=== PATIENT | male | born 1945 | race Caucasian/White ===

== ENCOUNTER 2017-08-10 06:02 | Day surgery (SDC) | payer MEDICARE, BC ==
[~2017-08-10 06:02] MED LIST: Gatifloxacin 0.5% Ophth Soln 2.5 ML Bot EYERT SCH; Sodium Chloride 0.9% 1,000 ML IV SCH; Sodium Chloride 0.9% 5 ML Syringe FLUSH PRN
[2017-08-10] MEDS: Phenylephrine 10% Ophth Soln 5 ML Bot EYERT SCH ×3 (06:12→06:34)
[2017-08-10] MEDS: Cyclopentolate 1% Opth Soln 2 ML Bottle EYERT SCH ×3 (06:18→06:39)
[2017-08-10] MEDS: Albuterol/Ipratropium 3.0-0.5 MG/3 ML Neb Soln NEB ONE ×2 (07:11→08:09)
[2017-08-10] MEDS ORDERED: Balanced Salt Solution Ophth Irrig 15 ML Bottle EYERT ONE (07:48)
[2017-08-10] MEDS ORDERED: Water For Irrigation,Sterile 1,500 ML Container IRR ONE (07:48)
[2017-08-10] MEDS ORDERED: Balanced Salt Solution Plus Ophth Irrig 500 ML Bottle IOCULAR ONE (07:49)
[2017-08-10] MEDS ORDERED: Carbachol 0.01% Intraocular 1.5 ML Vial EYERT ONE (07:49)
[2017-08-10] MEDS ORDERED: EPINEPHrine 1 MG/ML SDV ONE (07:49)
[2017-08-10] MEDS ORDERED: Dexamethasone/Neomycin/Polymyxin B Ophth Oint 3.5 GM Tube EYERT ONE (07:50)
[2017-08-10] MEDS ORDERED: Lidocaine 2% with EPINEPHrine 1:100,000 20 ML MDV INFILT ONE (07:51)
[2017-08-10] MEDS ORDERED: Lidocaine 1% 10 ML MDV INFILT ONE (07:51)
[2017-08-10] MEDS ORDERED: Hyaluronate Sodium 1% 0.85 ML Syringe IOCULAR ONE (07:52)
[2017-08-10 09:13] VITALS: BP 121/60
--- NOTE | 2017-08-11 08:17 | OR ---
DATE OF SURGERY: 08/10/2017 SURGEON: Tramaine Way MD PREOPERATIVE DIAGNOSIS: Cataract, right eye. POSTOPERATIVE DIAGNOSIS: Cataract, right eye. OPERATION PERFORMED: Phacoemulsification with posterior chamber lens insertion, right eye. FINDINGS: The patient was taken to the operating room where appropriate anesthesia, sedation and monitoring were provided. A retrobulbar block was given on the right side. The eye was massaged and was found to be appropriately soft. The eye and eyelids were then prepped and draped in the usual sterile manner. A lid speculum was placed. A micro sharp blade was used to enter the anterior chamber inside the limbus superior-temporally. Xylocaine was irrigated into the eye at this site. Healon was irrigated into the eye through this site. Then using a 2.85 mm corneal blade an entry was made into the anterior chamber just inside the limbus temporally. Healon was again irrigated into the eye. Then using a cystitome, the anterior capsulorrhexis was created. The lens nucleus was hydrodissected using a 27 gauge cannula and balanced salt solution. The phacoemulsification unit was introduced through the temporal site and the Kenneth spatula through the superior temporal site. In so doing, the lens nucleus was phacoemulsified. The cortical fragments of the lens were removed using the irrigation aspiration unit. The posterior capsule was polished. Healon was irrigated into the eye. The posterior chamber lens was inserted and rotated into position inside the capsular bag. The Healon was irrigated out of the eye. Miostat was irrigated into the eye and the pupil rounded nicely. A single interrupted 10-0 Nylon suture was placed through the temporal corneal incision site. Balanced salt solution was irrigated into the eye. The wound was tested and found to be tight. Maxitrol ointment was placed into the patient's right eye. The eyelids were closed and an eye patch and conway shield were placed. The patient left the operating room in good condition. /[id number]/MODL
== END 2017-08-10 08:50 | disposition home or self-care (01) ==
LOC: KA.SDS 06:02
PROVIDERS: ATTEND Ophthalmology
DX: H25.811 Combined forms of age-related cataract, right eye (principal); M19.011 Primary osteoarthritis, right shoulder; J44.9 Chronic obstructive pulmonary disease, unspecified; E11.9 Type 2 diabetes mellitus without complications; I48.2 Chronic atrial fibrillation; E79.0 Hyperuricemia without signs of inflammatory arthritis and tophaceous disease; D50.0 Iron deficiency anemia secondary to blood loss (chronic); M15.9 Polyosteoarthritis, unspecified; M81.0 Age-related osteoporosis without current pathological fracture; I10 Essential (primary) hypertension; I87.2 Venous insufficiency (chronic) (peripheral); E04.1 Nontoxic single thyroid nodule; L40.50 Arthropathic psoriasis, unspecified; E66.01 Morbid (severe) obesity due to excess calories; Z68.41 Body mass index [BMI] 40.0-44.9, adult; Z79.4 Long term (current) use of insulin; Z79.51 Long term (current) use of inhaled steroids; Z79.899 Other long term (current) drug therapy; Z88.0 Allergy status to penicillin; Z88.8 Allergy status to other drugs, medicaments and biological substances; Z99.81 Dependence on supplemental oxygen
CPT/HCPCS: 00142; 66984; 82962; A9270; J0171; J7030; V2632

== ENCOUNTER 2017-09-07 07:17 | Day surgery (SDC) | payer MEDICARE, BC ==
[~2017-09-07 07:17] MED LIST changes: +Gatifloxacin 0.5% Ophth Soln 2.5 ML Bot EYELF SCH; -Gatifloxacin 0.5% Ophth Soln 2.5 ML Bot EYERT SCH
[2017-09-07] MEDS ORDERED: Albuterol/Ipratropium 3.0-0.5 MG/3 ML Neb Soln NEB ONE (07:40)
[2017-09-07] MEDS: Phenylephrine 10% Ophth Soln 5 ML Bot EYELF SCH ×3 (07:58→08:28)
[2017-09-07] MEDS ORDERED: Midazolam 1 MG/ML 2 ML SDV IV ONE (09:15)
[2017-09-07] MEDS ORDERED: Midazolam 1 MG/ML 2 ML SDV ONE (09:28)
[2017-09-07] MEDS ORDERED: Balanced Salt Solution Plus Ophth Irrig 500 ML Bottle IOCULAR ONE (09:35)
[2017-09-07] MEDS ORDERED: Water For Irrigation,Sterile 1,500 ML Container IRR ONE (09:35)
[2017-09-07] MEDS ORDERED: Balanced Salt Solution Ophth Irrig 15 ML Bottle EYELF ONE (09:35)
[2017-09-07] MEDS ORDERED: Dexamethasone/Neomycin/Polymyxin B Ophth Oint 3.5 GM Tube EYELF ONE (09:36)
[2017-09-07] MEDS ORDERED: Carbachol 0.01% Intraocular 1.5 ML Vial EYELF ONE (09:36)
[2017-09-07] MEDS ORDERED: EPINEPHrine 1 MG/ML SDV ONE (09:36)
[2017-09-07] MEDS ORDERED: Lidocaine 1% 10 ML MDV INJECT ONE (09:37)
[2017-09-07] MEDS ORDERED: Hyaluronate Sodium 1% 0.85 ML Syringe IOCULAR ONE (09:37)
[2017-09-07] MEDS ORDERED: Tetracaine HCl/PF 0.5% 4 ML Bottle EYEBOTH ONE (09:37)
[2017-09-07] MEDS ORDERED: Lidocaine 2% with EPINEPHrine 1:100,000 20 ML MDV INJECT ONE (09:37)
[2017-09-07 10:00] VITALS: BP 134/65
--- NOTE | 2017-09-08 08:18 | OR ---
DATE OF SURGERY: 09/07/2017 SURGEON: Tramaine Way MD CHIEF COMPLAINT: Blurred vision of the left eye with difficulty seeing to be able to read. 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 OPERATION PERFORMED: Phacoemulsification with posterior chamber lens insertion, left eye. FINDINGS: The patient was taken to the operating room where appropriate anesthesia, sedation and monitoring were provided. A retrobulbar block was given on the left side. The eye was massaged and was found to be appropriately soft. The eye and eyelids were then prepped and draped in the usual sterile manner. A lid speculum was placed. A micro sharp blade was used to enter the anterior chamber inside the limbus inferior-temporally. Xylocaine was irrigated into the eye at this site. Healon was irrigated into the eye through this site. Then using a 2.85 mm corneal blade an entry was made into the anterior chamber just inside the limbus temporally. Healon was again irrigated into the eye. Then using a cystitome, the anterior capsulorrhexis was created. The lens nucleus was hydrodissected using a 27 gauge cannula and balanced salt solution. The phacoemulsification unit was introduced through the temporal site and the Kenneth spatula through the inferior temporal site. In so doing, the lens nucleus was phacoemulsified. The cortical fragments of the lens were removed using the irrigation aspiration unit. The posterior capsule was polished. Healon was irrigated into the eye. The posterior chamber lens was inserted and rotated into position inside the capsular bag. The Healon was irrigated out of the eye. Miostat was irrigated into the eye and the pupil rounded nicely. A single interrupted 10-0 Nylon suture was placed through the temporal corneal incision site. Balanced salt solution was irrigated into the eye. The wound was tested and found to be tight. Maxitrol ointment was placed into the patient's left eye. The eyelids were closed and an eye patch and conway shield were placed. The patient left the operating room in good condition. /[id number]/MODL
== END 2017-09-07 10:07 | disposition home or self-care (01) ==
LOC: KA.SDS 07:17
PROVIDERS: ATTEND Ophthalmology
DX: H25.812 Combined forms of age-related cataract, left eye (principal); I48.2 Chronic atrial fibrillation; J44.9 Chronic obstructive pulmonary disease, unspecified; E11.49 Type 2 diabetes mellitus with other diabetic neurological complication; N18.9 Chronic kidney disease, unspecified; I12.9 Hypertensive chronic kidney disease with stage 1 through stage 4 chronic kidney disease, or unspecified chronic kidney disease; E11.22 Type 2 diabetes mellitus with diabetic chronic kidney disease; E66.01 Morbid (severe) obesity due to excess calories; Z68.41 Body mass index [BMI] 40.0-44.9, adult; Z79.84 Long term (current) use of oral hypoglycemic drugs; Z79.899 Other long term (current) drug therapy; Z88.0 Allergy status to penicillin; Z91.09 Other allergy status, other than to drugs and biological substances
CPT/HCPCS: 66984; 82962; A9270; J0171; J2250; J7030; 00142; V2632

== ENCOUNTER 2018-10-24 02:30 | Emergency (ER) | payer MEDICARE, BC ==
[2018-10-24] MEDS ORDERED: Oxymetazoline 0.05% Nasal Spray 15 ML Bottle ONE (02:48)
[2018-10-24] MEDS ORDERED: Oxymetazoline 0.05% Nasal Spray 15 ML Bottle NAS ONE (02:50)
--- NOTE | 2018-10-24 03:07 | EDM.PDOC ---
ED HPI GENERAL MEDICAL PROBLEM - General Chief Complaint: ENT Problem Stated Complaint: nose bleed Time Seen by Provider: 10/24/18 03:01 Source of Information: Reports: Patient History Limitations: Reports: No Limitations - History of Present Illness INITIAL COMMENTS - FREE TEXT/NARRATIVE: Patient is a 72-year-old gentleman who presents to the emergency department this morning with a complaint of nosebleed. 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 Patient was placed on 2 different anticoagulation medicines. At about 10 p.m. last evening. Patient developed nosebleed from the right nostril. Patient states that he used pressure and tissue but was unable to stop bleeding. Decided to present to the emergency department. Patient has a chronic history of intermittent nosebleeds. Patient denies any trauma, bleeding from gums, stool, or dark urine , fever, difficulty swallowing, chest pain, shortness of breath, nausea, vomiting, or headache. Onset: Gradual Onset Date: 10/23/18 Onset Time: 22:00 Duration: Hour(s): Location: Reports: Other (Right nostril) Improves with: Reports: None Worsens with: Reports: None Context: Denies: Trauma Associated Symptoms: Reports: No Other Symptoms - Related Data Allergies Allergy/AdvReac Type Severity Reaction Status Date / Time adhesive Allergy Itching Verified 09/02/18 15:54 latex Allergy Rash Verified 09/02/18 15:54 Penicillins Allergy Rash Verified 09/02/18 15:54 Home Meds: Home Meds Albuterol [Ventolin HFA] 2 puff INH Q4H PRN 12/23/13 [History] Benazepril [Lotensin] 20 mg PO DAILY 12/23/13 [History] Cholecalciferol (Vitamin D3) [Vitamin D3] 1,000 unit PO DAILY 12/23/13 [History] Insulin Detemir [Levemir] 70 unit SQ 0500 12/23/13 [History] Potassium Chloride 10 meq PO DAILY 12/23/13 [History] metFORMIN [Glucophage] 500 mg PO BIDM 12/23/13 [History] Denosumab [Prolia] 60 mg INJECT ASDIRECTED 07/09/15 [History] rOPINIRole HCl [Requip] 0.25 mg PO TID 07/09/15 [History] Ferrous Sulfate 325 mg PO BID 01/24/16 [History] Calcium Carbonate/Vitamin D3 [Calcium 600-Vit D3 400 Tablet] 1 tab PO BID [History] Furosemide 80 mg PO 1700 06/18/16 [History] Allopurinol [Zyloprim] 150 mg PO DAILY 07/21/16 [History] Betamethasone Valerate [IJD: Valisone 0.1% Crm] 1 applic TOP BID PRN 07/21/16 [ History] Mineral Oil/Petrolatum,White [Artificial Tears Eye Ointment] 1 applic OP Q6H PRN 07/21/16 [History] Montelukast [Singulair] 10 mg PO BEDTIME 07/21/16 [History] Acetaminophen [Arthritis Pain Relief] 650 mg PO BID PRN 08/09/17 [History] Gabapentin [Neurontin] 100 mg PO TID 08/09/17 [History] Omeprazole 20 mg PO DAILY 08/09/17 [History] traMADol [Ultram] 50 mg PO BEDTIME 08/09/17 [History] Dextromethorphan/guaiFENesin [Robitussin DM] 10 ml PO TID PRN 09/02/18 [History] atorvaSTATin [Lipitor] 10 mg PO DAILY 09/02/18 [History] Diltiazem HCl [Diltiazem 24Hr ER] 120 mg PO DAILY 09/03/18 [History] Albuterol/Ipratropium [DuoNeb 3.0-0.5 MG/3 ML] 1 dose NEB Q6H PRN #30 09/06/18 [ Rx] Fluticasone/Umeclidin/Vilanter [Trelegy Ellipta 100-62.5-25 MCG] 1 puff INH DAILY #1 inhaler 09/06/18 [Rx] Levofloxacin 750 mg PO Q48H #3 tablet 09/06/18 [Rx] Past Medical History HEENT History: Reports: Cataract, Hard of Hearing, Impaired Vision Cardiovascular History: Reports: Afib, Blood Clots/VTE/DVT, Heart Failure, Hypertension Respiratory History: Reports: Asthma, COPD, Sleep Apnea, SOB Gastrointestinal History: Reports: Chronic Constipation, GERD, GI Bleed, Hemorrhoids Genitourinary History: Reports: Prostate Disorder Musculoskeletal History: Reports: Arthritis, Gout, Osteoporosis Neurological History: Reports: Other (See Below) Other Neuro History: Restless legs Endocrine/Metabolic History: Reports: Diabetes, Type II, Obesity/BMI 30+ Hematologic History: Reports: Blood Transfusion(s), Iron Deficiency Dermatologic History: Reports: Other (See Below) Other Dermatologic History: Rash. Rash noted on bilat arms. - Infectious Disease History Infectious Disease History: Reports: None - Past Surgical History HEENT Surgical History: Reports: Cataract Surgery, Oral Surgery Other Cardiovascular Surgeries/Procedures: Angiogram performed on June 25, 2015 Respiratory Surgical History: Reports: None GI Surgical History: Reports: Colonoscopy, EGD, Hernia, Inguinal Endocrine Surgical History: Reports: None Musculoskeletal Surgical History: Reports: Knee Replacement Other Musculoskeletal Surgeries/Procedures:: bilateral knee replacement Oncologic Surgical History: Reports: Bone Marrow Aspiration Social & Family History - Family History Family Medical History: Noncontributory HEENT: Reports: None - Caffeine Use Caffeine Use: Reports: Coffee ED ROS ENT - Review of Systems Review Of Systems: ROS reveals no pertinent complaints other than HPI. Constitutional: Reports: No Symptoms HEENT: Reports: Nosebleed Respiratory: Reports: No Symptoms Cardiovascular: Reports: No Symptoms Endocrine: Reports: No Symptoms GI/Abdominal: Reports: No Symptoms : Reports: No Symptoms Musculoskeletal: Reports: No Symptoms Skin: Reports: No Symptoms Neurological: Reports: No Symptoms Psychiatric: Reports: No Symptoms Hematologic/Lymphatic: Reports: No Symptoms Immunologic: Reports: No Symptoms ED EXAM, ENT - Physical Exam Exam: See Below Exam Limited By: No Limitations General Appearance: Alert, WD/WN, No Apparent Distress Eye Exam: Bilateral Eye: Normal Inspection Nose: Active Bleeding, Other (Right nare visualized anterior bleeding). No: Septal Deformity, Septal Hematoma, Septal Perforation Mouth/Throat: Normal Inspection, Normal Oropharynx Head: Atraumatic, Normocephalic Neck: Normal Inspection. No: Lymphadenopathy (L), Lymphadenopathy (R) Respiratory/Chest: No Respiratory Distress, Lungs Clear, Normal Breath Sounds Extremities: Normal Inspection, No Pedal Edema Neurological: Alert, Oriented, Normal Cognition Psychiatric: Normal Affect, Normal Mood Skin: Warm, Dry, Intact, Normal Color, No Rash Lymphatic: No Adenopathy ED ENT PROCEDURES - Epistaxis Procedure Indication: Epistaxis, Uncontrolled Recent anticoagulants/antiplatlets: Yes Uncontrolled HTN: No Recent septal/nasal surgery: No Site of bleeding: Right Nare, Anterior Topical Meds: Phenylephrine Ice pack to area: Yes Anterior Packing: Inflatable Nasal Tampon Complications: No Course - Orders/Labs/Meds Meds: Medications Discontinued Medications Generic Name Dose Route Start Last Admin Trade Name Jae PRN Reason Stop Dose Admin Oxymetazoline HCl Confirm 10/24/18 02:48 Afrin Original 0.05% Nasal [place] Administered 10/24/18 02:49 Dose 15 ml .ROUTE .STK-MED ONE - Re-Assessments/Exams Free Text/Narrative Re-Assessment/Exam: 10/24/18 03:10 Patient afebrile, vital signs stable, inflatable nasal tampon placed in right nare. Patient tolerated procedure well. Hemostasis achieved. Patient has appointment today at [facility]. Nasal tampon will remain in place for evaluation later today. Departure - Departure Time of Disposition: 03:12 Disposition: Home, Self-Care 01 Condition: Good Clinical Impression: Epistaxis - Discharge Information Instructions: Nosebleed, [id number] Referrals: Héctor Cisneros, [employer] [employer] [Nurse Practitioner] - Additional Instructions: Follow-up at [facility] today as scheduled. Do not remove nasal tampon until seen by [place] provider. Return to emergency department sooner if symptoms continue or worsen. - Assessment/Plan Assessment:: Epistaxis Plan: Follow-up at clinic today
[2018-10-24 04:10] VITALS: BP 112/49
== END 2018-10-24 03:30 | disposition home or self-care (01) ==
LOC: KA.ED 02:30
DX: R04.0 Epistaxis (principal); I11.0 Hypertensive heart disease with heart failure; I50.9 Heart failure, unspecified; J44.9 Chronic obstructive pulmonary disease, unspecified; E66.9 Obesity, unspecified; E11.9 Type 2 diabetes mellitus without complications; Z91.048 Other nonmedicinal substance allergy status; Z88.0 Allergy status to penicillin; Z91.040 Latex allergy status; Z79.899 Other long term (current) drug therapy
CPT/HCPCS: 30901; 99283; A9270-GY

== ENCOUNTER 2018-10-25 23:30 | Emergency (ER) | payer MEDICARE, BC ==
[2018-10-25 23:41] VITALS: BP 138/76
[2018-10-25] MEDS: Oxymetazoline 0.05% Nasal Spray 15 ML Bottle NAS ONE (23:50)
--- NOTE | 2018-10-26 00:03 | EDM.PDOC ---
ED HPI GENERAL MEDICAL PROBLEM - General Chief Complaint: ENT Problem Stated Complaint: NOSEBLEED Time Seen by Provider: 10/25/18 23:58 Source of Information: Reports: Patient History Limitations: Reports: No Limitations - History of Present Illness INITIAL COMMENTS - FREE TEXT/NARRATIVE: Patient is 72-year-old gentleman who presents to the emergency department this evening with a complaint of nosebleed. Patient was seen earlier this morning for the same. Rhino Rocket was placed in the right naris for hemostasis. Patient was seen at [facility] today and Rhino Rocket was removed. Patient states that at approximately 10 p.m. this evening nose started bleeding again. Patient denies any trauma, chest pain, shortness of breath, or bleeding anywhere else. Onset: Today Onset Date: 10/25/18 Onset Time: 22:00 Duration: Hour(s): Location: Reports: Other (Right nare) Severity: Mild Improves with: Reports: None Worsens with: Reports: None Context: Denies: Trauma Associated Symptoms: Reports: No Other Symptoms Bilateral Shoulder Pain Score (Numeric/FACES): 3 - Related Data Allergies Allergy/AdvReac Type Severity Reaction Status Date / Time adhesive Allergy Itching Verified 10/25/18 23:41 latex Allergy Rash Verified 10/25/18 23:41 Penicillins Allergy Rash Verified 10/25/18 23:41 Home Meds: Home Meds Albuterol [Ventolin HFA] 2 puff INH Q4H PRN 12/23/13 [History] Benazepril [Lotensin] 20 mg PO DAILY 12/23/13 [History] Cholecalciferol (Vitamin D3) [Vitamin D3] 1,000 unit PO DAILY 12/23/13 [History] Insulin Detemir [Levemir] 70 unit SQ 0500 12/23/13 [History] Potassium Chloride 10 meq PO DAILY 12/23/13 [History] metFORMIN [Glucophage] 500 mg PO BIDM 12/23/13 [History] Denosumab [Prolia] 60 mg INJECT ASDIRECTED 07/09/15 [History] rOPINIRole HCl [Requip] 0.25 mg PO TID 07/09/15 [History] Ferrous Sulfate 325 mg PO BID 01/24/16 [History] Calcium Carbonate/Vitamin D3 [Calcium 600-Vit D3 400 Tablet] 1 tab PO BID [History] Furosemide 80 mg PO 1700 06/18/16 [History] Allopurinol [Zyloprim] 150 mg PO DAILY 07/21/16 [History] Betamethasone Valerate [IJD: Valisone 0.1% Crm] 1 applic TOP BID PRN 07/21/16 [ History] Mineral Oil/Petrolatum,White [Artificial Tears Eye Ointment] 1 applic OP Q6H PRN 07/21/16 [History] Montelukast [Singulair] 10 mg PO BEDTIME 07/21/16 [History] Acetaminophen [Arthritis Pain Relief] 650 mg PO BID PRN 08/09/17 [History] Gabapentin [Neurontin] 100 mg PO TID 08/09/17 [History] Omeprazole 20 mg PO DAILY 08/09/17 [History] traMADol [Ultram] 50 mg PO BEDTIME 08/09/17 [History] Dextromethorphan/guaiFENesin [Robitussin DM] 10 ml PO TID PRN 09/02/18 [History] atorvaSTATin [Lipitor] 10 mg PO DAILY 09/02/18 [History] Diltiazem HCl [Diltiazem 24Hr ER] 120 mg PO DAILY 09/03/18 [History] Albuterol/Ipratropium [DuoNeb 3.0-0.5 MG/3 ML] 1 dose NEB Q6H PRN #30 09/06/18 [ Rx] Fluticasone/Umeclidin/Vilanter [Trelegy Ellipta 100-62.5-25 MCG] 1 puff INH DAILY #1 inhaler 09/06/18 [Rx] Apixaban [Eliquis] 5 mg PO BID 10/24/18 [History] Aspirin [Halfprin] 81 mg PO DAILY 10/24/18 [History] Past Medical History HEENT History: Reports: Cataract, Hard of Hearing, Impaired Vision Cardiovascular History: Reports: Afib, Blood Clots/VTE/DVT, Heart Failure, Hypertension Respiratory History: Reports: Asthma, COPD, Sleep Apnea, SOB Gastrointestinal History: Reports: Chronic Constipation, GERD, GI Bleed, Hemorrhoids Genitourinary History: Reports: Prostate Disorder Musculoskeletal History: Reports: Arthritis, Gout, Osteoporosis Neurological History: Reports: Other (See Below) Other Neuro History: Restless legs Endocrine/Metabolic History: Reports: Diabetes, Type II, Obesity/BMI 30+ Hematologic History: Reports: Blood Transfusion(s), Iron Deficiency Dermatologic History: Reports: Other (See Below) Other Dermatologic History: Rash. Rash noted on bilat arms. - Infectious Disease History Infectious Disease History: Reports: None - Past Surgical History HEENT Surgical History: Reports: Cataract Surgery, Oral Surgery Cardiovascular Surgical History: Reports: Other (See Below) Other Cardiovascular Surgeries/Procedures: Angiogram performed on June 25, 2015, Mayur Filter placed on 10-18-18. Respiratory Surgical History: Reports: None GI Surgical History: Reports: Colonoscopy, EGD, Hernia, Inguinal Endocrine Surgical History: Reports: None Musculoskeletal Surgical History: Reports: Knee Replacement Other Musculoskeletal Surgeries/Procedures:: bilateral knee replacement Oncologic Surgical History: Reports: Bone Marrow Aspiration Social & Family History - Family History Family Medical History: Noncontributory HEENT: Reports: None - Caffeine Use Caffeine Use: Reports: Coffee ED ROS ENT - Review of Systems Review Of Systems: ROS reveals no pertinent complaints other than HPI. Constitutional: Reports: No Symptoms HEENT: Reports: Nosebleed Respiratory: Reports: No Symptoms Cardiovascular: Reports: No Symptoms Endocrine: Reports: No Symptoms GI/Abdominal: Reports: No Symptoms : Reports: No Symptoms Musculoskeletal: Reports: No Symptoms Skin: Reports: No Symptoms Neurological: Reports: No Symptoms Psychiatric: Reports: No Symptoms Hematologic/Lymphatic: Reports: No Symptoms Immunologic: Reports: No Symptoms ED EXAM, ENT - Physical Exam Exam: See Below Exam Limited By: No Limitations General Appearance: Alert, WD/WN, No Apparent Distress Nose: Active Bleeding (Anterior right nare). No: Septal Hematoma, Septal Perforation Mouth/Throat: Normal Inspection, Normal Oropharynx Head: Atraumatic, Normocephalic Neck: Normal Inspection, Supple Respiratory/Chest: No Respiratory Distress, Lungs Clear, Normal Breath Sounds Cardiovascular: Regular Rate, Rhythm GI/Abdominal: Normal Bowel Sounds, Soft Neurological: Alert, Oriented, Normal Cognition Psychiatric: Normal Affect, Normal Mood Skin: Warm, Dry, Intact, Normal Color, No Rash Lymphatic: No Adenopathy ED ENT PROCEDURES - Epistaxis Procedure Indication: Epistaxis, Controlled Recent anticoagulants/antiplatlets: Yes Uncontrolled HTN: No Recent septal/nasal surgery: No Site of bleeding: Right Nare Topical Meds: Phenylephrine Anterior Packing: Inflatable Nasal Tampon Complications: No Course - Vital Signs Last Recorded V/S: Last Vital Signs Temp 99.8 F 10/25/18 23:38 Pulse 108 H 10/25/18 23:38 Resp 20 10/25/18 23:38 BP 138/76 10/25/18 23:38 Pulse Ox 96 10/25/18 23:38 - Orders/Labs/Meds Meds: Medications Discontinued Medications Generic Name Dose Route Start Last Admin Trade Name Jae PRN Reason Stop Dose Admin Oxymetazoline HCl Confirm 10/25/18 23:49 Afrin Original 0.05% Nasal [place] Administered 10/25/18 23:50 Dose 15 ml .ROUTE .STK-MED ONE - Re-Assessments/Exams Free Text/Narrative Re-Assessment/Exam: 10/26/18 00:04 Patient afebrile, vital signs stable. Rhino Rocket was placed in right naris for hemostasis. Patient will follow-up at [facility] for ENT referral Departure - Departure Time of Disposition: 00:05 Disposition: Home, Self-Care 01 Condition: Good Clinical Impression: Epistaxis - Discharge Information Instructions: Nosebleed, [id number] Additional Instructions: Follow-up at [facility] tomorrow for ENT referral. Return to emergency department sooner if symptoms continue or worsen. - Assessment/Plan Assessment:: Epistaxis Plan: Follow-up with ENT
[2018-10-26] MEDS: Oxymetazoline 0.05% Nasal Spray 15 ML Bottle ONE (00:32)
== END 2018-10-26 00:15 | disposition home or self-care (01) ==
LOC: KA.ED 23:30
DX: R04.0 Epistaxis (principal); I10 Essential (primary) hypertension; E11.9 Type 2 diabetes mellitus without complications; E66.9 Obesity, unspecified; Z91.048 Other nonmedicinal substance allergy status; Z91.040 Latex allergy status; Z88.0 Allergy status to penicillin
CPT/HCPCS: 30901; 99283; A9270-GY

== ENCOUNTER 2019-02-24 12:07 | Observation (INO) | payer MEDICARE, BC ==
[2019-02-24] MEDS ORDERED: Acetaminophen 650 MG Tab.ER PO PRN (12:55)
[2019-02-24] MEDS ORDERED: Hydrocortisone 1% Crm 30 GM Tube TOP PRN (12:55)
[2019-02-24] MEDS ORDERED: guaiFENesin/Dextromethorphan 100-10 MG/5 ML Soln 5 ML Cup PO PRN (12:55)
[2019-02-24] MEDS ORDERED: Albuterol 8 GM Inhaler INH PRN (12:55)
[2019-02-24] MEDS ORDERED: Dulaglutide [Trulicity] 0.75 MG SUBCUT SCH (13:00)
[2019-02-24] MEDS ORDERED: Sodium Chloride 0.9% 10 ML Syringe FLUSH PRN (13:08)
[2019-02-24] MEDS ORDERED: Carboxymethylcellulose Sodium 0.5% Ophth Soln 15 ML Bottle EYEBOTH PRN (15:48)
[2019-02-24] MEDS ORDERED: hydrOXYzine HCl 25 MG Tab PO PRN (15:48)
[2019-02-24] MEDS: Insulin Aspart 100 Units/ML 3 ML Pen SUBCUT SCH ×2 (18:49→21:41)
[2019-02-24] MEDS: Calcium Citrate/Vitamin D3 315 MG-250 Unit Tab PO SCH (20:46)
[2019-02-24] MEDS ORDERED: rOPINIRole 0.25 MG Tab PO SCH (21:00)
[2019-02-24] MEDS ORDERED: Montelukast 10 MG Tab PO SCH (21:00)
[2019-02-24] MEDS ORDERED: Triamcinolone Acetonide 0.1% Crm 15 GM Tube TOP SCH (21:00)
[2019-02-24] MEDS ORDERED: traMADol 50 MG Tab PO SCH (21:00)
[2019-02-25 06:05] VITALS: BP 130/82
[2019-02-25] MEDS ORDERED: Potassium Chloride 10 MEQ Tab.ER PO SCH (09:00)
[2019-02-25] MEDS ORDERED: Allopurinol 100 MG Tab PO SCH (09:00)
[2019-02-25] MEDS ORDERED: atorvaSTATin 10 MG Tab PO SCH (09:00)
[2019-02-25] MEDS ORDERED: Ferrous Sulfate 325 MG Tab PO SCH (09:00)
[2019-02-25] MEDS ORDERED: rOPINIRole 0.25 MG Tab PO SCH (09:00)
[2019-02-25] MEDS: Insulin Aspart 100 Units/ML 3 ML Pen SUBCUT SCH (09:15)
[2019-02-25] MEDS: Calcium Citrate/Vitamin D3 315 MG-250 Unit Tab PO SCH (09:16)
--- NOTE | 2019-02-25 12:07 | PCM.DCSUM1 ---
Discharge Summary - Hospital Course Diagnosis: Stroke: No - Discharge Data Discharge Date: 02/25/19 Discharge Disposition: Home, Self-Care 01 Condition: Good - Discharge Diagnosis/Problem(s) (1) Epistaxis SNOMED Code(s): 967540000 ICD Code: R04.0 - EPISTAXIS Status: Acute Current Visit: No Onset Date : ~02/24/19 Problem Details: Pt is on plavix anticoagulation for AFib and has had epistaxis in the past. He was seen 02/24/19 with epistaxis from both nostrils that started at 2 am. Had rhino rocket placed and continued with bleeding, cautery was performed, packing placed and the bleeding did stop. - Patient Summary/Data Recommended Follow-up Testing/Procedures: Pt is to follow up on Wednesday02/28/19 to recheck HGB, BP, evaluate restarting cardizem, lasix, potassium, benazepril, which were stopped on admission to the hospital. Hospital Course: Pt was admitted to the hospital for observation 02/24/19 after an episode of epistaxis 02/24/19 with bleeding from both nostrils that started at 2 am. He had rhino rocket placed and continued with bleeding, cautery was performed, packing placed and the bleeding did stop. On morning of discharge, packing was removed, he denies any nasal or post nasal bleeding. Sputum is clear. Pt has Afib and is on plavix for anticoagulation and cardizem for rate control. He has had epistaxis in the past. He has significant anemia and has had iron infusions. He is on iron tabs daily. Reports his stools continue dark color, unchanged. His plavix has been discontinued and pt has been informed of risk and is in agreement. Cardizem is being held due to hypotension post epistaxis. Heart rate was 100 on discharge. Will re evaluate ability to restart this on follow up visit in 3 days time. 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 He is not on ASA due to history of GI bleed. He was to continue plavix until 04/17/19 after that procedure, however, due to recurrent epistaxis, the plavix will be discontinued. Pt has right sided heart failure with pulmonary hypertension. He was on lasix 80 mg one day alternating with 80 mg bid. This is being held due to hypotension , related to epistaxis and anemia. Pt has diabetes and is on Trulicity. He reports he checks his blood sugars tid and if all 3 blood sugars are > 140 in a day, he gives himself levemir 55 units. However, he states he has only used the levemir about 3 times since starting the trulicity. Pt has COPD and is on trelegy Ellipta inhaler, montelukast and albuterol. Pt has osteoarthritis managed with tramadol at hs. - Patient Instructions Diet: Diabetic Diet Activity: As Tolerated Driving: Do Not Drive Showering/Bathing: May Shower Other/Special Instructions: Shortness of breath, recurrence of nose bleed - Discharge Plan *PRESCRIPTION DRUG MONITORING PROGRAM REVIEWED*: Yes (on [place] chart) *COPY OF PRESCRIPTION DRUG MONITORING REPORT IN PATIENT MAX: No Home Medications: Home Meds Albuterol [Ventolin HFA] 2 puff INH Q4H PRN 12/23/13 [History] Cholecalciferol (Vitamin D3) [Vitamin D3] 1,000 unit PO BID 12/23/13 [History] rOPINIRole HCl [Requip] 0.25 mg PO 0900,1400 07/09/15 [History] Calcium Carbonate/Vitamin D3 [Calcium 600-Vit D3 400 Tablet] 1 tab PO BID [History] Allopurinol [Zyloprim] 150 mg PO DAILY 07/21/16 [History] Montelukast [Singulair] 10 mg PO BEDTIME 07/21/16 [History] Acetaminophen [Arthritis Pain Relief] 650 mg PO BID PRN 08/09/17 [History] traMADol [Ultram] 50 mg PO BEDTIME 08/09/17 [History] Dextromethorphan/guaiFENesin [Robitussin DM] 10 ml PO TID PRN 09/02/18 [History] atorvaSTATin [Lipitor] 10 mg PO DAILY 09/02/18 [History] Fluticasone/Umeclidin/Vilanter [Trelegy Ellipta 100-62.5-25 MCG] 1 puff INH DAILY #1 inhaler 09/06/18 [Rx] Dulaglutide [Trulicity] 0.75 mg PO WEEKLY 01/20/19 [History] Hydrocortisone [Hydrocortisone 1% Crm] 1 applic TOP BID PRN 01/20/19 [History] Insulin Detemir [Levemir] 55 units PO DAILY@0400 01/20/19 [History] Triamcinolone Acetonide [Triamcinolone Acetonide 0.1% Crm] 1 applic TOP BID [History] rOPINIRole HCl [Requip] 0.75 mg PO BEDTIME 01/20/19 [History] Dextran 70/Hypromellose [Artificial Tears] 1 drop EYEBOTH Q4H PRN 02/24/19 [ History] Ferrous Sulfate 325 mg PO DAILY 02/24/19 [History] hydrOXYzine HCl [Atarax] 25 mg PO TID PRN 02/24/19 [History] Insulin Aspart [NovoLOG] 0 unit SUBCUT WITHMEALSANDBED pen 02/25/19 [Rx] Patient Handouts: Nosebleed, Adult, Nosebleed, [id number] Referrals: Héctor Cisneros, EDUCATION ASSISTANT [Primary Care Provider] - 02/28/19 (follow up in Clinic -- Matias or Theodore on Wednesday with labs and evaluation re: restarting antihypertensives) - Discharge Summary/Plan Comment DC Time >30 min.: Yes Discharge Summary/Plan Comment: Follow up in clinic 02/28/19 re: Anemia: recheck hgb Afib: evaluate ability to restart cardizem for rate control and hypertension management. Right sided heart failure: evaluate ability to restart lasix (and potassium) which is held for hypotension post epistaxis. Hypertension: re: need to restart benazapril. - General Info Date of Service: 02/25/19 Admission Dx/Problem (Free Text: epistaxis Anemia Afib on anticoagulation Hypotension post Epistaxis Subjective Update: Pt reports he is feeling back to his baseline. No further bleeding. No post nasal drainage. Sputum is clear. Stools unchanged from his normal dark stools while on iron. Functional Status: Reports: Pain Controlled (chronic arthritis pain) - Review of Systems General: Reports: No Symptoms HEENT: Reports: No Symptoms Pulmonary: Reports: No Symptoms. Denies: Shortness of Breath Cardiovascular: Reports: No Symptoms, Dyspnea on Exertion (chronic TIDWELL). Denies : Chest Pain, Palpitations, Orthopnea, Lightheadedness Gastrointestinal: Reports: No Symptoms, Other (Chronic dark stools) Musculoskeletal: Reports: Back Pain (chronic back pain) Neurological: Reports: No Symptoms Psychiatric: Reports: No Symptoms - Patient Data Vitals - Most Recent: Last Vital Signs Temp 98.5 F 02/25/19 06:00 Pulse 98 02/25/19 06:00 Resp 20 02/25/19 06:00 BP 130/82 02/25/19 06:00 Pulse Ox 92 L 02/25/19 06:00 Weight - Most Recent: 221 lb 2 oz I&O - Last 24 hours: Intake & Output 02/24/19 02/25/19 02/25/19 22:59 06:59 14:59 Intake Total 750 50 Output Total 600 1200 Balance 150 -1150 Lab Results - Last 24 hrs: Laboratory Results - last 24 hr 02/24/19 02/24/19 02/24/19 Range/Units 13:55 17:23 21:09 WBC (5.00-10.00) 10^3/uL RBC (4.50-6.00) 10^6/uL Hgb (13.0-17.0) g/dL Hct (40.0-52.0) % MCV (82.0-92.0) fL MCH (27.0-31.0) pg MCHC (32.0-36.0) g/dL RDW (11.5-14.5) % Plt Count (150-400) 10^3/uL MPV (7.4-10.4) fL Immature Gran % (Auto) (0.0-5.0) % Neut % (Auto) (50.0-70.0) % Lymph % (Auto) (20.0-40.0) % Anderson % (Auto) (2.0-8.0) % Eos % (Auto) (1.0-3.0) % Baso % (Auto) (0.0-1.0) % Immature Gran # (Auto) (0.00-0.50) 10^3/uL Neut # (Auto) (2.50-7.00) 10^3/uL Lymph # (Auto) (1.00-4.00) 10^3/uL Anderson # (Auto) (0.10-0.80) 10^3/uL Eos # (Auto) (0.10-0.30) 10^3/uL Baso # (Auto) (0.00-0.10) 10^3/uL POC Glucose 113 H 182 H (74-106) mg/dl Blood Type A POSITIVE Gel Antibody Screen Negative Crossmatch See Detail 02/25/19 02/25/19 Range/Units 07:35 07:42 WBC 6.45 (5.00-10.00) 10^3/uL RBC 3.21 L (4.50-6.00) 10^6/uL Hgb 7.9 L (13.0-17.0) g/dL Hct 27.0 L (40.0-52.0) % MCV 84.1 D (82.0-92.0) fL MCH 24.6 L (27.0-31.0) pg MCHC 29.3 L (32.0-36.0) g/dL RDW 21.7 H (11.5-14.5) % Plt Count 172 D (150-400) 10^3/uL MPV 9.3 (7.4-10.4) fL Immature Gran % (Auto) 0.2 (0.0-5.0) % Neut % (Auto) 63.6 (50.0-70.0) % Lymph % (Auto) 17.4 L (20.0-40.0) % Anderson % (Auto) 11.6 H (2.0-8.0) % Eos % (Auto) 6.4 H (1.0-3.0) % Baso % (Auto) 0.8 (0.0-1.0) % Immature Gran # (Auto) 0.01 (0.00-0.50) 10^3/uL Neut # (Auto) 4.11 (2.50-7.00) 10^3/uL Lymph # (Auto) 1.12 (1.00-4.00) 10^3/uL Anderson # (Auto) 0.75 (0.10-0.80) 10^3/uL Eos # (Auto) 0.41 H (0.10-0.30) 10^3/uL Baso # (Auto) 0.05 (0.00-0.10) 10^3/uL POC Glucose 131 H (74-106) mg/dl Blood Type Gel Antibody Screen Crossmatch Med Orders - Current: Current Medications Acetaminophen (Tylenol Arthritis Pain) 650 mg PO BID PRN PRN Reason: Pain Albuterol (Ventolin Hfa) 0 gm INH Q4H PRN PRN Reason: difficulty breathing Allopurinol (Zyloprim) 150 mg PO DAILY [facility] Last Admin: 02/25/19 09:17 Dose: 150 mg Artificial Tears (Refresh Tears 0.5%) 0 ml EYEBOTH Q4H PRN PRN Reason: Dry Eyes Atorvastatin Calcium (Lipitor) 10 mg PO DAILY [facility] Last Admin: 02/25/19 09:16 Dose: 10 mg Calcium Citrate (Calcium Citrate + D) 2 tab PO BID [facility] Last Admin: 02/25/19 09:16 Dose: 2 tab Ferrous Sulfate (Ferrous Sulfate) 325 mg PO DAILY [facility] Last Admin: 02/25/19 09:16 Dose: 325 mg Guaifenesin/Phenylephrine HCl (Robitussin Dm) 10 ml PO TID PRN PRN Reason: Cough Hydrocortisone (Hydrocortisone 1% Crm) 0 gm TOP BID PRN PRN Reason: Rash Hydroxyzine HCl (Atarax) 25 mg PO TID PRN PRN Reason: Itching Insulin Aspart (Novolog) 0 unit SUBCUT WITHMEALSANDBED [facility]; Protocol Last Admin: 02/25/19 09:15 Dose: Not Given Montelukast Sodium (Singulair) 10 mg PO BEDTIME [facility] Last Admin: 02/24/19 20:47 Dose: 10 mg Dulaglutide [ (Trulicity] 0.75 Mg) 0.75 mg SUBCUT [facility] Trelegy Ellipta 100- (62.5-25 Mcg) 1 each INH DAILY [facility] Potassium Chloride (Klor-Con 10) 10 meq PO DAILY [facility] Last Admin: 02/25/19 09:16 Dose: 10 meq Ropinirole HCl (Requip) 0.25 mg PO 0900,1400 [facility] Last Admin: 02/25/19 09:17 Dose: 0.25 mg Ropinirole HCl (Requip) 0.75 mg PO BEDTIME [facility] Last Admin: 02/24/19 20:47 Dose: 0.75 mg Sodium Chloride (Saline Flush) 10 ml FLUSH Q8HR PRN PRN Reason: keep vein open Tramadol HCl (Ultram) 50 mg PO BEDTIME [facility] Last Admin: 02/24/19 20:47 Dose: 50 mg Triamcinolone Acetonide (Triamcinolone Acetonide 0.1% Crm) 0 gm TOP BID [facility] Last Admin: 02/24/19 20:47 Dose: 1 applic - Exam General: Reports: Alert, Oriented Neck: Reports: Supple Lungs: Reports: Clear to Auscultation. Denies: Decreased Breath Sounds, Crackles, Rales, Rhonchi Cardiovascular: Reports: Irregular Rhythm (heart rate 100) GI/Abdominal Exam: Soft, Non-Tender Extremities: Normal Inspection, No Pedal Edema Psy/Mental Status: Reports: Alert, Normal Affect, Normal Mood
== END 2019-02-25 11:25 | disposition home or self-care (01) ==
LOC: KA.MS 12:07
PROVIDERS: ADMIT Family Medicine; ATTEND Family Medicine
DX: R04.0 Epistaxis (principal); I48.2 Chronic atrial fibrillation; I95.9 Hypotension, unspecified; I13.0 Hypertensive heart and chronic kidney disease with heart failure and stage 1 through stage 4 chronic kidney disease, or unspecified chronic kidney disease; E11.22 Type 2 diabetes mellitus with diabetic chronic kidney disease; N18.3 Chronic kidney disease, stage 3 (moderate); I50.810 Right heart failure, unspecified; I27.20 Pulmonary hypertension, unspecified; J44.1 Chronic obstructive pulmonary disease with (acute) exacerbation; D64.9 Anemia, unspecified; M15.0 Primary generalized (osteo)arthritis; G47.33 Obstructive sleep apnea (adult) (pediatric); E66.01 Morbid (severe) obesity due to excess calories; Z68.41 Body mass index [BMI] 40.0-44.9, adult; Z79.4 Long term (current) use of insulin; Z79.01 Long term (current) use of anticoagulants; Z79.899 Other long term (current) drug therapy; Z79.52 Long term (current) use of systemic steroids; Z79.51 Long term (current) use of inhaled steroids; Z79.02 Long term (current) use of antithrombotics/antiplatelets; Z88.0 Allergy status to penicillin; Z91.040 Latex allergy status; Z91.048 Other nonmedicinal substance allergy status
CPT/HCPCS: 36415; 82962; 85025; 86850; 86900; 86901; 86920; 86922; A9270-GY; G0378; J1815-GY

== ENCOUNTER 2019-04-05 11:45 | Inpatient (IN) | payer MEDICARE, BC ==
--- NOTE | 2019-04-05 13:19 | PCM.HP ---
H&P History of Present Illness - General Date of Service: 04/05/19 Source of Information: Patient, Old Records, Provider History Limitations: Reports: No Limitations - Related Data Allergies/Adverse Reactions: Allergies Allergy/AdvReac Type Severity Reaction Status Date / Time adhesive Allergy Itching Verified 02/24/19 12:41 latex Allergy Rash Verified 02/24/19 12:41 Penicillins Allergy Rash Verified 02/24/19 12:41 Home Medications: Home Meds Albuterol [Ventolin HFA] 2 puff INH Q4H PRN 12/23/13 [History] Cholecalciferol (Vitamin D3) [Vitamin D3] 1,000 unit PO BID 12/23/13 [History] rOPINIRole HCl [Requip] 0.25 mg PO 0900,1400 07/09/15 [History] Calcium Carbonate/Vitamin D3 [Calcium 600-Vit D3 400 Tablet] 1 tab PO BID [History] Allopurinol [Zyloprim] 150 mg PO DAILY 07/21/16 [History] Montelukast [Singulair] 10 mg PO BEDTIME 07/21/16 [History] Acetaminophen [Arthritis Pain Relief] 650 mg PO BID PRN 08/09/17 [History] traMADol [Ultram] 50 mg PO BEDTIME 08/09/17 [History] Dextromethorphan/guaiFENesin [Robitussin DM] 10 ml PO TID PRN 09/02/18 [History] atorvaSTATin [Lipitor] 10 mg PO DAILY 09/02/18 [History] Fluticasone/Umeclidin/Vilanter [Trelegy Ellipta 100-62.5-25 MCG] 1 puff INH DAILY #1 inhaler 09/06/18 [Rx] Dulaglutide [Trulicity] 0.75 mg PO WEEKLY 01/20/19 [History] Insulin Detemir [Levemir] 55 units PO DAILY@0400 01/20/19 [History] Triamcinolone Acetonide [Triamcinolone Acetonide 0.1% Crm] 1 applic TOP BID [History] rOPINIRole HCl [Requip] 0.75 mg PO BEDTIME 01/20/19 [History] Dextran 70/Hypromellose [Artificial Tears] 1 drop EYEBOTH Q4H PRN 02/24/19 [ History] Ferrous Sulfate 325 mg PO DAILY 02/24/19 [History] hydrOXYzine HCl [hydrOXYzine] 25 mg PO TID PRN 02/24/19 [History] Benazepril [Lotensin] 20 mg PO DAILY 04/05/19 [History] Diltiazem [Cardizem CD] 240 mg PO DAILY 04/05/19 [History] Furosemide [Lasix] 80 mg PO BID 04/05/19 [History] Furosemide [Lasix] 80 mg PO DAILY 04/05/19 [History] Polyethylene Glycol 3350 [MiraLAX] 17 gm PO DAILY PRN 04/05/19 [History] Potassium Chloride [K-Tab ER] 20 meq PO DAILY 04/05/19 [History] Sennosides/Docusate Sodium [Senna-Docusate Sodium Tablet] 1 tab PO DAILY [History] Past Medical History HEENT History: Reports: Cataract, Hard of Hearing, Impaired Vision Cardiovascular History: Reports: Afib, Blood Clots/VTE/DVT, Heart Failure, Hypertension Respiratory History: Reports: Asthma, COPD, Sleep Apnea, SOB Gastrointestinal History: Reports: Chronic Constipation, GERD, GI Bleed, Hemorrhoids Genitourinary History: Reports: Prostate Disorder Musculoskeletal History: Reports: Arthritis, Gout, Osteoporosis Neurological History: Reports: Other (See Below) Other Neuro History: Restless legs Endocrine/Metabolic History: Reports: Diabetes, Type II, Obesity/BMI 30+ Hematologic History: Reports: Blood Transfusion(s), Iron Deficiency Dermatologic History: Reports: Other (See Below) Other Dermatologic History: Rash. Rash noted on bilat arms. - Infectious Disease History Infectious Disease History: Reports: None - Past Surgical History HEENT Surgical History: Reports: Cataract Surgery, Oral Surgery Cardiovascular Surgical History: Reports: Other (See Below) Other Cardiovascular Surgeries/Procedures: Angiogram performed on June 25, 2015, [place] Filter placed on 10-18-18. Respiratory Surgical History: Reports: None GI Surgical History: Reports: Colonoscopy, EGD, Hernia, Inguinal Endocrine Surgical History: Reports: None Musculoskeletal Surgical History: Reports: Knee Replacement Other Musculoskeletal Surgeries/Procedures:: bilateral knee replacement Oncologic Surgical History: Reports: Bone Marrow Aspiration Social & Family History - Family History Family Medical History: Noncontributory HEENT: Reports: None - Caffeine Use Caffeine Use: Reports: Coffee H&P Review of Systems - Review of Systems: Review Of Systems: See Below General: Reports: Other (david). Denies: Night Sweats, Weight Loss HEENT: Reports: Other (Valsalva induced epistaxis) Pulmonary: Reports: Shortness of Breath, Wheezing, Cough, Sputum Cardiovascular: Reports: Dyspnea on Exertion, PND, Edema. Denies: Lightheadedness Gastrointestinal: Reports: Other (Heart stools). Denies: Bloody Stool, Constipation, Diarrhea, Difficulty Swallowing, Vomiting Genitourinary: Reports: Frequency Musculoskeletal: Reports: No Symptoms Skin: Reports: Rash (Rash anterior lower shins bilateral) Psychiatric: Denies: Confusion, Agitation Neurological: Denies: Confusion, Dizziness Hematologic/Lymphatic: Reports: Anemia, Easy Bleeding, Easy Bruising Immunologic: Reports: No Symptoms Exam - Exam Exam: See Below - Vital Signs Vital Signs: Last Vital Signs Temp 97.6 F 04/05/19 12:39 Pulse 82 04/05/19 12:39 Resp 20 04/05/19 12:39 BP 137/74 04/05/19 12:39 Pulse Ox 93 L 04/05/19 12:39 Weight: 231 lb 11.2 oz - Exam Quality Assessment: Supplemental Oxygen General: Alert, Oriented, Mild Distress HEENT: EACs Clear, Mucosa Moist & [place] Neck: Supple. No: Carotid Bruit, JVD Lungs: Crackles, Wheezing Cardiovascular: Regular Rate, Regular Rhythm, Irregular Rhythm, Systolic Murmur (2-3/) GI/Abdominal Exam: Normal Bowel Sounds, Distended. No: Rigid, Rebound, Tender (Male) Exam: Rash (Superficial erythematous rash bilateral lower extremities anterior gonzalez, excoriation right) Rectal (Males) Exam: No: Black Stool Back Exam: No: CVA Tenderness (L), CVA Tenderness (R) Extremities: Pedal Edema Peripheral Pulses: 2+: Radial (L), Radial (R) Skin: Rash, Wound (Right anterior gonzalez, venous ulceration, erythematous, excoriation right gonzalez ) Neurological: Cranial Nerves Intact, Reflexes Equal Bilateral Neuro Extensive - Mental Status: Alert, Oriented x3, Normal Mood/Affect, Normal Cognition Neuro Extensive - Motor, Sensory, Reflexes: CN II-XII Intact, Normal Gait, Normal Reflexes Psychiatric: Alert, Normal Affect. No: Labile Mood - Patient Data Result Diagrams: 04/05/19 14:10 Problem List Initiated/Reviewed/Updated: Yes Assessment/Plan Comment:: History of present illness 73yr male admitted directly due to acute kidney injury. Evaluated this morning by Fabiola SIMON at [facility] with limited lab/x-ray capability. On 03/30/19, his thiazide diuretic was increased for a brief period of 3 days due to ongoing fluid retention in addition to continuing furosemide 80mg BID with subsequent hypokalemia. Patient seems quite confused on exactly what medication regimen he's on or has been adjusted. His renal indices have acutely elevated with creatinine 2.16 with a widened BUN/creatinine ratio. Patient also has a slightly elevated direct bili were denies jaundice. He has suffered from constipation with recent OTC bowel cleanout--admits to improving stools however remains significantly distended making it more difficult to breathe. Taking daily MiraLAX and Senna-docusate. Has been having ongoing, frequent nosebleeds that appeared to be Valsalva induced. Patient no longer taking anticoagulation or Plavix due to GI bleed with anemia requiring frequent transfusions however this has been quite stable for the past few weeks. Receiving iron infusions ~1-2 months ago in the hospital. Denies any melena. Pertinent workup to date 11/01/18 work-up: EGD: - LA Grade B reflux esophagitis. - Non-bleeding erosive gastropathy. - Multiple non-bleeding duodenal ulcers with no stigmata of bleeding. - Use Protonix (pantoprazole) 80 mg IV BID. - Use sucralfate tablets 1 gram PO QID. - No aspirin, ibuprofen, naproxen, or other non-steroidal anti-inflammatory drugs. - Follow an antireflux regimen. Colonoscopy: - Moderate diverticulosis in the entire examined colon. There was no evidence of diverticular bleeding. - Internal hemorrhoids. - Blood in the entire examined colon. - The examined portion of the ileum was normal. - Blood in the terminal ileum. - To visualize the small bowel, perform video capsule endoscopy. - Consider holding on asa and eliquis for at least 2 days after bleeding stopped if cardiology ok with that , otherwise consult IR for possible angiographic intervention if patient continue to bleed - Maintain good bowel perfusion Video capsule: - Erosive gastropathy. - Duodenal ulcer. - Active bleeding in the small bowel. Continue current hospital care Completed 6 weeks post watchman implant of Eliquis. Main on Plavix for a few weeks however was removed due to GI bleed -bleeding stopped Protonix 80 mg IV bid Carafate 1 g qid March 2019 was referred back to gastroenterology however patient has not followed up on this--Reluctant [place] labs outpatient April 04. Sodium 139, potassium 3.0, BUN 65, creatinine 2.16, calcium 9.8, total bilirubin 1.7, direct bilirubin 1.07 indirect bilirubin 0.7 Alkaline phosphatase 136, ALT/AST, normal. Primary hospital problems Acute kidney injury, acute on chronic, nephrotoxins/drug-induced with CHF component affecting effective circulation--prerenal Dyselectrolytemia; hypokalemia Elevated liver enzymes, repeat, Cholestasis picture? Valsalva induced epistaxis Anemia, component of GI blood loss, iron deficient, stable Chronic problems Atrial fibrillation, recent watchman implant, off factor Xa inhibitor, recently off Plavix 2/2 GI bleed HFpEF; diastolic, Pulm HTN COPD T2DM HTN, Obesity, REED; suspect obesity hypoventilation syndrome component Venous insufficiency OA, general multiple sites Recent constipation Plan at this time --RUQ ultrasound or MRCP --Replace electrolytes --Gentle hydration --Avoid all nephrotoxins and iatrogenic nephrotoxic agents --Pharmacy consultation --Social service consultation
[2019-04-05] MEDS ORDERED: Sodium Chloride 0.9% 10 ML Syringe FLUSH PRN (13:53)
[2019-04-05] MEDS ORDERED: Potassium Bicarbonate 25 MEQ Tab.EFF PO SCH (14:15)
[2019-04-05] MEDS: NS + KCl 20mEq/L 1,000 ML IV SCH (14:33)
[2019-04-05] MEDS ORDERED: Polyethylene Glycol 3350 Powder 17 GM Packet PO PRN (20:54)
[2019-04-05] MEDS ORDERED: Acetaminophen 650 MG Tab.ER PO PRN (20:54)
[2019-04-05] MEDS ORDERED: Albuterol 8 GM Inhaler INH PRN (20:54)
[2019-04-05] MEDS: Cholecalciferol (Vitamin D3) 25 MCG Tab PO SCH (22:48)
[2019-04-05] MEDS: Montelukast 10 MG Tab PO SCH (22:48)
[2019-04-05] MEDS: Calcium Citrate/Vitamin D3 315 MG-250 Unit Tab PO SCH (22:48)
[2019-04-05] MEDS: Triamcinolone Acetonide 0.1% Crm 15 GM Tube TOP SCH (23:03)
[2019-04-06] MEDS: NS + KCl 20mEq/L 1,000 ML IV SCH (04:10)
[2019-04-06 08:16] LABS: POTASSIUM,POC 3.4 mmol/L (3.5-4.9)
[2019-04-06] MEDS: Allopurinol 100 MG Tab PO SCH (08:55)
[2019-04-06] MEDS: atorvaSTATin 10 MG Tab PO SCH (08:56)
[2019-04-06] MEDS: Cholecalciferol (Vitamin D3) 25 MCG Tab PO SCH ×2 (08:56→21:26)
[2019-04-06] MEDS: Calcium Citrate/Vitamin D3 315 MG-250 Unit Tab PO SCH ×2 (08:56→21:25)
[2019-04-06] MEDS: Diltiazem 120 MG Cap.CD PO SCH (08:56)
[2019-04-06] MEDS: Ferrous Sulfate 325 MG Tab PO SCH (08:56)
[2019-04-06] MEDS: Triamcinolone Acetonide 0.1% Crm 15 GM Tube TOP SCH (09:19)
[2019-04-06] MEDS ORDERED: Furosemide 40 MG/4 ML VIAL IVPUSH SCH (11:00)
[2019-04-06] MEDS: Insulin Aspart 100 Units/ML 3 ML Pen SUBCUT SCH ×3 (11:38→21:26)
[2019-04-06] MEDS: Potassium Chloride 10 MEQ Tab.ER PO SCH (11:57)
--- NOTE | 2019-04-06 12:50 | PN ---
04/06/2019 PATIENT NAME: MILE MORGAN HISTORY OF PRESENT ILLNESS: A 73-year-old male patient, who was admitted to the hospital setting due to acute kidney injury. He was evaluated in the clinical setting and was admitted due to abnormalities of laboratory findings. Previously, he had been seen in the clinical setting on 03/30. His thiazide diuretics were increased for a brief period of three days due to fluid retention. In addition, he was to continue his furosemide 80 mg on a b.i.d. basis. This resulted in hypokalemia. This patient has multiple medical comorbidities. His medication compliance in the home setting is quite difficult to assess. In visiting with him, it appears that he independently medically manages his home oral medications and insulin therapy on a daily basis. He reports that he has not routinely taken his Levemir insulin. He bases his dosing on his blood sugars. He reports that if his blood sugar is 140 mg% or less he does not take the insulin. His administration time varies from day-to-day when taking the insulin. He states there are days that he takes it in the morning. At other times, he takes it in the afternoon or evening hours and often does not take it at all. He does state he is taking his Trulicity on a weekly basis. His diuretic compliance is also difficult to assess. He states he usually takes two pills a day, but he is unable to recall the dosing of his Lasix that he has at home for his routine administration. His renal functions have been elevated. Most recently, his creatinine was 2.16. Creatinine today is 2.0. He does have a slightly elevated direct bilirubin. He takes MiraLAX and senna on a daily basis for constipation. This morning, he reports that he has had shortness of breath. He states that if he lies down or reclines on his chair, it is difficult for him to breathe. He is more comfortable sitting up and slightly forward. He has had a previous history of a Watchman placed. He previously was on anticoagulation and Plavix. This was discontinued due to a GI bleed. We will obtain a social service consult to assess for needs in the home setting and assist with medication compliance. REVIEW OF SYSTEMS: CONSTITUTIONAL: The patient has no complaints of pain or discomfort. HEENT: He denies any headache, earache, or sore throat. RESPIRATORY: He does note that he has shortness of breath with lying flat or reclining on his chair. He states that he does have intermittent cough with lying down. CARDIOVASCULAR: He has no complaints of chest pain or palpitations. GI: He states that his appetite has not been as good as it has been in the past, but he denies any nausea or vomiting. He is taking fluids well. EXTREMITIES: He states that he notes that he has had lower extremity edema. He denies any pain or discomfort. SKIN: He does complain of mild itching. PHYSICAL EXAMINATION: CONSTITUTIONAL: The patient is alert and oriented. He is quite cooperative with the exam. Responds to questions appropriately. HEENT: Head is normocephalic, conjunctivae are clear. No nasal drainage. RESPIRATORY: Lung sounds are clear to auscultation in the upper bases. There are bilateral crackles in the lower bases, most prominently in the left lower lobe. intermittent cough present. ABDOMEN: Rounded. It is large. Bowel sounds are auscultated. MUSCULOSKELETAL: He does have redness on the anterior surface of the lower extremities. He has 2 to 3+ pitting edema from ankles to below the knees. NEURO: The patient is alert and oriented. Vital signs: 121/63, 98.1, 92, 20. O2 sat is 86%. ASSESSMENT AND PLAN: Acute kidney injury. Multiple medical comorbidities with non compliance with home medication. PAST MEDICAL HISTORY: Inclusive of atrial fib, DVT, hypertension, heart failure, asthma, COPD, sleep apnea, shortness of breath, constipation, GERD, GI bleed, arthritis, type 2 diabetes. PLAN: He will continue with his current medications. We are going to hold his Levemir insulin. His lab today noted his blood sugar to be 160 mg%. Potassium is 3.4 with chloride of 95. Hemoglobin is 9.4, which is stable for this patient. We will obtain a CBC and BMP tomorrow. We will give a one time IV Lasix dose of 20 mg today. IV fluids DC'd. He will be placed on a medium sliding scale dosing of NovoLog insulin. Social Service will evaluate for recommendations. Activity level will be as tolerated. Discussed case with Dr. Allen. Received a phone call after rounds per nursing staff. Report patient states he has now coughed greenish sputa. This was not witnessed. will obtain a CXR and sputa culture. /[id number]/MODL MTDD
--- NOTE | 2019-04-06 13:27 | CR ---
[id number] RAD/RAD Chest PA And Lateral EXAM: RAD Chest PA And Lateral CLINICAL DATA: COUGH. SHORTNESS OF BREATH COMPARISON: CORRELATION IS MADE WITH THE EXAM OF SEPTEMBER 02, 2018. FINDINGS: A small infiltrate at the right lung base is slightly increased. There is a minimal infiltrate at the left lung base. There are small bilateral effusions. The cardiomediastinal contour is stable. IMPRESSION: SMALL BIBASILAR INFILTRATES AND EFFUSIONS. CARDIOMEGALY. Johan Wong MD 04/06/19 [id number] Thank you for allowing us to participate in the care of your patient.
[2019-04-06] MEDS: Montelukast 10 MG Tab PO SCH (21:26)
[2019-04-06] MEDS: UMECLIDIN INH SCH (21:41)
[2019-04-06] MEDS: VILANTER INH SCH (21:41)
[2019-04-06] MEDS: FLUTICASONE INH SCH (21:41)
[2019-04-07 07:49] LABS: ANION GAP 11.2 mmol/L (5-15)
[2019-04-07] MEDS: Insulin Aspart 100 Units/ML 3 ML Pen SUBCUT SCH ×4 (07:55→21:12)
[2019-04-07] MEDS: Calcium Citrate/Vitamin D3 315 MG-250 Unit Tab PO SCH ×2 (08:48→20:43)
[2019-04-07] MEDS: Allopurinol 100 MG Tab PO SCH (08:48)
[2019-04-07] MEDS: Cholecalciferol (Vitamin D3) 25 MCG Tab PO SCH ×2 (08:48→20:43)
[2019-04-07] MEDS: Potassium Chloride 10 MEQ Tab.ER PO SCH (08:49)
[2019-04-07] MEDS: VILANTER INH SCH (08:49)
[2019-04-07] MEDS: atorvaSTATin 10 MG Tab PO SCH (08:49)
[2019-04-07] MEDS: UMECLIDIN INH SCH (08:49)
[2019-04-07] MEDS: Diltiazem 120 MG Cap.CD PO SCH (08:49)
[2019-04-07] MEDS: FLUTICASONE INH SCH (08:49)
[2019-04-07] MEDS: Ferrous Sulfate 325 MG Tab PO SCH (08:49)
[2019-04-07] MEDS ORDERED: Furosemide 40 MG/4 ML VIAL IVPUSH ONE (11:31)
[2019-04-07] MEDS ORDERED: Albuterol/Ipratropium 3.0-0.5 MG/3 ML Neb Soln NEB PRN (11:32)
--- NOTE | 2019-04-07 11:43 | PCM.PN ---
- General Info Date of Service: 04/07/19 Subjective Update: Mr. Cooper reports that his main symptomatic complaint this morning is abdominal pain, which is diffuse and has been present off and on for quite some time, but feels it is more persistent lately. He is now having soft BMs, which is a change from recent when he has been straining and constipated. He denies any specific localization of the abdominal pain, nausea, vomiting, rectal bleeding, or urinary complaints. He endorses stable shortness of breath without any change from his recent baseline. Also had a discussion about home medication administration and though he repeatedly states that he takes his medications just like they're prescribed, he admits that he takes insulin Levemir 55units only about once a week, takes furosemide only once daily (prescribed twice daily), and is unable to specify details of the remainder of his home medication list. He states he sets his medications up himself and has previously declined assistance, but would be willing to receive assistance in the future. - Patient Data Vitals - Most Recent: Last Vital Signs Temp 36.7 C 04/07/19 11:00 Pulse 87 04/07/19 11:00 Resp 20 04/07/19 11:00 BP 126/77 04/07/19 11:00 Pulse Ox 94 L 04/07/19 11:00 Weight - Most Recent: 105.823 kg I&O - Last 24 Hours: Intake & Output 04/06/19 04/07/19 04/07/19 22:59 06:59 14:59 Intake Total 720 500 Output Total 700 900 Balance 20 -400 Lab Results Last 24 Hours: Laboratory Results - last 24 hr 04/06/19 04/06/19 04/06/19 Range/Units 07:05 17:35 21:25 WBC (5.00-10.00) 10^3/uL RBC (4.50-6.00) 10^6/uL Hgb (13.0-17.0) g/dL Hct (40.0-52.0) % MCV (82.0-92.0) fL MCH (27.0-31.0) pg MCHC (32.0-36.0) g/dL RDW (11.5-14.5) % Plt Count (150-400) 10^3/uL MPV (7.4-10.4) fL Immature Gran % (Auto) (0.0-5.0) % Neut % (Auto) (50.0-70.0) % Lymph % (Auto) (20.0-40.0) % [place] % (Auto) (2.0-8.0) % Eos % (Auto) (1.0-3.0) % Baso % (Auto) (0.0-1.0) % Immature Gran # (Auto) (0.00-0.50) 10^3/uL Neut # (Auto) (2.50-7.00) 10^3/uL Lymph # (Auto) (1.00-4.00) 10^3/uL [place] # (Auto) (0.10-0.80) 10^3/uL Eos # (Auto) (0.10-0.30) 10^3/uL Baso # (Auto) (0.00-0.10) 10^3/uL POC Sodium 139 (136-146) mmol/L Sodium (136-145) mmol/L POC Potassium 3.4 L (3.5-4.9) mmol/L Potassium (3.3-5.3) mmol/L POC Chloride 95 L (98-109) mmol/L Chloride (98-115) mmol/L Carbon Dioxide (21.0-32.0) mmol/L POC Total CO2 30 H (24-29) mmol/L Anion Gap (5-15) mmol/L POC BUN 52 H (8-26) mg/dL BUN (6-25) mg/dL Creatinine (0.51-1.17) mg/dL POC Creatinine 2.00 H (0.60-1.32) mg/dL Est Cr Clr Drug Dosing mL/min Estimated GFR (MDRD) mL/min Glucose (75 - 99) mg/dL POC Glucose 140 H 136 H 144 H (70-105) mg/dL Calcium (8.7-10.3) mg/dL POC Ioniz Calcium Jose 1.16 (1.12-1.32) mmol/L Total Bilirubin (0.2-1.0) mg/dL AST (15-37) U/L ALT (12-78) U/L Alkaline Phosphatase (46-116) IU/L B-Natriuretic Peptide (0-100) pg/mL Total Protein (6.4-8.2) g/dL Albumin (3.00-4.80) g/dL 04/07/19 04/07/19 04/07/19 Range/Units 07:10 07:10 07:41 WBC 9.54 (5.00-10.00) 10^3/uL RBC 3.77 L (4.50-6.00) 10^6/uL Hgb 9.3 L (13.0-17.0) g/dL Hct 31.6 L (40.0-52.0) % MCV 83.8 (82.0-92.0) fL MCH 24.7 L (27.0-31.0) pg MCHC 29.4 L (32.0-36.0) g/dL RDW 19.4 H (11.5-14.5) % Plt Count 178 (150-400) 10^3/uL MPV 9.4 (7.4-10.4) fL Immature Gran % (Auto) 0.2 (0.0-5.0) % Neut % (Auto) 68.1 (50.0-70.0) % Lymph % (Auto) 14.3 L (20.0-40.0) % [place] % (Auto) 11.0 H (2.0-8.0) % Eos % (Auto) 5.7 H (1.0-3.0) % Baso % (Auto) 0.7 (0.0-1.0) % Immature Gran # (Auto) 0.02 (0.00-0.50) 10^3/uL Neut # (Auto) 6.50 (2.50-7.00) 10^3/uL Lymph # (Auto) 1.36 (1.00-4.00) 10^3/uL [place] # (Auto) 1.05 H (0.10-0.80) 10^3/uL Eos # (Auto) 0.54 H (0.10-0.30) 10^3/uL Baso # (Auto) 0.07 (0.00-0.10) 10^3/uL POC Sodium (136-146) mmol/L Sodium 140 (136-145) mmol/L POC Potassium (3.5-4.9) mmol/L Potassium 3.5 (3.3-5.3) mmol/L POC Chloride (98-109) mmol/L Chloride 101 (98-115) mmol/L Carbon Dioxide 31.3 (21.0-32.0) mmol/L POC Total CO2 (24-29) mmol/L Anion Gap 11.2 (5-15) mmol/L POC BUN (8-26) mg/dL BUN 49 H (6-25) mg/dL Creatinine 1.58 H (0.51-1.17) mg/dL POC Creatinine (0.60-1.32) mg/dL Est Cr Clr Drug Dosing 34.35 mL/min Estimated GFR (MDRD) 43 mL/min Glucose 125 H (75 - 99) mg/dL POC Glucose 153 H (70-105) mg/dL Calcium 9.0 (8.7-10.3) mg/dL POC Ioniz Calcium Jose (1.12-1.32) mmol/L Total Bilirubin 1.7 H (0.2-1.0) mg/dL AST 16 (15-37) U/L ALT 13 (12-78) U/L Alkaline Phosphatase 119 H (46-116) IU/L B-Natriuretic Peptide 215 H (0-100) pg/mL Total Protein 6.3 L (6.4-8.2) g/dL Albumin 3.10 (3.00-4.80) g/dL Med Orders - Current: Current Medications Acetaminophen (Tylenol Arthritis Pain) 650 mg PO BID PRN PRN Reason: Pain Last Admin: 04/07/19 03:26 Dose: 650 mg Albuterol (Ventolin Hfa) 0 gm INH Q4H PRN PRN Reason: difficulty breathing Last Admin: 04/06/19 09:18 Dose: 2 puff Albuterol/Ipratropium (Duoneb 3.0-0.5 Mg/3 Ml) 3 ml NEB Q4HRRT PRN PRN Reason: Wheezing Allopurinol (Zyloprim) 150 mg PO DAILY [facility] Last Admin: 04/07/19 08:48 Dose: 150 mg Atorvastatin Calcium (Lipitor) 10 mg PO DAILY [facility] Last Admin: 04/07/19 08:49 Dose: 10 mg Calcium Citrate (Calcium Citrate + D) 1 tab PO BID [facility] Last Admin: 04/07/19 08:48 Dose: 1 tab Cholecalciferol (Vitamin D3) 25 mcg PO BID [facility] Last Admin: 04/07/19 08:48 Dose: 25 mcg Diltiazem HCl (Cardizem Cd) 240 mg PO DAILY [facility] Last Admin: 04/07/19 08:49 Dose: 240 mg Ferrous Sulfate (Ferrous Sulfate) 325 mg PO DAILY [facility] Last Admin: 04/07/19 08:49 Dose: 325 mg Fluticasone/Umeclidinium/Vilanterol (Trelegy Ellipta 100-62.5-25 Mcg) 1 puff INH DAILY [facility] Last Admin: 04/07/19 08:49 Dose: 1 puff Furosemide (Lasix) 20 mg IVPUSH NOW ONE Stop: 04/07/19 11:32 Furosemide (Lasix) 40 mg PO DAILY [facility] Insulin Aspart (Novolog) 0 unit SUBCUT WITHMEALSANDBED [facility]; Protocol Last Admin: 04/07/19 07:55 Dose: 2 units Montelukast Sodium (Singulair) 10 mg PO BEDTIME [facility] Last Admin: 04/06/19 21:26 Dose: 10 mg (Dulaglutide [ Trulicity] 0.75 Mg)* Own Med 0.75 mg SQ Q7D [facility] Last Admin: 04/07/19 08:50 Dose: 0.75 mg Non-Formulary Medication (Ropinirole Hcl [Requip]) 0.75 mg PO BEDTIME [facility] Polyethylene Glycol (Miralax) 17 gm PO DAILY PRN PRN Reason: Constipation Potassium Chloride (Klor-Con 10) 20 meq PO WITHBREAKFAST [facility] Last Admin: 04/07/19 08:49 Dose: 20 meq Prednisone (Prednisone) 40 mg PO WITHBREAKFAST [facility] Stop: 04/12/19 11:31 Ropinirole HCl (Requip) 0.25 mg PO 0900,1400 [facility] Senna/Docusate Sodium (Senna Plus) 1 tab PO BID [facility] Sodium Chloride (Saline Flush) 10 ml FLUSH Q8HR PRN PRN Reason: keep vein open Triamcinolone Acetonide (Triamcinolone Acetonide 0.1% Crm) 0 gm TOP BID PRN PRN Reason: Rash Discontinued Medications Furosemide (Lasix) 20 mg IVPUSH ONETIME [facility] Last Admin: 04/06/19 11:26 Dose: 20 mg Potassium Chloride/Sodium Chloride (Normal Saline With 20 Meq Kcl) 1,000 mls @ 75 mls/hr IV ASDIRECTED [facility] Last Admin: 04/06/19 04:10 Dose: 75 mls/hr Potassium Bicarbonate (Klor-Con Ef) 25 meq PO DAILY [facility] Last Admin: 04/05/19 14:33 Dose: 25 meq Senna/Docusate Sodium (Senna Plus) 2 tab PO BID [facility] Last Admin: 04/07/19 08:48 Dose: 2 tab Senna/Docusate Sodium (Senna Plus) 1 tab PO DAILY [facility] Triamcinolone Acetonide (Triamcinolone Acetonide 0.1% Crm) 0 gm TOP BID [facility] Last Admin: 04/06/19 09:19 Dose: 1 applic - Exam Physical Findings Comments:: GENERAL: Elderly white male appearing older than stated age in no acute distress. HEENT: Normocephalic, atraumatic. Conjunctiva clear. Nasal cannula in place. Mucous membranes moist, posterior pharynx unremarkable. NECK: Supple, no masses. CV: Irregularly irregular. S3. 3/6 systolic murmur loudest at apex with radiation throughout precordium.JVP 3cm above sternal angle at 30 degrees. 2+ radial pulses. PULMONARY: Normal effort, diffuse expiratory wheezing, no distinct crackles. ABDOMEN: Positive bowel sounds, diffusely distended but without fluid wave, diffusely tender to deep palpation, but without rebound/rigidity/guarding. EXTREMITIES: 1+ pitting edema to knees bilaterally, cyanosis, or clubbing. MUSCULOSKELETAL: Moves all extremities well. NEUROLOGICAL: No obvious deficits. DERMATOLOGIC: Scattered excoriations on bilateral arms, venous stasis changes of bilateral anterior legs. PSYCHIATRIC: Alert, interactive, appropriate affect, limited medical insight. - Problem List Review Problem List Initiated/Reviewed/Updated: Yes - My Orders Last 24 Hours: My Active Orders 04/07/19 11:01 Abdomen Pelvis wo Cont [CT] Routine 04/07/19 11:30 predniSONE 40 mg PO WITHBREAKFAST 04/07/19 11:31 Furosemide [Lasix] 20 mg IVPUSH NOW ONE 04/07/19 11:32 RT Aerosol Therapy [RC] ASDIRECTED Albuterol/Ipratropium [DuoNeb 3.0-0.5 MG/3 ML] 3 ml NEB Q4HRRT PRN 04/07/19 14:00 rOPINIRole [Requip] 0.25 mg PO 0900,1400 04/07/19 21:00 Docusate Sodium/Sennosides [Senna Plus] 1 tab PO BID rOPINIRole HCl [Requip] 0.75 mg PO BEDTIME 04/08/19 09:00 Furosemide [Lasix] 40 mg PO DAILY - Plan Plan:: HPI summary: Mr. Cooper is a 73yoM with complex past medical history notable for HFpEF, CKD stage III, recurrent GI bleeding, and medication nonadherence, admitted directly due to acute kidney injury and electrolyte abnormalities. Evaluated on the morning of 04/05/19 by Fabiola Shah PA-c, at [facility] with limited lab/x-ray capability. On 03/30/19, metolazone was prescribed to be taken every 3 days, but the patient instead took daily for 3 days due to ongoing fluid retention in addition to continuing furosemide 80mg daily ( prescribed BID, but patient determined to be only taking daily). Patient was noted to be quite confused on exactly what medication regimen he's on or has been adjusted. His renal indices had acutely elevated with creatinine 2.16 with a widened BUN/creatinine ratio. He was also noted to have a slightly elevated direct bilirubin without other LFT abnormality. He had suffered from constipation with recent OTC bowel cleanout and admits to improving stools however remains significantly distended making it more difficult to breathe. Has been having ongoing, frequent nosebleeds that appeared to be Valsalva induced. Patient no longer taking anticoagulation or Plavix due to GI bleed with anemia requiring frequent transfusions however this has been quite stable for the past few weeks. Receiving iron infusions ~1-2 months ago in the hospital. Denies any melena. Hospitalization problems and plan: # Acute kidney injury: Admission Cr 2.2, likely related to patient reported use of metolazone daily for 3 days as well as CHF component of poor effective circulation. # CKD, stage III: Baseline creatinine labile with average around 1.5. # HFpEF, acute on chronic: Last echo 11/29/18 with EF 55%. Small-moderate pleural effusions and ascites on 04/07/19 CT abdomen/pelvis. # HTN # Hypokalemia - Give furosemide 20mg IV today and restart 40mg oral tomorrow and give additional 20-40mg based on fluid status reassessment (was previously prescribed 80mg BID, but was only taking daily) - Holding benazapril and BPs remain stable, so will continue holding and closely monitor - Continue KCl 20mEq daily - I/O monitoring - CMP tomorrow # Asthma-COPD overlap syndrome: Last PFT 2014. Currently with diffuse wheezing consistent with acute exacerbation. 04/06/19 CXR with questionable infiltrate and 04/07/19 CT noting small effusions, but no obvious infiltrate. # Chronic hypoxic respiratory failure: Uses 2lpm oxygen at night and as needed at home. # REED: Uses CPAP at home. # Obesity hypoventilation, likely - Prednisone 40mg x5 days - Change albuterol to DuoNebs q4h prn - Continue Trelegy daily and montelukast 10mg daily - Continue oxygen 2lpm at night and prn # Iron deficiency anemia # Recurrent GI bleeding / Esophagitis / Gastropathy / Duodenal ulcers: 11/01/18 EGD with LA Grade B reflux esophagitis, erosive gastropathy, and multiple duodenal ulcers. Was recommended to have push enteroscopy, but has not scheduled or followed with gastroenterology. Has not been taking PPI. - Restart PPI with omeprazole 20mg daily - Continue iron sulfate daily - CBC tomorrow # Hyperbilirubinemia: Noted to be direct, not indirect, elevation. Stable without AST or ALT elevation and only very mild alkaline phosphatase elevation and no noted abnormalities on 04/07/19 CT abdomen/pelvis. - Consider further imaging as outpatient with US or future MRCP if worsening or additional LFT elevations # Constipation: Improved. - Continue Senna-docusate BID and PEG daily prn. # DMT2: 03/24/19 A1c 5.8%. Home regimen prescribed as Levemir 55un daily and dulaglutide 0.75mg weekly, but patient very infrequently taking Levemir. A1c goal of 7.5% given age and comorbidities. - Hold long acting insulin - Monitor BGs with meals and bedtime and give medium dose sliding scale * requirements will likely increase from prior baseline given initiation of prednisone - Continue dulaglutide 0.75mg weekly # Gout: No recent uric acid, so obtained today and significantly elevated at 9.4. - Increase allopurinol to 200mg daily. # Medication and follow-up nonadherence: Overarching problem affecting effective management of all chronic conditions. - Highly recommend outpatient home health and/or [facility] assistance with medication set-up and counseling for appropriate administration - Social service consultation placed on admission Chronic, stable conditions: # Atrial fibrillation s/p Watchman device placement (10/18/18): Rate controlled on diltiazem 240mg daily. Off anticoagulation, Plavix, and ASA due to recurrent GI bleeding. Due for cardiology follow-up. # Mitral regurgitation: Last echo 11/29/18 with moderate-severe mitral regurgitation. # Diverticulosis: Noted on 11/01/18 colonoscopy. # Internal hemorrhoids: Noted on 11/01/18 colonoscopy. # BPH s/p TURP: Stable. # Renal cysts: Stable on most recent imaging. # Thyroid nodule: No recent imaging. Consider reassessment as outpatient. # HLD: Last lipid panel 01/06/19 with LDL 37. Atorvastatin 10mg daily. # Ca/D deficiency: Ca/D BID. # Obesity, morbid: BMI 40. # RLS: Prescribed ropinirole, but per medication review patient has apparently not been taking. Reassess in future as outpatient. # OA / Chronic pain: Multiple joints affected. Stable. On pain contract and takes tramadol 50mg nightly at night and acetaminophen 650mg BID. # Venous insufficiency: Stable. # Recurrent epistaxis: No recurrence in hospital. # Dermatitis / Pruritus: Triamcinolone prn. Holding hydroxyzine due to RICH. D/c duplicative topical steroid hydrocortisone. Hospitalization details: # FEN: No IVF. Electrolytes normalized. Diabetic diet. # PPX: SCDs for DVT ppx given hx of recurrent GI bleeding and anemia making pharmacologic ppx contraindicated. # Code status: FULL, confirmed with patient at bedside on 04/07/19 rounds. # Emergency contact: Daughter. # Disposition: Continue in inpatient status for ongoing close monitoring and management of pulmonary and fluid status as well as blood sugars. Anticipate at least 1-2 additional days in inpatient status to achieve stability and becoming appropriate for discharge. Highly encouraged assistance with outpatient medication assistance set-up and ensuring appropriate administration.
--- NOTE | 2019-04-07 12:05 | CT ---
[id number] CT/CT Abdomen Pelvis WO IV EXAM: ABDOMEN AND PELVIS CT WITHOUT CONTRAST INDICATION: Abdominal pain and distention. COMPARISON: April 08, 2011. DISCUSSION: Mild body wall edema, small to moderate and small left pleural effusions, and small to moderate ascites in the abdomen and pelvis consistent with fluid overload. Mild cardiomegaly. Coronary artery calcifications. There is a small right inguinal hernia containing free fluid. Scattered colonic diverticula. There is no clear evidence of diverticulitis, but ascites and absence of intravenous contrast agent somewhat limits assessment. 3.5 cm cyst lower pole right kidney. A 16 mm exophytic lesion lower pole left kidney and possible 20 mm exophytic lesion upper pole right kidney could represent hemorrhagic cysts, but are indeterminate by density. Ultrasound may be useful for further evaluation. Unenhanced images of the liver, spleen, pancreas, adrenal glands, small bowel and appendix are unremarkable. No free air. Degenerative changes throughout the spine. The osseous structures are otherwise unremarkable. IMPRESSION: 1. Fluid overload with small to moderate right and small left pleural effusions, mild body wall edema and small to moderate ascites. Umesh Rosado MD 04/07/19 [id number] Thank you for allowing us to participate in the care of your patient.
[2019-04-07] MEDS: predniSONE 20 MG Tab PO SCH (12:49)
[2019-04-07] MEDS ORDERED: rOPINIRole 0.25 MG Tab PO SCH ×2 (14:00→21:00)
[2019-04-07] MEDS: Montelukast 10 MG Tab PO SCH (20:46)
[2019-04-08] MEDS: Triamcinolone Acetonide 0.1% Crm 15 GM Tube TOP PRN ×2 (04:44→21:23)
[2019-04-08] MEDS: Omeprazole 20 MG Cap.CR PO SCH (07:33)
[2019-04-08] MEDS ORDERED: traMADol 50 MG Tab PO PRN (08:00)
[2019-04-08] MEDS: FLUTICASONE INH SCH (08:08)
[2019-04-08] MEDS: UMECLIDIN INH SCH (08:08)
[2019-04-08] MEDS: VILANTER INH SCH (08:08)
[2019-04-08] MEDS: Insulin Aspart 100 Units/ML 3 ML Pen SUBCUT SCH ×4 (08:09→21:22)
[2019-04-08] MEDS: predniSONE 20 MG Tab PO SCH (08:10)
[2019-04-08] MEDS: atorvaSTATin 10 MG Tab PO SCH (08:10)
[2019-04-08] MEDS: Cholecalciferol (Vitamin D3) 25 MCG Tab PO SCH ×2 (08:10→21:21)
[2019-04-08] MEDS: Ferrous Sulfate 325 MG Tab PO SCH (08:10)
[2019-04-08] MEDS: Calcium Citrate/Vitamin D3 315 MG-250 Unit Tab PO SCH ×2 (08:10→21:21)
[2019-04-08] MEDS: Potassium Chloride 10 MEQ Tab.ER PO SCH (08:10)
[2019-04-08] MEDS: Allopurinol 100 MG Tab PO SCH (08:10)
[2019-04-08] MEDS: Diltiazem 120 MG Cap.CD PO SCH (08:10)
[2019-04-08] MEDS ORDERED: Furosemide 40 MG Tab PO SCH (09:00)
[2019-04-08] MEDS ORDERED: Furosemide 40 MG Tab PO ONE (10:07)
--- NOTE | 2019-04-08 10:24 | PCM.PN ---
- General Info Date of Service: 04/08/19 Admission Dx/Problem (Free Text): Admitted with acute kidney injury, COPD exacerbation, Diabetes mellitus Subjective Update: Mr. Cooper reports that his abdomen continues to feel tight but no pain today. He states it is tight in the morning and as the day goes on, it gets better. He did have a soft BM yesterday. No blood in stool but does report hemorrhoids that bleed with any rough wiping. He denies any specific abdominal pain, nausea , vomiting, rectal bleeding, or urinary complaints. He continues to have shortness of breath which is improved from yesterday. He states he was able to walk to the bathroom without severe shortness of breath today. He was started on prednisone yesterday and reports restlessness today. There has been confusion about his home meds. Yesterday he reported to Dr Dave Richter that he takes insulin Levemir 55units only about once a week, takes furosemide only once daily (prescribed twice daily), and is unable to specify details of the remainder of his home medication list. A family member will bring his meds in for clarification today. Functional Status: Reports: Other (able to ambulate to the bathroom and on return, needs to restart his continuous oxygen) - Review of Systems General: Reports: Weakness (generalized weakness). Denies: Fever HEENT: Reports: No Symptoms Pulmonary: Reports: Shortness of Breath, Cough, Sputum, Wheezing, Other ( continuous O2 by nasal canula). Denies: Pleuritic Chest Pain, Hemoptysis Cardiovascular: Reports: Dyspnea on Exertion, Edema. Denies: Chest Pain, Palpitations Gastrointestinal: Reports: Decreased Appetite (appetite is improved since hospital admission), Other (taut abdomen. chronic constipation with soft stool yesterday). Denies: Hematochezia, Melena, Nausea, Vomiting Genitourinary: Reports: No Symptoms Neurological: Reports: No Symptoms Psychiatric: Reports: No Symptoms - Patient Data Vitals - Most Recent: Last Vital Signs Temp 97.4 F 04/08/19 07:00 Pulse 110 H 04/08/19 08:10 Resp 22 H 04/08/19 07:00 BP 119/77 04/08/19 08:10 Pulse Ox 96 04/08/19 07:00 Weight - Most Recent: 234 lb 9.6 oz I&O - Last 24 Hours: Intake & Output 07/05/19 07/06/19 07/06/19 22:59 06:59 14:59 Intake Total 850 700 Output Total 700 600 Balance 150 100 Lab Results Last 24 Hours: Laboratory Results - last 24 hr 04/05/19 04/07/19 04/07/19 Range/Units 14:10 07:10 11:44 WBC (5.00-10.00) 10^3/uL RBC (4.50-6.00) 10^6/uL Hgb (13.0-17.0) g/dL Hct (40.0-52.0) % MCV (82.0-92.0) fL MCH (27.0-31.0) pg MCHC (32.0-36.0) g/dL RDW (11.5-14.5) % Plt Count (150-400) 10^3/uL MPV (7.4-10.4) fL Immature Gran % (Auto) (0.0-5.0) % Neut % (Auto) (50.0-70.0) % Lymph % (Auto) (20.0-40.0) % [place] % (Auto) (2.0-8.0) % Eos % (Auto) (1.0-3.0) % Baso % (Auto) (0.0-1.0) % Immature Gran # (Auto) (0.00-0.50) 10^3/uL Neut # (Auto) (2.50-7.00) 10^3/uL Lymph # (Auto) (1.00-4.00) 10^3/uL [place] # (Auto) (0.10-0.80) 10^3/uL Eos # (Auto) (0.10-0.30) 10^3/uL Baso # (Auto) (0.00-0.10) 10^3/uL Sodium (136-145) mmol/L Potassium (3.3-5.3) mmol/L Chloride (98-115) mmol/L Carbon Dioxide (21.0-32.0) mmol/L Anion Gap (5-15) mmol/L BUN (6-25) mg/dL Creatinine (0.51-1.17) mg/dL Est Cr Clr Drug Dosing mL/min Estimated GFR (MDRD) mL/min Glucose (75 - 99) mg/dL POC Glucose 116 H (74-106) mg/dl Uric Acid 9.4 H (2.6-7.2) mg/dL Calcium (8.7-10.3) mg/dL Total Bilirubin (0.2-1.0) mg/dL AST (15-37) U/L ALT (12-78) U/L Alkaline Phosphatase (46-116) IU/L Total Protein (6.4-8.2) g/dL Albumin (3.00-4.80) g/dL LDL Cholesterol Direct 40 (0-100) mg/dL 04/07/19 04/07/19 04/08/19 Range/Units 17:45 20:48 07:20 WBC 8.29 (5.00-10.00) 10^3/uL RBC 3.73 L (4.50-6.00) 10^6/uL Hgb 9.1 L (13.0-17.0) g/dL Hct 30.8 L (40.0-52.0) % MCV 82.6 (82.0-92.0) fL MCH 24.4 L (27.0-31.0) pg MCHC 29.5 L (32.0-36.0) g/dL RDW 19.0 H (11.5-14.5) % Plt Count 166 (150-400) 10^3/uL MPV 8.9 (7.4-10.4) fL Immature Gran % (Auto) 0.5 (0.0-5.0) % Neut % (Auto) 79.4 H (50.0-70.0) % Lymph % (Auto) 9.4 L (20.0-40.0) % [place] % (Auto) 10.1 H (2.0-8.0) % Eos % (Auto) 0.4 L (1.0-3.0) % Baso % (Auto) 0.2 (0.0-1.0) % Immature Gran # (Auto) 0.04 (0.00-0.50) 10^3/uL Neut # (Auto) 6.58 (2.50-7.00) 10^3/uL Lymph # (Auto) 0.78 L (1.00-4.00) 10^3/uL [place] # (Auto) 0.84 H (0.10-0.80) 10^3/uL Eos # (Auto) 0.03 L (0.10-0.30) 10^3/uL Baso # (Auto) 0.02 (0.00-0.10) 10^3/uL Sodium (136-145) mmol/L Potassium (3.3-5.3) mmol/L Chloride (98-115) mmol/L Carbon Dioxide (21.0-32.0) mmol/L Anion Gap (5-15) mmol/L BUN (6-25) mg/dL Creatinine (0.51-1.17) mg/dL Est Cr Clr Drug Dosing mL/min Estimated GFR (MDRD) mL/min Glucose (75 - 99) mg/dL POC Glucose 199 H 317 H (74-106) mg/dl Uric Acid (2.6-7.2) mg/dL Calcium (8.7-10.3) mg/dL Total Bilirubin (0.2-1.0) mg/dL AST (15-37) U/L ALT (12-78) U/L Alkaline Phosphatase (46-116) IU/L Total Protein (6.4-8.2) g/dL Albumin (3.00-4.80) g/dL LDL Cholesterol Direct (0-100) mg/dL 04/08/19 04/08/19 Range/Units 07:20 07:32 WBC (5.00-10.00) 10^3/uL RBC (4.50-6.00) 10^6/uL Hgb (13.0-17.0) g/dL Hct (40.0-52.0) % MCV (82.0-92.0) fL MCH (27.0-31.0) pg MCHC (32.0-36.0) g/dL RDW (11.5-14.5) % Plt Count (150-400) 10^3/uL MPV (7.4-10.4) fL Immature Gran % (Auto) (0.0-5.0) % Neut % (Auto) (50.0-70.0) % Lymph % (Auto) (20.0-40.0) % [place] % (Auto) (2.0-8.0) % Eos % (Auto) (1.0-3.0) % Baso % (Auto) (0.0-1.0) % Immature Gran # (Auto) (0.00-0.50) 10^3/uL Neut # (Auto) (2.50-7.00) 10^3/uL Lymph # (Auto) (1.00-4.00) 10^3/uL [place] # (Auto) (0.10-0.80) 10^3/uL Eos # (Auto) (0.10-0.30) 10^3/uL Baso # (Auto) (0.00-0.10) 10^3/uL Sodium 135 L (136-145) mmol/L Potassium 4.0 (3.3-5.3) mmol/L Chloride 99 (98-115) mmol/L Carbon Dioxide 29.0 (21.0-32.0) mmol/L Anion Gap 11.0 (5-15) mmol/L BUN 50 H (6-25) mg/dL Creatinine 1.53 H (0.51-1.17) mg/dL Est Cr Clr Drug Dosing 35.47 mL/min Estimated GFR (MDRD) 45 mL/min Glucose 191 H (75 - 99) mg/dL POC Glucose 198 H (74-106) mg/dl Uric Acid (2.6-7.2) mg/dL Calcium 8.9 (8.7-10.3) mg/dL Total Bilirubin 1.5 H (0.2-1.0) mg/dL AST 18 (15-37) U/L ALT 17 (12-78) U/L Alkaline Phosphatase 122 H (46-116) IU/L Total Protein 6.7 (6.4-8.2) g/dL Albumin 3.22 (3.00-4.80) g/dL LDL Cholesterol Direct (0-100) mg/dL [place] Results Last 24 Hours: Microbiology 04/06/19 22:35 Gram Stain - Final Sputum - Expectorated Med Orders - Current: Current Medications Acetaminophen (Tylenol Arthritis Pain) 650 mg PO BID PRN PRN Reason: Pain Last Admin: 04/07/19 03:26 Dose: 650 mg Albuterol (Ventolin Hfa) 0 gm INH Q4H PRN PRN Reason: difficulty breathing Last Admin: 04/06/19 09:18 Dose: 2 puff Albuterol/Ipratropium (Duoneb 3.0-0.5 Mg/3 Ml) 3 ml NEB Q4HRRT PRN PRN Reason: Wheezing Albuterol/Ipratropium (Duoneb 3.0-0.5 Mg/3 Ml) 3 ml NEB Q6HRRT [facility] Allopurinol (Zyloprim) 200 mg PO DAILY [facility] Last Admin: 04/08/19 08:10 Dose: 200 mg Atorvastatin Calcium (Lipitor) 10 mg PO DAILY [facility] Last Admin: 04/08/19 08:10 Dose: 10 mg Calcium Citrate (Calcium Citrate + D) 1 tab PO BID [facility] Last Admin: 04/08/19 08:10 Dose: 1 tab Ceftriaxone Sodium (Rocephin) 1 gm IVPUSH Q24H [facility] Stop: 04/12/19 11:01 Cholecalciferol (Vitamin D3) 25 mcg PO BID [facility] Last Admin: 04/08/19 08:10 Dose: 25 mcg Diltiazem HCl (Cardizem Cd) 240 mg PO DAILY [facility] Last Admin: 04/08/19 08:10 Dose: 240 mg Ferrous Sulfate (Ferrous Sulfate) 325 mg PO DAILY [facility] Last Admin: 04/08/19 08:10 Dose: 325 mg Fluticasone/Umeclidinium/Vilanterol (Trelegy Ellipta 100-62.5-25 Mcg) 1 puff INH DAILY [facility] Last Admin: 04/08/19 08:08 Dose: 1 puff Furosemide (Lasix) 80 mg PO DAILY [facility] Insulin Aspart (Novolog) 0 unit SUBCUT WITHMEALSANDBED [facility]; Protocol Last Admin: 04/08/19 08:09 Dose: 2 units Montelukast Sodium (Singulair) 10 mg PO BEDTIME [facility] Last Admin: 04/07/19 20:46 Dose: 10 mg (Dulaglutide [ Trulicity] 0.75 Mg)* Own Med 0.75 mg SQ Q7D [facility] Last Admin: 04/07/19 08:50 Dose: 0.75 mg Omeprazole (Omeprazole) 20 mg PO ACBREAKFAST [facility] Last Admin: 04/08/19 07:33 Dose: 20 mg Polyethylene Glycol (Miralax) 17 gm PO DAILY PRN PRN Reason: Constipation Potassium Chloride (Klor-Con 10) 20 meq PO BIDMEALS [facility] Prednisone (Prednisone) 40 mg PO WITHBREAKFAST [facility] Stop: 04/12/19 11:31 Last Admin: 04/08/19 08:10 Dose: 40 mg Senna/Docusate Sodium (Senna Plus) 1 tab PO BID [facility] Last Admin: 04/08/19 08:10 Dose: 1 tab Sodium Chloride (Saline Flush) 10 ml FLUSH Q8HR PRN PRN Reason: keep vein open Tramadol HCl (Ultram) 50 mg PO BEDTIME PRN PRN Reason: Pain Triamcinolone Acetonide (Triamcinolone Acetonide 0.1% Crm) 0 gm TOP BID PRN PRN Reason: Rash Last Admin: 04/08/19 04:44 Dose: 1 applic Discontinued Medications Allopurinol (Zyloprim) 150 mg PO DAILY [facility] Last Admin: 04/07/19 08:48 Dose: 150 mg Furosemide (Lasix) 20 mg IVPUSH ONETIME [facility] Last Admin: 04/06/19 11:26 Dose: 20 mg Furosemide (Lasix) 20 mg IVPUSH NOW ONE Stop: 04/07/19 11:32 Last Admin: 04/07/19 12:49 Dose: 20 mg Furosemide (Lasix) 40 mg PO DAILY [facility] Last Admin: 04/08/19 08:10 Dose: 40 mg Furosemide (Lasix) 40 mg PO ONETIME ONE Stop: 04/08/19 10:08 Potassium Chloride/Sodium Chloride (Normal Saline With 20 Meq Kcl) 1,000 mls @ 75 mls/hr IV ASDIRECTED [facility] Last Admin: 04/06/19 04:10 Dose: 75 mls/hr Potassium Bicarbonate (Klor-Con Ef) 25 meq PO DAILY [facility] Last Admin: 04/05/19 14:33 Dose: 25 meq Potassium Chloride (Klor-Con 10) 20 meq PO WITHBREAKFAST [facility] Last Admin: 04/08/19 08:10 Dose: 20 meq Ropinirole HCl (Requip) 0.25 mg PO 0900,1400 [facility] Ropinirole HCl (Requip) 0.75 mg PO BEDTIME [facility] Senna/Docusate Sodium (Senna Plus) 2 tab PO BID [facility] Last Admin: 04/07/19 08:48 Dose: 2 tab Senna/Docusate Sodium (Senna Plus) 1 tab PO DAILY [facility] Triamcinolone Acetonide (Triamcinolone Acetonide 0.1% Crm) 0 gm TOP BID [facility] Last Admin: 04/06/19 09:19 Dose: 1 applic - Exam Quality Assessment: Supplemental Oxygen General: Alert, Oriented, Cooperative, Mild Distress Lungs: Decreased Breath Sounds, Wheezing (tight expiratory wheezes throughout, worse at bilateral bases), Other (short of breath with talking) GI/Abdominal Exam: Normal Bowel Sounds, Non-Tender, Distended (Peau d'orange at lower abdomen) Extremities: Pedal Edema (2-3+ bilaterally to knees) Psy/Mental Status: Alert, Normal Affect, Normal Mood - Problem List Review Problem List Initiated/Reviewed/Updated: Yes - My Orders Last 24 Hours: My Active Orders 04/08/19 10:07 RT Aerosol Therapy [RC] ASDIRECTED 04/08/19 11:00 Albuterol/Ipratropium [DuoNeb 3.0-0.5 MG/3 ML] 3 ml NEB Q6HRRT cefTRIAXone [Rocephin] 1 gm IVPUSH Q24H 04/09/19 05:00 BASIC METABOLIC PANEL,BMP [CHEM] Routine CBC WITH AUTO DIFF [HEME] Routine 04/09/19 09:00 Furosemide [Lasix] 80 mg PO DAILY Potassium Chloride [Klor-Con 10] 20 meq PO BIDMEALS - Plan Plan:: HPI summary: Mr. Cooper is a 73yoM with complex past medical history notable for HFpEF, CKD stage III, recurrent GI bleeding, and medication nonadherence, admitted directly due to acute kidney injury and electrolyte abnormalities. Evaluated on the morning of 04/05/19 by Fabiola Shah PA-c, at [facility] with limited lab/x-ray capability. On 03/30/19, metolazone was prescribed to be taken every 3 days, but the patient instead took daily for 3 days due to ongoing fluid retention in addition to continuing furosemide 80mg daily ( prescribed BID, but patient determined to be only taking daily). Patient was noted to be quite confused on exactly what medication regimen he's on or has been adjusted. His renal indices had acutely elevated with creatinine 2.16 with a widened BUN/creatinine ratio. He was also noted to have a slightly elevated direct bilirubin without other LFT abnormality. He had suffered from constipation with recent OTC bowel cleanout and admits to improving stools however remains significantly distended making it more difficult to breathe. Has been having ongoing, frequent nosebleeds that appeared to be Valsalva induced. Patient no longer taking anticoagulation or Plavix due to GI bleed with anemia requiring frequent transfusions however this has been quite stable for the past few weeks. Receiving iron infusions ~1-2 months ago in the hospital. Denies any melena. Hospitalization problems and plan: # Acute kidney injury: Admission Cr 2.2, likely related to patient reported use of metolazone daily for 3 days as well as CHF component of poor effective circulation. Labs today showing GFR 45, Creat 1.53, BUN 50. He is no longer on the metolazone, we are continuing Lasix for the CHF. Lasix was 40 mg yesterday, will increase to 80 mg today. # CKD, stage III: Baseline creatinine labile with average around 1.5. # HFpEF, acute on chronic: Last echo 11/29/18 with EF 55%. Small-moderate pleural effusions and ascites on 04/07/19 CT abdomen/pelvis. # HTN: BP WNL at 119/77 today on diltiazem 240 mg daily. Benazepril is on hold. # Hypokalemia: Potassium WNL today at 4.0. Stabilized on 20 mEq potassium with Lasix 40 mg. - Will increase to KCl 20mEq bid with increase in lasix. 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 Sputum culture grew many gram + diplococcus suggestive of strep pneumonia. He continues to be afebrile, WBC continues WNL at 8.29, however, neutrophils have increased to 79.4%. He does report he is less short of breath today than yesterday. Last PFT 2014. Wheezing is improved today but does continue with tight expiratory wheezes throughout, worse at bilateral bases. Consistent with acute exacerbation and pneumonia. Will add Rocephin 1 gm daily x 5 days. Continue prednisone. Increase DuoNebs to scheduled. recheck CBC tomorrow. # Chronic hypoxic respiratory failure: Uses 2 lpm oxygen at night and as needed at home. Using O2 continuously in hospital # REED: Uses CPAP at home. # Obesity hypoventilation, likely - Prednisone 40mg x5 days - Change albuterol to DuoNebs q6 hrs - Continue Trelegy daily and montelukast 10mg daily - Continue oxygen 2 lpm at night and prn # Iron deficiency anemia # Recurrent GI bleeding / Esophagitis / Gastropathy / Duodenal ulcers: 11/01/18 EGD with LA Grade B reflux esophagitis, erosive gastropathy, and multiple duodenal ulcers. Was recommended to have push enteroscopy, but has not scheduled or followed with gastroenterology. Had not been taking PPI at home. - PPI with omeprazole 20mg daily restarted in hospital. Continue same. - Continue iron sulfate daily - CBC tomorrow # Hyperbilirubinemia: Noted to be direct, not indirect, elevation. Stable without AST or ALT elevation and only very mild alkaline phosphatase elevation and no noted abnormalities on 04/07/19 CT abdomen/pelvis. - Consider further imaging as outpatient with US or future MRCP if worsening or additional LFT elevations # Constipation: Improved. - Continue Senna-docusate BID and PEG daily prn. # DMT2: 03/24/19 A1c 5.8%. Home regimen prescribed as Levemir 55un daily and dulaglutide 0.75mg weekly, but patient very infrequently taking Levemir. A1c goal of 7.5% given age and comorbidities. FBS 198 this morning. He needed 12 units of novolog insulin yesterday with medium dose sliding scale. - Hold long acting insulin - Monitor BGs with meals and bedtime and give medium dose sliding scale * requirements will likely increase from prior baseline given initiation of prednisone - Continue dulaglutide 0.75mg weekly # Gout: Uric acid elevated at 9.4 on 04/07/19. - Allopurinol was increased to 200mg daily. Continue same. # Medication and follow-up nonadherence: Overarching problem affecting effective management of all chronic conditions. - Highly recommend outpatient home health and/or [facility] assistance with medication set-up and counseling for appropriate administration - Social service consultation placed on admission Chronic, stable conditions: # Atrial fibrillation s/p Watchman device placement (10/18/18): Rate controlled on diltiazem 240mg daily. Off anticoagulation, Plavix, and ASA due to recurrent GI bleeding. Due for cardiology follow-up. # Mitral regurgitation: Last echo 11/29/18 with moderate-severe mitral regurgitation. # Diverticulosis: Noted on 11/01/18 colonoscopy. # Internal hemorrhoids: Noted on 11/01/18 colonoscopy. # BPH s/p TURP: Stable. # Renal cysts: Stable on most recent imaging. # Thyroid nodule: No recent imaging. Consider reassessment as outpatient. # HLD: Last lipid panel 01/06/19 with LDL 37. Atorvastatin 10mg daily. # Ca/D deficiency: Ca/D BID. # Obesity, morbid: BMI 40. # RLS: Prescribed ropinirole, but per medication review patient has apparently not been taking. Reassess in future as outpatient. # OA / Chronic pain: Multiple joints affected. Stable. On pain contract and takes tramadol 50mg nightly at night and acetaminophen 650mg BID. # Venous insufficiency: Stable. # Recurrent epistaxis: No recurrence in hospital. # Dermatitis / Pruritus: Triamcinolone prn. Holding hydroxyzine due to RICH. D/c duplicative topical steroid hydrocortisone. Hospitalization details: # FEN: No IVF. Electrolytes normalized. Diabetic diet. # PPX: SCDs for DVT ppx given hx of recurrent GI bleeding and anemia making pharmacologic ppx contraindicated. # Code status: FULL, confirmed with patient at bedside on 04/07/19 rounds. # Emergency contact: Daughter. # Disposition: Continue in inpatient status for ongoing close monitoring and management of pulmonary and fluid status as well as blood sugars. Anticipate at least 1-2 additional days in inpatient status to achieve stability and becoming appropriate for discharge. Highly encouraged assistance with outpatient medication assistance set-up and ensuring appropriate administration. Consulted with Dr Allen and she is in agreement with plan of care
[2019-04-08] MEDS: Albuterol/Ipratropium 3.0-0.5 MG/3 ML Neb Soln NEB SCH ×3 (10:29→22:16)
[2019-04-08] MEDS: cefTRIAXone 1 GM Vial IVPUSH SCH (10:29)
[2019-04-08] MEDS ORDERED: Melatonin 3 MG Tab PO PRN (20:58)
[2019-04-08] MEDS: Montelukast 10 MG Tab PO SCH (21:21)
[2019-04-09] MEDS: Albuterol/Ipratropium 3.0-0.5 MG/3 ML Neb Soln NEB SCH ×3 (04:56→17:27)
[2019-04-09] MEDS: Omeprazole 20 MG Cap.CR PO SCH (06:31)
[2019-04-09 07:49] LABS: ANION GAP 13.3 mmol/L (5-15)
[2019-04-09] MEDS: Insulin Aspart 100 Units/ML 3 ML Pen SUBCUT SCH ×4 (08:08→21:13)
[2019-04-09] MEDS: UMECLIDIN INH SCH (08:08)
[2019-04-09] MEDS: FLUTICASONE INH SCH (08:08)
[2019-04-09] MEDS: VILANTER INH SCH (08:08)
[2019-04-09] MEDS: Diltiazem 120 MG Cap.CD PO SCH (08:09)
[2019-04-09] MEDS: predniSONE 20 MG Tab PO SCH (08:09)
[2019-04-09] MEDS: atorvaSTATin 10 MG Tab PO SCH (08:10)
[2019-04-09] MEDS: Calcium Citrate/Vitamin D3 315 MG-250 Unit Tab PO SCH ×2 (08:10→20:06)
[2019-04-09] MEDS: Ferrous Sulfate 325 MG Tab PO SCH (08:10)
[2019-04-09] MEDS: Cholecalciferol (Vitamin D3) 25 MCG Tab PO SCH ×2 (08:10→20:06)
[2019-04-09] MEDS: Allopurinol 100 MG Tab PO SCH (08:10)
[2019-04-09] MEDS ORDERED: Potassium Chloride 10 MEQ Tab.ER PO SCH (09:00)
[2019-04-09] MEDS ORDERED: Furosemide 40 MG Tab PO SCH (09:00)
[2019-04-09] MEDS ORDERED: hydrOXYzine Pamoate 25 MG Cap PO SCH (09:00)
[2019-04-09] MEDS: rOPINIRole 0.25 MG Tab PO SCH ×3 (09:21→20:06)
[2019-04-09] MEDS ORDERED: hydrOXYzine Pamoate 25 MG Cap PO PRN (10:30)
--- NOTE | 2019-04-09 11:01 | PCM.PN ---
- General Info Date of Service: 04/09/19 Admission Dx/Problem (Free Text): Admitted with acute kidney injury, COPD exacerbation, Diabetes mellitus Subjective Update: Mr. Cooper reports he continues to have shortness of breath which is unchanged from yesterday. He states yesterday he was able to walk to the bathroom without severe shortness of breath. Today he walked in the [place]varez with his daughter and was very short of breath on returning to the room. He is less short of breath at rest today. He does report that he is very tired as he has been unable to sleep since admission. He was given melatonin last night. At home he is on requip 0.25 mg tid and would like to restart that. Pt reports that he had about 6 BMs yesterday and his abdomen does not feel as tight today. He did have a soft BM yesterday. He denies any specific abdominal pain, nausea, vomiting, rectal bleeding, or urinary complaints. His daughter brought a list of his home meds and medication clarifications have been made, including restarting the requip and adding vistaril prn for itching. He reports he has chronic itching of his back that is greatly improved with daily cream applied here in the hospital. Functional Status: Reports: Tolerating Diet (reports appetite is greatly improved since hospital admission), Ambulating (slowly with family member in the alvarez.) - Review of Systems General: Reports: Fatigue, Appetite. Denies: Fever HEENT: Reports: No Symptoms Pulmonary: Reports: Shortness of Breath, Cough, Sputum, Wheezing Cardiovascular: Reports: Dyspnea on Exertion, Edema. Denies: Chest Pain, Palpitations, Lightheadedness Gastrointestinal: Denies: Abdominal Pain, Constipation, Decreased Appetite, Diarrhea, Hematochezia, Nausea, Vomiting Genitourinary: Reports: No Symptoms Skin: Reports: Pruritis (improved) Neurological: Reports: No Symptoms Psychiatric: Reports: No Symptoms - Patient Data Vitals - Most Recent: Last Vital Signs Temp 98.4 F 04/09/19 06:53 Pulse 100 04/09/19 08:09 Resp 20 04/09/19 06:53 BP 144/77 H 04/09/19 08:09 Pulse Ox 94 L 04/09/19 08:00 Weight - Most Recent: 237 lb 8 oz I&O - Last 24 Hours: Intake & Output 04/08/19 04/09/19 04/09/19 22:59 06:59 14:59 Intake Total 520 200 Output Total 600 200 Balance -80 0 Lab Results Last 24 Hours: Laboratory Results - last 24 hr 04/08/19 04/08/19 04/08/19 Range/Units 11:45 17:23 21:17 WBC (5.00-10.00) 10^3/uL RBC (4.50-6.00) 10^6/uL Hgb (13.0-17.0) g/dL Hct (40.0-52.0) % MCV (82.0-92.0) fL MCH (27.0-31.0) pg MCHC (32.0-36.0) g/dL RDW (11.5-14.5) % Plt Count (150-400) 10^3/uL MPV (7.4-10.4) fL Immature Gran % (Auto) (0.0-5.0) % Neut % (Auto) (50.0-70.0) % Lymph % (Auto) (20.0-40.0) % Stone % (Auto) (2.0-8.0) % Eos % (Auto) (1.0-3.0) % Baso % (Auto) (0.0-1.0) % Immature Gran # (Auto) (0.00-0.50) 10^3/uL Neut # (Auto) (2.50-7.00) 10^3/uL Lymph # (Auto) (1.00-4.00) 10^3/uL Stone # (Auto) (0.10-0.80) 10^3/uL Eos # (Auto) (0.10-0.30) 10^3/uL Baso # (Auto) (0.00-0.10) 10^3/uL Sodium (136-145) mmol/L Potassium (3.3-5.3) mmol/L Chloride (98-115) mmol/L Carbon Dioxide (21.0-32.0) mmol/L Anion Gap (5-15) mmol/L BUN (6-25) mg/dL Creatinine (0.51-1.17) mg/dL Est Cr Clr Drug Dosing mL/min Estimated GFR (MDRD) mL/min Glucose (75 - 99) mg/dL POC Glucose 215 H 304 H 342 H (74-106) mg/dl Calcium (8.7-10.3) mg/dL 04/09/19 04/09/19 04/09/19 Range/Units 07:20 07:20 07:32 WBC 12.09 H (5.00-10.00) 10^3/uL RBC 3.97 L (4.50-6.00) 10^6/uL Hgb 9.5 L (13.0-17.0) g/dL Hct 32.7 L (40.0-52.0) % MCV 82.4 (82.0-92.0) fL MCH 23.9 L (27.0-31.0) pg MCHC 29.1 L (32.0-36.0) g/dL RDW 19.0 H (11.5-14.5) % Plt Count 205 (150-400) 10^3/uL MPV 10.1 (7.4-10.4) fL Immature Gran % (Auto) 0.4 (0.0-5.0) % Neut % (Auto) 81.3 H (50.0-70.0) % Lymph % (Auto) 6.0 L (20.0-40.0) % Stone % (Auto) 11.7 H (2.0-8.0) % Eos % (Auto) 0.4 L (1.0-3.0) % Baso % (Auto) 0.2 (0.0-1.0) % Immature Gran # (Auto) 0.05 (0.00-0.50) 10^3/uL Neut # (Auto) 9.83 H (2.50-7.00) 10^3/uL Lymph # (Auto) 0.72 L (1.00-4.00) 10^3/uL Stone # (Auto) 1.42 H (0.10-0.80) 10^3/uL Eos # (Auto) 0.05 L (0.10-0.30) 10^3/uL Baso # (Auto) 0.02 (0.00-0.10) 10^3/uL Sodium 133 L (136-145) mmol/L Potassium 4.8 (3.3-5.3) mmol/L Chloride 96 L (98-115) mmol/L Carbon Dioxide 28.5 (21.0-32.0) mmol/L Anion Gap 13.3 (5-15) mmol/L BUN 58 H* (6-25) mg/dL Creatinine 1.84 H (0.51-1.17) mg/dL Est Cr Clr Drug Dosing 29.49 mL/min Estimated GFR (MDRD) 36 mL/min Glucose 175 H (75 - 99) mg/dL POC Glucose 179 H (74-106) mg/dl Calcium 8.6 L (8.7-10.3) mg/dL [place] Results Last 24 Hours: Microbiology 04/06/19 22:35 Respiratory Culture - Preliminary Sputum - Expectorated Streptococcus Pneumoniae Gram Stain - Final Med Orders - Current: Current Medications Acetaminophen (Tylenol Arthritis Pain) 650 mg PO BID PRN PRN Reason: Pain Last Admin: 04/07/19 03:26 Dose: 650 mg Albuterol (Ventolin Hfa) 0 gm INH Q4H PRN PRN Reason: difficulty breathing Last Admin: 04/06/19 09:18 Dose: 2 puff Albuterol/Ipratropium (Duoneb 3.0-0.5 Mg/3 Ml) 3 ml NEB Q4HRRT PRN PRN Reason: Wheezing Albuterol/Ipratropium (Duoneb 3.0-0.5 Mg/3 Ml) 3 ml NEB Q6HRRT [facility] Last Admin: 04/09/19 04:56 Dose: 3 ml Allopurinol (Zyloprim) 200 mg PO DAILY [facility] Last Admin: 04/09/19 08:10 Dose: 200 mg Atorvastatin Calcium (Lipitor) 10 mg PO DAILY [facility] Last Admin: 04/09/19 08:10 Dose: 10 mg Calcium Citrate (Calcium Citrate + D) 1 tab PO BID [facility] Last Admin: 04/09/19 08:10 Dose: 1 tab Ceftriaxone Sodium (Rocephin) 1 gm IVPUSH Q24H [facility] Stop: 04/12/19 11:01 Last Admin: 04/08/19 10:29 Dose: 1 gm Cholecalciferol (Vitamin D3) 25 mcg PO BID [facility] Last Admin: 04/09/19 08:10 Dose: 25 mcg Diltiazem HCl (Cardizem Cd) 240 mg PO DAILY [facility] Last Admin: 04/09/19 08:09 Dose: 240 mg Ferrous Sulfate (Ferrous Sulfate) 325 mg PO DAILY [facility] Last Admin: 04/09/19 08:10 Dose: 325 mg Fluticasone/Umeclidinium/Vilanterol (Trelegy Ellipta 100-62.5-25 Mcg) 1 puff INH DAILY [facility] Last Admin: 04/09/19 08:08 Dose: 1 puff Furosemide (Lasix) 80 mg PO DAILY [facility] Last Admin: 04/09/19 08:10 Dose: 80 mg Hydroxyzine Pamoate (Vistaril) 25 mg PO Q8H PRN PRN Reason: Itching Insulin Aspart (Novolog) 0 unit SUBCUT WITHMEALSANDBED [facility]; Protocol Last Admin: 04/09/19 08:08 Dose: 2 units Melatonin (Melatonin) 9 mg PO BEDTIME PRN PRN Reason: Insomnia Last Admin: 04/08/19 21:19 Dose: 9 mg Montelukast Sodium (Singulair) 10 mg PO BEDTIME [facility] Last Admin: 04/08/19 21:21 Dose: 10 mg (Dulaglutide [ Trulicity] 0.75 Mg)* Own Med 0.75 mg SQ Q7D [facility] Last Admin: 04/07/19 08:50 Dose: 0.75 mg Omeprazole (Omeprazole) 20 mg PO ACBREAKFAST [facility] Last Admin: 04/09/19 06:31 Dose: 20 mg Polyethylene Glycol (Miralax) 17 gm PO DAILY PRN PRN Reason: Constipation Potassium Chloride (Klor-Con 10) 20 meq PO DAILY [facility] Prednisone (Prednisone) 40 mg PO WITHBREAKFAST [facility] Stop: 04/12/19 11:31 Last Admin: 04/09/19 08:09 Dose: 40 mg Ropinirole HCl (Requip) 0.25 mg PO TID [facility] Last Admin: 04/09/19 09:21 Dose: 0.25 mg Senna/Docusate Sodium (Senna Plus) 1 tab PO BID [facility] Last Admin: 04/09/19 08:09 Dose: 1 tab Sodium Chloride (Saline Flush) 10 ml FLUSH Q8HR PRN PRN Reason: keep vein open Tramadol HCl (Ultram) 50 mg PO BEDTIME PRN PRN Reason: Pain Last Admin: 04/09/19 01:15 Dose: 50 mg Triamcinolone Acetonide (Triamcinolone Acetonide 0.1% Crm) 0 gm TOP BID PRN PRN Reason: Rash Last Admin: 04/08/19 21:23 Dose: 1 applic Discontinued Medications Allopurinol (Zyloprim) 150 mg PO DAILY [facility] Last Admin: 04/07/19 08:48 Dose: 150 mg Furosemide (Lasix) 20 mg IVPUSH ONETIME [facility] Last Admin: 04/06/19 11:26 Dose: 20 mg Furosemide (Lasix) 20 mg IVPUSH NOW ONE Stop: 04/07/19 11:32 Last Admin: 04/07/19 12:49 Dose: 20 mg Furosemide (Lasix) 40 mg PO DAILY [facility] Last Admin: 04/08/19 08:10 Dose: 40 mg Furosemide (Lasix) 40 mg PO ONETIME ONE Stop: 04/08/19 10:08 Last Admin: 04/08/19 10:29 Dose: 40 mg Hydroxyzine Pamoate (Vistaril) 25 mg PO TID [facility] Last Admin: 04/09/19 09:21 Dose: 25 mg Potassium Chloride/Sodium Chloride (Normal Saline With 20 Meq Kcl) 1,000 mls @ 75 mls/hr IV ASDIRECTED [facility] Last Admin: 04/06/19 04:10 Dose: 75 mls/hr Potassium Bicarbonate (Klor-Con Ef) 25 meq PO DAILY [facility] Last Admin: 04/05/19 14:33 Dose: 25 meq Potassium Chloride (Klor-Con 10) 20 meq PO WITHBREAKFAST [facility] Last Admin: 04/08/19 08:10 Dose: 20 meq Potassium Chloride (Klor-Con 10) 20 meq PO BIDMEALS [facility] Last Admin: 04/09/19 08:09 Dose: 20 meq Ropinirole HCl (Requip) 0.25 mg PO 0900,1400 [facility] Ropinirole HCl (Requip) 0.75 mg PO BEDTIME [facility] Senna/Docusate Sodium (Senna Plus) 2 tab PO BID [facility] Last Admin: 04/07/19 08:48 Dose: 2 tab Senna/Docusate Sodium (Senna Plus) 1 tab PO DAILY [facility] Triamcinolone Acetonide (Triamcinolone Acetonide 0.1% Crm) 0 gm TOP BID [facility] Last Admin: 04/06/19 09:19 Dose: 1 applic - Exam Quality Assessment: Supplemental Oxygen (at hs and prn) General: Alert, Oriented, Cooperative Lungs: Decreased Breath Sounds, Wheezing, Other (lung sounds diminished throughout, nearly absent right base. Faint expiratory wheezes left base) Cardiovascular: Irregular Rhythm GI/Abdominal Exam: Other (abdomen less distended today but increased [place] across entire lower abdomen with 1+ pitting low back) Back Exam: Other (1+ pitting to lower back) Extremities: Pedal Edema (2+ bilaterally to knees with support hose on) Psy/Mental Status: Alert, Normal Affect, Normal Mood - Problem List Review Problem List Initiated/Reviewed/Updated: Yes - My Orders Last 24 Hours: My Active Orders 04/08/19 10:07 RT Aerosol Therapy [RC] ASDIRECTED 04/08/19 11:00 Albuterol/Ipratropium [DuoNeb 3.0-0.5 MG/3 ML] 3 ml NEB Q6HRRT cefTRIAXone [Rocephin] 1 gm IVPUSH Q24H 04/08/19 21:04 RT Incentive Spirometry [RC] .PRN 04/09/19 09:00 Furosemide [Lasix] 80 mg PO DAILY rOPINIRole [Requip] 0.25 mg PO TID 04/09/19 10:21 CXR [Chest 2V] [CR] Routine 04/09/19 10:30 hydrOXYzine pamoate [Vistaril] 25 mg PO Q8H PRN 04/10/19 05:00 CBC WITH AUTO DIFF [HEME] Routine CMP [COMPREHENSIVE METABOLIC PN,CMP] [CHEM] Routine 04/10/19 09:00 Potassium Chloride [Klor-Con 10] 20 meq PO DAILY - Plan Plan:: HPI summary: Mr. Cooper is a 73yoM with complex past medical history notable for HFpEF, CKD stage III, recurrent GI bleeding, and medication nonadherence, admitted directly due to acute kidney injury and electrolyte abnormalities. Evaluated on the morning of 04/05/19 by Fabiola Shah PA-c, at [facility] with limited lab/x-ray capability. On 03/30/19, metolazone was prescribed to be taken every 3 days, but the patient instead took daily for 3 days due to ongoing fluid retention in addition to continuing furosemide 80mg daily ( prescribed BID, but patient determined to be only taking daily). Patient was noted to be quite confused on exactly what medication regimen he's on or has been adjusted. His renal indices had acutely elevated with creatinine 2.16 with a widened BUN/creatinine ratio. He was also noted to have a slightly elevated direct bilirubin without other LFT abnormality. He had suffered from constipation with recent OTC bowel cleanout and admits to improving stools however remains significantly distended making it more difficult to breathe. Has been having ongoing, frequent nosebleeds that appeared to be Valsalva induced. Patient no longer taking anticoagulation or Plavix due to GI bleed with anemia requiring frequent transfusions however this has been quite stable for the past few weeks. Receiving iron infusions ~1-2 months ago in the hospital. Denies any melena. Hospitalization problems and plan: # Acute kidney injury: Admission Cr 2.2, likely related to patient reported use of metolazone daily for 3 days as well as CHF component of poor effective circulation. Lasix was increased to 80 mg daily yesterday. He had a weight gain of 3#. Labs today showing worsening kidney functions from yesterday with GFR 36, Creat 1.84, BUN 58. Heart rate 109. Picture looks like intervascular depletion and extravascular fluid overload. # CKD, stage III: Baseline creatinine labile with average around 1.5. 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 Sputum culture grew many gram + diplococcus suggestive of strep pneumonia. He continues to be afebrile, WBC 12.09 today with left shift, Neutrophils 81.3%. He reports no worsening or improvement of resp status from yesterday. New leukocytosis may be attributed to the prednisone. Last PFT 2014. Wheezing is improved today but does continue with tight expiratory wheezes throughout, worse at bilateral bases. New today is nearly absent lung sounds on right base. Will get a repeat CXR and consult with [facility] if increased pleural effusion. Will continue Rocephin 1 gm daily x 5 days. Continue prednisone. Continue scheduled DuoNebs. Recheck CBC tomorrow. # HFpEF, acute on chronic: Last echo 11/29/18 with EF 55%. Small-moderate pleural effusions and ascites on 04/07/19 CT abdomen/pelvis. # HTN: BP acceptable 144/77 today on diltiazem 240 mg daily. Benazepril is on hold. # Hypokalemia: Potassium WNL today at 4.8. Potassium is increasing. - Will decrease to KCl 20mEq daily lasix. - I/O monitoring - CMP tomorrow # Chronic hypoxic respiratory failure: Uses 2 lpm oxygen at night and as needed at home. Using O2 continuously in hospital # REED: Uses CPAP at home. # Obesity hypoventilation, likely - Prednisone 40mg x5 days - DuoNebs q6 hrs and q 4 hrs prn - Continue Trelegy daily and montelukast 10mg daily - Continue oxygen 2 lpm at night and prn # Iron deficiency anemia # Recurrent GI bleeding / Esophagitis / Gastropathy / Duodenal ulcers: 11/01/18 EGD with LA Grade B reflux esophagitis, erosive gastropathy, and multiple duodenal ulcers. Was recommended to have push enteroscopy, but has not scheduled or followed with gastroenterology. Had not been taking PPI at home. - PPI with omeprazole 20mg daily restarted in hospital. Continue same. - Continue iron sulfate daily - CBC tomorrow # Hyperbilirubinemia: Noted to be direct, not indirect, elevation. Stable without AST or ALT elevation and only very mild alkaline phosphatase elevation and no noted abnormalities on 04/07/19 CT abdomen/pelvis. - Consider further imaging as outpatient with US or future MRCP if worsening or additional LFT elevations # Constipation: Improved. - Continue Senna-docusate BID and PEG daily prn. # DMT2: 03/24/19 A1c 5.8%. Home regimen prescribed as Levemir 55un daily and dulaglutide 0.75mg weekly, but patient very infrequently taking Levemir. A1c goal of 7.5% given age and comorbidities. FBS 179 this morning. He needed 22 units of novolog insulin yesterday with medium dose sliding scale. - Hold long acting insulin - Monitor BGs with meals and bedtime and give medium dose sliding scale * requirements will likely increase from prior baseline given initiation of prednisone - Continue dulaglutide 0.75mg weekly # Gout: Uric acid elevated at 9.4 on 04/07/19. - Allopurinol was increased to 200mg daily. Continue same. # Medication and follow-up nonadherence: Overarching problem affecting effective management of all chronic conditions. - Highly recommend outpatient home health and/or [facility] assistance with medication set-up and counseling for appropriate administration - Social service consultation placed on admission Chronic, stable conditions: # Atrial fibrillation s/p Watchman device placement (10/18/18): Rate controlled on diltiazem 240mg daily. Off anticoagulation, Plavix, and ASA due to recurrent GI bleeding. Due for cardiology follow-up. # Mitral regurgitation: Last echo 11/29/18 with moderate-severe mitral regurgitation. # Diverticulosis: Noted on 11/01/18 colonoscopy. # Internal hemorrhoids: Noted on 11/01/18 colonoscopy. # BPH s/p TURP: Stable. # Renal cysts: Stable on most recent imaging. # Thyroid nodule: No recent imaging. Consider reassessment as outpatient. # HLD: Last lipid panel 01/06/19 with LDL 37. Atorvastatin 10mg daily. # Ca/D deficiency: Ca/D BID. # Obesity, morbid: BMI 40. # RLS: restart ropinirole. # OA / Chronic pain: Multiple joints affected. Stable. On pain contract and takes tramadol 50mg nightly at night and acetaminophen 650mg BID. # Venous insufficiency: Stable. # Recurrent epistaxis: No recurrence in hospital. # Dermatitis / Pruritus: Triamcinolone prn. Will use hydroxyzine only prn due to RICH. D/c duplicative topical steroid hydrocortisone. Hospitalization details: # FEN: No IVF. Electrolytes normalized. Diabetic diet. # PPX: SCDs for DVT ppx given hx of recurrent GI bleeding and anemia making pharmacologic ppx contraindicated. # Code status: FULL, confirmed with patient at bedside on 04/07/19 rounds. # Emergency contact: Daughter. # Disposition: Continue in inpatient status for ongoing close monitoring and management of pulmonary and fluid status as well as blood sugars. Depending on results of CXR today, may need consult with [facility]. Highly encouraged assistance with outpatient medication assistance set-up and ensuring appropriate administration. Consulted with Dr Allen and she is in agreement with plan of care
[2019-04-09] MEDS: cefTRIAXone 1 GM Vial IVPUSH SCH (11:19)
--- NOTE | 2019-04-09 12:01 | CR ---
[id number] RAD/RAD Chest PA And Lateral EXAM: RAD Chest PA And Lateral CLINICAL DATA: DECREASED BREATH SOUNDS COMPARISON: CORRELATION IS MADE WITH THE EXAM OF APRIL 06, 2019. FINDINGS: An infiltrate with effusion is increasing at the right lung base. The right upper lobe and left lung are clear. The cardiomediastinal contour is stable. IMPRESSION: INCREASING INFILTRATE AND EFFUSION AT RIGHT LUNG BASE. Johan Wong MD 04/09/19 [id number] Thank you for allowing us to participate in the care of your patient.
--- NOTE | 2019-04-09 13:22 | PCM.SN ---
- Free Text/Narrative Note: CXR showing increasing pleural effusion and infiltrate right base. Pt has multiple comorbidities with very poor baseline kidney and respiratory status. Will discontinue rocephin, start vancomycin and levaquin for pneumonia with pharmacy to dose. Will watch closely. If no improvement or any worsening of status, will be calling [facility] for possible transfer. Consulted with Dr Allen who is in agreement with plan. Monitoring pt throughout the day. S: He reports he had a spell of increased shortness of breath today. Just now he reports light headedness and shortness of breath after returning from the bathroom. He is in agreement with plans to transfer to [facility]. O: Heart rate is now 96, Resp 20. He is short of breath with conversation. Lung sounds clear. Diminished, nearly absent on right base. No wheezes present. Abdominal edema has increased with 2+ pitting. Pedal edema 3+ karena to knees with support hose on. A. Worsening renal functions with increasing edema and ascites. P. Telephone call to [facility]. Report given to Dr Metzger who will accept transfer to [facility]. Dr. Dave Guzman updated on status.
[2019-04-09] MEDS ORDERED: Levofloxacin/Dextrose 5%-Water 500 MG in Premix Bag 1 BAG IV ONE (13:30)
[2019-04-09] MEDS ORDERED: Sodium Chloride 0.9% 250 ML IV SCH (13:30)
[2019-04-09] MEDS ORDERED: Vancomycin 2 GM in Sodium Chloride 0.9% 500 ML IV ONE (14:00)
[2019-04-09 19:11] VITALS: BP 116/78; PULSE 105
[2019-04-09] MEDS: Montelukast 10 MG Tab PO SCH (20:06)
[2019-04-09] MEDS: Triamcinolone Acetonide 0.1% Crm 15 GM Tube TOP PRN (20:07)
[2019-04-09 21:12] LABS: ANION GAP 16.1 mmol/L (5-15)
--- NOTE | 2019-04-09 22:07 | PCM.DCSUM1 ---
Discharge Summary - Hospital Course Free Text/Narrative:: See Progress note and simple note from today for Discharge summary.. - Discharge Data Discharge Date: 04/09/19 Discharge Disposition: DC/Tfer to Acute Hospital 02 Condition: Poor - Discharge Diagnosis/Problem(s) (1) Acute kidney failure SNOMED Code(s): 31533569 ICD Code: N17.9 - ACUTE KIDNEY FAILURE, UNSPECIFIED Status: Acute Priority: High Current Visit: Yes (2) Pneumonia due to Streptococcus pneumoniae SNOMED Code(s): 222205870 ICD Code: J13 - PNEUMONIA DUE TO STREPTOCOCCUS PNEUMONIAE Status: Acute Current Visit: Yes Qualifiers: Laterality: right Lung location: lower lobe of lung Qualified Code(s): J13 - Pneumonia due to Streptococcus pneumoniae (3) COPD (chronic obstructive pulmonary disease) SNOMED Code(s): 27779895 ICD Code: J44.9 - CHRONIC OBSTRUCTIVE PULMONARY DISEASE, UNSPECIFIED Status : Chronic Current Visit: No (4) Diabetes mellitus SNOMED Code(s): 71566719 ICD Code: E11.9 - TYPE 2 DIABETES MELLITUS WITHOUT COMPLICATIONS Status: Acute Current Visit: Yes Qualifiers: Diabetes mellitus type: type 2 Diabetes mellitus group home insulin use: with termite treater helper use Diabetes mellitus complication status: with kidney complications Diabetes mellitus complication detail: with chronic kidney disease Chronic kidney disease stage: stage 3 (moderate) Qualified Code(s): E11.22 - Type 2 diabetes mellitus with diabetic chronic kidney disease; N18.3 - Chronic kidney disease, stage 3 (moderate); Z79.4 - termite control technician (current) use of insulin (5) Anemia SNOMED Code(s): 800585391 ICD Code: D64.9 - ANEMIA, UNSPECIFIED Status: Chronic Priority: Medium Current Visit: No Problem Details: Continue with iron supplement. Monitor as previously discussed with your clinic Qualifiers: Anemia type: iron deficiency Iron deficiency anemia type: other iron deficiency Qualified Code(s): D50.8 - Other iron deficiency anemias (6) Arthritic-like pain SNOMED Code(s): 58184439 ICD Code: M25.50 - PAIN IN UNSPECIFIED JOINT Status: Acute Current Visit : No - Patient Summary/Data Consults: Consultations 04/05/19 13:53 Consult to Case Management/Rn Liaison [CONS] Routine - Patient Instructions Diet: Diabetic Diet - Discharge Plan *PRESCRIPTION DRUG MONITORING PROGRAM REVIEWED*: No *COPY OF PRESCRIPTION DRUG MONITORING REPORT IN PATIENT MAX: No Home Medications: Home Meds Albuterol [Ventolin HFA] 2 puff INH Q4H PRN 12/23/13 [History] Cholecalciferol (Vitamin D3) [Vitamin D3] 1,000 unit PO DAILY 12/23/13 [History] Allopurinol [Zyloprim] 150 mg PO DAILY 07/21/16 [History] Montelukast [Singulair] 10 mg PO BEDTIME 07/21/16 [History] Acetaminophen [Arthritis Pain Relief] 650 mg PO BID PRN 08/09/17 [History] traMADol [Ultram] 50 mg PO BEDTIME 08/09/17 [History] Dextromethorphan/guaiFENesin [Robitussin DM] 10 ml PO TID PRN 09/02/18 [History] atorvaSTATin [Lipitor] 10 mg PO DAILY 09/02/18 [History] Fluticasone/Umeclidin/Vilanter [Trelegy Ellipta 100-62.5-25 MCG] 1 puff INH DAILY #1 inhaler 09/06/18 [Rx] Dulaglutide [Trulicity] 0.75 mg PO WEEKLY 01/20/19 [History] Insulin Detemir [Levemir] 55 units PO DAILY@0400 01/20/19 [History] Triamcinolone Acetonide [Triamcinolone Acetonide 0.1% Crm] 1 applic TOP BID PRN 01/20/19 [History] Dextran 70/Hypromellose [Artificial Tears] 1 drop EYEBOTH Q4H PRN 02/24/19 [ History] Ferrous Sulfate 325 mg PO DAILY 02/24/19 [History] hydrOXYzine HCl [hydrOXYzine] 25 mg PO TID 02/24/19 [History] Diltiazem [Cardizem CD] 240 mg PO DAILY 04/05/19 [History] Furosemide [Lasix] 80 mg PO BID 04/05/19 [History] Polyethylene Glycol 3350 [MiraLAX] 17 gm PO DAILY PRN 04/05/19 [History] Potassium Chloride [K-Tab ER] 20 meq PO DAILY 04/05/19 [History] Calcium Carbonate 1,200 mg PO BID 04/08/19 [History] Melatonin 10 mg PO BEDTIME 04/08/19 [History] Omeprazole 20 mg PO BIDAC 04/08/19 [History] rOPINIRole [Requip] 0.25 mg PO TID 04/08/19 [History] Albuterol/Ipratropium [DuoNeb 3.0-0.5 MG/3 ML] 3 ml INH Q6H PRN 04/09/19 [ History] Docusate Sodium [Colace] 100 mg PO BID 04/09/19 [History] Oxygen Flow Rate (L/min): 2 (oxygen with CPAP at night) - Discharge Summary/Plan Comment DC Time >30 min.: Yes Discharge Summary/Plan Comment: Transfer to [facility]. Hospitalist Dr Metzger to accept pt. - General Info Date of Service: 04/09/19 Admission Dx/Problem (Free Text: Admitted with acute kidney injury, COPD exacerbation, Diabetes mellitus Subjective Update: On discharge pt is reporting worsening shortness of breath. Mr. Cooper reports he continues to have shortness of breath which is unchanged from yesterday. He states yesterday he was able to walk to the bathroom without severe shortness of breath. Today he walked in the alvarez with his daughter and was very short of breath on returning to the room. He is less short of breath at rest today. He does report that he is very tired as he has been unable to sleep since admission. He was given melatonin last night. At home he is on requip 0.25 mg tid and would like to restart that. Pt reports that he had about 6 BMs yesterday and his abdomen does not feel as tight today. He did have a soft BM yesterday. He denies any specific abdominal pain, nausea, vomiting, rectal bleeding, or urinary complaints. His daughter brought a list of his home meds and medication clarifications have been made, including restarting the requip and adding vistaril prn for itching. He reports he has chronic itching of his back that is greatly improved with daily cream applied here in the hospital. - Review of Systems General: Reports: Weakness. Denies: Fever HEENT: Reports: No Symptoms Pulmonary: Reports: Shortness of Breath, Cough, Sputum Cardiovascular: Reports: Dyspnea on Exertion, Edema, Lightheadedness. Denies: Chest Pain, Palpitations Gastrointestinal: Reports: Other (improved appetite since admission. abdominal distension. No abdominal pain today. Frequent stools recently) Genitourinary: Denies: Dysuria, Frequency, Burning, Hematuria Musculoskeletal: Reports: Back Pain (chronic for which he uses tramadol at hs) Neurological: Reports: No Symptoms Psychiatric: Reports: No Symptoms - Patient Data Vitals - Most Recent: Last Vital Signs Temp 97.9 F 04/09/19 19:00 Pulse 105 H 04/09/19 19:00 Resp 23 H 04/09/19 19:00 BP 116/78 04/09/19 19:00 Pulse Ox 94 L 04/09/19 19:00 Weight - Most Recent: 237 lb 8 oz I&O - Last 24 hours: Intake & Output 04/09/19 04/09/19 04/09/19 06:59 14:59 22:59 Intake Total 200 950 715 Output Total 200 600 Balance 0 350 715 Lab Results - Last 24 hrs: Laboratory Results - last 24 hr 04/08/19 04/09/19 04/09/19 Range/Units 21:17 07:20 07:20 WBC 12.09 H (5.00-10.00) 10^3/uL RBC 3.97 L (4.50-6.00) 10^6/uL Hgb 9.5 L (13.0-17.0) g/dL Hct 32.7 L (40.0-52.0) % MCV 82.4 (82.0-92.0) fL MCH 23.9 L (27.0-31.0) pg MCHC 29.1 L (32.0-36.0) g/dL RDW 19.0 H (11.5-14.5) % Plt Count 205 (150-400) 10^3/uL MPV 10.1 (7.4-10.4) fL Immature Gran % (Auto) 0.4 (0.0-5.0) % Neut % (Auto) 81.3 H (50.0-70.0) % Lymph % (Auto) 6.0 L (20.0-40.0) % Winston % (Auto) 11.7 H (2.0-8.0) % Eos % (Auto) 0.4 L (1.0-3.0) % Baso % (Auto) 0.2 (0.0-1.0) % Immature Gran # (Auto) 0.05 (0.00-0.50) 10^3/uL Neut # (Auto) 9.83 H (2.50-7.00) 10^3/uL Lymph # (Auto) 0.72 L (1.00-4.00) 10^3/uL Winston # (Auto) 1.42 H (0.10-0.80) 10^3/uL Eos # (Auto) 0.05 L (0.10-0.30) 10^3/uL Baso # (Auto) 0.02 (0.00-0.10) 10^3/uL Sodium 133 L (136-145) mmol/L Potassium 4.8 (3.3-5.3) mmol/L Chloride 96 L (98-115) mmol/L Carbon Dioxide 28.5 (21.0-32.0) mmol/L Anion Gap 13.3 (5-15) mmol/L BUN 58 H* (6-25) mg/dL Creatinine 1.84 H (0.51-1.17) mg/dL Est Cr Clr Drug Dosing 29.49 mL/min Estimated GFR (MDRD) 36 mL/min Glucose 175 H (75 - 99) mg/dL POC Glucose 342 H (74-106) mg/dl Calcium 8.6 L (8.7-10.3) mg/dL B-Natriuretic Peptide (0-100) pg/mL 04/09/19 04/09/19 04/09/19 Range/Units 07:32 11:18 17:31 WBC (5.00-10.00) 10^3/uL RBC (4.50-6.00) 10^6/uL Hgb (13.0-17.0) g/dL Hct (40.0-52.0) % MCV (82.0-92.0) fL MCH (27.0-31.0) pg MCHC (32.0-36.0) g/dL RDW (11.5-14.5) % Plt Count (150-400) 10^3/uL MPV (7.4-10.4) fL Immature Gran % (Auto) (0.0-5.0) % Neut % (Auto) (50.0-70.0) % Lymph % (Auto) (20.0-40.0) % Winston % (Auto) (2.0-8.0) % Eos % (Auto) (1.0-3.0) % Baso % (Auto) (0.0-1.0) % Immature Gran # (Auto) (0.00-0.50) 10^3/uL Neut # (Auto) (2.50-7.00) 10^3/uL Lymph # (Auto) (1.00-4.00) 10^3/uL Winston # (Auto) (0.10-0.80) 10^3/uL Eos # (Auto) (0.10-0.30) 10^3/uL Baso # (Auto) (0.00-0.10) 10^3/uL Sodium (136-145) mmol/L Potassium (3.3-5.3) mmol/L Chloride (98-115) mmol/L Carbon Dioxide (21.0-32.0) mmol/L Anion Gap (5-15) mmol/L BUN (6-25) mg/dL Creatinine (0.51-1.17) mg/dL Est Cr Clr Drug Dosing mL/min Estimated GFR (MDRD) mL/min Glucose (75 - 99) mg/dL POC Glucose 179 H 225 H 281 H (74-106) mg/dl Calcium (8.7-10.3) mg/dL B-Natriuretic Peptide (0-100) pg/mL 04/09/19 04/09/19 Range/Units 20:45 21:10 WBC (5.00-10.00) 10^3/uL RBC (4.50-6.00) 10^6/uL Hgb (13.0-17.0) g/dL Hct (40.0-52.0) % MCV (82.0-92.0) fL MCH (27.0-31.0) pg MCHC (32.0-36.0) g/dL RDW (11.5-14.5) % Plt Count (150-400) 10^3/uL MPV (7.4-10.4) fL Immature Gran % (Auto) (0.0-5.0) % Neut % (Auto) (50.0-70.0) % Lymph % (Auto) (20.0-40.0) % Winston % (Auto) (2.0-8.0) % Eos % (Auto) (1.0-3.0) % Baso % (Auto) (0.0-1.0) % Immature Gran # (Auto) (0.00-0.50) 10^3/uL Neut # (Auto) (2.50-7.00) 10^3/uL Lymph # (Auto) (1.00-4.00) 10^3/uL Winston # (Auto) (0.10-0.80) 10^3/uL Eos # (Auto) (0.10-0.30) 10^3/uL Baso # (Auto) (0.00-0.10) 10^3/uL Sodium 131 L (136-145) mmol/L Potassium 5.6 H (3.3-5.3) mmol/L Chloride 95 L (98-115) mmol/L Carbon Dioxide 25.5 (21.0-32.0) mmol/L Anion Gap 16.1 H (5-15) mmol/L BUN 62 H* (6-25) mg/dL Creatinine 2.05 H (0.51-1.17) mg/dL Est Cr Clr Drug Dosing 26.47 mL/min Estimated GFR (MDRD) 32 mL/min Glucose 274 H (75 - 99) mg/dL POC Glucose 259 H (74-106) mg/dl Calcium 8.1 L (8.7-10.3) mg/dL B-Natriuretic Peptide 199 H (0-100) pg/mL KATEY Results - Last 24 hrs: Microbiology 04/06/19 22:35 Respiratory Culture - Preliminary Sputum - Expectorated Streptococcus Pneumoniae Gram Stain - Final Med Orders - Current: Current Medications Acetaminophen (Tylenol Arthritis Pain) 650 mg PO BID PRN PRN Reason: Pain Last Admin: 04/07/19 03:26 Dose: 650 mg Albuterol (Ventolin Hfa) 0 gm INH Q4H PRN PRN Reason: difficulty breathing Last Admin: 04/06/19 09:18 Dose: 2 puff Albuterol/Ipratropium (Duoneb 3.0-0.5 Mg/3 Ml) 3 ml NEB Q4HRRT PRN PRN Reason: Wheezing Albuterol/Ipratropium (Duoneb 3.0-0.5 Mg/3 Ml) 3 ml NEB Q6HRRT [facility] Last Admin: 04/09/19 17:27 Dose: 3 ml Allopurinol (Zyloprim) 200 mg PO DAILY [facility] Last Admin: 04/09/19 08:10 Dose: 200 mg Atorvastatin Calcium (Lipitor) 10 mg PO DAILY [facility] Last Admin: 04/09/19 08:10 Dose: 10 mg Calcium Citrate (Calcium Citrate + D) 1 tab PO BID [facility] Last Admin: 04/09/19 20:06 Dose: 1 tab Cholecalciferol (Vitamin D3) 25 mcg PO BID [facility] Last Admin: 04/09/19 20:06 Dose: 25 mcg Diltiazem HCl (Cardizem Cd) 240 mg PO DAILY [facility] Last Admin: 04/09/19 08:09 Dose: 240 mg Ferrous Sulfate (Ferrous Sulfate) 325 mg PO DAILY [facility] Last Admin: 04/09/19 08:10 Dose: 325 mg Fluticasone/Umeclidinium/Vilanterol (Trelegy Ellipta 100-62.5-25 Mcg) 1 puff INH DAILY [facility] Last Admin: 04/09/19 08:08 Dose: 1 puff Furosemide (Lasix) 80 mg PO DAILY [facility] Last Admin: 04/09/19 08:10 Dose: 80 mg Levofloxacin/Dextrose 250 mg/ (Premix) 50 mls @ 50 mls/hr IV Q24H [facility] Vancomycin HCl 1 gm/ Sodium (Chloride) 250 mls @ 166.667 mls/hr IV Q24H [facility] Sodium Chloride (Normal Saline) 250 mls @ 100 mls/hr IV ASDIRECTED [facility] Last Admin: 04/09/19 13:29 Dose: 100 mls/hr Insulin Aspart (Novolog) 0 unit SUBCUT WITHMEALSANDBED [facility]; Protocol Last Admin: 04/09/19 21:13 Dose: 6 units Melatonin (Melatonin) 9 mg PO BEDTIME PRN PRN Reason: Insomnia Last Admin: 04/08/19 21:19 Dose: 9 mg Montelukast Sodium (Singulair) 10 mg PO BEDTIME [facility] Last Admin: 04/09/19 20:06 Dose: 10 mg (Dulaglutide [ Trulicity] 0.75 Mg)* Own Med 0.75 mg SQ Q7D [facility] Last Admin: 04/07/19 08:50 Dose: 0.75 mg Omeprazole (Omeprazole) 20 mg PO ACBREAKFAST [facility] Last Admin: 04/09/19 06:31 Dose: 20 mg Polyethylene Glycol (Miralax) 17 gm PO DAILY PRN PRN Reason: Constipation Potassium Chloride (Klor-Con 10) 20 meq PO DAILY [facility] Prednisone (Prednisone) 40 mg PO WITHBREAKFAST [facility] Stop: 04/12/19 11:31 Last Admin: 04/09/19 08:09 Dose: 40 mg Ropinirole HCl (Requip) 0.25 mg PO TID [facility] Last Admin: 04/09/19 20:06 Dose: 0.25 mg Senna/Docusate Sodium (Senna Plus) 1 tab PO BID [facility] Last Admin: 04/09/19 20:06 Dose: 1 tab Sodium Chloride (Saline Flush) 10 ml FLUSH Q8HR PRN PRN Reason: keep vein open Last Admin: 04/09/19 11:23 Dose: 10 ml Tramadol HCl (Ultram) 50 mg PO BEDTIME PRN PRN Reason: Pain Last Admin: 04/09/19 01:15 Dose: 50 mg Triamcinolone Acetonide (Triamcinolone Acetonide 0.1% Crm) 0 gm TOP BID PRN PRN Reason: Rash Last Admin: 04/09/19 20:07 Dose: 1 applic Vancomycin HCl (Pharmacy To Dose - Vancomycin) 1 dose .XX ASDIRECTED [facility] Discontinued Medications Allopurinol (Zyloprim) 150 mg PO DAILY [facility] Last Admin: 04/07/19 08:48 Dose: 150 mg Ceftriaxone Sodium (Rocephin) 1 gm IVPUSH Q24H [facility] Stop: 04/12/19 11:01 Last Admin: 04/09/19 11:19 Dose: 1 gm Furosemide (Lasix) 20 mg IVPUSH ONETIME [facility] Last Admin: 04/06/19 11:26 Dose: 20 mg Furosemide (Lasix) 20 mg IVPUSH NOW ONE Stop: 04/07/19 11:32 Last Admin: 04/07/19 12:49 Dose: 20 mg Furosemide (Lasix) 40 mg PO DAILY [facility] Last Admin: 04/08/19 08:10 Dose: 40 mg Furosemide (Lasix) 40 mg PO ONETIME ONE Stop: 04/08/19 10:08 Last Admin: 04/08/19 10:29 Dose: 40 mg Hydroxyzine Pamoate (Vistaril) 25 mg PO TID [facility] Last Admin: 04/09/19 09:21 Dose: 25 mg Hydroxyzine Pamoate (Vistaril) 25 mg PO Q8H PRN PRN Reason: Itching Potassium Chloride/Sodium Chloride (Normal Saline With 20 Meq Kcl) 1,000 mls @ 75 mls/hr IV ASDIRECTED [facility] Last Admin: 04/06/19 04:10 Dose: 75 mls/hr Levofloxacin/Dextrose 500 mg/ (Premix) 100 mls @ 100 mls/hr IV ONETIME ONE Stop: 04/09/19 14:29 Last Admin: 04/09/19 13:29 Dose: 100 mls/hr Vancomycin HCl 2 gm/ Sodium (Chloride) 500 mls @ 250 mls/hr IV ONETIME ONE Stop: 04/09/19 15:59 Last Admin: 04/09/19 15:06 Dose: 250 mls/hr Potassium Bicarbonate (Klor-Con Ef) 25 meq PO DAILY [facility] Last Admin: 04/05/19 14:33 Dose: 25 meq Potassium Chloride (Klor-Con 10) 20 meq PO WITHBREAKFAST [facility] Last Admin: 04/08/19 08:10 Dose: 20 meq Potassium Chloride (Klor-Con 10) 20 meq PO BIDMEALS [facility] Last Admin: 04/09/19 08:09 Dose: 20 meq Ropinirole HCl (Requip) 0.25 mg PO 0900,1400 [facility] Ropinirole HCl (Requip) 0.75 mg PO BEDTIME [facility] Senna/Docusate Sodium (Senna Plus) 2 tab PO BID [facility] Last Admin: 04/07/19 08:48 Dose: 2 tab Senna/Docusate Sodium (Senna Plus) 1 tab PO DAILY [facility] Triamcinolone Acetonide (Triamcinolone Acetonide 0.1% Crm) 0 gm TOP BID [facility] Last Admin: 04/06/19 09:19 Dose: 1 applic - Exam Quality Assessment: Reports: Supplemental Oxygen General: Reports: Alert, Oriented, Cooperative Lungs: Reports: Decreased Breath Sounds Cardiovascular: Reports: Irregular Rhythm, Tachycardia GI/Abdominal Exam: Non-Tender, Other (increasing pitting edema) Extremities: Pedal Edema (3+ karena to knees while wearing support hose) Skin: Reports: Warm, Dry, Intact Psy/Mental Status: Reports: Alert, Normal Affect, Normal Mood
[2019-04-10] MEDS ORDERED: Potassium Chloride 10 MEQ Tab.ER PO SCH (09:00)
[2019-04-10] MEDS ORDERED: Levofloxacin/Dextrose 5%-Water 250 MG in Premix Bag 1 BAG IV SCH (13:00)
== END 2019-04-09 22:20 | DRG 682 ==
LOC: KA.MS 12:19
PROVIDERS: ADMIT Nurse Practitioner Family; ATTEND Family Medicine
DX: N17.9 Acute kidney failure, unspecified (principal); J13 Pneumonia due to Streptococcus pneumoniae; I50.33 Acute on chronic diastolic (congestive) heart failure; I13.0 Hypertensive heart and chronic kidney disease with heart failure and stage 1 through stage 4 chronic kidney disease, or unspecified chronic kidney disease; J44.1 Chronic obstructive pulmonary disease with (acute) exacerbation; J44.0 Chronic obstructive pulmonary disease with (acute) lower respiratory infection; J96.11 Chronic respiratory failure with hypoxia; Z68.41 Body mass index [BMI] 40.0-44.9, adult; E11.22 Type 2 diabetes mellitus with diabetic chronic kidney disease; N18.3 Chronic kidney disease, stage 3 (moderate); M19.90 Unspecified osteoarthritis, unspecified site; G89.29 Other chronic pain; M54.9 Dorsalgia, unspecified; I48.91 Unspecified atrial fibrillation; K59.09 Other constipation; M10.9 Gout, unspecified; D50.9 Iron deficiency anemia, unspecified; N40.0 Benign prostatic hyperplasia without lower urinary tract symptoms; E78.5 Hyperlipidemia, unspecified; G25.81 Restless legs syndrome; M81.0 Age-related osteoporosis without current pathological fracture; Z96.653 Presence of artificial knee joint, bilateral; E66.9 Obesity, unspecified; E87.6 Hypokalemia; R04.0 Epistaxis; I27.20 Pulmonary hypertension, unspecified; G47.33 Obstructive sleep apnea (adult) (pediatric); Z91.040 Latex allergy status; Z79.899 Other long term (current) drug therapy; Z98.49 Cataract extraction status, unspecified eye; Z79.4 Long term (current) use of insulin; Z88.0 Allergy status to penicillin; Z91.048 Other nonmedicinal substance allergy status
CPT/HCPCS: 36415; 71046; 74176; 80047; 80048; 80053; 80076; 82962; 83721; 83880; 84550; 85025; 87070; 87181; 87184; 87186; 87205; 94640; A4217; A9270-GY; J0696; J1815-GY; J1940; J1956; J3370; J3480; J7040; J7050; J7620-GY; Q0177

== ENCOUNTER 2019-06-15 11:50 | Emergency (ER) | payer MEDICARE, BC ==
--- NOTE | 2019-06-15 12:16 | EDM.PDOC ---
ED HPI GENERAL MEDICAL PROBLEM - General Stated Complaint: WEAKNESS/NOT FEELING WELL Time Seen by Provider: 06/15/19 11:50 Source of Information: Reports: Patient, Family (dtr) History Limitations: Reports: Altered Mental Status - History of Present Illness INITIAL COMMENTS - FREE TEXT/NARRATIVE: Patient is brought to ER by daughter with report of being found outside his house barefoot and somewhat confused. They suspected low glucose as he has had that in the past but it is 159 now. Patient ate supper at daughter's house and then drove himself back home around 7:00 pm last night. Nobody had seen or talked to him until a family member stopped by this morning to pick him up to go to a relative's . He wasn't too cold but wet in the rain. Patient tells me that after driving home last night he thinks he went to bed. When asked if he remembers going outside barefoot, he replies that he remembers and he was getting ready to go to the . When asked about current date he says "the "; current month, he replies "the 28". He does know his birthdate and his daughter and 4 grandkids names. Daughter says this is very unusual for him. She says he walked slow today but didn't seem to have asymmetric weakness or balance difficulty. She is unaware of any baseline dementia and says he cooks and cleans for himself and takes his several medications himself without difficulty. He lives alone. No history of OK or stroke. He has been on a blood thinner most of his life for DVT prophylaxis as well as A Fib. He has taken warfarin and later Eliquis and possibly another more recently, however the blood thinners were stopped about 6 months ago. karena. shoulders Pain Score (Numeric/FACES): 4 - Related Data Allergies Allergy/AdvReac Type Severity Reaction Status Date / Time adhesive Allergy Itching Verified 06/15/19 13:10 latex Allergy Rash Verified 06/15/19 13:10 Penicillins Allergy Rash Verified 06/15/19 13:10 Home Meds: Home Meds Albuterol [Ventolin HFA] 2 puff INH Q4H PRN 12/23/13 [History] Cholecalciferol (Vitamin D3) [Vitamin D3] 1,000 unit PO BID 12/23/13 [History] Allopurinol [Zyloprim] 150 mg PO DAILY 07/21/16 [History] Montelukast [Singulair] 10 mg PO BEDTIME 07/21/16 [History] Acetaminophen [Arthritis Pain Relief] 650 mg PO BID PRN 08/09/17 [History] traMADol [Ultram] 50 mg PO BEDTIME 08/09/17 [History] Dextromethorphan/guaiFENesin [Robitussin DM] 10 ml PO TID PRN 09/02/18 [History] atorvaSTATin [Lipitor] 10 mg PO DAILY 09/02/18 [History] Fluticasone/Umeclidin/Vilanter [Trelegy Ellipta 100-62.5-25 MCG] 1 puff INH DAILY #1 inhaler 09/06/18 [Rx] Dulaglutide [Trulicity] 0.75 mg PO WEEKLY 01/20/19 [History] Insulin Detemir [Levemir] 55 units PO DAILY@0400 01/20/19 [History] Triamcinolone Acetonide [Triamcinolone Acetonide 0.1% Crm] 1 applic TOP BID PRN 01/20/19 [History] Dextran 70/Hypromellose [Artificial Tears] 1 drop EYEBOTH Q4H PRN 02/24/19 [ History] Ferrous Sulfate 325 mg PO DAILY 02/24/19 [History] hydrOXYzine HCl [hydrOXYzine] 25 mg PO TID PRN 02/24/19 [History] Diltiazem [Cardizem CD] 240 mg PO DAILY 04/05/19 [History] Polyethylene Glycol 3350 [MiraLAX] 17 gm PO BID PRN 04/05/19 [History] Potassium Chloride [K-Tab ER] 20 meq PO DAILY 04/05/19 [History] Calcium Carbonate 1,200 mg PO BID 04/08/19 [History] rOPINIRole [Requip] 0.25 mg PO TID 04/08/19 [History] Benazepril [Lotensin] 10 mg PO DAILY 05/04/19 [History] Docusate Sodium/Sennosides [Senokot-S] 1 each PO BEDTIME PRN 05/04/19 [History] Furosemide [Lasix] 100 mg PO BID 05/04/19 [History] Metoprolol Tartrate [Lopressor] 50 mg PO BID 05/04/19 [History] Past Medical History HEENT History: Reports: Cataract, Hard of Hearing, Impaired Vision Cardiovascular History: Reports: Afib, Blood Clots/VTE/DVT, Heart Failure, Hypertension Respiratory History: Reports: Asthma, COPD, Sleep Apnea, SOB Gastrointestinal History: Reports: Chronic Constipation, GERD, GI Bleed, Hemorrhoids Genitourinary History: Reports: Prostate Disorder Musculoskeletal History: Reports: Arthritis, Gout, Osteoporosis Neurological History: Reports: Other (See Below) Other Neuro History: Restless legs Psychiatric History: Reports: None Endocrine/Metabolic History: Reports: Diabetes, Type II, Obesity/BMI 30+ Hematologic History: Reports: Blood Transfusion(s), Iron Deficiency Immunologic History: Reports: None Oncologic (Cancer) History: Reports: None Dermatologic History: Reports: Other (See Below) Other Dermatologic History: Rash. Rash noted on bilat arms. - Infectious Disease History Infectious Disease History: Reports: None - Past Surgical History Head Surgeries/Procedures: Reports: None HEENT Surgical History: Reports: Cataract Surgery, Oral Surgery Cardiovascular Surgical History: Reports: Other (See Below) Other Cardiovascular Surgeries/Procedures: Angiogram performed on June 25, 2015, [facility] Filter placed on 10-18-18. Respiratory Surgical History: Reports: None GI Surgical History: Reports: Colonoscopy, EGD, Hernia, Inguinal Endocrine Surgical History: Reports: None Musculoskeletal Surgical History: Reports: Knee Replacement Other Musculoskeletal Surgeries/Procedures:: bilateral knee replacement Oncologic Surgical History: Reports: Bone Marrow Aspiration Social & Family History - Family History Family Medical History: Noncontributory HEENT: Reports: None - Caffeine Use Caffeine Use: Reports: Coffee ED ROS GENERAL - Review of Systems Review Of Systems: See Below Constitutional: Reports: Fever (mild today). Denies: Weakness HEENT: Reports: Ear Pain, Vision Change Respiratory: Denies: Shortness of Breath, Cough Cardiovascular: Denies: Chest Pain, Lightheadedness, Syncope Endocrine: Reports: Other (diabetes) GI/Abdominal: Denies: Abdominal Pain, Nausea, Vomiting : Reports: No Symptoms Musculoskeletal: Reports: No Symptoms Skin: Denies: Cyanosis, Jaundice, Mottled, Pallor, Diaphoresis Neurological: Reports: Confusion, Trouble Speaking (patient is a little difficult to understand which isn't his normal per daughter). Denies: Seizure, Syncope Psychiatric: Reports: Confusion. Denies: Agitation, Anxiety Hematologic/Lymphatic: Reports: Anemia - Physical Exam Exam: See Below Exam Limited By: Altered Mental Status General Appearance: WD/WN, No Apparent Distress, Lethargic (drowsy part of the time and more alert most of the time) Eye Exam: Bilateral Eye: EOMI, Normal Inspection, PERRL Ears: Normal External Exam, Hearing Grossly Normal Nose: Normal Inspection, No Blood Throat/Mouth: Normal Lips, No Airway Compromise, Other (patient is understandable but somewhat difficult to understand; this is not normal per daughter) Head Exam: Atraumatic, Normocephalic Neck: Normal Inspection, Supple, Non-Tender, Full Range of Motion Respiratory/Chest: Rales (expiratory), Wheezing (expiratory), Prolonged Expiration, Other (COPD chronic and seems at baseline per daughter). No: Stridor, Accessory Muscle Use Cardiovascular: Tachycardia, Irregularly Irregular GI/Abdominal: Normal Bowel Sounds, Soft, Non-Tender, No Organomegaly Neuro Exam (Abbreviated): Alert, CN II-XII Intact Back Exam: Normal Inspection, Full Range of Motion. No: CVA Tenderness (L), CVA Tenderness (R) Extremities: Normal Range of Motion, Other (right leg is 4/5 compared to left 5/ 5 on leg raise; normal dorsiflexion and plantar flexion; hand squeeze is 5/5 symmetric; right arm is chronically weak due to shoulder/rotator cuff problems.) Course - Vital Signs Last Recorded V/S: Last Vital Signs Temp 100.8 F H 06/15/19 11:50 Pulse 122 H 06/15/19 11:50 Resp 25 H 06/15/19 11:50 BP 86/49 L 06/15/19 11:50 Pulse Ox 93 L 06/15/19 11:50 - Orders/Labs/Meds Orders: Active Orders 24 hr Category Date Time Status CULTURE BLOOD [BC] Stat Lab 06/15/19 13:54 Ordered LACTIC ACID [CHEM] Stat Lab 06/15/19 13:32 Ordered Sodium Chloride 0.9% @ 125 MLS/HR (1000ml) Med 06/15/19 13:45 Ordered Sodium Chloride 0.9% [Normal Saline] 1,000 ml IV ASDIRECTED Blood Culture x2 Reflex Set [OM.PC] Stat Oth 06/15/19 13:54 Ordered Medication Orders Sodium Chloride (Normal Saline) 1,000 mls @ 125 mls/hr IV ASDIRECTED [facility] Labs: Laboratory Tests 06/15/19 06/15/19 06/15/19 Range/Units 12:15 12:15 12:15 WBC 22.36 H D (5.00-10.00) 10^3/uL RBC 3.31 L (4.50-6.00) 10^6/uL Hgb 9.4 L (13.0-17.0) g/dL Hct 29.7 L (40.0-52.0) % MCV 89.7 D (82.0-92.0) fL MCH 28.4 (27.0-31.0) pg MCHC 31.6 L (32.0-36.0) g/dL RDW 21.6 H (11.5-14.5) % Plt Count 147 L (150-400) 10^3/uL MPV 9.6 (7.4-10.4) fL Add Manual Diff Yes Neutrophils % (Manual) 87 H (50-70) % Band Neutrophils % 9 (4-12) % Lymphocytes % (Manual) 1 L (20-40) % Monocytes % (Manual) 3 (2-8) % Absolute Neutrophils 19.45 Band Neutrophils # 2.01 Lymphocytes # (Manual) 0.22 Monocytes # (Manual) 0.67 Tear Drop Cells 1+ slight Elliptocytes 1+ slight Sodium 137 (136-145) mmol/L Potassium 4.3 (3.3-5.3) mmol/L Chloride 100 (98-115) mmol/L Carbon Dioxide 26.9 (21.0-32.0) mmol/L Anion Gap 14.4 (5-15) mmol/L BUN 76 H* (6-25) mg/dL Creatinine 2.51 H (0.51-1.17) mg/dL Est Cr Clr Drug Dosing TNP Estimated GFR (MDRD) 25 mL/min Glucose 148 H (75 - 99) mg/dL Calcium 8.9 (8.7-10.3) mg/dL B-Natriuretic Peptide 577 H (0-100) pg/mL Specimen Type Urine Color (YELLOW) Urine Appearance (CLEAR) Urine pH (5.0-9.0) Ur Specific [place] (1.005-1.030) Urine Protein (NEGATIVE) mg/dL Urine Glucose (UA) (NEGATIVE) mg/dL Urine Ketones (NEGATIVE) mg/dL Urine Occult Blood (NEGATIVE) Urine Nitrite (NEGATIVE) Urine Bilirubin (NEGATIVE) Urine Urobilinogen (0.2-1.0) E.U./dL Ur Leukocyte Esterase (NEGATIVE) Urine RBC (0-5) /HPF Urine WBC (0-5) /HPF Ur Epithelial Cells /LPF Urine Bacteria (NONE TO FEW) /HPF 06/15/19 Range/Units 13:09 WBC (5.00-10.00) 10^3/uL RBC (4.50-6.00) 10^6/uL Hgb (13.0-17.0) g/dL Hct (40.0-52.0) % MCV (82.0-92.0) fL MCH (27.0-31.0) pg MCHC (32.0-36.0) g/dL RDW (11.5-14.5) % Plt Count (150-400) 10^3/uL MPV (7.4-10.4) fL Add Manual Diff Neutrophils % (Manual) (50-70) % Band Neutrophils % (4-12) % Lymphocytes % (Manual) (20-40) % Monocytes % (Manual) (2-8) % Absolute Neutrophils Band Neutrophils # Lymphocytes # (Manual) Monocytes # (Manual) Tear Drop Cells Elliptocytes Sodium (136-145) mmol/L Potassium (3.3-5.3) mmol/L Chloride (98-115) mmol/L Carbon Dioxide (21.0-32.0) mmol/L Anion Gap (5-15) mmol/L BUN (6-25) mg/dL Creatinine (0.51-1.17) mg/dL Est Cr Clr Drug Dosing Estimated GFR (MDRD) mL/min Glucose (75 - 99) mg/dL Calcium (8.7-10.3) mg/dL B-Natriuretic Peptide (0-100) pg/mL Specimen Type Urincc Urine Color Amita H (YELLOW) Urine Appearance Cloudy H (CLEAR) Urine pH 5.0 (5.0-9.0) Ur Specific [place] 1.015 (1.005-1.030) Urine Protein 100 H (NEGATIVE) mg/dL Urine Glucose (UA) Negative (NEGATIVE) mg/dL Urine Ketones Trace H (NEGATIVE) mg/dL Urine Occult Blood Large H (NEGATIVE) Urine Nitrite Negative (NEGATIVE) Urine Bilirubin Small H (NEGATIVE) Urine Urobilinogen 0.2 (0.2-1.0) E.U./dL Ur Leukocyte Esterase Negative (NEGATIVE) Urine RBC Semi-packed (0-5) /HPF Urine WBC 5-10 H (0-5) /HPF Ur Epithelial Cells Not seen /LPF Urine Bacteria Few (NONE TO FEW) /HPF Meds: Medications Generic Name Dose Route Start Last Admin Trade Name Freq PRN Reason Stop Dose Admin Sodium Chloride 1,000 mls @ 125 mls/hr 06/15/19 13:45 Normal Saline IV ASDIRECTED [facility] Discontinued Medications Generic Name Dose Route Start Last Admin Trade Name Freq PRN Reason Stop Dose Admin Sodium Chloride 1,000 mls @ 999 mls/hr 06/15/19 12:17 Normal Saline IV 06/15/19 13:17 .BOLUS ONE - Re-Assessments/Exams Free Text/Narrative Re-Assessment/Exam: 06/15/19 13:14 Following some IV fluids, heart rate settled down in the 90's and BP improved. Patient is more alert and speaking better too. With talking, his sats drop a little so oxygen is added. 06/15/19 13:57 I discussed case with Dr. Anguiano, neurologist at [facility] in [place], who accepted for transfer. Just learned also that patient had a filter placed (in the heart, not IVC, the daughter thinks) before the blood thinners were stopped around 6-12 months ago. Patient has improved in speech which daughter agrees with; patient is more alert. Discussed the possibility of pneumonia also but daughter thinks this is just his COPD and he is at baseline. WBC is elevated but has been elevated several times in the past. Will run BNP, lactic and blood cultures as well. Patient is improved somewhat and stable. Ambulance is on their way here. 06/15/19 14:29 Patient left in ambulance in stable condition. Departure - Departure Time of Disposition: 13:45 Disposition: DC/Tfer to Acute Hospital 02 Condition: Fair Clinical Impression: Acute cardioembolic stroke, CKD (chronic kidney disease), COPD (chronic obstructive pulmonary disease), Chronic atrial fibrillation - Discharge Information Referrals: Fabiola Shah PA-C [Primary Care Provider] - - My Orders Last 24 Hours: My Active Orders 06/15/19 13:32 LACTIC ACID [CHEM] Stat 06/15/19 13:45 Sodium Chloride 0.9% @ 125 MLS/HR (1000ml) Sodium Chloride 0.9% [Normal Saline] 1,000 ml IV ASDIRECTED 06/15/19 13:54 CULTURE BLOOD [BC] Stat Blood Culture x2 Reflex Set [OM.PC] Stat - Assessment/Plan Last 24 Hours: My Active Orders 06/15/19 13:32 LACTIC ACID [CHEM] Stat 06/15/19 13:45 Sodium Chloride 0.9% @ 125 MLS/HR (1000ml) Sodium Chloride 0.9% [Normal Saline] 1,000 ml IV ASDIRECTED 06/15/19 13:54 CULTURE BLOOD [BC] Stat Blood Culture x2 Reflex Set [OM.PC] Stat
[2019-06-15] MEDS: Sodium Chloride 0.9% 1,000 ML IV ONE (12:30)
[2019-06-15 12:56] LABS: ANION GAP 14.4 mmol/L (5-15); CHLORIDE,CL 100 mmol/L (98-115); SODIUM,NA 137 mmol/L (136-145)
--- NOTE | 2019-06-15 13:01 | CT ---
[id number] CT/CT Head WO IV EXAM: CT Head WO IV CLINICAL DATA: NEUROLOGIC DEFICIT COMPARISON: NO PREVIOUS SIMILAR EXAM IS AVAILABLE FOR COMPARISON. FINDINGS: There is no mass or mass effect. There is no hemorrhage or hydrocephalus. There are no extra-axial fluid collections. There are no sites of abnormal attenuation. IMPRESSION: NO PLAIN CT EVIDENCE OF ACUTE INTRACRANIAL PROCESS. Johan Wong MD 06/15/19 1300 Thank you for allowing us to participate in the care of your patient.
--- NOTE | 2019-06-15 13:14 | CR ---
[id number] RAD/RAD Chest PA And Lateral EXAM: RAD Chest PA And Lateral CLINICAL DATA: DECREASED BREATH SOUNDS ELEVATED WHITE BLOOD CELL COUNT COMPARISON: CORRELATION IS MADE WITH THE EXAM OF APRIL 09, 2019 FINDINGS: There is an abnormal interstitial pattern There appears to be a small amount of pleural fluid on the right The cardiomediastinal contour is enlarged but stable Degenerative changes of both shoulders are seen IMPRESSION: MILD CHF VERSUS INTERSTITIAL PNEUMONIA CONSIDER FOLLOW-UP Johan Wong MD 06/15/19 [id number] Thank you for allowing us to participate in the care of your patient.
[2019-06-15] MEDS: Sodium Chloride 0.9% 1,000 ML IV SCH (13:50)
[2019-06-15 15:30] VITALS: BP 84/56; PULSE 95
== END 2019-06-15 14:15 ==
LOC: KA.ED 11:50
DX: I63.40 Cerebral infarction due to embolism of unspecified cerebral artery (principal); I12.9 Hypertensive chronic kidney disease with stage 1 through stage 4 chronic kidney disease, or unspecified chronic kidney disease; E11.22 Type 2 diabetes mellitus with diabetic chronic kidney disease; N18.9 Chronic kidney disease, unspecified; I50.9 Heart failure, unspecified; I48.2 Chronic atrial fibrillation; J44.9 Chronic obstructive pulmonary disease, unspecified; E66.9 Obesity, unspecified; Z79.899 Other long term (current) drug therapy; Z79.4 Long term (current) use of insulin; Z79.51 Long term (current) use of inhaled steroids; Z88.0 Allergy status to penicillin; Z91.040 Latex allergy status; Z91.048 Other nonmedicinal substance allergy status; Z68.30 Body mass index [BMI] 30.0-30.9, adult
CPT/HCPCS: 70450; 71045; 71046; 80048; 81001; 83605; 83880; 85025; 87040; 93005; 96360; 99284; 99285-25; J7030

== ENCOUNTER 2019-07-06 10:52 | Inpatient (IN) | payer MEDICARE, BC ==
[2019-07-06] MEDS ORDERED: Polyethylene Glycol 3350 Powder 17 GM Packet PO PRN (18:54)
[2019-07-06] MEDS ORDERED: Non-Formulary Medication 1 Each (Dextran 70/Hypromellose [Artificial Tears] 1 DROP) EYEBOTH PRN (18:54)
[2019-07-06] MEDS ORDERED: Non-Formulary Medication 1 Each (Dulaglutide [Trulicity] 0.75 MG) SUBCUT SCH (19:00)
[2019-07-06] MEDS: guaiFENesin 600 MG Tab.ER PO SCH (20:20)
[2019-07-06] MEDS ORDERED: Insulin Detemir 100 Units/ML 3 ML Pen SUBCUT SCH (21:00)
[2019-07-06] MEDS: Tamsulosin 0.4 MG Cap.ER PO SCH (21:15)
[2019-07-06] MEDS: rOPINIRole 0.25 MG Tab PO SCH (21:15)
[2019-07-06] MEDS: risperiDONE 0.25 MG Tab PO SCH (21:16)
[2019-07-06] MEDS: traMADol 50 MG Tab PO SCH (21:16)
[2019-07-06] MEDS: atorvaSTATin 10 MG Tab PO SCH (21:16)
[2019-07-06] MEDS: Montelukast 10 MG Tab PO SCH (21:16)
[2019-07-07] MEDS: guaiFENesin 600 MG Tab.ER PO SCH ×3 (06:41→18:02)
[2019-07-07] MEDS: Cholecalciferol (Vitamin D3) 25 MCG Tab PO SCH ×3 (06:41→21:12)
[2019-07-07] MEDS: Omeprazole 20 MG Cap.CR PO SCH (06:43)
[2019-07-07] MEDS: Albuterol/Ipratropium 3.0-0.5 MG/3 ML Neb Soln NEB PRN ×2 (06:43→21:53)
[2019-07-07 08:10] LABS: ANION GAP 15.9 mmol/L (5-15)
[2019-07-07] MEDS ORDERED: FLUTICASONE INH SCH (09:00)
[2019-07-07] MEDS ORDERED: VILANTER INH SCH (09:00)
[2019-07-07] MEDS ORDERED: UMECLIDIN INH SCH (09:00)
[2019-07-07] MEDS: rOPINIRole 0.25 MG Tab PO SCH ×3 (09:07→21:12)
[2019-07-07] MEDS: Allopurinol 100 MG Tab PO SCH (09:07)
[2019-07-07] MEDS: risperiDONE 0.25 MG Tab PO SCH ×3 (09:08→21:20)
[2019-07-07] MEDS: Finasteride 5 MG Tab PO SCH (09:08)
--- NOTE | 2019-07-07 09:51 | PCM.HP.2 ---
H&P History of Present Illness - General Date of Service: 07/07/19 Admit Problem/Dx: Admission Diagnosis/Problem Admission Diagnosis/Problem Heart valve replacement Source of Information: Patient, Old Records, RN History Limitations: Reports: No Limitations - Related Data Allergies/Adverse Reactions: Allergies Allergy/AdvReac Type Severity Reaction Status Date / Time adhesive Allergy Itching Verified 06/15/19 13:10 latex Allergy Rash Verified 06/15/19 13:10 Penicillins Allergy Rash Verified 06/15/19 13:10 Home Medications: Home Meds Albuterol [Ventolin HFA] 2 puff INH Q4H PRN 12/23/13 [History] Allopurinol [Zyloprim] 150 mg PO DAILY 07/21/16 [History] Montelukast [Singulair] 10 mg PO BEDTIME 07/21/16 [History] atorvaSTATin [Lipitor] 10 mg PO BEDTIME 09/02/18 [History] Insulin Detemir [Levemir] 20 units PO BEDTIME 01/20/19 [History] Polyethylene Glycol 3350 [MiraLAX] 17 gm PO BID PRN 04/05/19 [History] rOPINIRole [Requip] 0.25 mg PO TID 04/08/19 [History] Acetaminophen 650 mg PO Q4H PRN 07/06/19 [History] Cholecalciferol (Vitamin D3) [Vitamin D3] 1,000 unit PO BID 07/06/19 [History] Clindamycin HCl [Cleocin HCl] 600 mg PO ONETIME PRN 07/06/19 [History] Dextran 70/Hypromellose [Artificial Tears] 1 drop EYEBOTH Q4HR PRN 07/06/19 [ History] Dulaglutide [Trulicity] 0.75 mg SUBCUT WEEKLY 07/06/19 [History] Finasteride 5 mg PO DAILY 07/06/19 [History] Fluticasone/Umeclidin/Vilanter [Trelegy Ellipta 100-62.5-25 MCG] 1 puff INH DAILY 07/06/19 [History] Metoprolol Succinate [Toprol XL] 12.5 mg PO 1800 07/06/19 [History] Pantoprazole [ProTONIX] 40 mg PO DAILY 07/06/19 [History] Sennosides/Docusate Sodium [Senna-Docusate Sodium Tablet] 1 tab PO BEDTIME PRN 07/06/19 [History] Tamsulosin HCl [Flomax] 0.4 mg PO BEDTIME 07/06/19 [History] Warfarin [Coumadin] 2.5 mg PO 1800 07/06/19 [History] guaiFENesin [Mucinex] 600 mg PO Q12HR 07/06/19 [History] risperiDONE [Risperidone] 0.25 mg PO TID 07/06/19 [History] traMADol [Ultram] 50 mg PO BEDTIME 07/06/19 [History] Past Medical History HEENT History: Reports: Cataract, Hard of Hearing, Impaired Vision Cardiovascular History: Reports: Afib, Blood Clots/VTE/DVT, Heart Failure, Hypertension Respiratory History: Reports: Asthma, COPD, Sleep Apnea, SOB Gastrointestinal History: Reports: Chronic Constipation, GERD, GI Bleed, Hemorrhoids Genitourinary History: Reports: Prostate Disorder Musculoskeletal History: Reports: Arthritis, Gout, Osteoporosis Neurological History: Reports: Other (See Below) Other Neuro History: Restless legs Psychiatric History: Reports: None Endocrine/Metabolic History: Reports: Diabetes, Type II, Obesity/BMI 30+ Hematologic History: Reports: Blood Transfusion(s), Iron Deficiency Immunologic History: Reports: None Oncologic (Cancer) History: Reports: None Dermatologic History: Reports: Other (See Below) Other Dermatologic History: Rash. Rash noted on bilat arms. - Infectious Disease History Infectious Disease History: Reports: None - Past Surgical History Head Surgeries/Procedures: Reports: None HEENT Surgical History: Reports: Cataract Surgery, Oral Surgery Cardiovascular Surgical History: Reports: Other (See Below) Other Cardiovascular Surgeries/Procedures: Angiogram performed on June 25, 2015, Sweet Filter placed on 10-18-18. Respiratory Surgical History: Reports: None GI Surgical History: Reports: Colonoscopy, EGD, Hernia, Inguinal Endocrine Surgical History: Reports: None Musculoskeletal Surgical History: Reports: Knee Replacement Other Musculoskeletal Surgeries/Procedures:: bilateral knee replacement Oncologic Surgical History: Reports: Bone Marrow Aspiration Social & Family History - Family History Family Medical History: Noncontributory HEENT: Reports: None - Tobacco Use Smoking Status *Q: Former Smoker Used Tobacco, but Quit: Yes Month/Year Tobacco Last Used: 1998 - Caffeine Use Caffeine Use: Reports: Coffee - Recreational Drug Use Recreational Drug Use: No H&P Review of Systems - Review of Systems: Review Of Systems: See Below General: Reports: Malaise, Weakness. Denies: Decreased Appetite HEENT: Reports: No Symptoms Pulmonary: Reports: Shortness of Breath, Wheezing, Cough. Denies: Sputum, Hemoptysis Cardiovascular: Reports: Edema. Denies: Blood Pressure Problem Gastrointestinal: Reports: No Symptoms Genitourinary: Reports: No Symptoms Musculoskeletal: Reports: No Symptoms Skin: Reports: Bruising, Wound (wound vac to chest ). Denies: Rash Psychiatric: Reports: No Symptoms Neurological: Reports: Pre-Existing Deficit, Difficulty Walking, Weakness, Gait Disturbance. Denies: Confusion, Dizziness Hematologic/Lymphatic: Reports: Anemia Immunologic: Reports: No Symptoms Exam - Exam Exam: See Below - Vital Signs Vital Signs: Last Vital Signs Temp 98.4 F 07/07/19 07:00 Pulse 84 07/07/19 07:00 Resp 16 07/07/19 07:00 BP 109/62 07/07/19 07:00 Pulse Ox 95 07/07/19 07:00 Weight: 217 lb 8 oz - Exam Quality Assessment: DVT Prophylaxis. No: Supplemental Oxygen, Central Line/PICC , Skin Breakdown General: Alert, Oriented, Cooperative HEENT: Mucosa Moist & [place]. No: Scleral Icterus Neck: Supple. No: JVD Lungs: Normal Respiratory Effort, Wheezing. No: Rales, Rhonchi Cardiovascular: Regular Rate, Irregular Rhythm, Systolic Murmur GI/Abdominal Exam: Soft. No: Distended, Tender (Male) Exam: Deferred Rectal (Males) Exam: Deferred Extremities: Pedal Edema Peripheral Pulses: 2+: Radial (L), 3+: Radial (R) Skin: Wound (intact portable wound VAC anterior chest wall sternotomy) Neurological: Cranial Nerves Intact, Normal Speech, Normal Tone, Sensation Intact Psychiatric: Alert, Labile Mood. No: Agitated - Patient Data Lab Results Last 24 hrs: Laboratory Results - last 24 hr 07/06/19 07/07/19 07/07/19 Range/Units 17:57 07:20 07:20 WBC 6.42 D (5.00-10.00) 10^3/uL RBC 3.32 L (4.50-6.00) 10^6/uL Hgb 9.8 L (13.0-17.0) g/dL Hct 29.8 L (40.0-52.0) % MCV 89.8 (82.0-92.0) fL MCH 29.5 (27.0-31.0) pg MCHC 32.9 (32.0-36.0) g/dL RDW 17.8 H (11.5-14.5) % Plt Count 157 (150-400) 10^3/uL MPV 10.1 (7.4-10.4) fL Immature Gran % (Auto) 0.6 (0.0-5.0) % Neut % (Auto) 69.5 (50.0-70.0) % Lymph % (Auto) 12.5 L (20.0-40.0) % [place] % (Auto) 10.1 H (2.0-8.0) % Eos % (Auto) 6.7 H (1.0-3.0) % Baso % (Auto) 0.6 (0.0-1.0) % Immature Gran # (Auto) 0.04 (0.00-0.50) 10^3/uL Neut # (Auto) 4.46 (2.50-7.00) 10^3/uL Lymph # (Auto) 0.80 L (1.00-4.00) 10^3/uL [place] # (Auto) 0.65 (0.10-0.80) 10^3/uL Eos # (Auto) 0.43 H (0.10-0.30) 10^3/uL Baso # (Auto) 0.04 (0.00-0.10) 10^3/uL PT 18.8 H D (8.9-11.4) SEC INR 1.9 H (0.9-1.1) Sodium (136-145) mmol/L Potassium (3.3-5.3) mmol/L Chloride (98-115) mmol/L Carbon Dioxide (21.0-32.0) mmol/L Anion Gap (5-15) mmol/L BUN (6-25) mg/dL Creatinine (0.51-1.17) mg/dL Est Cr Clr Drug Dosing mL/min Estimated GFR (MDRD) mL/min Glucose (75 - 99) mg/dL POC Glucose 103 (74-106) mg/dl Calcium (8.7-10.3) mg/dL B-Natriuretic Peptide (0-100) pg/mL 07/07/19 07/07/19 Range/Units 07:20 08:02 WBC (5.00-10.00) 10^3/uL RBC (4.50-6.00) 10^6/uL Hgb (13.0-17.0) g/dL Hct (40.0-52.0) % MCV (82.0-92.0) fL MCH (27.0-31.0) pg MCHC (32.0-36.0) g/dL RDW (11.5-14.5) % Plt Count (150-400) 10^3/uL MPV (7.4-10.4) fL Immature Gran % (Auto) (0.0-5.0) % Neut % (Auto) (50.0-70.0) % Lymph % (Auto) (20.0-40.0) % [place] % (Auto) (2.0-8.0) % Eos % (Auto) (1.0-3.0) % Baso % (Auto) (0.0-1.0) % Immature Gran # (Auto) (0.00-0.50) 10^3/uL Neut # (Auto) (2.50-7.00) 10^3/uL Lymph # (Auto) (1.00-4.00) 10^3/uL [place] # (Auto) (0.10-0.80) 10^3/uL Eos # (Auto) (0.10-0.30) 10^3/uL Baso # (Auto) (0.00-0.10) 10^3/uL PT (8.9-11.4) SEC INR (0.9-1.1) Sodium 138 (136-145) mmol/L Potassium 4.0 (3.3-5.3) mmol/L Chloride 103 (98-115) mmol/L Carbon Dioxide 23.1 (21.0-32.0) mmol/L Anion Gap 15.9 H (5-15) mmol/L BUN 73 H* (6-25) mg/dL Creatinine 1.80 H (0.51-1.17) mg/dL Est Cr Clr Drug Dosing 27.81 mL/min Estimated GFR (MDRD) 37 mL/min Glucose 82 (75 - 99) mg/dL POC Glucose 75 (74-106) mg/dl Calcium 8.3 L (8.7-10.3) mg/dL B-Natriuretic Peptide 544 H (0-100) pg/mL Result Diagrams: 07/07/19 07:20 07/07/19 07:20 Problem List Initiated/Reviewed/Updated: Yes Orders Last 24hrs: Active Orders 24 hr Category Date Time Status Patient Status [ADT] Routine ADT 07/06/19 11:50 Active Ambulate [RC] DAILY Care 07/06/19 11:49 Active Blood Glucose Check, Bedside [RC] QIDACANDBED Care 07/06/19 11:49 Active Communication Order [RC] 0900,2099 Care 07/07/19 04:47 Active Communication Order [RC] 0900,2099 Care 07/07/19 05:05 Active Communication Order [RC] 0900,2099 Care 07/07/19 05:09 Active Dietary Supplements [RC] TID Care 07/07/19 05:14 Active May Shower [RC] DAILY Care 07/06/19 11:49 Active Oxygen Therapy [RC] BEDTIME Care 07/06/19 12:25 Active Oxygen Therapy [RC] PRN Care 07/06/19 11:50 Active RT Aerosol Therapy [RC] ASDIRECTED Care 07/06/19 20:47 Active Up ad Lyndsey [RC] DAILY Care 07/06/19 11:49 Active Vital Signs [RC] 0700,1500 Care 07/06/19 11:50 Active Wound Care [RC] 0900,2100 Care 07/06/19 11:58 Active PT Evaluation and Treatment [CONS] Routine Cons 07/06/19 11:49 Active [employer] Diet [DIET] Diet 07/06/19 Lunch Active Acetaminophen [Tylenol] Med 07/06/19 18:54 Active 650 mg PO Q4H PRN Albuterol [Ventolin HFA] Med 07/06/19 18:54 Active 0 gm INH Q4H PRN Albuterol/Ipratropium [DuoNeb 3.0-0.5 MG/3 ML] Med 07/06/19 20:46 Active 3 ml NEB TID PRN Allopurinol [Zyloprim] Med 07/07/19 09:00 Active 150 mg PO DAILY Cholecalciferol (Vitamin D3) [Vitamin D3] Med 07/06/19 21:00 Active 25 mcg PO BID Dextran 70/Hypromellose [Artificial Tears] Med 07/06/19 18:54 Hold 1 drop EYEBOTH Q4HR PRN Docusate Sodium/Sennosides [Senna Plus] Med 07/06/19 18:54 Active 1 tab PO BEDTIME PRN Dulaglutide [Trulicity] Med 07/06/19 19:00 Pending 0.75 mg SUBCUT WEEKLY Finasteride [Proscar] Med 07/07/19 09:00 Active 5 mg PO DAILY Fluticasone/Umeclidin/Vilanter [Trelegy Ellipta 100-62. Med 07/07/19 09:00 Active 5-25 MCG] 1 puff INH DAILY Insulin Detemir [Levemir] Med 07/06/19 21:00 Active 20 unit SUBCUT BEDTIME Metoprolol Succinate [Toprol XL] Med 07/07/19 18:00 Active 12.5 mg PO 1800 Montelukast [Singulair] Med 07/06/19 21:00 Active 10 mg PO BEDTIME Omeprazole Med 07/07/19 07:00 Active 20 mg PO 0700 Polyethylene Glycol 3350 [MiraLAX] Med 07/06/19 18:54 Active 17 gm PO BID PRN Tamsulosin [Flomax] Med 07/06/19 21:00 Active 0.4 mg PO BEDTIME Warfarin Dosing [Coumadin Ask] Med 07/06/19 15:45 Pending 0 each PO ONETIME ONE Warfarin [Coumadin] Med 07/07/19 18:00 Active 2.5 mg PO 1800 atorvaSTATin [Lipitor] Med 07/06/19 21:00 Active 10 mg PO BEDTIME guaiFENesin [Mucinex] Med 07/06/19 19:00 Active 600 mg PO Q12H rOPINIRole [Requip] Med 07/06/19 21:00 Active 0.25 mg PO TID risperiDONE [RisperiDAL] Med 07/06/19 21:00 Active 0.25 mg PO TID traMADol [Ultram] Med 07/06/19 21:00 Active 50 mg PO BEDTIME Resuscitation Status Routine Resus Stat 07/06/19 11:49 Ordered Medication Orders Acetaminophen (Tylenol) 650 mg PO Q4H PRN PRN Reason: Pain Albuterol (Ventolin Hfa) 0 gm INH Q4H PRN PRN Reason: difficulty breathing Albuterol/Ipratropium (Duoneb 3.0-0.5 Mg/3 Ml) 3 ml NEB TID PRN PRN Reason: Dyspnea Last Admin: 07/07/19 06:43 Dose: 3 ml Allopurinol (Zyloprim) 150 mg PO DAILY [facility] Last Admin: 07/07/19 09:07 Dose: 150 mg Atorvastatin Calcium (Lipitor) 10 mg PO BEDTIME [facility] Last Admin: 07/06/19 21:16 Dose: 10 mg Cholecalciferol (Vitamin D3) 25 mcg PO BID [facility] Last Admin: 07/07/19 09:07 Dose: 25 mcg Admin: 07/07/19 06:41 Dose: Not Given Finasteride (Proscar) 5 mg PO DAILY [facility] Last Admin: 07/07/19 09:08 Dose: 5 mg Fluticasone/Umeclidinium/Vilanterol (Trelegy Ellipta 100-62.5-25 Mcg) 1 puff INH DAILY [facility] Guaifenesin (Mucinex) 600 mg PO Q12H [facility] Last Admin: 07/07/19 06:41 Dose: 600 mg Admin: 07/06/19 20:20 Dose: 600 mg Insulin Detemir (Levemir) 20 unit SUBCUT BEDTIME [facility] Last Admin: 07/06/19 21:26 Dose: 20 units Metoprolol Succinate (Toprol Xl) 12.5 mg PO 1800 [facility] Montelukast Sodium (Singulair) 10 mg PO BEDTIME [facility] Last Admin: 07/06/19 21:16 Dose: 10 mg Non-Formulary Medication (Dextran 70/Hypromellose [Artificial Tears]) 1 drop EYEBOTH Q4HR PRN PRN Reason: Dry Eyes Non-Formulary Medication (Dulaglutide [Trulicity]) 0.75 mg SUBCUT WEEKLY [facility] Omeprazole (Omeprazole) 20 mg PO 0700 [facility] Last Admin: 07/07/19 06:43 Dose: 20 mg Polyethylene Glycol (Miralax) 17 gm PO BID PRN PRN Reason: Constipation Risperidone (Risperidal) 0.25 mg PO TID [facility] Last Admin: 07/07/19 09:08 Dose: 0.25 mg Admin: 07/06/19 21:16 Dose: 0.25 mg Ropinirole HCl (Requip) 0.25 mg PO TID [facility] Last Admin: 07/07/19 09:07 Dose: 0.25 mg Admin: 07/06/19 21:15 Dose: 0.25 mg Senna/Docusate Sodium (Senna Plus) 1 tab PO BEDTIME PRN PRN Reason: Constipation Tamsulosin HCl (Flomax) 0.4 mg PO BEDTIME [facility] Last Admin: 07/06/19 21:15 Dose: 0.4 mg Tramadol HCl (Ultram) 50 mg PO BEDTIME [facility] Last Admin: 07/06/19 21:16 Dose: 50 mg Warfarin Sodium (Coumadin Ask) 0 each PO ONETIME ONE Stop: 07/06/19 15:46 Warfarin Sodium (Coumadin) 2.5 mg PO 1800 [facility] Assessment/Plan Comment:: History of present Illness Mr. Cooper is gentleman recently underwent urgent repair of his Mitral Valve in [facility] due to cardiogenic shock/CHF was transferred here to SNF status for PT and recovery. Patient does the history of severe CHF secondary to severe mitral regurgitation, tricuspid regurgitation, and chronic atrial fibrillation. He was in [place] for recurrent fluid overload and anasarca. He underwent cardiac catheterization which did not demonstrated evidence of associated CAD, he did undergo atchman device placement months ago in his left atrial appendage despite. While in [place] he underwent repair of structural heart disease. Primary SNF/Hospital problems --Deconditioning, profound, PT --Wound VAC, chest wall, intact, very minimal drainage on exam--keep dry --S/P MVR (mitral valve replacement) mechanical prosthesis --S/P TVR (tricuspid valve repair) --Severe mitral regurgitation --Severe tricuspid regurgitation --Mitral stenosis with regurgitation, titrate to target dose --HFpEF, chronic combined systolic and diastolic --Anemia in CKD Recent/resolved problems community acquired pneumonia sepsis 2/2 pneumonia acute encephalopathy Chronic/stable problems --Atrial fibrillation/Presence of Watchman left atrial appendage closure device , anticoagulation due to recent TVR --T2DM, Hold home Trulicity, Add Lantus 15 u qHS, assess/trend BG and make adjustments, likely will require correction insulin --Recent NSTEMI type 2 --COPD, was to receive Trelegy on DC, however will substitute for Utibron and add Flovent --Obstructive sleep apnea syndrome, home CPAP use --Moderate to severe pulmonary hypertension --History of bladder neck contracture, recent direct visualization/cystoscope, monitor for AUR --HLD, statin --RLS, requip --Gout, no acute flare --venous insufficiency health maintenance --GI stress prophys, PO PPI --INR to be managed by inr clinc [place], discussed with Dayna MCMAHON to arrange this. --Full code --up with assist Appointments/consultations --07/11/2019 @ 10:00am with Dr Crouch/Rachel/Catie Kingsley for chest dressing removal (leave in place - do NOT change) --07/11/2019 - xray with [facility] RM 3 at 9:45am - prior to appointment with Dr Crouch --08/14/2019 - 4 appointments starting at 9:15am xray, echocardiogram, EKG, and post op with Dr Crouch - [facility] [facility] - Mortality Measure Prognosis:: Good
[2019-07-07] MEDS: Indacaterol/Glycopyrrolate 1 EA Cap.W.Dev Kit of 6 IH SCH ×2 (11:52→21:48)
[2019-07-07] MEDS: Fluticasone Propionate 110 MCG/Puff 12 GM Inhaler INH SCH (11:55)
[2019-07-07] MEDS: Metoprolol Succinate 25 MG Tab.ER PO SCH (17:46)
[2019-07-07] MEDS: Warfarin 2.5 MG Tab PO SCH (17:46)
[2019-07-07] MEDS: atorvaSTATin 10 MG Tab PO SCH (21:10)
[2019-07-07] MEDS: traMADol 50 MG Tab PO SCH (21:10)
[2019-07-07] MEDS: Tamsulosin 0.4 MG Cap.ER PO SCH (21:12)
[2019-07-07] MEDS: Montelukast 10 MG Tab PO SCH (21:12)
[2019-07-07] MEDS: Insulin Glargine,Human Rec. Analog 100 Units/ML 3 ML Pen SUBCUT SCH (21:12)
[2019-07-08] MEDS: guaiFENesin 600 MG Tab.ER PO SCH ×2 (06:47→19:43)
[2019-07-08] MEDS: Omeprazole 20 MG Cap.CR PO SCH (06:47)
[2019-07-08] MEDS: Fluticasone Propionate 110 MCG/Puff 12 GM Inhaler INH SCH (09:09)
[2019-07-08] MEDS: rOPINIRole 0.25 MG Tab PO SCH ×3 (09:10→20:34)
[2019-07-08] MEDS: Indacaterol/Glycopyrrolate 1 EA Cap.W.Dev Kit of 6 IH SCH ×2 (09:10→20:34)
[2019-07-08] MEDS: risperiDONE 0.25 MG Tab PO SCH ×3 (09:14→20:34)
[2019-07-08] MEDS: Cholecalciferol (Vitamin D3) 25 MCG Tab PO SCH ×2 (09:14→20:35)
[2019-07-08] MEDS: Allopurinol 100 MG Tab PO SCH (09:14)
[2019-07-08] MEDS: Finasteride 5 MG Tab PO SCH (09:14)
[2019-07-08] MEDS ORDERED: Fluticasone Propionate 110 MCG/Puff 12 GM Inhaler INH SCH (11:00)
[2019-07-08] MEDS: Warfarin 2.5 MG Tab PO SCH (17:26)
[2019-07-08] MEDS: Metoprolol Succinate 25 MG Tab.ER PO SCH (17:26)
[2019-07-08] MEDS: Albuterol 8 GM Inhaler INH PRN (17:54)
[2019-07-08] MEDS: Insulin Glargine,Human Rec. Analog 100 Units/ML 3 ML Pen SUBCUT SCH (20:33)
[2019-07-08] MEDS: Tamsulosin 0.4 MG Cap.ER PO SCH (20:34)
[2019-07-08] MEDS: Montelukast 10 MG Tab PO SCH (20:34)
[2019-07-08] MEDS: traMADol 50 MG Tab PO SCH (20:34)
[2019-07-08] MEDS: atorvaSTATin 10 MG Tab PO SCH (20:35)
[2019-07-09] MEDS: Acetaminophen 325 MG Tab PO PRN ×2 (06:28→13:51)
[2019-07-09] MEDS: guaiFENesin 600 MG Tab.ER PO SCH ×2 (06:28→19:48)
[2019-07-09] MEDS: Omeprazole 20 MG Cap.CR PO SCH (06:28)
[2019-07-09 08:06] LABS: ANION GAP 15.3 mmol/L (5-15)
[2019-07-09] MEDS: Indacaterol/Glycopyrrolate 1 EA Cap.W.Dev Kit of 6 IH SCH ×2 (09:01→20:35)
[2019-07-09] MEDS: Allopurinol 100 MG Tab PO SCH (09:01)
[2019-07-09] MEDS: Fluticasone Propionate 110 MCG/Puff 12 GM Inhaler INH SCH (09:01)
[2019-07-09] MEDS: Finasteride 5 MG Tab PO SCH (09:01)
[2019-07-09] MEDS: risperiDONE 0.25 MG Tab PO SCH ×3 (09:01→20:35)
[2019-07-09] MEDS: rOPINIRole 0.25 MG Tab PO SCH ×3 (09:01→20:34)
[2019-07-09] MEDS: Cholecalciferol (Vitamin D3) 25 MCG Tab PO SCH ×2 (09:01→20:35)
--- NOTE | 2019-07-09 14:23 | PCM.PN ---
- General Info Date of Service: 07/09/19 Subjective Update: Overall feeling stable, but with significant deconditioning and inability to tolerate much activity. Denies chest pain or orthopnea. Persistent significant edema. No new concerns. Tolerating diet well. Nursing corroborates significant deconditioning and little tolerance of activity. - Patient Data Vitals - Most Recent: Last Vital Signs Temp 37.3 C 07/09/19 06:58 Pulse 95 07/09/19 06:48 Resp 20 07/09/19 06:48 BP 119/67 07/09/19 06:48 Pulse Ox 90 L 07/09/19 06:48 Weight - Most Recent: 98.656 kg I&O - Last 24 Hours: Intake & Output 07/08/19 07/09/19 07/09/19 22:59 06:59 14:59 Intake Total 200 300 Output Total 250 Balance -50 300 Lab Results Last 24 Hours: Laboratory Results - last 24 hr 07/08/19 07/09/19 07/09/19 Range/Units 17:46 07:35 07:38 Sodium 142 (136-145) mmol/L Potassium 4.0 (3.3-5.3) mmol/L Chloride 107 (98-115) mmol/L Carbon Dioxide 23.7 (21.0-32.0) mmol/L Anion Gap 15.3 H (5-15) mmol/L BUN 67 H* (6-25) mg/dL Creatinine 1.75 H (0.51-1.17) mg/dL Est Cr Clr Drug Dosing 28.60 mL/min Estimated GFR (MDRD) 38 mL/min Glucose 100 H (75 - 99) mg/dL POC Glucose 114 H 92 (74-106) mg/dl Calcium 8.5 L (8.7-10.3) mg/dL Med Orders - Current: Current Medications Acetaminophen (Tylenol) 650 mg PO Q4H PRN PRN Reason: Pain Last Admin: 07/09/19 13:51 Dose: 650 mg Albuterol (Ventolin Hfa) 0 gm INH Q4H PRN PRN Reason: difficulty breathing Last Admin: 07/08/19 17:54 Dose: 2 inhalation Albuterol/Ipratropium (Duoneb 3.0-0.5 Mg/3 Ml) 3 ml NEB TID PRN PRN Reason: Dyspnea Last Admin: 07/07/19 21:53 Dose: 3 ml Allopurinol (Zyloprim) 150 mg PO DAILY [facility] Last Admin: 07/09/19 09:01 Dose: 150 mg Atorvastatin Calcium (Lipitor) 10 mg PO BEDTIME [facility] Last Admin: 07/08/19 20:35 Dose: 10 mg Cholecalciferol (Vitamin D3) 25 mcg PO BID [facility] Last Admin: 07/09/19 09:01 Dose: 25 mcg Finasteride (Proscar) 5 mg PO DAILY [facility] Last Admin: 07/09/19 09:01 Dose: 5 mg Fluticasone Propionate (Flovent Hfa 110 Mcg) 0 gm INH DAILY [facility] Last Admin: 07/09/19 09:01 Dose: 1 inhalation Glycopyrrolate/Indacaterol (Utibron Neohaler 27.5-15.6 Mcg) 1 each IH BID [facility] Last Admin: 07/09/19 09:01 Dose: 1 cap Guaifenesin (Mucinex) 600 mg PO Q12H [facility] Last Admin: 07/09/19 06:28 Dose: 600 mg Insulin Glargine (Lantus Solostar) 10 units SUBCUT BEDTIME [facility] Metoprolol Succinate (Toprol Xl) 12.5 mg PO 1800 [facility] Last Admin: 07/08/19 17:26 Dose: 12.5 mg Montelukast Sodium (Singulair) 10 mg PO BEDTIME [facility] Last Admin: 07/08/19 20:34 Dose: 10 mg Non-Formulary Medication (Dextran 70/Hypromellose [Artificial Tears]) 1 drop EYEBOTH Q4HR PRN PRN Reason: Dry Eyes Omeprazole (Omeprazole) 20 mg PO 0700 [facility] Last Admin: 07/09/19 06:28 Dose: 20 mg Polyethylene Glycol (Miralax) 17 gm PO BID PRN PRN Reason: Constipation Risperidone (Risperidal) 0.25 mg PO TID [facility] Last Admin: 07/09/19 13:52 Dose: 0.25 mg Ropinirole HCl (Requip) 0.25 mg PO TID [facility] Last Admin: 07/09/19 13:52 Dose: 0.25 mg Senna/Docusate Sodium (Senna Plus) 1 tab PO BEDTIME PRN PRN Reason: Constipation Tamsulosin HCl (Flomax) 0.4 mg PO BEDTIME [facility] Last Admin: 07/08/19 20:34 Dose: 0.4 mg Tramadol HCl (Ultram) 50 mg PO BEDTIME [facility] Last Admin: 07/08/19 20:34 Dose: 50 mg Warfarin Sodium (Coumadin) 2.5 mg PO 1800 [facility] Last Admin: 07/08/19 17:26 Dose: 2.5 mg Discontinued Medications Fluticasone Propionate (Flovent Hfa 110 Mcg) 0 gm INH DAILY [facility] Insulin Detemir (Levemir) 20 unit SUBCUT BEDTIME [facility] Last Admin: 07/06/19 21:26 Dose: 20 units Insulin Glargine (Lantus Solostar) 15 units SUBCUT BEDTIME [facility] Last Admin: 07/08/19 20:33 Dose: 15 units Non-Formulary Medication (Dulaglutide [Trulicity]) 0.75 mg SUBCUT WEEKLY [facility] - Exam Physical Findings Comments:: GENERAL: Chronically ill appearing elderly white male appearing older than stated age sitting in bedside chair in no acute distress. HEENT: Normocephalic, atraumatic. Conjunctiva clear. Nares patent without discharge. Mucous membranes moist, posterior pharynx unremarkable. NECK: Supple, no masses. CV: Irregularly irregular, valve click at mitral position, no gallop. 2+ radial pulses. PULMONARY: Normal effort, clear to auscultation bilaterally, no wheezes, rales, or rhonchi. ABDOMEN: Obese, positive bowel sounds, soft, nontender, nondistended. EXTREMITIES: 2+ diffuse edema to bilateral lower extremities to knees. MUSCULOSKELETAL: Moves all extremities. NEUROLOGICAL: No obvious deficits. DERMATOLOGIC: No rashes or suspicious lesions in exposed areas. PSYCHIATRIC: Alert, interactive, mildly flattened affect. - Problem List Review Problem List Initiated/Reviewed/Updated: Yes - My Orders Last 24 Hours: My Active Orders 07/09/19 21:00 Insulin Glarg,Human.Rec.Analog [LantUS Solostar] 10 units SUBCUT BEDTIME - Plan Plan:: HPI Summary Mr. Cooper is a 73yoM who recently underwent urgent repair of his mitral valve at [facility] due to cardiogenic shock/CHF and was subsequently transferred here to SNF status for PT and recovery. Patient does the history of severe CHF secondary to severe mitral regurgitation, tricuspid regurgitation, and chronic atrial fibrillation. He was in [place] for recurrent fluid overload and anasarca. He underwent cardiac catheterization which did not demonstrated evidence of associated CAD. He did undergo Watchman device placement months ago in his left atrial appendage. Primary SNF/Hospital problems --Deconditioning, profound: PT. --Wound VAC, chest wall: Intact, very minimal drainage on exam. --S/P MVR (mitral valve replacement) mechanical prosthesis: Titrate warfarin to target dose. --S/P TVR (tricuspid valve repair) --Severe mitral regurgitation --Severe tricuspid regurgitation --HFpEF, chronic combined systolic and diastolic: Fluid status overall stable with stable weight and exam findings. Has upcoming follow-up with cardiothoracic surgeon upcoming. Will monitor daily weight and VS in order to determine need for restarting diuretics, now that creatinine has improved to around baseline. --CKD: Ongoing improvement in creatinine to around baseline. Recent/resolved problems --Community acquired pneumonia --Sepsis 2/2 pneumonia --[place] encephalopathy Chronic/stable problems --Atrial fibrillation/Presence of Watchman left atrial appendage closure device , anticoagulation due to recent TVR --T2DM, Holding home Trulicity, Added Lantus 15un qHS at admission to SNF, Due to persistently low-end BGs, this was decreased to 15un, assess/trend BG and make adjustments --Recent NSTEMI type 2 --COPD, was to receive Trelegy on DC, however will substitute for Utibron and add Flovent --Obstructive sleep apnea syndrome, home CPAP use --Moderate to severe pulmonary hypertension --History of bladder neck contracture, recent direct visualization/cystoscope, monitor for AUR --HLD, statin --RLS, requip --Gout, no acute flare --venous insufficiency Hospitalization details --GI stress proph: PO PPI --INR to be managed by [facility] at [facility] --Full code --Up with assist Upcoming appointments/consultations --07/11/2019 @ 10:00am with Dr Crouch/Rachel/Catie Team [facility] for chest dressing removal (leave in place - do NOT change) --07/11/2019 - xray with [facility] RM 3 at 9:45am - prior to appointment with Dr Crouch --08/14/2019 - 4 appointments starting at 9:15am xray, echocardiogram, EKG, and post op with Dr Crouch - [facility]
[2019-07-09] MEDS: Metoprolol Succinate 25 MG Tab.ER PO SCH (18:03)
[2019-07-09] MEDS: Warfarin 2.5 MG Tab PO SCH (18:03)
[2019-07-09] MEDS: Insulin Glargine,Human Rec. Analog 100 Units/ML 3 ML Pen SUBCUT SCH (20:33)
[2019-07-09] MEDS: atorvaSTATin 10 MG Tab PO SCH (20:34)
[2019-07-09] MEDS: traMADol 50 MG Tab PO SCH (20:34)
[2019-07-09] MEDS: Tamsulosin 0.4 MG Cap.ER PO SCH (20:34)
[2019-07-09] MEDS: Montelukast 10 MG Tab PO SCH (20:34)
[2019-07-10] MEDS: guaiFENesin 600 MG Tab.ER PO SCH ×2 (06:29→19:32)
[2019-07-10] MEDS: Omeprazole 20 MG Cap.CR PO SCH (06:29)
[2019-07-10] MEDS: Finasteride 5 MG Tab PO SCH (08:59)
[2019-07-10] MEDS: Allopurinol 100 MG Tab PO SCH (09:00)
[2019-07-10] MEDS: Cholecalciferol (Vitamin D3) 25 MCG Tab PO SCH ×2 (09:02→21:16)
[2019-07-10] MEDS: rOPINIRole 0.25 MG Tab PO SCH ×3 (09:02→21:15)
[2019-07-10] MEDS: risperiDONE 0.25 MG Tab PO SCH ×3 (09:02→21:15)
[2019-07-10] MEDS: Fluticasone Propionate 110 MCG/Puff 12 GM Inhaler INH SCH (10:01)
[2019-07-10] MEDS: Indacaterol/Glycopyrrolate 1 EA Cap.W.Dev Kit of 6 IH SCH ×2 (10:20→21:19)
[2019-07-10] MEDS: Metoprolol Succinate 25 MG Tab.ER PO SCH (17:55)
[2019-07-10] MEDS: Warfarin 2.5 MG Tab PO SCH (17:56)
[2019-07-10] MEDS: Albuterol/Ipratropium 3.0-0.5 MG/3 ML Neb Soln NEB PRN (17:57)
[2019-07-10] MEDS: Acetaminophen 325 MG Tab PO PRN (18:21)
[2019-07-10] MEDS: Tamsulosin 0.4 MG Cap.ER PO SCH (21:14)
[2019-07-10] MEDS: atorvaSTATin 10 MG Tab PO SCH (21:15)
[2019-07-10] MEDS: Montelukast 10 MG Tab PO SCH (21:15)
[2019-07-10] MEDS: traMADol 50 MG Tab PO SCH (21:16)
[2019-07-10] MEDS: Insulin Glargine,Human Rec. Analog 100 Units/ML 3 ML Pen SUBCUT SCH (21:18)
[2019-07-11] MEDS: Albuterol/Ipratropium 3.0-0.5 MG/3 ML Neb Soln NEB PRN ×2 (05:51→17:28)
[2019-07-11] MEDS: guaiFENesin 600 MG Tab.ER PO SCH ×2 (06:36→19:16)
[2019-07-11] MEDS: rOPINIRole 0.25 MG Tab PO SCH ×4 (06:36→21:51)
[2019-07-11] MEDS: Omeprazole 20 MG Cap.CR PO SCH (06:36)
[2019-07-11] MEDS: Indacaterol/Glycopyrrolate 1 EA Cap.W.Dev Kit of 6 IH SCH ×3 (07:07→21:47)
[2019-07-11] MEDS: Fluticasone Propionate 110 MCG/Puff 12 GM Inhaler INH SCH ×2 (07:35→09:13)
[2019-07-11] MEDS: Finasteride 5 MG Tab PO SCH (09:13)
[2019-07-11] MEDS: Allopurinol 100 MG Tab PO SCH (09:14)
[2019-07-11] MEDS: risperiDONE 0.25 MG Tab PO SCH ×3 (09:14→21:50)
[2019-07-11] MEDS: Cholecalciferol (Vitamin D3) 25 MCG Tab PO SCH ×2 (09:14→21:51)
[2019-07-11] MEDS: Metoprolol Succinate 25 MG Tab.ER PO SCH (17:43)
[2019-07-11] MEDS ORDERED: Warfarin 5 MG Tab PO SCH (18:00)
[2019-07-11] MEDS: Insulin Glargine,Human Rec. Analog 100 Units/ML 3 ML Pen SUBCUT SCH (21:46)
[2019-07-11] MEDS: Tamsulosin 0.4 MG Cap.ER PO SCH (21:50)
[2019-07-11] MEDS: atorvaSTATin 10 MG Tab PO SCH (21:50)
[2019-07-11] MEDS: Montelukast 10 MG Tab PO SCH (21:50)
[2019-07-11] MEDS: traMADol 50 MG Tab PO SCH (21:51)
[2019-07-12] MEDS: guaiFENesin 600 MG Tab.ER PO SCH ×2 (06:29→19:18)
[2019-07-12] MEDS: Omeprazole 20 MG Cap.CR PO SCH (06:29)
[2019-07-12] MEDS: Albuterol/Ipratropium 3.0-0.5 MG/3 ML Neb Soln NEB PRN (07:34)
[2019-07-12] MEDS: Allopurinol 100 MG Tab PO SCH (08:34)
[2019-07-12] MEDS: Finasteride 5 MG Tab PO SCH (08:35)
[2019-07-12] MEDS: risperiDONE 0.25 MG Tab PO SCH ×3 (08:35→20:59)
[2019-07-12] MEDS: rOPINIRole 0.25 MG Tab PO SCH ×3 (08:35→20:58)
[2019-07-12] MEDS: Cholecalciferol (Vitamin D3) 25 MCG Tab PO SCH ×2 (08:36→21:00)
[2019-07-12] MEDS: Indacaterol/Glycopyrrolate 1 EA Cap.W.Dev Kit of 6 IH SCH ×2 (08:53→20:56)
[2019-07-12] MEDS: Fluticasone Propionate 110 MCG/Puff 12 GM Inhaler INH SCH (09:31)
[2019-07-12] MEDS: Warfarin 2.5 MG Tab PO SCH (17:51)
[2019-07-12] MEDS: Metoprolol Succinate 25 MG Tab.ER PO SCH (17:51)
[2019-07-12] MEDS: Insulin Glargine,Human Rec. Analog 100 Units/ML 3 ML Pen SUBCUT SCH (20:57)
[2019-07-12] MEDS: atorvaSTATin 10 MG Tab PO SCH (20:58)
[2019-07-12] MEDS: traMADol 50 MG Tab PO SCH (20:58)
[2019-07-12] MEDS: Tamsulosin 0.4 MG Cap.ER PO SCH (20:58)
[2019-07-12] MEDS: Montelukast 10 MG Tab PO SCH (20:58)
[2019-07-13] MEDS: guaiFENesin 600 MG Tab.ER PO SCH ×2 (06:07→18:34)
[2019-07-13] MEDS: Omeprazole 20 MG Cap.CR PO SCH (06:07)
[2019-07-13] MEDS: Albuterol/Ipratropium 3.0-0.5 MG/3 ML Neb Soln NEB PRN (06:26)
[2019-07-13] MEDS: risperiDONE 0.25 MG Tab PO SCH ×3 (08:28→20:18)
[2019-07-13] MEDS: Finasteride 5 MG Tab PO SCH (08:28)
[2019-07-13] MEDS: rOPINIRole 0.25 MG Tab PO SCH ×3 (08:29→20:18)
[2019-07-13] MEDS: Allopurinol 100 MG Tab PO SCH (08:29)
[2019-07-13] MEDS: Cholecalciferol (Vitamin D3) 25 MCG Tab PO SCH ×2 (08:37→20:36)
[2019-07-13] MEDS: Fluticasone Propionate 110 MCG/Puff 12 GM Inhaler INH SCH (09:30)
[2019-07-13] MEDS: Indacaterol/Glycopyrrolate 1 EA Cap.W.Dev Kit of 6 IH SCH ×2 (09:31→20:33)
[2019-07-13] MEDS: Warfarin 2.5 MG Tab PO SCH (18:34)
[2019-07-13] MEDS: Metoprolol Succinate 25 MG Tab.ER PO SCH (18:34)
[2019-07-13] MEDS: Montelukast 10 MG Tab PO SCH (20:18)
[2019-07-13] MEDS: Tamsulosin 0.4 MG Cap.ER PO SCH (20:18)
[2019-07-13] MEDS: atorvaSTATin 10 MG Tab PO SCH (20:18)
[2019-07-13] MEDS: traMADol 50 MG Tab PO SCH (20:19)
[2019-07-13] MEDS: Insulin Glargine,Human Rec. Analog 100 Units/ML 3 ML Pen SUBCUT SCH (20:24)
[2019-07-14] MEDS: Omeprazole 20 MG Cap.CR PO SCH (06:44)
[2019-07-14] MEDS: guaiFENesin 600 MG Tab.ER PO SCH ×2 (06:44→18:53)
[2019-07-14] MEDS: Allopurinol 100 MG Tab PO SCH (08:45)
[2019-07-14] MEDS: Finasteride 5 MG Tab PO SCH (08:45)
[2019-07-14] MEDS: rOPINIRole 0.25 MG Tab PO SCH ×3 (08:45→20:25)
[2019-07-14] MEDS: Indacaterol/Glycopyrrolate 1 EA Cap.W.Dev Kit of 6 IH SCH (08:45)
[2019-07-14] MEDS: risperiDONE 0.25 MG Tab PO SCH ×3 (08:47→20:25)
[2019-07-14] MEDS: Cholecalciferol (Vitamin D3) 25 MCG Tab PO SCH ×2 (08:47→20:25)
[2019-07-14] MEDS: Fluticasone Propionate 110 MCG/Puff 12 GM Inhaler INH SCH (08:49)
--- NOTE | 2019-07-14 11:20 | PCM.PN ---
- General Info Date of Service: 07/14/19 Functional Status: Reports: Pain Controlled, New Symptoms (Profound debilitation and weakness), Incentive Spirometry - Review of Systems General: Reports: Weakness, Malaise. Denies: Chills, Night Sweats HEENT: Reports: No Symptoms Pulmonary: Reports: Shortness of Breath, Cough, Sputum, Wheezing Cardiovascular: Reports: Dyspnea on Exertion, Edema. Denies: Chest Pain (Chest wall pain due to cough), Palpitations Gastrointestinal: Reports: No Symptoms Genitourinary: Reports: No Symptoms Skin: Denies: Jaundice, Rash Neurological: Reports: Pre-Existing Deficit, Difficulty Walking, Weakness, Gait Disturbance. Denies: Confusion, Dizziness, Change in Speech Psychiatric: Denies: Confusion - Patient Data Vitals - Most Recent: Last Vital Signs Temp 98.2 F 07/14/19 07:00 Pulse 83 07/14/19 07:00 Resp 24 H 07/14/19 07:00 BP 123/65 07/14/19 07:00 Pulse Ox 97 07/14/19 07:00 Weight - Most Recent: 215 lb 4.8 oz I&O - Last 24 Hours: Intake & Output 07/13/19 07/14/19 07/14/19 22:59 06:59 14:59 Intake Total 380 220 Output Total 200 490 Balance 180 -270 Lab Results Last 24 Hours: Laboratory Results - last 24 hr 07/13/19 07/14/19 07/14/19 Range/Units 17:47 06:50 07:55 PT TNP INR 2.2 H (0.9-1.1) POC Glucose 89 88 (74-106) mg/dl Med Orders - Current: Current Medications Acetaminophen (Tylenol) 650 mg PO Q4H PRN PRN Reason: Pain Last Admin: 07/10/19 18:21 Dose: 650 mg Albuterol (Ventolin Hfa) 0 gm INH Q4H PRN PRN Reason: difficulty breathing Last Admin: 07/08/19 17:54 Dose: 2 inhalation Albuterol/Ipratropium (Duoneb 3.0-0.5 Mg/3 Ml) 3 ml NEB TID PRN PRN Reason: Dyspnea Last Admin: 07/13/19 06:26 Dose: 3 ml Allopurinol (Zyloprim) 150 mg PO DAILY [facility] Last Admin: 07/14/19 08:45 Dose: 150 mg Atorvastatin Calcium (Lipitor) 10 mg PO BEDTIME [facility] Last Admin: 07/13/19 20:18 Dose: 10 mg Cholecalciferol (Vitamin D3) 25 mcg PO BID [facility] Last Admin: 07/14/19 08:47 Dose: 25 mcg Finasteride (Proscar) 5 mg PO DAILY [facility] Last Admin: 07/14/19 08:45 Dose: 5 mg Fluticasone Propionate (Flovent Hfa 110 Mcg) 0 gm INH DAILY [facility] Last Admin: 07/14/19 08:49 Dose: 1 inhalation Glycopyrrolate/Indacaterol (Utibron Neohaler 27.5-15.6 Mcg) 1 each IH BID [facility] Last Admin: 07/14/19 08:45 Dose: 1 cap Guaifenesin (Mucinex) 600 mg PO Q12H [facility] Last Admin: 07/14/19 06:44 Dose: 600 mg Insulin Glargine (Lantus Solostar) 10 units SUBCUT BEDTIME [facility] Last Admin: 07/13/19 20:24 Dose: 10 unit Metoprolol Succinate (Toprol Xl) 12.5 mg PO 1800 [facility] Last Admin: 07/13/19 18:34 Dose: 12.5 mg Montelukast Sodium (Singulair) 10 mg PO BEDTIME [facility] Last Admin: 07/13/19 20:18 Dose: 10 mg Non-Formulary Medication (Dextran 70/Hypromellose [Artificial Tears]) 1 drop EYEBOTH Q4HR PRN PRN Reason: Dry Eyes Omeprazole (Omeprazole) 20 mg PO 0700 [facility] Last Admin: 07/14/19 06:44 Dose: 20 mg Polyethylene Glycol (Miralax) 17 gm PO BID PRN PRN Reason: Constipation Risperidone (Risperidal) 0.25 mg PO TID [facility] Last Admin: 07/14/19 08:47 Dose: 0.25 mg Ropinirole HCl (Requip) 0.25 mg PO TID [facility] Last Admin: 07/14/19 08:45 Dose: 0.25 mg Senna/Docusate Sodium (Senna Plus) 1 tab PO BEDTIME PRN PRN Reason: Constipation Tamsulosin HCl (Flomax) 0.4 mg PO BEDTIME [facility] Last Admin: 07/13/19 20:18 Dose: 0.4 mg Tramadol HCl (Ultram) 50 mg PO BEDTIME [facility] Last Admin: 07/13/19 20:19 Dose: 50 mg Discontinued Medications Fluticasone Propionate (Flovent Hfa 110 Mcg) 0 gm INH DAILY [facility] Insulin Detemir (Levemir) 20 unit SUBCUT BEDTIME [facility] Last Admin: 07/06/19 21:26 Dose: 20 units Insulin Glargine (Lantus Solostar) 15 units SUBCUT BEDTIME [facility] Last Admin: 07/08/19 20:33 Dose: 15 units Non-Formulary Medication (Dulaglutide [Trulicity]) 0.75 mg SUBCUT WEEKLY [facility] Warfarin Sodium (Coumadin) 2.5 mg PO 1800 [facility] Last Admin: 07/10/19 17:56 Dose: 2.5 mg Warfarin Sodium (Coumadin) 5 mg PO ONETIME [facility] Stop: 07/11/19 19:30 Last Admin: 07/11/19 17:42 Dose: 5 mg Warfarin Sodium (Coumadin) 2.5 mg PO DAILY@1800 [facility] Stop: 07/13/19 20:00 Last Admin: 07/13/19 18:34 Dose: 2.5 mg - Exam Quality Assessment: Supplemental Oxygen, DVT Prophylaxis General: Alert, Oriented, No Acute Distress Neck: No JVD Lungs: Wheezing Cardiovascular: Irregular Rhythm GI/Abdominal Exam: Soft. No: Distended (Male) Exam: Deferred Extremities: Pedal Edema, Other (Edema left hand extending into forearm). No: Slow Capillary Refill Peripheral Pulses: 2+: Radial (L), Radial (R) Skin: Dry Psy/Mental Status: Labile Mood - Problem List Review Problem List Initiated/Reviewed/Updated: Yes - Plan Plan:: History of present Illness Mr. Cooper is gentleman recently underwent urgent repair of his Mitral Valve in [facility] due to cardiogenic shock/CHF was transferred here to SNF status for PT and recovery. Patient with hx of severe CHF secondary to severe mitral regurgitation, tricuspid regurgitation, and chronic atrial fibrillation. He was in [place] for recurrent fluid overload and anasarca. He underwent cardiac catheterization which did not demonstrated evidence of associated CAD, he did undergo watchman device placement months ago in his left atrial appendage despite. While in [place] he underwent repair of structural heart disease. On rounds today patient stated he is quite weak. He was talkative, RN reported on time thick sputum. Sitting in chair, No new or worsening SOB however some edema noted to left forearm and hand Primary SNF/Hospital problems --Deconditioning, profound, PT --Cough, --Plueral effusion, right sided, will monitor --Wound VAC, chest wall, intact, keep dry --S/P MVR (mitral valve replacement) mechanical prosthesis --S/P TVR (tricuspid valve repair) --Severe mitral regurgitation --Severe tricuspid regurgitation --Mitral stenosis with regurgitation, titrate to target dose --HFpEF, chronic combined systolic and diastolic --Anemia in CKD --Recent Anasarca 2/2 hf, will monitor carefully, daily wts. Recent/resolved problems community acquired pneumonia sepsis 2/2 pneumonia acute encephalopathy Chronic/stable problems --Atrial fibrillation/Presence of Watchman left atrial appendage closure device , anticoagulation due to recent TVR --T2DM, Holding home Trulicity, Added Lantus 15 u qHS, assess/trend BG and make adjustments, likely will require correction insulin --Recent NSTEMI type 2 --COPD, was to receive Trelegy on DC, however substituting here at [facility] with Utibron and added Flovent --Obstructive sleep apnea syndrome, home CPAP use --Moderate to severe pulmonary hypertension --History of bladder neck contracture, recent direct visualization/cystoscope, monitor for AUR --HLD, statin --RLS, requip --Gout, no acute flare --venous insufficiency health maintenance --GI stress prophys, PO PPI --INR to be managed by inr clinic [place], discussed with Dayna MCMAHON to arrange this. --Full code --up with assist Appointments/consultations --07/11/2019 @ 10:00am with Dr Crouch/Rachel/Catie Team [facility] for chest dressing removal (leave in place - do NOT change) --07/11/2019 - xray with [facility] RAD RM 3 at 9:45am - prior to appointment with Dr Crouch --08/14/2019 - 4 appointments starting at 9:15am xray, echocardiogram, EKG, and post op with Dr Crouch - Chandu Marshallgo Today: --cxr since sputum today --Change to [facility] duo nebs --Hold LAMA/LABA --BNP/Troponin --Monitor for anasarca
[2019-07-14 12:14] LABS: ANION GAP 12.7 mmol/L (5-15)
[2019-07-14] MEDS: Albuterol/Ipratropium 3.0-0.5 MG/3 ML Neb Soln NEB PRN (13:00)
--- NOTE | 2019-07-14 14:38 | CR ---
[id number] RAD/RAD Chest PA And Lateral EXAM: RAD Chest PA And Lateral CLINICAL DATA: COUGH COMPARISON: CORRELATION IS MADE WITH THE EXAM OF 2018 FINDINGS: A moderate interstitial pattern is seen There is a small right pleural effusion The cardiac silhouette is enlarged Cardiac surgical changes are identified IMPRESSION: MODERATE CHF Johan Wong MD 07/14/19 1294 Thank you for allowing us to participate in the care of your patient.
[2019-07-14] MEDS ORDERED: Furosemide 40 MG/4 ML VIAL IVPUSH ONE ×4 (15:10→19:00)
[2019-07-14] MEDS: Albuterol/Ipratropium 3.0-0.5 MG/3 ML Neb Soln NEB SCH ×3 (15:31→22:15)
[2019-07-14] MEDS ORDERED: Warfarin 2.5 MG Tab PO SCH (18:00)
[2019-07-14] MEDS: Metoprolol Succinate 25 MG Tab.ER PO SCH (18:05)
[2019-07-14] MEDS: Insulin Glargine,Human Rec. Analog 100 Units/ML 3 ML Pen SUBCUT SCH (20:23)
[2019-07-14] MEDS: Montelukast 10 MG Tab PO SCH (20:25)
[2019-07-14] MEDS: traMADol 50 MG Tab PO SCH (20:25)
[2019-07-14] MEDS: atorvaSTATin 10 MG Tab PO SCH (20:26)
[2019-07-14] MEDS: Tamsulosin 0.4 MG Cap.ER PO SCH (20:27)
[2019-07-14] MEDS: Sodium Chloride 0.9% 10 ML Syringe FLUSH PRN (22:17)
[2019-07-15] MEDS: Albuterol/Ipratropium 3.0-0.5 MG/3 ML Neb Soln NEB SCH ×4 (05:44→22:04)
[2019-07-15] MEDS: guaiFENesin 600 MG Tab.ER PO SCH ×2 (06:15→18:43)
[2019-07-15] MEDS: Omeprazole 20 MG Cap.CR PO SCH (06:15)
[2019-07-15] MEDS: Fluticasone Propionate 110 MCG/Puff 12 GM Inhaler INH SCH (08:00)
[2019-07-15] MEDS: Furosemide 40 MG/4 ML VIAL IVPUSH SCH ×2 (08:25→14:05)
[2019-07-15] MEDS: Allopurinol 100 MG Tab PO SCH (08:29)
[2019-07-15] MEDS: Finasteride 5 MG Tab PO SCH (08:29)
[2019-07-15] MEDS: rOPINIRole 0.25 MG Tab PO SCH ×3 (08:29→20:40)
[2019-07-15] MEDS: Cholecalciferol (Vitamin D3) 25 MCG Tab PO SCH ×2 (08:29→20:40)
[2019-07-15] MEDS: risperiDONE 0.25 MG Tab PO SCH ×3 (08:29→20:40)
[2019-07-15] MEDS: Indacaterol/Glycopyrrolate 1 EA Cap.W.Dev Kit of 6 IH SCH (08:47)
--- NOTE | 2019-07-15 09:56 | PCM.PN ---
- General Info Date of Service: 07/15/19 Functional Status: Reports: Pain Controlled, Tolerating Diet, Urinating, New Symptoms (Profound weakness). Denies: Ambulating - Review of Systems General: Reports: Weakness, Fatigue, Malaise. Denies: Night Sweats HEENT: Reports: No Symptoms Pulmonary: Reports: Shortness of Breath, Wheezing Cardiovascular: Reports: Dyspnea on Exertion, Edema. Denies: Chest Pain, Orthopnea Gastrointestinal: Reports: No Symptoms Genitourinary: Reports: No Symptoms Musculoskeletal: Reports: No Symptoms Neurological: Denies: Confusion Psychiatric: Reports: No Symptoms - Patient Data Vitals - Most Recent: Last Vital Signs Temp 98.7 F 07/15/19 05:41 Pulse 96 07/15/19 06:03 Resp 24 H 07/15/19 05:41 BP 107/60 07/15/19 05:41 Pulse Ox 94 L 07/15/19 05:41 Weight - Most Recent: 211 lb 12.8 oz I&O - Last 24 Hours: Intake & Output 07/14/19 07/15/19 07/15/19 22:59 06:59 14:59 Intake Total 400 100 Output Total 1400 525 Balance -1000 -425 Lab Results Last 24 Hours: Laboratory Results - last 24 hr 07/14/19 07/14/19 07/14/19 Range/Units 11:50 11:50 14:20 WBC 5.92 (5.00-10.00) 10^3/uL RBC 3.39 L (4.50-6.00) 10^6/uL Hgb 9.8 L (13.0-17.0) g/dL Hct 30.9 L (40.0-52.0) % MCV 91.2 (82.0-92.0) fL MCH 28.9 (27.0-31.0) pg MCHC 31.7 L (32.0-36.0) g/dL RDW 18.2 H (11.5-14.5) % Plt Count 191 (150-400) 10^3/uL MPV 9.5 (7.4-10.4) fL Add Manual Diff Yes Neutrophils % (Manual) 67 (50-70) % Lymphocytes % (Manual) 12 L (20-40) % Monocytes % (Manual) 14 H (2-8) % Eosinophils % (Manual) 7 H (1-3) % Absolute Neutrophils 3.97 Lymphocytes # (Manual) 0.71 Monocytes # (Manual) 0.83 Eosinophils # (Manual) 0.41 Elliptocytes 1+ slight Sodium 139 (136-145) mmol/L Potassium 4.4 (3.3-5.3) mmol/L Chloride 106 (98-115) mmol/L Carbon Dioxide 24.7 (21.0-32.0) mmol/L Anion Gap 12.7 (5-15) mmol/L BUN 60 H* (6-25) mg/dL Creatinine 1.58 H (0.51-1.17) mg/dL Est Cr Clr Drug Dosing 31.68 mL/min Estimated GFR (MDRD) 43 mL/min Glucose 130 H (75 - 99) mg/dL POC Glucose (74-106) mg/dl Calcium 8.3 L (8.7-10.3) mg/dL Troponin I 0.11 H* (0.00-0.070) ng/mL B-Natriuretic Peptide 736 H (0-100) pg/mL 07/14/19 07/14/19 07/14/19 Range/Units 17:09 18:02 20:21 WBC (5.00-10.00) 10^3/uL RBC (4.50-6.00) 10^6/uL Hgb (13.0-17.0) g/dL Hct (40.0-52.0) % MCV (82.0-92.0) fL MCH (27.0-31.0) pg MCHC (32.0-36.0) g/dL RDW (11.5-14.5) % Plt Count (150-400) 10^3/uL MPV (7.4-10.4) fL Add Manual Diff Neutrophils % (Manual) (50-70) % Lymphocytes % (Manual) (20-40) % Monocytes % (Manual) (2-8) % Eosinophils % (Manual) (1-3) % Absolute Neutrophils Lymphocytes # (Manual) Monocytes # (Manual) Eosinophils # (Manual) Elliptocytes Sodium (136-145) mmol/L Potassium (3.3-5.3) mmol/L Chloride (98-115) mmol/L Carbon Dioxide (21.0-32.0) mmol/L Anion Gap (5-15) mmol/L BUN (6-25) mg/dL Creatinine (0.51-1.17) mg/dL Est Cr Clr Drug Dosing mL/min Estimated GFR (MDRD) mL/min Glucose (75 - 99) mg/dL POC Glucose 99 146 H (74-106) mg/dl Calcium (8.7-10.3) mg/dL Troponin I 0.13 H* (0.00-0.070) ng/mL B-Natriuretic Peptide (0-100) pg/mL 07/15/19 07/15/19 07/15/19 Range/Units 07:00 07:10 07:53 WBC (5.00-10.00) 10^3/uL RBC (4.50-6.00) 10^6/uL Hgb (13.0-17.0) g/dL Hct (40.0-52.0) % MCV (82.0-92.0) fL MCH (27.0-31.0) pg MCHC (32.0-36.0) g/dL RDW (11.5-14.5) % Plt Count (150-400) 10^3/uL MPV (7.4-10.4) fL Add Manual Diff Neutrophils % (Manual) (50-70) % Lymphocytes % (Manual) (20-40) % Monocytes % (Manual) (2-8) % Eosinophils % (Manual) (1-3) % Absolute Neutrophils Lymphocytes # (Manual) Monocytes # (Manual) Eosinophils # (Manual) Elliptocytes Sodium 143 (136-145) mmol/L Potassium 4.3 (3.3-5.3) mmol/L Chloride 107 (98-115) mmol/L Carbon Dioxide 22.3 (21.0-32.0) mmol/L Anion Gap 18.0 H (5-15) mmol/L BUN 58 H* (6-25) mg/dL Creatinine 1.63 H (0.51-1.17) mg/dL Est Cr Clr Drug Dosing 30.71 mL/min Estimated GFR (MDRD) 42 mL/min Glucose 108 H (75 - 99) mg/dL POC Glucose 93 (74-106) mg/dl Calcium 8.2 L (8.7-10.3) mg/dL Troponin I 0.15 H* (0.00-0.070) ng/mL B-Natriuretic Peptide (0-100) pg/mL Med Orders - Current: Current Medications Acetaminophen (Tylenol) 650 mg PO Q4H PRN PRN Reason: Pain Last Admin: 07/10/19 18:21 Dose: 650 mg Albuterol (Ventolin Hfa) 0 gm INH Q4H PRN PRN Reason: difficulty breathing Last Admin: 07/08/19 17:54 Dose: 2 inhalation Albuterol/Ipratropium (Duoneb 3.0-0.5 Mg/3 Ml) 3 ml NEB Q6HRRT [facility] Last Admin: 07/15/19 05:44 Dose: 3 ml Allopurinol (Zyloprim) 150 mg PO DAILY [facility] Last Admin: 07/15/19 08:29 Dose: 150 mg Atorvastatin Calcium (Lipitor) 10 mg PO BEDTIME [facility] Last Admin: 07/14/19 20:26 Dose: 10 mg Cholecalciferol (Vitamin D3) 25 mcg PO BID [facility] Last Admin: 07/15/19 08:29 Dose: 25 mcg Finasteride (Proscar) 5 mg PO DAILY [facility] Last Admin: 07/15/19 08:29 Dose: 5 mg Fluticasone Propionate (Flovent Hfa 110 Mcg) 0 gm INH DAILY [facility] Last Admin: 07/15/19 08:00 Dose: 1 inhalation Furosemide (Lasix) 40 mg IVPUSH BID@0900,1500 [facility] Last Admin: 07/15/19 08:25 Dose: 40 mg Glycopyrrolate/Indacaterol (Utibron Neohaler 27.5-15.6 Mcg) 1 each IH BID [facility] Last Admin: 07/15/19 08:47 Dose: 1 cap Guaifenesin (Mucinex) 600 mg PO Q12H [facility] Last Admin: 07/15/19 06:15 Dose: 600 mg Insulin Glargine (Lantus Solostar) 10 units SUBCUT BEDTIME [facility] Last Admin: 07/14/19 20:23 Dose: 10 unit Metoprolol Succinate (Toprol Xl) 12.5 mg PO 1800 [facility] Last Admin: 07/14/19 18:05 Dose: 12.5 mg Montelukast Sodium (Singulair) 10 mg PO BEDTIME [facility] Last Admin: 07/14/19 20:25 Dose: 10 mg Non-Formulary Medication (Dextran 70/Hypromellose [Artificial Tears]) 1 drop EYEBOTH Q4HR PRN PRN Reason: Dry Eyes Omeprazole (Omeprazole) 20 mg PO 0700 [facility] Last Admin: 07/15/19 06:15 Dose: 20 mg Polyethylene Glycol (Miralax) 17 gm PO BID PRN PRN Reason: Constipation Risperidone (Risperidal) 0.25 mg PO TID [facility] Last Admin: 07/15/19 08:29 Dose: 0.25 mg Ropinirole HCl (Requip) 0.25 mg PO TID [facility] Last Admin: 07/15/19 08:29 Dose: 0.25 mg Senna/Docusate Sodium (Senna Plus) 1 tab PO BEDTIME PRN PRN Reason: Constipation Sodium Chloride (Saline Flush) 10 ml FLUSH Q8HR PRN PRN Reason: keep vein open Last Admin: 07/14/19 22:17 Dose: 10 ml Tamsulosin HCl (Flomax) 0.4 mg PO BEDTIME [facility] Last Admin: 07/14/19 20:27 Dose: 0.4 mg Tramadol HCl (Ultram) 50 mg PO BEDTIME [facility] Last Admin: 07/14/19 20:25 Dose: 50 mg Warfarin Sodium (Coumadin) 2.5 mg PO DAILY@1800 [facility] Stop: 07/16/19 21:00 Discontinued Medications Albuterol/Ipratropium (Duoneb 3.0-0.5 Mg/3 Ml) 3 ml NEB TID PRN PRN Reason: Dyspnea Last Admin: 07/14/19 13:00 Dose: 3 ml Fluticasone Propionate (Flovent Hfa 110 Mcg) 0 gm INH DAILY [facility] Furosemide (Lasix) 20 mg IVPUSH NOW ONE Stop: 07/14/19 15:11 Last Admin: 07/14/19 15:20 Dose: 20 mg Furosemide (Lasix) 20 mg IVPUSH NOW ONE Stop: 07/14/19 15:25 Last Admin: 07/14/19 15:40 Dose: Not Given Furosemide (Lasix) 20 mg IVPUSH NOW ONE Stop: 07/14/19 15:28 Last Admin: 07/14/19 15:25 Dose: 20 mg Furosemide (Lasix) 40 mg IVPUSH NOW ONE Stop: 07/14/19 19:01 Last Admin: 07/14/19 18:53 Dose: 40 mg Insulin Detemir (Levemir) 20 unit SUBCUT BEDTIME [facility] Last Admin: 07/06/19 21:26 Dose: 20 units Insulin Glargine (Lantus Solostar) 15 units SUBCUT BEDTIME [facility] Last Admin: 07/08/19 20:33 Dose: 15 units Non-Formulary Medication (Dulaglutide [Trulicity]) 0.75 mg SUBCUT WEEKLY [facility] Warfarin Sodium (Coumadin) 2.5 mg PO 1800 [facility] Last Admin: 07/10/19 17:56 Dose: 2.5 mg Warfarin Sodium (Coumadin) 5 mg PO ONETIME [facility] Stop: 07/11/19 19:30 Last Admin: 07/11/19 17:42 Dose: 5 mg Warfarin Sodium (Coumadin) 2.5 mg PO DAILY@1800 [facility] Stop: 07/13/19 20:00 Last Admin: 07/13/19 18:34 Dose: 2.5 mg Warfarin Sodium (Coumadin) 3.75 mg PO ONETIME [facility] Stop: 07/14/19 19:00 Last Admin: 07/14/19 18:53 Dose: 3.75 mg - Exam General: Alert, Mild Distress Neck: No JVD Lungs: Crackles, Wheezing Cardiovascular: Irregular Rhythm. No: Tachycardia GI/Abdominal Exam: Soft, Non-Tender Back Exam: CVA Tenderness (L) Extremities: Pedal Edema Peripheral Pulses: 2+: Radial (L), Radial (R) Skin: Dry Neurological: Normal Speech, Normal Tone - Problem List Review Problem List Initiated/Reviewed/Updated: Yes - My Orders Last 24 Hours: My Active Orders 07/14/19 13:20 RESPIRATORY CULT [MREF] Routine 07/14/19 14:08 Albuterol/Ipratropium [DuoNeb 3.0-0.5 MG/3 ML] 3 ml NEB Q6HRRT 07/14/19 15:01 EKG 12 Lead [EK] Routine 07/14/19 15:20 Sodium Chloride 0.9% [Saline Flush] 10 ml FLUSH Q8HR PRN Saline Lock Insert [OM.PC] Routine 07/14/19 15:21 Antiembolic Devices [RC] 0900,2100 ANDREW Hose Substitution [Sequential Compression Device] [OM.PC] Routine 07/14/19 15:31 Oxygen Therapy Adult [Oxygen Therapy, ED] [RC] ASDIRECTED 07/14/19 15:39 Telemetry Monitoring [Cardiac Monitoring] [RC] 0700,1500,2300 07/14/19 15:40 Vital Signs [RC] 0700,1500,2300 07/14/19 15:48 Daily Weight [Height and Weight] [RC] DAILY 07/14/19 18:47 Urinary Catheter Assessment [RC] .PRN 07/14/19 19:00 Insert Zaldivar Catheter [Insert Urinary Catheter] [OM.PC] PRN 07/14/19 Dinner Low Sodium [Sodium Restricted Diet] [DIET] 07/15/19 09:00 Furosemide [Lasix] 40 mg IVPUSH BID@0900,1500 07/15/19 18:00 Warfarin [Coumadin] 2.5 mg PO DAILY@1800 07/17/19 05:11 INR,PT,PROTHROMBIN TIME [COAG] Routine - Plan Plan:: History of present Illness Mr. Cooper is gentleman recently underwent urgent repair of his Mitral Valve in [facility] due to cardiogenic shock/CHF was transferred here to SNF status for PT and recovery. Patient with hx of severe CHF secondary to severe mitral regurgitation, tricuspid regurgitation, and chronic atrial fibrillation. He was in [place] for recurrent fluid overload and anasarca. He underwent cardiac catheterization which did not demonstrated evidence of associated CAD, he did undergo watchman device placement months ago in his left atrial appendage despite. While in [place] he underwent repair of structural heart disease. On rounds today, patient profoundly weak, cough improving, troponin up to 0.15 no chest pain, BUN/creatinine slightly improving. Sitting in chair, edema left arm starting to wrinkle, ~1,000 neg Urine output, VSS Primary SNF/Hospital problems --Deconditioning, profound, PT --Cough, seems to be improving --Plueral effusion, right sided, will monitor --Wound VAC, chest wall, intact, keep dry --S/P MVR (mitral valve replacement) mechanical prosthesis --S/P TVR (tricuspid valve repair) --Severe mitral regurgitation --Severe tricuspid regurgitation --Mitral stenosis with regurgitation, titrate to target dose --HFpEF, chronic combined systolic and diastolic --Anemia in CKD --Recent Anasarca 2/2 hf, will monitor carefully, daily wts. Recent/resolved problems community acquired pneumonia sepsis 2/2 pneumonia acute encephalopathy Chronic/stable problems --Atrial fibrillation, [id number] high, on anticoagulation 2/2 recent MVR therapeutic INR, Presence of Watchman left atrial appendage closure device, --T2DM, Holding home Trulicity, Added Lantus 15 u qHS, assess/trend BG and make adjustments, likely will require correction insulin --Recent NSTEMI type 2 --COPD, was to receive Trelegy on [place], however substituting here at [facility] with Utibron and added Flovent --Obstructive sleep apnea syndrome, home CPAP use --Moderate to severe pulmonary hypertension --History of bladder neck contracture, recent direct visualization/cystoscope, monitor for AUR --HLD, statin --RLS, requip --Gout, no acute flare --venous insufficiency health maintenance --GI stress prophys, PO PPI --INR to be managed by inr clinic [place], discussed with Dayna MCMAHON to arrange this. --Full code, will readdress. --up with assist Appointments/consultations --07/11/2019 @ 10:00am with Dr Crouch/Rachel/Catie Team [facility] for chest dressing removal (leave in place - do NOT change) --07/11/2019 - xray with [facility] RAD RM 3 at 9:45am - prior to appointment with Dr Crouch --08/14/2019 - 4 appointments starting at 9:15am xray, echocardiogram, EKG, and post op with Dr Crouch - [facility] --1011, spoke with Dr. Crouch on patient's condition including mildly elevated troponin, recommended increasing Lasix from 40 a day to twice a day, as stockings however patient is refusing any so will apply very snug karis wraps. Order closely for worsening edema, anasarca Today: --cxr since sputum today --Change to [facility] duo nebs --Hold LAMA/LABA --BNP/Troponin --Monitor for anasarca
[2019-07-15] MEDS: Magnesium Oxide 500 MG Tab PO SCH (17:25)
[2019-07-15] MEDS: Warfarin 2.5 MG Tab PO SCH (17:25)
[2019-07-15] MEDS: Metoprolol Succinate 25 MG Tab.ER PO SCH (17:26)
[2019-07-15] MEDS: Insulin Glargine,Human Rec. Analog 100 Units/ML 3 ML Pen SUBCUT SCH (20:39)
[2019-07-15] MEDS: atorvaSTATin 10 MG Tab PO SCH (20:40)
[2019-07-15] MEDS: traMADol 50 MG Tab PO SCH (20:40)
[2019-07-15] MEDS: Montelukast 10 MG Tab PO SCH (20:40)
[2019-07-15] MEDS: Tamsulosin 0.4 MG Cap.ER PO SCH (20:40)
[2019-07-16] MEDS ORDERED: Metoprolol Tartrate 5 MG/5 ML SDV IVPUSH ONE (02:35)
[2019-07-16] MEDS: Albuterol/Ipratropium 3.0-0.5 MG/3 ML Neb Soln NEB SCH ×4 (05:54→22:47)
[2019-07-16] MEDS: guaiFENesin 600 MG Tab.ER PO SCH ×2 (06:02→18:31)
[2019-07-16] MEDS: Omeprazole 20 MG Cap.CR PO SCH (06:02)
[2019-07-16 08:22] LABS: ANION GAP 19.4 mmol/L (5-15)
[2019-07-16] MEDS: Furosemide 40 MG/4 ML VIAL IVPUSH SCH ×2 (08:56→15:32)
[2019-07-16] MEDS: Finasteride 5 MG Tab PO SCH (08:56)
[2019-07-16] MEDS: Magnesium Oxide 500 MG Tab PO SCH (08:56)
[2019-07-16] MEDS: risperiDONE 0.25 MG Tab PO SCH ×3 (08:56→21:23)
[2019-07-16] MEDS: Cholecalciferol (Vitamin D3) 25 MCG Tab PO SCH ×2 (08:56→21:23)
[2019-07-16] MEDS: Allopurinol 100 MG Tab PO SCH (08:56)
[2019-07-16] MEDS: rOPINIRole 0.25 MG Tab PO SCH ×4 (08:56→21:23)
[2019-07-16] MEDS: Fluticasone Propionate 110 MCG/Puff 12 GM Inhaler INH SCH (08:57)
--- NOTE | 2019-07-16 15:25 | PCM.PN ---
- General Info Date of Service: 07/16/19 - Review of Systems General: Reports: Weakness, Fatigue, Malaise, Appetite. Denies: Fever HEENT: Reports: No Symptoms Pulmonary: Reports: Shortness of Breath, Cough, Wheezing Cardiovascular: Reports: Dyspnea on Exertion, Edema. Denies: Chest Pain, Palpitations, Orthopnea Gastrointestinal: Reports: No Symptoms Genitourinary: Reports: No Symptoms Musculoskeletal: Reports: No Symptoms Skin: Reports: No Symptoms Neurological: Reports: Confusion Psychiatric: Reports: No Symptoms - Patient Data Vitals - Most Recent: Last Vital Signs Temp 98.9 F 07/16/19 06:33 Pulse 95 07/16/19 06:33 Resp 20 07/16/19 06:33 BP 112/61 07/16/19 06:33 Pulse Ox 96 07/16/19 06:33 Weight - Most Recent: 209 lb 6.4 oz I&O - Last 24 Hours: Intake & Output 07/16/19 07/16/19 07/16/19 06:59 14:59 22:59 Output Total 525 Balance -525 Lab Results Last 24 Hours: Laboratory Results - last 24 hr 07/15/19 07/16/19 07/16/19 Range/Units 17:33 06:00 07:15 Sodium 146 H (136-145) mmol/L Potassium 4.2 (3.3-5.3) mmol/L Chloride 105 (98-115) mmol/L Carbon Dioxide 25.8 (21.0-32.0) mmol/L Anion Gap 19.4 H (5-15) mmol/L BUN 58 H* (6-25) mg/dL Creatinine 1.68 H (0.51-1.17) mg/dL Est Cr Clr Drug Dosing 29.79 mL/min Estimated GFR (MDRD) 40 mL/min Glucose 99 (75 - 99) mg/dL POC Glucose 153 H 98 (74-106) mg/dl Calcium 8.3 L (8.7-10.3) mg/dL Troponin I 0.07 (0.00-0.070) ng/mL Med Orders - Current: Current Medications Acetaminophen (Tylenol) 650 mg PO Q4H PRN PRN Reason: Pain Last Admin: 07/10/19 18:21 Dose: 650 mg Albuterol (Ventolin Hfa) 0 gm INH Q4H PRN PRN Reason: difficulty breathing Last Admin: 07/08/19 17:54 Dose: 2 inhalation Albuterol/Ipratropium (Duoneb 3.0-0.5 Mg/3 Ml) 3 ml NEB Q6HRRT [facility] Last Admin: 07/16/19 10:37 Dose: 3 ml Allopurinol (Zyloprim) 150 mg PO DAILY [facility] Last Admin: 07/16/19 08:56 Dose: 150 mg Atorvastatin Calcium (Lipitor) 10 mg PO BEDTIME [facility] Last Admin: 07/15/19 20:40 Dose: 10 mg Cholecalciferol (Vitamin D3) 25 mcg PO BID [facility] Last Admin: 07/16/19 08:56 Dose: 25 mcg Finasteride (Proscar) 5 mg PO DAILY [facility] Last Admin: 07/16/19 08:56 Dose: 5 mg Fluticasone Propionate (Flovent Hfa 110 Mcg) 0 gm INH DAILY [facility] Last Admin: 07/16/19 08:57 Dose: 1 inhalation Furosemide (Lasix) 40 mg IVPUSH BID@0900,1500 [facility] Last Admin: 07/16/19 08:56 Dose: 40 mg Glycopyrrolate/Indacaterol (Utibron Neohaler 27.5-15.6 Mcg) 1 each IH BID [facility] Last Admin: 07/15/19 08:47 Dose: 1 cap Guaifenesin (Mucinex) 600 mg PO Q12H [facility] Last Admin: 07/16/19 06:02 Dose: 600 mg Insulin Glargine (Lantus Solostar) 10 units SUBCUT BEDTIME [facility] Last Admin: 07/15/19 20:39 Dose: 10 unit Metoprolol Succinate (Toprol Xl) 25 mg PO 1800 [facility] Montelukast Sodium (Singulair) 10 mg PO BEDTIME [facility] Last Admin: 07/15/19 20:40 Dose: 10 mg Non-Formulary Medication (Dextran 70/Hypromellose [Artificial Tears]) 1 drop EYEBOTH Q4HR PRN PRN Reason: Dry Eyes Omeprazole (Omeprazole) 20 mg PO 0700 [facility] Last Admin: 07/16/19 06:02 Dose: 20 mg Polyethylene Glycol (Miralax) 17 gm PO BID PRN PRN Reason: Constipation Risperidone (Risperidal) 0.25 mg PO TID [facility] Last Admin: 07/16/19 08:56 Dose: 0.25 mg Ropinirole HCl (Requip) 0.25 mg PO TID [facility] Last Admin: 07/16/19 08:56 Dose: 0.25 mg Senna/Docusate Sodium (Senna Plus) 1 tab PO BEDTIME PRN PRN Reason: Constipation Sodium Chloride (Saline Flush) 10 ml FLUSH Q8HR PRN PRN Reason: keep vein open Last Admin: 07/14/19 22:17 Dose: 10 ml Tamsulosin HCl (Flomax) 0.4 mg PO BEDTIME [facility] Last Admin: 07/15/19 20:40 Dose: 0.4 mg Tramadol HCl (Ultram) 50 mg PO BEDTIME [facility] Last Admin: 07/15/19 20:40 Dose: 50 mg Warfarin Sodium (Coumadin) 2.5 mg PO DAILY@1800 [facility] Stop: 07/16/19 21:00 Last Admin: 07/15/19 17:25 Dose: 2.5 mg Discontinued Medications Albuterol/Ipratropium (Duoneb 3.0-0.5 Mg/3 Ml) 3 ml NEB TID PRN PRN Reason: Dyspnea Last Admin: 07/14/19 13:00 Dose: 3 ml Fluticasone Propionate (Flovent Hfa 110 Mcg) 0 gm INH DAILY [facility] Furosemide (Lasix) 20 mg IVPUSH NOW ONE Stop: 07/14/19 15:11 Last Admin: 07/14/19 15:20 Dose: 20 mg Furosemide (Lasix) 20 mg IVPUSH NOW ONE Stop: 07/14/19 15:25 Last Admin: 07/14/19 15:40 Dose: Not Given Furosemide (Lasix) 20 mg IVPUSH NOW ONE Stop: 07/14/19 15:28 Last Admin: 07/14/19 15:25 Dose: 20 mg Furosemide (Lasix) 40 mg IVPUSH NOW ONE Stop: 07/14/19 19:01 Last Admin: 07/14/19 18:53 Dose: 40 mg Insulin Detemir (Levemir) 20 unit SUBCUT BEDTIME [facility] Last Admin: 07/06/19 21:26 Dose: 20 units Insulin Glargine (Lantus Solostar) 15 units SUBCUT BEDTIME [facility] Last Admin: 07/08/19 20:33 Dose: 15 units Magnesium Oxide (Magnesium Oxide) 500 mg PO DAILY [facility] Stop: 07/16/19 09:01 Last Admin: 07/16/19 08:56 Dose: 500 mg Metoprolol Succinate (Toprol Xl) 12.5 mg PO 1800 [facility] Last Admin: 07/15/19 17:26 Dose: 12.5 mg Metoprolol Tartrate (Lopressor) 0 mg IVPUSH ONETIME ONE Stop: 07/16/19 02:36 Last Admin: 07/16/19 03:07 Dose: 5 mg Non-Formulary Medication (Dulaglutide [Trulicity]) 0.75 mg SUBCUT WEEKLY [facility] Warfarin Sodium (Coumadin) 2.5 mg PO 1800 [facility] Last Admin: 07/10/19 17:56 Dose: 2.5 mg Warfarin Sodium (Coumadin) 5 mg PO ONETIME [facility] Stop: 07/11/19 19:30 Last Admin: 07/11/19 17:42 Dose: 5 mg Warfarin Sodium (Coumadin) 2.5 mg PO DAILY@1800 [facility] Stop: 07/13/19 20:00 Last Admin: 07/13/19 18:34 Dose: 2.5 mg Warfarin Sodium (Coumadin) 3.75 mg PO ONETIME [facility] Stop: 07/14/19 19:00 Last Admin: 07/14/19 18:53 Dose: 3.75 mg - Exam Quality Assessment: Supplemental Oxygen General: Alert, Mild Distress Neck: No JVD Lungs: Crackles, Wheezing Cardiovascular: Irregular Rhythm. No: Tachycardia GI/Abdominal Exam: Normal Bowel Sounds, Soft, Non-Tender, No Distention Extremities: Pedal Edema, Pallor, Other (mild swelling BUE. Profound weakness) Peripheral Pulses: 2+: Radial (L), Radial (R) Skin: Warm, Dry, Intact Neurological: No New Focal Deficit Psy/Mental Status: Alert - Problem List Review Problem List Initiated/Reviewed/Updated: Yes - My Orders Last 24 Hours: My Active Orders 07/16/19 02:10 EKG 12 Lead [EK] Routine 07/16/19 02:58 EKG Documentation Completion [RC] ASDIRECTED 07/16/19 18:00 Metoprolol Succinate [Toprol XL] 25 mg PO 1800 07/17/19 05:00 MAGNESIUM [CHEM] DAILY 07/17/19 05:11 CBC WITH AUTO DIFF [HEME] AM 07/18/19 05:11 BASIC METABOLIC PANEL,BMP [CHEM] AM - Plan Plan:: HPI Summary Mr. Cooper is a 73yoM who recently underwent urgent repair of his mitral valve at [facility] due to cardiogenic shock/CHF and was subsequently transferred here to SNF status for PT and recovery. Patient does the history of severe CHF secondary to severe mitral regurgitation, tricuspid regurgitation, and chronic atrial fibrillation. He was in [place] for recurrent fluid overload and anasarca. He underwent cardiac catheterization which did not demonstrated evidence of associated CAD. He did undergo Watchman device placement months ago in his left atrial appendage. Patient status/update: On rounds today patient is profoundly weak. Troponin peaked at 0.15 and has downtrended and normalized at 0.07. Incoming call was received from nursing staff during the night for concerns of increased HR while at rest and with sleeping in the 110-120 up to the 140s. EKG done at that time with Afib with RVR HR 116. BP stable. One time dose of IV Metoprolol Tartrate 5mg given with improvement in rate. Patient did have a 5 beat run of ventricular tachycardia but asymptomatic and VS stable otherwise. Weight today is down 2 pounds and I/O -1,000 neg urine output. Primary SNF/Hospital problems --Deconditioning, profound: PT -- Cough- improving -- Pleural Effusion, right sided. Stable. Will continue to monitor. --S/P MVR (mitral valve replacement) mechanical prosthesis: Titrate warfarin to target dose. --S/P TVR (tricuspid valve repair) --Severe mitral regurgitation --Severe tricuspid regurgitation --HFpEF, chronic combined systolic and diastolic: BNP 736 on 07/14/19. IV diuresis restarted at that time with IV Lasix 40mg BID. Monitor Electrolytes. Monitor renal function. currently stable. --CKD: Ongoing improvement in creatinine to around baseline. -- Hypomagnesemia- PO Magnesium replacement. Recent/resolved problems --Community acquired pneumonia --Sepsis 2/2 pneumonia --Acute encephalopathy --Wound VAC, chest wall: removed at follow-up visit 07/11/19. Chronic/stable problems --Atrial fibrillation/Presence of Watchman left atrial appendage closure device , anticoagulation due to recent TVR --T2DM, Holding home Trulicity, Added Lantus 15un qHS at admission to SNF, assess/trend BG and make adjustments --Recent NSTEMI type 2 --COPD, was to receive Trelegy on DC, however will substitute for Utibron and add Flovent --Obstructive sleep apnea syndrome, home CPAP use --Moderate to severe pulmonary hypertension --History of bladder neck contracture, recent direct visualization/cystoscope, monitor for AUR --HLD, statin --RLS, requip --Gout, no acute flare --venous insufficiency Hospitalization details --CODE status changed 07/15/19 from Full code to DNR following provider discussion with patient and family. --GI stress proph: PO PPI --INR to be managed by Anticoagulation Clinic at [facility] --Up with assist Upcoming appointments/consultations --07/14/19- Consult placed with Dr. Crouch on patients condition including mildly elevated troponin. recommended increasing Lasix from 40mg daily to 40mg BID, add stockings however patient has refused this so tight AMBER wraps had been applied. Close monitoring for worsening edema, anasarca. --07/17/19- Follow-up appointment with Dr. Crouch Team [facility] --08/14/2019 - 4 appointments starting at 9:15am xray, echocardiogram, EKG, and post op with Dr Crouch - [place], [place] Today: -- Increase Metoprolol succinate from 12.5mg to 25mg for rate control. -- Continue Magnesium supplementation. Will recheck magnesium tomorrow. -- Recheck renal function and electrolytes tomorrow. -- Continue with IV Lasix 40mg IV BID. -- Daily weights. -- Highly encourage ANDREW stockings. -- Monitor for anasarca.
[2019-07-16] MEDS: Acetaminophen 325 MG Tab PO PRN (16:04)
[2019-07-16] MEDS: Warfarin 2.5 MG Tab PO SCH (17:42)
[2019-07-16] MEDS: Metoprolol Succinate 25 MG Tab.ER PO SCH (17:43)
[2019-07-16] MEDS: Tamsulosin 0.4 MG Cap.ER PO SCH (21:23)
[2019-07-16] MEDS: atorvaSTATin 10 MG Tab PO SCH (21:23)
[2019-07-16] MEDS: Montelukast 10 MG Tab PO SCH (21:23)
[2019-07-16] MEDS: traMADol 50 MG Tab PO SCH (21:23)
[2019-07-16] MEDS: Indacaterol/Glycopyrrolate 1 EA Cap.W.Dev Kit of 6 IH SCH (21:26)
[2019-07-16] MEDS: Insulin Glargine,Human Rec. Analog 100 Units/ML 3 ML Pen SUBCUT SCH (21:27)
[2019-07-17] MEDS: Albuterol/Ipratropium 3.0-0.5 MG/3 ML Neb Soln NEB SCH ×4 (05:36→23:53)
[2019-07-17] MEDS: Acetaminophen 325 MG Tab PO PRN (05:50)
[2019-07-17] MEDS: guaiFENesin 600 MG Tab.ER PO SCH ×2 (06:36→18:06)
[2019-07-17] MEDS: Omeprazole 20 MG Cap.CR PO SCH (06:36)
[2019-07-17] MEDS: Allopurinol 100 MG Tab PO SCH (08:44)
[2019-07-17] MEDS: Finasteride 5 MG Tab PO SCH (08:44)
[2019-07-17] MEDS: Indacaterol/Glycopyrrolate 1 EA Cap.W.Dev Kit of 6 IH SCH ×2 (08:45→20:35)
[2019-07-17] MEDS: Cholecalciferol (Vitamin D3) 25 MCG Tab PO SCH ×2 (08:45→20:17)
[2019-07-17] MEDS: rOPINIRole 0.25 MG Tab PO SCH ×3 (08:45→20:17)
[2019-07-17] MEDS: risperiDONE 0.25 MG Tab PO SCH ×3 (08:47→20:17)
[2019-07-17] MEDS: Fluticasone Propionate 110 MCG/Puff 12 GM Inhaler INH SCH (08:56)
[2019-07-17] MEDS: Furosemide 40 MG/4 ML VIAL IVPUSH SCH ×2 (08:56→14:17)
[2019-07-17] MEDS: Metoprolol Succinate 25 MG Tab.ER PO SCH (17:31)
[2019-07-17] MEDS ORDERED: Warfarin 2.5 MG Tab PO ONE (18:00)
[2019-07-17] MEDS: traMADol 50 MG Tab PO SCH (20:16)
[2019-07-17] MEDS: Tamsulosin 0.4 MG Cap.ER PO SCH (20:17)
[2019-07-17] MEDS: Montelukast 10 MG Tab PO SCH (20:17)
[2019-07-17] MEDS: atorvaSTATin 10 MG Tab PO SCH (20:17)
[2019-07-17] MEDS: Amiodarone 200 MG Tab PO SCH (20:27)
[2019-07-17] MEDS: Insulin Glargine,Human Rec. Analog 100 Units/ML 3 ML Pen SUBCUT SCH (20:34)
[2019-07-18] MEDS: Albuterol/Ipratropium 3.0-0.5 MG/3 ML Neb Soln NEB SCH ×2 (05:54→11:53)
[2019-07-18] MEDS: guaiFENesin 600 MG Tab.ER PO SCH ×2 (06:15→18:01)
[2019-07-18] MEDS: Omeprazole 20 MG Cap.CR PO SCH (06:15)
[2019-07-18 07:39] LABS: ANION GAP 15.7 mmol/L (5-15)
[2019-07-18] MEDS ORDERED: Atropine 0.1 MG/ML 10 ML Syringe IVPUSH PRN (07:48)
[2019-07-18] MEDS ORDERED: Lidocaine 2% 100 MG/5 ML Syringe IVPUSH PRN (07:48)
[2019-07-18] MEDS ORDERED: EPINEPHrine 1:10,000 1 MG/10 ML Syringe IVPUSH PRN (07:48)
[2019-07-18] MEDS ORDERED: Nitroglycerin 0.4 MG Tab.SL SL PRN (07:48)
[2019-07-18] MEDS: Furosemide 40 MG/4 ML VIAL IVPUSH SCH ×2 (08:27→16:52)
[2019-07-18] MEDS: Amiodarone 200 MG Tab PO SCH ×2 (08:28→20:37)
[2019-07-18] MEDS: Allopurinol 100 MG Tab PO SCH (08:28)
[2019-07-18] MEDS: Finasteride 5 MG Tab PO SCH (08:28)
[2019-07-18] MEDS: risperiDONE 0.25 MG Tab PO SCH ×3 (08:28→20:37)
[2019-07-18] MEDS: Cholecalciferol (Vitamin D3) 25 MCG Tab PO SCH ×2 (08:28→20:36)
[2019-07-18] MEDS: rOPINIRole 0.25 MG Tab PO SCH ×3 (08:58→20:37)
[2019-07-18] MEDS: Fluticasone Propionate 110 MCG/Puff 12 GM Inhaler INH SCH (09:29)
[2019-07-18] MEDS: Indacaterol/Glycopyrrolate 1 EA Cap.W.Dev Kit of 6 IH SCH ×2 (09:29→20:39)
[2019-07-18] MEDS: Metoprolol Succinate 25 MG Tab.ER PO SCH (17:46)
[2019-07-18] MEDS: Warfarin 2.5 MG Tab PO SCH (17:46)
[2019-07-18] MEDS: Sodium Chloride 0.65% Nasal Spray 45 ML Bottle NAS PRN (17:48)
[2019-07-18] MEDS: Acetaminophen 325 MG Tab PO PRN (18:01)
[2019-07-18] MEDS: traMADol 50 MG Tab PO SCH (20:36)
[2019-07-18] MEDS: atorvaSTATin 10 MG Tab PO SCH (20:37)
[2019-07-18] MEDS: Montelukast 10 MG Tab PO SCH (20:37)
[2019-07-18] MEDS: Tamsulosin 0.4 MG Cap.ER PO SCH (20:37)
[2019-07-18] MEDS: Insulin Glargine,Human Rec. Analog 100 Units/ML 3 ML Pen SUBCUT SCH (20:40)
[2019-07-19] MEDS: guaiFENesin 600 MG Tab.ER PO SCH ×2 (06:05→18:19)
[2019-07-19] MEDS: Omeprazole 20 MG Cap.CR PO SCH (06:05)
[2019-07-19] MEDS: Amiodarone 200 MG Tab PO SCH ×2 (08:13→21:09)
[2019-07-19] MEDS: Finasteride 5 MG Tab PO SCH (08:13)
[2019-07-19] MEDS: rOPINIRole 0.25 MG Tab PO SCH ×3 (08:14→21:10)
[2019-07-19] MEDS: Allopurinol 100 MG Tab PO SCH (08:14)
[2019-07-19] MEDS: Cholecalciferol (Vitamin D3) 25 MCG Tab PO SCH ×2 (08:14→21:08)
[2019-07-19] MEDS: risperiDONE 0.25 MG Tab PO SCH ×3 (08:14→21:09)
[2019-07-19] MEDS: Furosemide 40 MG/4 ML VIAL IVPUSH SCH (08:18)
[2019-07-19] MEDS: Sodium Chloride 0.9% 10 ML Syringe FLUSH PRN (08:22)
[2019-07-19] MEDS: Sodium Chloride 0.65% Nasal Spray 45 ML Bottle NAS PRN (08:23)
--- NOTE | 2019-07-19 08:45 | PCM.PN ---
- General Info Date of Service: 07/19/19 - Patient Data Vitals - Most Recent: Last Vital Signs Temp 98.3 F 07/19/19 06:07 Pulse 85 07/19/19 08:14 Resp 20 07/19/19 06:07 BP 101/60 07/19/19 08:14 Pulse Ox 95 07/19/19 06:07 Weight - Most Recent: 207 lb 11.2 oz I&O - Last 24 Hours: Intake & Output 07/18/19 07/19/19 07/19/19 22:59 06:59 14:59 Intake Total 50 0 Output Total 800 400 Balance -750 -400 Lab Results Last 24 Hours: Laboratory Results - last 24 hr 07/18/19 07/18/19 07/19/19 Range/Units 17:43 20:36 06:03 POC Glucose 109 H 174 H 89 (74-106) mg/dl [facility] Results Last 24 Hours: Microbiology 07/14/19 13:20 Respiratory Culture - Preliminary Sputum - Expectorated Gram Negative Rods Gram Stain - Final Med Orders - Current: Current Medications Acetaminophen (Tylenol) 650 mg PO Q4H PRN PRN Reason: Pain Last Admin: 07/18/19 18:01 Dose: 650 mg Albuterol (Ventolin Hfa) 0 gm INH Q4H PRN PRN Reason: difficulty breathing Last Admin: 07/08/19 17:54 Dose: 2 inhalation Albuterol/Ipratropium (Duoneb 3.0-0.5 Mg/3 Ml) 3 ml NEB Q6HRRT PRN PRN Reason: Shortness of Breath Allopurinol (Zyloprim) 150 mg PO DAILY [facility] Last Admin: 07/19/19 08:14 Dose: 150 mg Amiodarone HCl (Cordarone) 200 mg PO BID [facility] Stop: 07/22/19 10:00 Last Admin: 07/19/19 08:13 Dose: 200 mg Amiodarone HCl (Cordarone) 200 mg PO DAILY [facility] Atorvastatin Calcium (Lipitor) 10 mg PO BEDTIME [facility] Last Admin: 07/18/19 20:37 Dose: 10 mg Atropine Sulfate (Atropine 0.1 Mg/Ml) 0 mg IVPUSH ASDIRECTED PRN PRN Reason: Heart. Cholecalciferol (Vitamin D3) 25 mcg PO BID [facility] Last Admin: 07/19/19 08:14 Dose: 25 mcg Epinephrine HCl (Epinephrine 1:10,000) 1 mg IVPUSH ASDIRECTED PRN PRN Reason: Heart. Finasteride (Proscar) 5 mg PO DAILY [facility] Last Admin: 07/19/19 08:13 Dose: 5 mg Fluticasone Propionate (Flovent Hfa 110 Mcg) 0 gm INH DAILY [facility] Last Admin: 07/18/19 09:29 Dose: 1 inhalation Furosemide (Lasix) 40 mg IVPUSH DAILY [facility] Last Admin: 07/19/19 08:18 Dose: 40 mg Furosemide (Lasix) 40 mg IVPUSH DAILY PRN PRN Reason: Other Glycopyrrolate/Indacaterol (Utibron Neohaler 27.5-15.6 Mcg) 1 each IH BID [facility] Last Admin: 07/18/19 20:39 Dose: 1 cap Guaifenesin (Mucinex) 600 mg PO Q12H [facility] Last Admin: 07/19/19 06:05 Dose: 600 mg Insulin Glargine (Lantus Solostar) 10 units SUBCUT BEDTIME [facility] Last Admin: 07/18/19 20:40 Dose: 10 unit Lidocaine HCl (Xylocaine 2%) 0 mg IVPUSH ASDIRECTED PRN PRN Reason: Heart. Metoprolol Succinate (Toprol Xl) 25 mg PO 1800 [facility] Last Admin: 07/18/19 17:46 Dose: 25 mg Montelukast Sodium (Singulair) 10 mg PO BEDTIME [facility] Last Admin: 07/18/19 20:37 Dose: 10 mg Nitroglycerin (Nitrostat) 0.4 mg SL ASDIRECTED PRN PRN Reason: Heart. Non-Formulary Medication (Dextran 70/Hypromellose [Artificial Tears]) 1 drop EYEBOTH Q4HR PRN PRN Reason: Dry Eyes Omeprazole (Omeprazole) 20 mg PO 0700 [facility] Last Admin: 07/19/19 06:05 Dose: 20 mg Polyethylene Glycol (Miralax) 17 gm PO BID PRN PRN Reason: Constipation Risperidone (Risperidal) 0.25 mg PO TID [facility] Last Admin: 07/19/19 08:14 Dose: 0.25 mg Ropinirole HCl (Requip) 0.25 mg PO TID [facility] Last Admin: 07/19/19 08:14 Dose: 0.25 mg Senna/Docusate Sodium (Senna Plus) 1 tab PO BEDTIME PRN PRN Reason: Constipation Last Admin: 07/19/19 08:18 Dose: 1 tab Sodium Chloride (Saline Flush) 10 ml FLUSH Q8HR PRN PRN Reason: keep vein open Last Admin: 07/19/19 08:22 Dose: 10 ml Sodium Chloride ([place] Nasal Gray) 0 ml ENRIQUE QID PRN PRN Reason: Nasal Dryness Last Admin: 07/19/19 08:23 Dose: 1 spray Tamsulosin HCl (Flomax) 0.4 mg PO BEDTIME [facility] Last Admin: 07/18/19 20:37 Dose: 0.4 mg Tramadol HCl (Ultram) 50 mg PO BEDTIME [facility] Last Admin: 07/18/19 20:36 Dose: 50 mg Warfarin Sodium (Coumadin) 2.5 mg PO DAILY@1800 [facility] Stop: 07/19/19 20:00 Last Admin: 07/18/19 17:46 Dose: 2.5 mg Discontinued Medications Albuterol/Ipratropium (Duoneb 3.0-0.5 Mg/3 Ml) 3 ml NEB TID PRN PRN Reason: Dyspnea Last Admin: 07/14/19 13:00 Dose: 3 ml Albuterol/Ipratropium (Duoneb 3.0-0.5 Mg/3 Ml) 3 ml NEB Q6HRRT [facility] Last Admin: 07/18/19 11:53 Dose: Not Given Fluticasone Propionate (Flovent Hfa 110 Mcg) 0 gm INH DAILY [facility] Furosemide (Lasix) 20 mg IVPUSH NOW ONE Stop: 07/14/19 15:11 Last Admin: 07/14/19 15:20 Dose: 20 mg Furosemide (Lasix) 20 mg IVPUSH NOW ONE Stop: 07/14/19 15:25 Last Admin: 07/14/19 15:40 Dose: Not Given Furosemide (Lasix) 40 mg IVPUSH BID@0900,1500 [facility] Last Admin: 07/18/19 16:52 Dose: Not Given Furosemide (Lasix) 20 mg IVPUSH NOW ONE Stop: 07/14/19 15:28 Last Admin: 07/14/19 15:25 Dose: 20 mg Furosemide (Lasix) 40 mg IVPUSH NOW ONE Stop: 07/14/19 19:01 Last Admin: 07/14/19 18:53 Dose: 40 mg Insulin Detemir (Levemir) 20 unit SUBCUT BEDTIME [facility] Last Admin: 07/06/19 21:26 Dose: 20 units Insulin Glargine (Lantus Solostar) 15 units SUBCUT BEDTIME [facility] Last Admin: 07/08/19 20:33 Dose: 15 units Magnesium Oxide (Magnesium Oxide) 500 mg PO DAILY [facility] Stop: 07/16/19 09:01 Last Admin: 07/16/19 08:56 Dose: 500 mg Metoprolol Succinate (Toprol Xl) 12.5 mg PO 1800 [facility] Last Admin: 07/15/19 17:26 Dose: 12.5 mg Metoprolol Tartrate (Lopressor) 0 mg IVPUSH ONETIME ONE Stop: 07/16/19 02:36 Last Admin: 07/16/19 03:07 Dose: 5 mg Non-Formulary Medication (Dulaglutide [Trulicity]) 0.75 mg SUBCUT WEEKLY [facility] Warfarin Sodium (Coumadin) 2.5 mg PO 1800 [facility] Last Admin: 07/10/19 17:56 Dose: 2.5 mg Warfarin Sodium (Coumadin) 5 mg PO ONETIME [facility] Stop: 07/11/19 19:30 Last Admin: 07/11/19 17:42 Dose: 5 mg Warfarin Sodium (Coumadin) 2.5 mg PO DAILY@1800 [facility] Stop: 07/13/19 20:00 Last Admin: 07/13/19 18:34 Dose: 2.5 mg Warfarin Sodium (Coumadin) 3.75 mg PO ONETIME [facility] Stop: 07/14/19 19:00 Last Admin: 07/14/19 18:53 Dose: 3.75 mg Warfarin Sodium (Coumadin) 2.5 mg PO DAILY@1800 [facility] Stop: 07/16/19 21:00 Last Admin: 07/16/19 17:42 Dose: 2.5 mg Warfarin Sodium (Coumadin) 1.25 mg PO ONETIME ONE Stop: 07/17/19 18:01 Last Admin: 07/17/19 17:30 Dose: 1.25 mg - Problem List Review Problem List Initiated/Reviewed/Updated: Yes - My Orders Last 24 Hours: My Active Orders 07/18/19 07:48 Atropine [Atropine 0.1 MG/ML] See Dose Instructions IVPUSH ASDIRECTED PRN EPINEPHrine [EPINEPHrine 1:10,000] 1 mg IVPUSH ASDIRECTED PRN Lidocaine 2% [Xylocaine 2%] See Dose Instructions IVPUSH ASDIRECTED PRN Nitroglycerin [Nitrostat] 0.4 mg SL ASDIRECTED PRN 07/18/19 10:28 Sodium Chloride 0.65% [[place] Nasal Gray] 0 ml ENRIQUE QID PRN 07/18/19 11:30 Albuterol/Ipratropium [DuoNeb 3.0-0.5 MG/3 ML] 3 ml NEB Q6HRRT PRN 07/18/19 18:00 Warfarin [Coumadin] 2.5 mg PO DAILY@1800 07/20/19 05:15 INR,PT,PROTHROMBIN TIME [COAG] Routine 07/23/19 09:00 Amiodarone [Cordarone] 200 mg PO DAILY - Plan Plan:: HPI Summary Mr. Cooper is a 73yoM who recently underwent urgent repair of his mitral valve at [facility] due to cardiogenic shock/CHF and was subsequently transferred here to SNF status for PT and recovery. Patient does the history of severe CHF secondary to severe mitral regurgitation, tricuspid regurgitation, and chronic atrial fibrillation. He was in [place] for recurrent fluid overload and anasarca. He underwent cardiac catheterization which did not demonstrated evidence of associated CAD. He did undergo Watchman device placement months ago in his left atrial appendage. Patient status/update: On rounds today patient is profoundly weak. Troponin peaked at 0.15 and has downtrended and normalized at 0.07. Incoming call was received from nursing staff during the night for concerns of increased HR while at rest and with sleeping in the 110-120 up to the 140s. EKG done at that time with Afib with RVR HR 116. BP stable. One time dose of IV Metoprolol Tartrate 5mg given with improvement in rate. Patient did have a 5 beat run of ventricular tachycardia but asymptomatic and VS stable otherwise. Weight today is down 2 pounds and I/O -1,000 neg urine output. Primary SNF/Hospital problems --Deconditioning, profound: PT -- Cough- improving -- Pleural Effusion, right sided. Stable. Will continue to monitor. --S/P MVR (mitral valve replacement) mechanical prosthesis: Titrate warfarin to target dose. --S/P TVR (tricuspid valve repair) --Severe mitral regurgitation --Severe tricuspid regurgitation --HFpEF, chronic combined systolic and diastolic: BNP 736 on 07/14/19. IV diuresis restarted at that time with IV Lasix 40mg BID. Monitor Electrolytes. Monitor renal function. currently stable. --CKD: Ongoing improvement in creatinine to around baseline. -- Hypomagnesemia- PO Magnesium replacement. Recent/resolved problems --Community acquired pneumonia --Sepsis 2/2 pneumonia --Acute encephalopathy --Wound VAC, chest wall: removed at follow-up visit 07/11/19. Chronic/stable problems --Atrial fibrillation/Presence of Watchman left atrial appendage closure device , anticoagulation due to recent TVR --T2DM, Holding home Trulicity, Added Lantus 15un qHS at admission to SNF, assess/trend BG and make adjustments --Recent NSTEMI type 2 --COPD, was to receive Trelegy on DC, however will substitute for Utibron and add Flovent --Obstructive sleep apnea syndrome, home CPAP use --Moderate to severe pulmonary hypertension --History of bladder neck contracture, recent direct visualization/cystoscope, monitor for AUR --HLD, statin --RLS, requip --Gout, no acute flare --venous insufficiency Hospitalization details --CODE status changed 07/15/19 from Full code to DNR following provider discussion with patient and family. --GI stress proph: PO PPI --INR to be managed by Anticoagulation Clinic at [facility] --Up with assist Upcoming appointments/consultations --07/14/19- Consult placed with Dr. Crouch on patients condition including mildly elevated troponin. recommended increasing Lasix from 40mg daily to 40mg BID, add stockings however patient has refused this so tight AMBER wraps had been applied. Close monitoring for worsening edema, anasarca. --07/17/19- Follow-up appointment with Dr. Crouch Team [facility] --08/14/2019 - 4 appointments starting at 9:15am xray, echocardiogram, EKG, and post op with Dr Crouch - [place] Up in chair for all meals --Change diet to Regular with no dietary restrictions until nutritional status improved. --Continue present lasix and daily weights --compression stockings every AM and remove at night notify provider if patient refuses --ambulate 3 times per day even if short distances. --O2 supplement as required to tolerate activity --Check INR end of week since we added amiodarone --Daily weights. PATIENT DOES NOT DESIRE DNR. His only request is no intubation or feeding tubes , submitted new POLST document.
[2019-07-19] MEDS: Fluticasone Propionate 110 MCG/Puff 12 GM Inhaler INH SCH (09:00)
[2019-07-19] MEDS: Indacaterol/Glycopyrrolate 1 EA Cap.W.Dev Kit of 6 IH SCH ×2 (09:00→21:08)
[2019-07-19] MEDS: Acetaminophen 325 MG Tab PO PRN (14:14)
[2019-07-19] MEDS: Warfarin 2.5 MG Tab PO SCH (17:28)
[2019-07-19] MEDS: Metoprolol Succinate 25 MG Tab.ER PO SCH (18:19)
[2019-07-19] MEDS: atorvaSTATin 10 MG Tab PO SCH (21:09)
[2019-07-19] MEDS: Tamsulosin 0.4 MG Cap.ER PO SCH (21:09)
[2019-07-19] MEDS: Montelukast 10 MG Tab PO SCH (21:09)
[2019-07-19] MEDS: traMADol 50 MG Tab PO SCH (21:09)
[2019-07-19] MEDS: Insulin Glargine,Human Rec. Analog 100 Units/ML 3 ML Pen SUBCUT SCH (21:10)
[2019-07-20] MEDS: guaiFENesin 600 MG Tab.ER PO SCH ×2 (06:30→18:06)
[2019-07-20] MEDS: Omeprazole 20 MG Cap.CR PO SCH (06:30)
[2019-07-20] MEDS: rOPINIRole 0.25 MG Tab PO SCH ×3 (08:01→21:00)
[2019-07-20] MEDS: Furosemide 40 MG/4 ML VIAL IVPUSH SCH (08:01)
[2019-07-20] MEDS: Allopurinol 100 MG Tab PO SCH (08:02)
[2019-07-20] MEDS: Finasteride 5 MG Tab PO SCH (08:02)
[2019-07-20] MEDS: Cholecalciferol (Vitamin D3) 25 MCG Tab PO SCH ×2 (08:02→21:00)
[2019-07-20] MEDS: Amiodarone 200 MG Tab PO SCH ×2 (08:02→21:00)
[2019-07-20] MEDS: risperiDONE 0.25 MG Tab PO SCH ×3 (08:02→21:00)
[2019-07-20] MEDS: Fluticasone Propionate 110 MCG/Puff 12 GM Inhaler INH SCH (08:09)
[2019-07-20] MEDS: Sodium Chloride 0.65% Nasal Spray 45 ML Bottle NAS PRN (08:11)
[2019-07-20] MEDS: Indacaterol/Glycopyrrolate 1 EA Cap.W.Dev Kit of 6 IH SCH ×2 (08:20→21:00)
[2019-07-20] MEDS: Acetaminophen 325 MG Tab PO PRN (15:21)
[2019-07-20] MEDS: Warfarin 2.5 MG Tab PO SCH (18:05)
[2019-07-20] MEDS: Metoprolol Succinate 25 MG Tab.ER PO SCH (19:26)
[2019-07-20] MEDS: Tamsulosin 0.4 MG Cap.ER PO SCH (21:00)
[2019-07-20] MEDS: Montelukast 10 MG Tab PO SCH (21:00)
[2019-07-20] MEDS: atorvaSTATin 10 MG Tab PO SCH (21:00)
[2019-07-20] MEDS: traMADol 50 MG Tab PO SCH (21:00)
[2019-07-20] MEDS: Insulin Glargine,Human Rec. Analog 100 Units/ML 3 ML Pen SUBCUT SCH (21:01)
[2019-07-21] MEDS: Omeprazole 20 MG Cap.CR PO SCH (06:16)
[2019-07-21] MEDS: guaiFENesin 600 MG Tab.ER PO SCH ×2 (06:16→18:13)
--- NOTE | 2019-07-21 09:50 | PCM.PN ---
- General Info Date of Service: 07/21/19 Functional Status: Reports: Pain Controlled, Tolerating Diet, Ambulating, Urinating, Incentive Spirometry. Denies: New Symptoms - Review of Systems General: Reports: Weakness (Weakness is improving). Denies: Fever HEENT: Reports: No Symptoms Pulmonary: Reports: Shortness of Breath, Wheezing. Denies: Cough, Sputum Cardiovascular: Reports: Dyspnea on Exertion, Edema. Denies: Chest Pain, Palpitations, Orthopnea, PND, Lightheadedness Gastrointestinal: Reports: No Symptoms Genitourinary: Reports: No Symptoms Musculoskeletal: Reports: No Symptoms Skin: Denies: Dryness, Rash Neurological: Reports: Pre-Existing Deficit, Weakness. Denies: Confusion Psychiatric: Denies: Confusion - Patient Data Vitals - Most Recent: Last Vital Signs Temp 98.6 F 07/21/19 06:24 Pulse 95 07/21/19 06:24 Resp 20 07/21/19 06:24 BP 125/68 07/21/19 06:24 Pulse Ox 89 L 07/21/19 06:24 Weight - Most Recent: 207 lb 11.2 oz I&O - Last 24 Hours: Intake & Output 07/20/19 07/21/19 07/21/19 22:59 06:59 14:59 Intake Total 350 50 Output Total 200 Balance 350 -150 Lab Results Last 24 Hours: Laboratory Results - last 24 hr 07/20/19 07/21/19 Range/Units 18:02 08:05 POC Glucose 201 H 92 (74-106) mg/dl [facility] Results Last 24 Hours: Microbiology 07/14/19 13:20 Respiratory Culture - Final Sputum - Expectorated Pseudomonas Aeruginosa Iso Consistent W Oral/Signal Maintainer Helper Irais Gram Stain - Final Med Orders - Current: Current Medications Acetaminophen (Tylenol) 650 mg PO Q4H PRN PRN Reason: Pain Last Admin: 07/20/19 15:21 Dose: 650 mg Albuterol (Ventolin Hfa) 0 gm INH Q4H PRN PRN Reason: difficulty breathing Last Admin: 07/08/19 17:54 Dose: 2 inhalation Albuterol/Ipratropium (Duoneb 3.0-0.5 Mg/3 Ml) 3 ml NEB Q6HRRT PRN PRN Reason: Shortness of Breath Allopurinol (Zyloprim) 150 mg PO DAILY [facility] Last Admin: 07/20/19 08:02 Dose: 150 mg Amiodarone HCl (Cordarone) 200 mg PO BID [facility] Stop: 07/22/19 10:00 Last Admin: 07/20/19 21:00 Dose: 200 mg Amiodarone HCl (Cordarone) 200 mg PO DAILY [facility] Atorvastatin Calcium (Lipitor) 10 mg PO BEDTIME [facility] Last Admin: 07/20/19 21:00 Dose: 10 mg Atropine Sulfate (Atropine 0.1 Mg/Ml) 0 mg IVPUSH ASDIRECTED PRN PRN Reason: Heart. Cholecalciferol (Vitamin D3) 25 mcg PO BID [facility] Last Admin: 07/20/19 21:00 Dose: 25 mcg Epinephrine HCl (Epinephrine 1:10,000) 1 mg IVPUSH ASDIRECTED PRN PRN Reason: Heart. Finasteride (Proscar) 5 mg PO DAILY [facility] Last Admin: 07/20/19 08:02 Dose: 5 mg Fluticasone Propionate (Flovent Hfa 110 Mcg) 0 gm INH DAILY [facility] Last Admin: 07/20/19 08:09 Dose: 1 inhalation Furosemide (Lasix) 40 mg IVPUSH DAILY [facility] Last Admin: 07/20/19 08:01 Dose: 40 mg Furosemide (Lasix) 40 mg IVPUSH DAILY PRN PRN Reason: Other Glycopyrrolate/Indacaterol (Utibron Neohaler 27.5-15.6 Mcg) 1 each IH BID [facility] Last Admin: 07/20/19 21:00 Dose: 1 cap Guaifenesin (Mucinex) 600 mg PO Q12H [facility] Last Admin: 07/21/19 06:16 Dose: 600 mg Insulin Glargine (Lantus Solostar) 10 units SUBCUT BEDTIME [facility] Last Admin: 07/20/19 21:01 Dose: 10 unit Lidocaine HCl (Xylocaine 2%) 0 mg IVPUSH ASDIRECTED PRN PRN Reason: Heart. Metoprolol Succinate (Toprol Xl) 25 mg PO 1800 [facility] Last Admin: 07/20/19 19:26 Dose: Not Given Montelukast Sodium (Singulair) 10 mg PO BEDTIME [facility] Last Admin: 07/20/19 21:00 Dose: 10 mg Nitroglycerin (Nitrostat) 0.4 mg SL ASDIRECTED PRN PRN Reason: Heart. Non-Formulary Medication (Dextran 70/Hypromellose [Artificial Tears]) 1 drop EYEBOTH Q4HR PRN PRN Reason: Dry Eyes Omeprazole (Omeprazole) 20 mg PO 0700 [facility] Last Admin: 07/21/19 06:16 Dose: 20 mg Polyethylene Glycol (Miralax) 17 gm PO BID PRN PRN Reason: Constipation Risperidone (Risperidal) 0.25 mg PO TID [facility] Last Admin: 07/20/19 21:00 Dose: 0.25 mg Ropinirole HCl (Requip) 0.25 mg PO TID [facility] Last Admin: 07/20/19 21:00 Dose: 0.25 mg Senna/Docusate Sodium (Senna Plus) 1 tab PO BEDTIME PRN PRN Reason: Constipation Last Admin: 07/19/19 08:18 Dose: 1 tab Sodium Chloride (Saline Flush) 10 ml FLUSH Q8HR PRN PRN Reason: keep vein open Last Admin: 07/19/19 08:22 Dose: 10 ml Sodium Chloride ([place] Nasal [place]) 0 ml ENRIQUE QID PRN PRN Reason: Nasal Dryness Last Admin: 07/20/19 08:11 Dose: 1 spray Tamsulosin HCl (Flomax) 0.4 mg PO BEDTIME [facility] Last Admin: 07/20/19 21:00 Dose: 0.4 mg Tramadol HCl (Ultram) 50 mg PO BEDTIME [facility] Last Admin: 07/20/19 21:00 Dose: 50 mg Warfarin Sodium (Coumadin) 1.25 mg PO DAILY@1800 [facility] Stop: 07/21/19 20:00 Last Admin: 07/20/19 18:05 Dose: 1.25 mg Warfarin Sodium (Coumadin) 2.5 mg PO ONETIME ONE Stop: 07/22/19 18:01 Warfarin Sodium (Coumadin) 1.25 mg PO ONETIME ONE Stop: 07/23/19 18:01 Discontinued Medications Albuterol/Ipratropium (Duoneb 3.0-0.5 Mg/3 Ml) 3 ml NEB TID PRN PRN Reason: Dyspnea Last Admin: 07/14/19 13:00 Dose: 3 ml Albuterol/Ipratropium (Duoneb 3.0-0.5 Mg/3 Ml) 3 ml NEB Q6HRRT [facility] Last Admin: 07/18/19 11:53 Dose: Not Given Fluticasone Propionate (Flovent Hfa 110 Mcg) 0 gm INH DAILY [facility] Furosemide (Lasix) 20 mg IVPUSH NOW ONE Stop: 07/14/19 15:11 Last Admin: 07/14/19 15:20 Dose: 20 mg Furosemide (Lasix) 20 mg IVPUSH NOW ONE Stop: 07/14/19 15:25 Last Admin: 07/14/19 15:40 Dose: Not Given Furosemide (Lasix) 40 mg IVPUSH BID@0900,1500 [facility] Last Admin: 07/18/19 16:52 Dose: Not Given Furosemide (Lasix) 20 mg IVPUSH NOW ONE Stop: 07/14/19 15:28 Last Admin: 07/14/19 15:25 Dose: 20 mg Furosemide (Lasix) 40 mg IVPUSH NOW ONE Stop: 07/14/19 19:01 Last Admin: 07/14/19 18:53 Dose: 40 mg Insulin Detemir (Levemir) 20 unit SUBCUT BEDTIME [facility] Last Admin: 07/06/19 21:26 Dose: 20 units Insulin Glargine (Lantus Solostar) 15 units SUBCUT BEDTIME [facility] Last Admin: 07/08/19 20:33 Dose: 15 units Magnesium Oxide (Magnesium Oxide) 500 mg PO DAILY [facility] Stop: 07/16/19 09:01 Last Admin: 07/16/19 08:56 Dose: 500 mg Metoprolol Succinate (Toprol Xl) 12.5 mg PO 1800 [facility] Last Admin: 07/15/19 17:26 Dose: 12.5 mg Metoprolol Tartrate (Lopressor) 0 mg IVPUSH ONETIME ONE Stop: 07/16/19 02:36 Last Admin: 07/16/19 03:07 Dose: 5 mg Non-Formulary Medication (Dulaglutide [Trulicity]) 0.75 mg SUBCUT WEEKLY [facility] Warfarin Sodium (Coumadin) 2.5 mg PO 1800 [facility] Last Admin: 07/10/19 17:56 Dose: 2.5 mg Warfarin Sodium (Coumadin) 5 mg PO ONETIME [facility] Stop: 07/11/19 19:30 Last Admin: 07/11/19 17:42 Dose: 5 mg Warfarin Sodium (Coumadin) 2.5 mg PO DAILY@1800 [facility] Stop: 07/13/19 20:00 Last Admin: 07/13/19 18:34 Dose: 2.5 mg Warfarin Sodium (Coumadin) 3.75 mg PO ONETIME [facility] Stop: 07/14/19 19:00 Last Admin: 07/14/19 18:53 Dose: 3.75 mg Warfarin Sodium (Coumadin) 2.5 mg PO DAILY@1800 [facility] Stop: 07/16/19 21:00 Last Admin: 07/16/19 17:42 Dose: 2.5 mg Warfarin Sodium (Coumadin) 1.25 mg PO ONETIME ONE Stop: 07/17/19 18:01 Last Admin: 07/17/19 17:30 Dose: 1.25 mg Warfarin Sodium (Coumadin) 2.5 mg PO DAILY@1800 [facility] Stop: 07/19/19 20:00 Last Admin: 07/19/19 17:28 Dose: 2.5 mg - Exam Quality Assessment: Supplemental Oxygen, DVT Prophylaxis General: Alert, Oriented, Cooperative, No Acute Distress Neck: No JVD Lungs: Wheezing Cardiovascular: Regular Rate, Irregular Rhythm GI/Abdominal Exam: Soft. No: Distended Extremities: Pedal Edema Peripheral Pulses: 2+: Radial (L), Radial (R) Neurological: Normal Speech, Normal Tone Psy/Mental Status: No: Depressed - Problem List Review Problem List Initiated/Reviewed/Updated: Yes - My Orders Last 24 Hours: My Active Orders 07/20/19 12:29 Consult to Rat Breeder [CONS] Routine 07/21/19 09:31 Discontinue Telemetry Monitoring [Cardiac Monitoring Discontinue] [RC] Click to Edit 07/23/19 09:00 Amiodarone [Cordarone] 200 mg PO DAILY - Plan Plan:: HPI Summary Mr. Cooper is a 73yoM who recently underwent urgent repair of his mitral valve at [facility] due to cardiogenic shock/CHF and was subsequently transferred here to SNF status for PT and recovery. Patient does the history of severe CHF secondary to severe mitral regurgitation, tricuspid regurgitation, and chronic atrial fibrillation. He was in [place] for recurrent fluid overload and anasarca. He underwent cardiac catheterization which did not demonstrated evidence of associated CAD. He did undergo Watchman device placement months ago in his left atrial appendage. Patient status/update: On rounds today the patient appears to be improving and gaining strength with less weakness. He has surgical support stockings, he has been eating his meals in a chair, working with PT with bedside weights also. Does have some wheezing today however he does have chronic wheezing especially in the morning. INR 3.5. Review telemetry and trolled irritable rhythm rates ~70-90. Weights are good and stable at 207 pounds, on daily Lasix. Sputum culture collected July 14 demonstrates pseudomonas aeruginosa Primary SNF/Hospital problems --Deconditioning, profound: PT --Pleural Effusion, right sided. 1500 mL thoracentesis July 11. Stable. Will continue to monitor. --S/P MVR (mitral valve replacement) mechanical prosthesis: Titrate warfarin to target dose. --S/P TVR (tricuspid valve repair) --Severe mitral regurgitation --Severe tricuspid regurgitation --HFpEF, chronic combined systolic and diastolic: BNP 736 on 07/14/19. Monitor Electrolytes, renal function. currently stable. --CKD: Ongoing improvement in creatinine to around baseline. -- Hypomagnesemia- PO Magnesium replacement. Recent/resolved problems --Community acquired pneumonia --Sepsis 2/2 pneumonia --Acute encephalopathy --Wound VAC, chest wall: removed at follow-up visit 07/11/19. Chronic/stable problems --Atrial fibrillation/Presence of Watchman left atrial appendage closure device , anticoagulation due to recent TVR --T2DM, Holding home Trulicity, Added Lantus 15u qHS at admission to SNF, assess /trend BG and make adjustments --Recent NSTEMI type 2 --COPD, was to receive Trelegy on DC, however will substitute for Utibron and add Flovent --Obstructive sleep apnea syndrome, home CPAP use --Moderate to severe pulmonary hypertension --History of bladder neck contracture, recent direct visualization/cystoscope, monitor for AUR --HLD, statin --RLS, requip --Gout, no acute flare --venous insufficiency Hospitalization details --GI stress proph: PO PPI --INR to be managed by Anticoagulation Clinic at [facility] --Up with assist, see below Upcoming appointments/consultations --08/14/2019 - 4 appointments starting at 9:15am xray, echocardiogram, EKG, and post op with Dr Miko Marshall Benkelman Disposition ongoing plan --CBC, BMP, pro-calcitonin today, before ABX consideration 11/05 pseudomonas aeruginosa --May discontinue telemetry --Request pharmacy to manage Coumadin/INR --Up in chair for all meals --Regular with no dietary restrictions until nutritional status improved. --Continue present lasix and daily weights (note PRN lasix parameters) --Compression stockings every AM and remove at night notify provider if patient refuses --ambulate 3 times per day even if short distances. --O2 supplement as required to tolerate activity --Notify provider extrusion supervisor for any concerns, changes of patient's condition etc --PATIENT DOES NOT DESIRE DNR. His only request is no intubation or feeding tubes, submitted new POLST document.
[2019-07-21] MEDS: Indacaterol/Glycopyrrolate 1 EA Cap.W.Dev Kit of 6 IH SCH ×2 (10:05→20:43)
[2019-07-21] MEDS: Acetaminophen 325 MG Tab PO PRN (10:07)
[2019-07-21] MEDS: Allopurinol 100 MG Tab PO SCH (10:07)
[2019-07-21] MEDS: risperiDONE 0.25 MG Tab PO SCH ×3 (10:08→20:36)
[2019-07-21] MEDS: rOPINIRole 0.25 MG Tab PO SCH ×3 (10:08→20:36)
[2019-07-21] MEDS: Cholecalciferol (Vitamin D3) 25 MCG Tab PO SCH ×2 (10:08→20:36)
[2019-07-21] MEDS: Amiodarone 200 MG Tab PO SCH ×2 (10:09→20:36)
[2019-07-21] MEDS: Furosemide 40 MG/4 ML VIAL IVPUSH SCH (10:10)
[2019-07-21] MEDS: Finasteride 5 MG Tab PO SCH (10:10)
[2019-07-21] MEDS: Fluticasone Propionate 110 MCG/Puff 12 GM Inhaler INH SCH (10:10)
[2019-07-21] MEDS: Sodium Chloride 0.9% 10 ML Syringe FLUSH PRN (10:12)
[2019-07-21 11:38] LABS: ANION GAP 9.9 mmol/L (5-15)
[2019-07-21] MEDS: Warfarin 2.5 MG Tab PO SCH (18:14)
[2019-07-21] MEDS: Metoprolol Succinate 25 MG Tab.ER PO SCH (18:14)
[2019-07-21] MEDS: Montelukast 10 MG Tab PO SCH (20:36)
[2019-07-21] MEDS: Tamsulosin 0.4 MG Cap.ER PO SCH (20:36)
[2019-07-21] MEDS: atorvaSTATin 10 MG Tab PO SCH (20:36)
[2019-07-21] MEDS: traMADol 50 MG Tab PO SCH (20:36)
[2019-07-21] MEDS: Insulin Glargine,Human Rec. Analog 100 Units/ML 3 ML Pen SUBCUT SCH (20:49)
[2019-07-22] MEDS: guaiFENesin 600 MG Tab.ER PO SCH ×2 (06:23→18:14)
[2019-07-22] MEDS: Omeprazole 20 MG Cap.CR PO SCH (06:23)
[2019-07-22] MEDS: rOPINIRole 0.25 MG Tab PO SCH ×3 (09:33→20:18)
[2019-07-22] MEDS: Cholecalciferol (Vitamin D3) 25 MCG Tab PO SCH ×2 (09:33→20:17)
[2019-07-22] MEDS: Finasteride 5 MG Tab PO SCH (09:33)
[2019-07-22] MEDS: Amiodarone 200 MG Tab PO SCH (09:33)
[2019-07-22] MEDS: Allopurinol 100 MG Tab PO SCH (09:34)
[2019-07-22] MEDS: risperiDONE 0.25 MG Tab PO SCH ×3 (09:34→20:19)
[2019-07-22] MEDS: Indacaterol/Glycopyrrolate 1 EA Cap.W.Dev Kit of 6 IH SCH ×2 (09:35→20:54)
[2019-07-22] MEDS: Fluticasone Propionate 110 MCG/Puff 12 GM Inhaler INH SCH (09:36)
[2019-07-22] MEDS: Furosemide 40 MG/4 ML VIAL IVPUSH SCH (09:39)
[2019-07-22] MEDS ORDERED: Warfarin 2.5 MG Tab PO ONE (18:00)
[2019-07-22] MEDS: Metoprolol Succinate 25 MG Tab.ER PO SCH (18:16)
[2019-07-22] MEDS: Montelukast 10 MG Tab PO SCH (20:17)
[2019-07-22] MEDS: traMADol 50 MG Tab PO SCH (20:18)
[2019-07-22] MEDS: Tamsulosin 0.4 MG Cap.ER PO SCH (20:18)
[2019-07-22] MEDS: Insulin Glargine,Human Rec. Analog 100 Units/ML 3 ML Pen SUBCUT SCH (20:19)
[2019-07-22] MEDS: atorvaSTATin 10 MG Tab PO SCH (20:19)
[2019-07-22] MEDS: Albuterol/Ipratropium 3.0-0.5 MG/3 ML Neb Soln NEB PRN (20:57)
[2019-07-23] MEDS: traMADol 50 MG Tab PO PRN (05:36)
[2019-07-23] MEDS: guaiFENesin 600 MG Tab.ER PO SCH ×2 (06:29→18:13)
[2019-07-23] MEDS: Omeprazole 20 MG Cap.CR PO SCH (06:30)
[2019-07-23] MEDS ORDERED: Furosemide 40 MG/4 ML VIAL IVPUSH ONE (07:20)
[2019-07-23] MEDS: Amiodarone 200 MG Tab PO SCH (08:55)
[2019-07-23] MEDS: Cholecalciferol (Vitamin D3) 25 MCG Tab PO SCH ×2 (08:55→20:25)
[2019-07-23] MEDS: rOPINIRole 0.25 MG Tab PO SCH ×3 (08:55→20:25)
[2019-07-23] MEDS: Finasteride 5 MG Tab PO SCH (08:56)
[2019-07-23] MEDS: risperiDONE 0.25 MG Tab PO SCH ×3 (08:56→20:25)
[2019-07-23] MEDS: Allopurinol 100 MG Tab PO SCH (08:56)
[2019-07-23] MEDS: Indacaterol/Glycopyrrolate 1 EA Cap.W.Dev Kit of 6 IH SCH ×2 (08:57→20:27)
[2019-07-23] MEDS: Fluticasone Propionate 110 MCG/Puff 12 GM Inhaler INH SCH (08:59)
[2019-07-23] MEDS: Furosemide 40 MG/4 ML VIAL IVPUSH SCH (10:06)
--- NOTE | 2019-07-23 12:55 | PN ---
07/23/2019 PATIENT NAME: MILE MORGAN SUBJECTIVE: This is a 73-year-old gentleman who recently had heart valve surgery. He is here currently in swing bed status. The patient's nurse had notified me this last evening that the patient was having some chest pain. EKG was obtained which showed atrial fibrillation at 78 beats per minute with no ST elevation or depression noted. The patient's troponin was also found to be negative. I did give the patient 650 mg of Tylenol along with tramadol at that time. The patient's chest wall pain improved. OBJECTIVE: VITAL SIGNS: Today, the patient's weight is 211 pounds, temperature is 97.5, pulse is 91, blood pressure is 113/68, respiratory rate is 20, oxygen saturations on 2 L nasal cannula is 94%. LUNGS: The patient does have some scattered crackles throughout his lungs. No wheezing heard. HEART: heart tones are irregularly irregular consistent with atrial fibrillation. ABDOMEN: Soft, nontender, nondistended. Bowel sounds present X4. LABORATORY DATA: The patient did not obtain the lab work today. His lab work from yesterday showed a white count 8.9, hemoglobin stable at 9.7. IMPRESSION AND PLAN: 1. Recent heart valve surgery with chest wall pain. Plan: We will continue with the Tylenol and tramadol as needed for chest wall pain. I did discuss with the patient about splinting his chest with a pillow with coughing spells. 2. Recent heart valve surgery. The patient's weight was up 4 pounds today. I did give him an additional 20 mg IV Lasix today with the weight gain and having scattered crackles to his lungs. The patient denies any chest pain at this time. He is going to go for a drive with his daughter today. /[id number]/MODL MTDD
[2019-07-23] MEDS ORDERED: Warfarin 2.5 MG Tab PO ONE (18:00)
[2019-07-23] MEDS: Metoprolol Succinate 25 MG Tab.ER PO SCH (18:14)
[2019-07-23] MEDS: atorvaSTATin 10 MG Tab PO SCH (20:25)
[2019-07-23] MEDS: Tamsulosin 0.4 MG Cap.ER PO SCH (20:25)
[2019-07-23] MEDS: Montelukast 10 MG Tab PO SCH (20:25)
[2019-07-23] MEDS: traMADol 50 MG Tab PO SCH (20:26)
[2019-07-23] MEDS: Insulin Glargine,Human Rec. Analog 100 Units/ML 3 ML Pen SUBCUT SCH (20:28)
[2019-07-24] MEDS: Omeprazole 20 MG Cap.CR PO SCH (06:29)
[2019-07-24] MEDS: guaiFENesin 600 MG Tab.ER PO SCH ×2 (06:29→18:08)
[2019-07-24] MEDS: Furosemide 40 MG/4 ML VIAL IVPUSH SCH (08:19)
[2019-07-24] MEDS: rOPINIRole 0.25 MG Tab PO SCH ×3 (08:19→20:29)
[2019-07-24] MEDS: Cholecalciferol (Vitamin D3) 25 MCG Tab PO SCH ×2 (08:19→20:36)
[2019-07-24] MEDS: Amiodarone 200 MG Tab PO SCH (08:19)
[2019-07-24] MEDS: Allopurinol 100 MG Tab PO SCH (08:19)
[2019-07-24] MEDS: Finasteride 5 MG Tab PO SCH (08:21)
[2019-07-24] MEDS: Sodium Chloride 0.9% 10 ML Syringe FLUSH PRN (08:23)
[2019-07-24] MEDS: risperiDONE 0.25 MG Tab PO SCH ×3 (08:28→20:28)
[2019-07-24] MEDS: Indacaterol/Glycopyrrolate 1 EA Cap.W.Dev Kit of 6 IH SCH ×2 (08:59→20:30)
[2019-07-24] MEDS: Fluticasone Propionate 110 MCG/Puff 12 GM Inhaler INH SCH (08:59)
[2019-07-24] MEDS: Metoprolol Succinate 25 MG Tab.ER PO SCH (18:09)
[2019-07-24] MEDS: Warfarin 2.5 MG Tab PO SCH (18:09)
[2019-07-24] MEDS: Montelukast 10 MG Tab PO SCH (20:28)
[2019-07-24] MEDS: traMADol 50 MG Tab PO SCH (20:29)
[2019-07-24] MEDS: Tamsulosin 0.4 MG Cap.ER PO SCH (20:29)
[2019-07-24] MEDS: atorvaSTATin 10 MG Tab PO SCH (20:29)
[2019-07-24] MEDS: Insulin Glargine,Human Rec. Analog 100 Units/ML 3 ML Pen SUBCUT SCH (20:30)
[2019-07-25] MEDS: Omeprazole 20 MG Cap.CR PO SCH (06:23)
[2019-07-25] MEDS: guaiFENesin 600 MG Tab.ER PO SCH ×2 (06:23→18:10)
[2019-07-25] MEDS: Indacaterol/Glycopyrrolate 1 EA Cap.W.Dev Kit of 6 IH SCH ×2 (08:47→20:27)
[2019-07-25] MEDS: Fluticasone Propionate 110 MCG/Puff 12 GM Inhaler INH SCH (08:47)
[2019-07-25] MEDS: risperiDONE 0.25 MG Tab PO SCH ×3 (09:41→20:28)
[2019-07-25] MEDS: Furosemide 40 MG/4 ML VIAL IVPUSH SCH (09:41)
[2019-07-25] MEDS: Allopurinol 100 MG Tab PO SCH (09:42)
[2019-07-25] MEDS: Acetaminophen 325 MG Tab PO PRN (09:42)
[2019-07-25] MEDS: rOPINIRole 0.25 MG Tab PO SCH ×3 (09:43→20:27)
[2019-07-25] MEDS: Cholecalciferol (Vitamin D3) 25 MCG Tab PO SCH ×2 (09:43→20:27)
[2019-07-25] MEDS: Finasteride 5 MG Tab PO SCH (09:43)
[2019-07-25] MEDS: Amiodarone 200 MG Tab PO SCH (09:43)
[2019-07-25] MEDS: Warfarin 2.5 MG Tab PO SCH (18:10)
[2019-07-25] MEDS: Metoprolol Succinate 25 MG Tab.ER PO SCH (18:10)
[2019-07-25] MEDS: Insulin Glargine,Human Rec. Analog 100 Units/ML 3 ML Pen SUBCUT SCH (20:26)
[2019-07-25] MEDS: atorvaSTATin 10 MG Tab PO SCH (20:27)
[2019-07-25] MEDS: Montelukast 10 MG Tab PO SCH (20:27)
[2019-07-25] MEDS: traMADol 50 MG Tab PO SCH (20:28)
[2019-07-25] MEDS: Tamsulosin 0.4 MG Cap.ER PO SCH (20:28)
[2019-07-26] MEDS: Omeprazole 20 MG Cap.CR PO SCH (06:55)
[2019-07-26] MEDS: guaiFENesin 600 MG Tab.ER PO SCH ×2 (06:55→18:24)
[2019-07-26] MEDS: rOPINIRole 0.25 MG Tab PO SCH ×3 (08:18→21:16)
[2019-07-26] MEDS: risperiDONE 0.25 MG Tab PO SCH ×3 (08:18→21:17)
[2019-07-26] MEDS: Amiodarone 200 MG Tab PO SCH (08:18)
[2019-07-26] MEDS: Finasteride 5 MG Tab PO SCH (08:18)
[2019-07-26] MEDS: Cholecalciferol (Vitamin D3) 25 MCG Tab PO SCH ×2 (08:19→21:17)
[2019-07-26] MEDS: Allopurinol 100 MG Tab PO SCH (08:19)
[2019-07-26] MEDS: Sodium Chloride 0.9% 10 ML Syringe FLUSH PRN (08:25)
[2019-07-26] MEDS: Furosemide 40 MG/4 ML VIAL IVPUSH SCH (08:25)
[2019-07-26] MEDS: Fluticasone Propionate 110 MCG/Puff 12 GM Inhaler INH SCH (08:52)
[2019-07-26] MEDS: Indacaterol/Glycopyrrolate 1 EA Cap.W.Dev Kit of 6 IH SCH ×2 (08:52→21:17)
[2019-07-26] MEDS: Albuterol 8 GM Inhaler INH PRN (13:44)
[2019-07-26] MEDS: Albuterol/Ipratropium 3.0-0.5 MG/3 ML Neb Soln NEB PRN (16:30)
[2019-07-26] MEDS ORDERED: Warfarin 2.5 MG Tab PO SCH (18:00)
[2019-07-26] MEDS: Metoprolol Succinate 25 MG Tab.ER PO SCH (18:24)
[2019-07-26] MEDS: atorvaSTATin 10 MG Tab PO SCH (21:16)
[2019-07-26] MEDS: Montelukast 10 MG Tab PO SCH (21:16)
[2019-07-26] MEDS: traMADol 50 MG Tab PO SCH (21:17)
[2019-07-26] MEDS: Tamsulosin 0.4 MG Cap.ER PO SCH (21:17)
[2019-07-26] MEDS: Insulin Glargine,Human Rec. Analog 100 Units/ML 3 ML Pen SUBCUT SCH (21:17)
[2019-07-27] MEDS: guaiFENesin 600 MG Tab.ER PO SCH ×3 (07:01→18:00)
[2019-07-27] MEDS: Omeprazole 20 MG Cap.CR PO SCH (07:02)
[2019-07-27] MEDS: Fluticasone Propionate 110 MCG/Puff 12 GM Inhaler INH SCH (08:54)
[2019-07-27] MEDS: Indacaterol/Glycopyrrolate 1 EA Cap.W.Dev Kit of 6 IH SCH ×2 (08:54→21:07)
[2019-07-27] MEDS: Furosemide 40 MG/4 ML VIAL IVPUSH SCH (09:17)
[2019-07-27] MEDS: Finasteride 5 MG Tab PO SCH (09:17)
[2019-07-27] MEDS: rOPINIRole 0.25 MG Tab PO SCH ×3 (09:17→21:09)
[2019-07-27] MEDS: risperiDONE 0.25 MG Tab PO SCH ×3 (09:17→21:09)
[2019-07-27] MEDS: Allopurinol 100 MG Tab PO SCH (09:18)
[2019-07-27] MEDS: Cholecalciferol (Vitamin D3) 25 MCG Tab PO SCH ×2 (09:18→21:09)
[2019-07-27] MEDS: Amiodarone 200 MG Tab PO SCH (09:18)
--- NOTE | 2019-07-27 10:01 | PCM.PN ---
- General Info Date of Service: 07/27/19 Functional Status: Reports: New Symptoms (sputum production greenish) - Review of Systems General: Reports: Weakness, Fatigue. Denies: Fever, Malaise, Chills, Night Sweats HEENT: Denies: Sore Throat Pulmonary: Reports: Shortness of Breath (SOB on ambulation--requiring increased oxygen on ambulation), Cough. Denies: Wheezing Cardiovascular: Denies: Chest Pain, Palpitations, Lightheadedness Gastrointestinal: Reports: No Symptoms Genitourinary: Reports: No Symptoms Psychiatric: Denies: Confusion - Patient Data Vitals - Most Recent: Last Vital Signs Temp 97.0 F 07/27/19 06:22 Pulse 85 07/27/19 06:22 Resp 20 07/27/19 06:22 BP 117/65 07/27/19 06:22 Pulse Ox 94 L 07/27/19 07:51 Weight - Most Recent: 211 lb 9 oz I&O - Last 24 Hours: Intake & Output 07/26/19 07/27/19 07/27/19 22:59 06:59 14:59 Intake Total 720 150 Output Total 300 Balance 720 -150 Lab Results Last 24 Hours: Laboratory Results - last 24 hr 07/26/19 07/26/19 07/27/19 Range/Units 17:06 21:15 07:56 PT INR (0.9-1.1) POC Glucose 141 H 208 H 117 H (74-106) mg/dl 07/27/19 Range/Units 08:05 PT TNP INR 2.2 H (0.9-1.1) POC Glucose (74-106) mg/dl Med Orders - Current: Current Medications Acetaminophen (Tylenol) 650 mg PO Q4H PRN PRN Reason: Pain Last Admin: 07/25/19 09:42 Dose: 650 mg Albuterol (Ventolin Hfa) 0 gm INH Q4H PRN PRN Reason: difficulty breathing Last Admin: 07/26/19 13:44 Dose: 2 inhalation Albuterol/Ipratropium (Duoneb 3.0-0.5 Mg/3 Ml) 3 ml NEB Q6HRRT PRN PRN Reason: Shortness of Breath Last Admin: 07/26/19 16:30 Dose: 3 ml Allopurinol (Zyloprim) 150 mg PO DAILY [facility] Last Admin: 07/27/19 09:18 Dose: 150 mg Amiodarone HCl (Cordarone) 200 mg PO DAILY [facility] Last Admin: 07/27/19 09:18 Dose: 200 mg Atorvastatin Calcium (Lipitor) 10 mg PO BEDTIME [facility] Last Admin: 07/26/19 21:16 Dose: 10 mg Cholecalciferol (Vitamin D3) 25 mcg PO BID [facility] Last Admin: 07/27/19 09:18 Dose: 25 mcg Finasteride (Proscar) 5 mg PO DAILY [facility] Last Admin: 07/27/19 09:17 Dose: 5 mg Fluticasone Propionate (Flovent Hfa 110 Mcg) 0 gm INH DAILY [facility] Last Admin: 07/27/19 08:54 Dose: 1 inhalation Furosemide (Lasix) 40 mg IVPUSH DAILY [facility] Last Admin: 07/27/19 09:17 Dose: 40 mg Furosemide (Lasix) 40 mg IVPUSH DAILY PRN PRN Reason: Other Glycopyrrolate/Indacaterol (Utibron Neohaler 27.5-15.6 Mcg) 1 each IH BID [facility] Last Admin: 07/27/19 08:54 Dose: 1 cap Guaifenesin (Mucinex) 600 mg PO Q12H [facility] Last Admin: 07/27/19 07:01 Dose: 600 mg Insulin Glargine (Lantus Solostar) 10 units SUBCUT BEDTIME [facility] Last Admin: 07/26/19 21:17 Dose: 10 unit Metoprolol Succinate (Toprol Xl) 25 mg PO 1800 [facility] Last Admin: 07/26/19 18:24 Dose: 25 mg Montelukast Sodium (Singulair) 10 mg PO BEDTIME [facility] Last Admin: 07/26/19 21:16 Dose: 10 mg Nitroglycerin (Nitrostat) 0.4 mg SL ASDIRECTED PRN PRN Reason: Heart. Last Admin: 07/22/19 11:28 Dose: 0.4 mg Non-Formulary Medication (Dextran 70/Hypromellose [Artificial Tears]) 1 drop EYEBOTH Q4HR PRN PRN Reason: Dry Eyes Omeprazole (Omeprazole) 20 mg PO 0700 [facility] Last Admin: 07/27/19 07:02 Dose: 20 mg Polyethylene Glycol (Miralax) 17 gm PO BID PRN PRN Reason: Constipation Risperidone (Risperidal) 0.25 mg PO TID [facility] Last Admin: 07/27/19 09:17 Dose: 0.25 mg Ropinirole HCl (Requip) 0.25 mg PO TID [facility] Last Admin: 07/27/19 09:17 Dose: 0.25 mg Senna/Docusate Sodium (Senna Plus) 1 tab PO BEDTIME PRN PRN Reason: Constipation Last Admin: 07/19/19 08:18 Dose: 1 tab Sodium Chloride (Saline Flush) 10 ml FLUSH Q8HR PRN PRN Reason: keep vein open Last Admin: 07/26/19 08:25 Dose: 10 ml Sodium Chloride (Lasara Nasal Tarzan) 0 ml ENRIQUE QID PRN PRN Reason: Nasal Dryness Last Admin: 07/20/19 08:11 Dose: 1 spray Tamsulosin HCl (Flomax) 0.4 mg PO BEDTIME [facility] Last Admin: 07/26/19 21:17 Dose: 0.4 mg Tramadol HCl (Ultram) 50 mg PO BEDTIME [facility] Last Admin: 07/26/19 21:17 Dose: 50 mg Tramadol HCl (Ultram) 50 mg PO Q6H PRN PRN Reason: Other Last Admin: 07/23/19 05:36 Dose: 50 mg Discontinued Medications Albuterol/Ipratropium (Duoneb 3.0-0.5 Mg/3 Ml) 3 ml NEB TID PRN PRN Reason: Dyspnea Last Admin: 07/14/19 13:00 Dose: 3 ml Albuterol/Ipratropium (Duoneb 3.0-0.5 Mg/3 Ml) 3 ml NEB Q6HRRT [facility] Last Admin: 07/18/19 11:53 Dose: Not Given Amiodarone HCl (Cordarone) 200 mg PO BID [facility] Stop: 07/22/19 10:00 Last Admin: 07/22/19 09:33 Dose: 200 mg Atropine Sulfate (Atropine 0.1 Mg/Ml) 0 mg IVPUSH ASDIRECTED PRN PRN Reason: Heart. Epinephrine HCl (Epinephrine 1:10,000) 1 mg IVPUSH ASDIRECTED PRN PRN Reason: Heart. Fluticasone Propionate (Flovent Hfa 110 Mcg) 0 gm INH DAILY [facility] Furosemide (Lasix) 20 mg IVPUSH NOW ONE Stop: 07/14/19 15:11 Last Admin: 07/14/19 15:20 Dose: 20 mg Furosemide (Lasix) 20 mg IVPUSH NOW ONE Stop: 07/14/19 15:25 Last Admin: 07/14/19 15:40 Dose: Not Given Furosemide (Lasix) 40 mg IVPUSH BID@0900,1500 [facility] Last Admin: 07/18/19 16:52 Dose: Not Given Furosemide (Lasix) 20 mg IVPUSH NOW ONE Stop: 07/14/19 15:28 Last Admin: 07/14/19 15:25 Dose: 20 mg Furosemide (Lasix) 40 mg IVPUSH NOW ONE Stop: 07/14/19 19:01 Last Admin: 07/14/19 18:53 Dose: 40 mg Furosemide (Lasix) 20 mg IVPUSH NOW ONE Stop: 07/23/19 07:21 Last Admin: 07/23/19 07:34 Dose: 20 mg Insulin Detemir (Levemir) 20 unit SUBCUT BEDTIME [facility] Last Admin: 07/06/19 21:26 Dose: 20 units Insulin Glargine (Lantus Solostar) 15 units SUBCUT BEDTIME [facility] Last Admin: 07/08/19 20:33 Dose: 15 units Lidocaine HCl (Xylocaine 2%) 0 mg IVPUSH ASDIRECTED PRN PRN Reason: Heart. Magnesium Oxide (Magnesium Oxide) 500 mg PO DAILY [facility] Stop: 07/16/19 09:01 Last Admin: 07/16/19 08:56 Dose: 500 mg Metoprolol Succinate (Toprol Xl) 12.5 mg PO 1800 [facility] Last Admin: 07/15/19 17:26 Dose: 12.5 mg Metoprolol Tartrate (Lopressor) 0 mg IVPUSH ONETIME ONE Stop: 07/16/19 02:36 Last Admin: 07/16/19 03:07 Dose: 5 mg Non-Formulary Medication (Dulaglutide [Trulicity]) 0.75 mg SUBCUT WEEKLY [facility] Warfarin Sodium (Coumadin) 2.5 mg PO 1800 [facility] Last Admin: 07/10/19 17:56 Dose: 2.5 mg Warfarin Sodium (Coumadin) 5 mg PO ONETIME [facility] Stop: 07/11/19 19:30 Last Admin: 07/11/19 17:42 Dose: 5 mg Warfarin Sodium (Coumadin) 2.5 mg PO DAILY@1800 [facility] Stop: 07/13/19 20:00 Last Admin: 07/13/19 18:34 Dose: 2.5 mg Warfarin Sodium (Coumadin) 3.75 mg PO ONETIME [facility] Stop: 07/14/19 19:00 Last Admin: 07/14/19 18:53 Dose: 3.75 mg Warfarin Sodium (Coumadin) 2.5 mg PO DAILY@1800 [facility] Stop: 07/16/19 21:00 Last Admin: 07/16/19 17:42 Dose: 2.5 mg Warfarin Sodium (Coumadin) 1.25 mg PO ONETIME ONE Stop: 07/17/19 18:01 Last Admin: 07/17/19 17:30 Dose: 1.25 mg Warfarin Sodium (Coumadin) 2.5 mg PO DAILY@1800 [facility] Stop: 07/19/19 20:00 Last Admin: 07/19/19 17:28 Dose: 2.5 mg Warfarin Sodium (Coumadin) 1.25 mg PO DAILY@1800 [facility] Stop: 07/21/19 20:00 Last Admin: 07/21/19 18:14 Dose: 1.25 mg Warfarin Sodium (Coumadin) 2.5 mg PO ONETIME ONE Stop: 07/22/19 18:01 Last Admin: 07/22/19 18:14 Dose: 2.5 mg Warfarin Sodium (Coumadin) 1.25 mg PO ONETIME ONE Stop: 07/23/19 18:01 Last Admin: 07/23/19 18:14 Dose: 1.25 mg Warfarin Sodium (Coumadin) 2.5 mg PO DAILY@1800 [facility] Stop: 07/25/19 20:00 Last Admin: 07/25/19 18:10 Dose: 2.5 mg Warfarin Sodium (Coumadin) 1.25 mg PO DAILY@1800 [facility] Stop: 07/26/19 20:00 Last Admin: 07/26/19 18:22 Dose: 1.25 mg - Exam Quality Assessment: Supplemental Oxygen General: Alert, Oriented, Cooperative, No Acute Distress Neck: No JVD Lungs: Decreased Breath Sounds (history lateral right side dullness on percussion, decreased breath sound). No: Crackles, Wheezing Cardiovascular: Irregular Rhythm. No: Tachycardia Back Exam: No: CVA Tenderness (L), CVA Tenderness (R) Psy/Mental Status: Alert, Labile Mood - Problem List Review Problem List Initiated/Reviewed/Updated: Yes - My Orders Last 24 Hours: My Active Orders 07/26/19 13:54 Communication Order [RC] DAILY 07/27/19 09:28 CXR [Chest 2V] [CR] Routine 07/27/19 09:30 CBC WITH AUTO DIFF [HEME] Routine - Plan Plan:: HPI Summary Mr. Cooper is a 73yoM who recently underwent urgent repair of his mitral valve at [facility] due to cardiogenic shock/CHF and was subsequently transferred here to SNF status for PT and recovery. Patient does the history of severe CHF secondary to severe mitral regurgitation, tricuspid regurgitation, and chronic atrial fibrillation. He was in [place] for recurrent fluid overload and anasarca. He underwent cardiac catheterization which did not demonstrated evidence of associated CAD. He did undergo Watchman device placement months ago in his left atrial appendage. Patient status/update: nurses report increase in sputum dyspnea/shortness of breath upon ambulation. overall his strength/endurance is improving. Weights are good and stable at 211 up 4#. Sputum demonstrates pseudomonas aeruginosa Primary SNF/Hospital problems --Pneumonia, pseudomonas aeruginosa --Deconditioning, improving, working with PT --Pleural Effusion, right sided. 1500 mL thoracentesis July 11. Stable. Will continue to monitor. --S/P MVR (mitral valve replacement) mechanical prosthesis: Titrate warfarin to target dose. --S/P TVR (tricuspid valve repair) --Severe mitral regurgitation --Severe tricuspid regurgitation --HFpEF, chronic combined systolic and diastolic: BNP 736 on 07/14/19. Monitor Electrolytes, renal function. currently stable. --CKD: Ongoing improvement in creatinine to around baseline. -- Hypomagnesemia- PO Magnesium replacement. Recent/resolved problems --Community acquired pneumonia --Sepsis 2/2 pneumonia --Acute encephalopathy --Wound VAC, chest wall: removed at follow-up visit 07/11/19. Chronic/stable problems --Atrial fibrillation/Presence of Watchman left atrial appendage closure device , anticoagulation due to recent TVR --T2DM, Holding home Trulicity, Added Lantus 15u qHS at admission to SNF, assess /trend BG and make adjustments --Recent NSTEMI type 2 --COPD, was to receive Trelegy on DC, however will substitute for Utibron and add Flovent --Obstructive sleep apnea syndrome, home CPAP use --Moderate to severe pulmonary hypertension --History of bladder neck contracture, recent direct visualization/cystoscope, monitor for AUR --HLD, statin --RLS, requip --Gout, no acute flare --venous insufficiency Hospitalization details --GI stress proph: PO PPI --INR to be managed by Anticoagulation Clinic at [facility] --Up with assist, see below Upcoming appointments/consultations --08/14/2019 - 4 appointments starting at 9:15am xray, echocardiogram, EKG, and post op with Dr Crouch - [facility] Disposition ongoing plan --CBC, BMP, CxR, before ABX consideration 2/ pseudomonas aeruginosa --Give one time extra lasix today --Request pharmacy to manage Coumadin/INR --Up in chair for all meals --Regular with no dietary restrictions until nutritional status improved. --Continue present lasix and daily weights (note PRN lasix parameters) --Compression stockings every AM and remove at night notify provider if patient refuses --ambulate 3 times per day even if short distances. --O2 supplement as required to tolerate activity --Notify provider application packaging specialist for any concerns, changes of patient's condition etc --PATIENT DOES NOT DESIRE DNR. His only request is no intubation or feeding tubes, submitted new POLST document.
--- NOTE | 2019-07-27 11:30 | CR ---
[id number] RAD/RAD Chest PA And Lateral EXAM: RAD Chest PA And Lateral INDICATION: PRODUCTIVE COUGH. COMPARISON: July 14, 2019. DISCUSSION: The cardiac mediastinal silhouette is enlarged but stable. Interstitial pattern persists. Small bilateral pleural effusions. Central pulmonary vascular congestion. IMPRESSION: Findings suggestive of congestive heart failure exacerbation. Underlying pulmonary infiltrates are not excluded. Continued attention on follow-up imaging is recommended. Emerson Menjivar DO 07/27/19 1128 Thank you for allowing us to participate in the care of your patient.
[2019-07-27 11:53] LABS: ANION GAP 8.7 mmol/L (5-15)
[2019-07-27] MEDS: Levofloxacin 500 MG Tab PO SCH (15:25)
[2019-07-27] MEDS: Acetaminophen 650 MG Tab.ER PO SCH ×2 (15:28→23:08)
[2019-07-27] MEDS: Metoprolol Succinate 25 MG Tab.ER PO SCH (17:59)
[2019-07-27] MEDS ORDERED: Warfarin 2.5 MG Tab PO SCH ×2 (18:00)
[2019-07-27] MEDS: atorvaSTATin 10 MG Tab PO SCH (21:08)
[2019-07-27] MEDS: traMADol 50 MG Tab PO SCH (21:08)
[2019-07-27] MEDS: Montelukast 10 MG Tab PO SCH (21:09)
[2019-07-27] MEDS: Tamsulosin 0.4 MG Cap.ER PO SCH (21:09)
[2019-07-27] MEDS: Insulin Glargine,Human Rec. Analog 100 Units/ML 3 ML Pen SUBCUT SCH (21:12)
[2019-07-28] MEDS: guaiFENesin 600 MG Tab.ER PO SCH ×2 (06:12→19:06)
[2019-07-28] MEDS: Acetaminophen 650 MG Tab.ER PO SCH ×4 (06:13→22:55)
[2019-07-28] MEDS: Omeprazole 20 MG Cap.CR PO SCH (06:13)
[2019-07-28] MEDS: Cholecalciferol (Vitamin D3) 25 MCG Tab PO SCH ×2 (08:43→21:37)
[2019-07-28] MEDS: risperiDONE 0.25 MG Tab PO SCH ×3 (08:43→21:36)
[2019-07-28] MEDS: Indacaterol/Glycopyrrolate 1 EA Cap.W.Dev Kit of 6 IH SCH ×2 (08:43→21:40)
[2019-07-28] MEDS: Amiodarone 200 MG Tab PO SCH (08:44)
[2019-07-28] MEDS: rOPINIRole 0.25 MG Tab PO SCH ×3 (08:44→21:36)
[2019-07-28] MEDS: Furosemide 40 MG/4 ML VIAL IVPUSH SCH (08:45)
[2019-07-28] MEDS: Finasteride 5 MG Tab PO SCH (08:45)
[2019-07-28] MEDS: Allopurinol 100 MG Tab PO SCH (08:45)
[2019-07-28] MEDS: Fluticasone Propionate 110 MCG/Puff 12 GM Inhaler INH SCH (08:46)
[2019-07-28] MEDS: Trolamine Salicylate/Aloe Vera 10% Crm 85 GM Tube TOP PRN ×2 (12:14→21:45)
[2019-07-28] MEDS: Naloxegol Oxalate 25 MG Tab PO SCH (12:14)
[2019-07-28] MEDS: Albuterol/Ipratropium 3.0-0.5 MG/3 ML Neb Soln NEB PRN (14:35)
[2019-07-28] MEDS: Warfarin 2.5 MG Tab PO SCH (17:54)
[2019-07-28] MEDS: Metoprolol Succinate 25 MG Tab.ER PO SCH (17:55)
[2019-07-28] MEDS ORDERED: Warfarin 2.5 MG Tab PO SCH (18:00)
[2019-07-28] MEDS: atorvaSTATin 10 MG Tab PO SCH (21:36)
[2019-07-28] MEDS: Tamsulosin 0.4 MG Cap.ER PO SCH (21:36)
[2019-07-28] MEDS: Montelukast 10 MG Tab PO SCH (21:36)
[2019-07-28] MEDS: traMADol 50 MG Tab PO SCH (21:37)
[2019-07-28] MEDS: Insulin Glargine,Human Rec. Analog 100 Units/ML 3 ML Pen SUBCUT SCH (21:43)
[2019-07-29] MEDS: traMADol 50 MG Tab PO PRN (05:09)
[2019-07-29] MEDS: Omeprazole 20 MG Cap.CR PO SCH (06:05)
[2019-07-29] MEDS: guaiFENesin 600 MG Tab.ER PO SCH ×2 (06:05→20:59)
[2019-07-29] MEDS: Acetaminophen 650 MG Tab.ER PO SCH ×3 (06:05→23:18)
[2019-07-29] MEDS: Cholecalciferol (Vitamin D3) 25 MCG Tab PO SCH ×2 (08:41→21:00)
[2019-07-29] MEDS: Naloxegol Oxalate 25 MG Tab PO SCH (08:41)
[2019-07-29] MEDS: Indacaterol/Glycopyrrolate 1 EA Cap.W.Dev Kit of 6 IH SCH ×2 (08:41→21:03)
[2019-07-29] MEDS: Finasteride 5 MG Tab PO SCH (08:42)
[2019-07-29] MEDS: risperiDONE 0.25 MG Tab PO SCH ×3 (08:42→21:00)
[2019-07-29] MEDS: rOPINIRole 0.25 MG Tab PO SCH ×3 (08:42→21:00)
[2019-07-29] MEDS: Allopurinol 100 MG Tab PO SCH (08:42)
[2019-07-29] MEDS: Amiodarone 200 MG Tab PO SCH (08:42)
[2019-07-29] MEDS: Fluticasone Propionate 110 MCG/Puff 12 GM Inhaler INH SCH (08:43)
[2019-07-29] MEDS: Furosemide 40 MG/4 ML VIAL IVPUSH SCH (08:47)
[2019-07-29] MEDS: Levofloxacin 500 MG Tab PO SCH (14:31)
[2019-07-29] MEDS: traMADol 50 MG Tab PO SCH (20:58)
[2019-07-29] MEDS: Warfarin 2.5 MG Tab PO SCH (20:59)
[2019-07-29] MEDS: atorvaSTATin 10 MG Tab PO SCH (21:00)
[2019-07-29] MEDS: Tamsulosin 0.4 MG Cap.ER PO SCH (21:00)
[2019-07-29] MEDS: Metoprolol Succinate 25 MG Tab.ER PO SCH (21:00)
[2019-07-29] MEDS: Montelukast 10 MG Tab PO SCH (21:00)
[2019-07-29] MEDS: Insulin Glargine,Human Rec. Analog 100 Units/ML 3 ML Pen SUBCUT SCH (21:06)
[2019-07-30] MEDS: Acetaminophen 650 MG Tab.ER PO SCH ×3 (07:19→22:24)
[2019-07-30] MEDS: Omeprazole 20 MG Cap.CR PO SCH (07:19)
[2019-07-30] MEDS: guaiFENesin 600 MG Tab.ER PO SCH ×2 (07:20→18:36)
[2019-07-30] MEDS: Finasteride 5 MG Tab PO SCH (09:02)
[2019-07-30] MEDS: Fluticasone Propionate 110 MCG/Puff 12 GM Inhaler INH SCH (09:02)
[2019-07-30] MEDS: Naloxegol Oxalate 25 MG Tab PO SCH (09:02)
[2019-07-30] MEDS: Allopurinol 100 MG Tab PO SCH (09:02)
[2019-07-30] MEDS: rOPINIRole 0.25 MG Tab PO SCH ×3 (09:02→20:46)
[2019-07-30] MEDS: risperiDONE 0.25 MG Tab PO SCH ×3 (09:02→20:46)
[2019-07-30] MEDS: Amiodarone 200 MG Tab PO SCH (09:02)
[2019-07-30] MEDS: Cholecalciferol (Vitamin D3) 25 MCG Tab PO SCH ×2 (09:02→20:47)
[2019-07-30] MEDS: Furosemide 40 MG/4 ML VIAL IVPUSH PRN (09:04)
[2019-07-30] MEDS: Furosemide 40 MG/4 ML VIAL IVPUSH SCH (09:04)
[2019-07-30] MEDS: Indacaterol/Glycopyrrolate 1 EA Cap.W.Dev Kit of 6 IH SCH ×2 (09:07→20:48)
[2019-07-30] MEDS: Metoprolol Succinate 25 MG Tab.ER PO SCH (17:52)
[2019-07-30] MEDS: Warfarin 2.5 MG Tab PO SCH (17:53)
[2019-07-30] MEDS: Albuterol/Ipratropium 3.0-0.5 MG/3 ML Neb Soln NEB PRN (19:40)
[2019-07-30] MEDS: Tamsulosin 0.4 MG Cap.ER PO SCH (20:46)
[2019-07-30] MEDS: Montelukast 10 MG Tab PO SCH (20:46)
[2019-07-30] MEDS: atorvaSTATin 10 MG Tab PO SCH (20:46)
[2019-07-30] MEDS: traMADol 50 MG Tab PO SCH (20:47)
[2019-07-30] MEDS: Insulin Glargine,Human Rec. Analog 100 Units/ML 3 ML Pen SUBCUT SCH (20:48)
[2019-07-31] MEDS: Albuterol/Ipratropium 3.0-0.5 MG/3 ML Neb Soln NEB PRN ×3 (05:18→21:25)
[2019-07-31] MEDS: Acetaminophen 650 MG Tab.ER PO SCH ×3 (06:08→22:37)
[2019-07-31] MEDS: guaiFENesin 600 MG Tab.ER PO SCH ×2 (06:09→18:03)
[2019-07-31] MEDS: Omeprazole 20 MG Cap.CR PO SCH (06:09)
[2019-07-31] MEDS: Trolamine Salicylate/Aloe Vera 10% Crm 85 GM Tube TOP PRN (06:15)
[2019-07-31] MEDS: Fluticasone Propionate 110 MCG/Puff 12 GM Inhaler INH SCH (09:07)
[2019-07-31] MEDS: Indacaterol/Glycopyrrolate 1 EA Cap.W.Dev Kit of 6 IH SCH ×2 (09:08→21:38)
[2019-07-31] MEDS: Allopurinol 100 MG Tab PO SCH (09:27)
[2019-07-31] MEDS: risperiDONE 0.25 MG Tab PO SCH ×3 (09:27→21:00)
[2019-07-31] MEDS: rOPINIRole 0.25 MG Tab PO SCH ×3 (09:28→21:00)
[2019-07-31] MEDS: Finasteride 5 MG Tab PO SCH (09:28)
[2019-07-31] MEDS: Amiodarone 200 MG Tab PO SCH (09:28)
[2019-07-31] MEDS: Naloxegol Oxalate 25 MG Tab PO SCH (09:28)
[2019-07-31] MEDS: Furosemide 40 MG/4 ML VIAL IVPUSH SCH (09:29)
[2019-07-31] MEDS: Cholecalciferol (Vitamin D3) 25 MCG Tab PO SCH ×2 (09:29→21:01)
[2019-07-31] MEDS: Sodium Chloride 0.9% 10 ML Syringe FLUSH PRN (09:29)
[2019-07-31] MEDS: Levofloxacin 500 MG Tab PO SCH (14:50)
[2019-07-31] MEDS: Warfarin 2.5 MG Tab PO SCH (17:29)
[2019-07-31] MEDS: Metoprolol Succinate 25 MG Tab.ER PO SCH (17:30)
[2019-07-31] MEDS: Tamsulosin 0.4 MG Cap.ER PO SCH (21:00)
[2019-07-31] MEDS: atorvaSTATin 10 MG Tab PO SCH (21:00)
[2019-07-31] MEDS: traMADol 50 MG Tab PO SCH (21:01)
[2019-07-31] MEDS: Montelukast 10 MG Tab PO SCH (21:01)
[2019-07-31] MEDS: Insulin Glargine,Human Rec. Analog 100 Units/ML 3 ML Pen SUBCUT SCH (21:26)
[2019-07-31] MEDS: Furosemide 40 MG/4 ML VIAL IVPUSH PRN (22:33)
[2019-08-01] MEDS: Acetaminophen 650 MG Tab.ER PO SCH ×3 (06:20→21:45)
[2019-08-01] MEDS: Omeprazole 20 MG Cap.CR PO SCH (06:21)
[2019-08-01] MEDS: guaiFENesin 600 MG Tab.ER PO SCH ×2 (06:21→18:13)
[2019-08-01] MEDS: Fluticasone Propionate 110 MCG/Puff 12 GM Inhaler INH SCH (08:10)
[2019-08-01] MEDS: Indacaterol/Glycopyrrolate 1 EA Cap.W.Dev Kit of 6 IH SCH ×2 (08:10→20:07)
[2019-08-01] MEDS: Allopurinol 100 MG Tab PO SCH (08:28)
[2019-08-01] MEDS: risperiDONE 0.25 MG Tab PO SCH ×3 (08:29→20:06)
[2019-08-01] MEDS: Cholecalciferol (Vitamin D3) 25 MCG Tab PO SCH ×2 (08:29→20:07)
[2019-08-01] MEDS: Amiodarone 200 MG Tab PO SCH (08:29)
[2019-08-01] MEDS: rOPINIRole 0.25 MG Tab PO SCH ×3 (08:29→20:06)
[2019-08-01] MEDS: Finasteride 5 MG Tab PO SCH (08:29)
[2019-08-01] MEDS: Furosemide 40 MG/4 ML VIAL IVPUSH SCH ×3 (08:29→16:04)
[2019-08-01] MEDS: Naloxegol Oxalate 25 MG Tab PO SCH (08:29)
[2019-08-01] MEDS ORDERED: Furosemide 40 MG/4 ML VIAL IVPUSH PRN (09:05)
--- NOTE | 2019-08-01 09:51 | CR ---
[id number] RAD/RAD Chest PA And Lateral EXAM: FRONTAL AND LATERAL CHEST INDICATION: Shortness of breath and increased edema. COMPARISON: July 27, 2019. DISCUSSION: Moderate right and [id number] left pleural effusions, cardiomegaly and moderate pulmonary edema are similar to the previous examination. Prior sternotomy with valve replacement. IMPRESSION: 1. Moderate congestive heart failure and bilateral pleural effusions are unchanged. Umesh Rosado MD 08/01/19 0950 Thank you for allowing us to participate in the care of your patient.
[2019-08-01 10:20] LABS: ANION GAP 11.7 mmol/L (5-15)
[2019-08-01] MEDS ORDERED: Metolazone 2.5 MG Tab PO ONE (12:00)
[2019-08-01] MEDS: Sodium Chloride 0.65% Nasal Spray 45 ML Bottle NAS PRN (13:23)
[2019-08-01] MEDS: Albuterol/Ipratropium 3.0-0.5 MG/3 ML Neb Soln NEB PRN (16:30)
[2019-08-01] MEDS: Metoprolol Succinate 25 MG Tab.ER PO SCH (18:13)
[2019-08-01] MEDS: Warfarin 2.5 MG Tab PO SCH (18:13)
[2019-08-01] MEDS: Tamsulosin 0.4 MG Cap.ER PO SCH (20:06)
[2019-08-01] MEDS: traMADol 50 MG Tab PO SCH (20:07)
[2019-08-01] MEDS: atorvaSTATin 10 MG Tab PO SCH (20:07)
[2019-08-01] MEDS: Montelukast 10 MG Tab PO SCH (20:07)
[2019-08-01] MEDS: Insulin Glargine,Human Rec. Analog 100 Units/ML 3 ML Pen SUBCUT SCH (21:45)
[2019-08-02] MEDS: Omeprazole 20 MG Cap.CR PO SCH (06:22)
[2019-08-02] MEDS: Acetaminophen 650 MG Tab.ER PO SCH ×3 (06:22→23:45)
[2019-08-02] MEDS: guaiFENesin 600 MG Tab.ER PO SCH ×2 (06:22→20:03)
[2019-08-02] MEDS: Albuterol/Ipratropium 3.0-0.5 MG/3 ML Neb Soln NEB PRN (07:58)
[2019-08-02] MEDS: rOPINIRole 0.25 MG Tab PO SCH ×3 (08:34→20:57)
[2019-08-02] MEDS: Amiodarone 200 MG Tab PO SCH (08:34)
[2019-08-02] MEDS: Cholecalciferol (Vitamin D3) 25 MCG Tab PO SCH ×2 (08:34→20:58)
[2019-08-02] MEDS: Finasteride 5 MG Tab PO SCH (08:34)
[2019-08-02] MEDS: Allopurinol 100 MG Tab PO SCH (08:34)
[2019-08-02] MEDS: risperiDONE 0.25 MG Tab PO SCH ×3 (08:34→20:57)
[2019-08-02] MEDS: Naloxegol Oxalate 25 MG Tab PO SCH (08:34)
[2019-08-02] MEDS: Furosemide 40 MG/4 ML VIAL IVPUSH SCH ×2 (08:37→17:01)
[2019-08-02] MEDS: Sodium Chloride 0.9% 10 ML Syringe FLUSH PRN (08:38)
[2019-08-02] MEDS: Fluticasone Propionate 110 MCG/Puff 12 GM Inhaler INH SCH (09:59)
[2019-08-02] MEDS: Indacaterol/Glycopyrrolate 1 EA Cap.W.Dev Kit of 6 IH SCH ×2 (09:59→20:58)
--- NOTE | 2019-08-02 11:47 | CR ---
[id number] RAD/RAD Video Swallow Study EXAM: VIDEO SWALLOWING STUDY INDICATION: SWALLOWING DIFFICULTIES. COMPARISON: None. DISCUSSION: Multiple consistencies of barium were administered orally under fluoroscopic observation. This was performed in conjunction with speech pathology, refer to their report for full details. IMPRESSION: 1. Fluoroscopic support for swallowing study. Umesh Rosado MD 08/02/19 1145 Thank you for allowing us to participate in the care of your patient.
[2019-08-02] MEDS: Levofloxacin 500 MG Tab PO SCH (13:50)
[2019-08-02] MEDS: Warfarin 2.5 MG Tab PO SCH (17:02)
[2019-08-02] MEDS: Metoprolol Succinate 25 MG Tab.ER PO SCH (17:02)
[2019-08-02] MEDS: Tamsulosin 0.4 MG Cap.ER PO SCH (20:57)
[2019-08-02] MEDS: atorvaSTATin 10 MG Tab PO SCH (20:57)
[2019-08-02] MEDS: traMADol 50 MG Tab PO SCH (20:58)
[2019-08-02] MEDS: Montelukast 10 MG Tab PO SCH (20:58)
[2019-08-02] MEDS: Insulin Glargine,Human Rec. Analog 100 Units/ML 3 ML Pen SUBCUT SCH (21:02)
[2019-08-02] MEDS: Trolamine Salicylate/Aloe Vera 10% Crm 85 GM Tube TOP PRN (23:49)
[2019-08-03] MEDS: Acetaminophen 650 MG Tab.ER PO SCH ×3 (07:17→23:17)
[2019-08-03] MEDS: Omeprazole 20 MG Cap.CR PO SCH (07:18)
[2019-08-03] MEDS: guaiFENesin 600 MG Tab.ER PO SCH ×2 (07:19→18:39)
[2019-08-03] MEDS: Fluticasone Propionate 110 MCG/Puff 12 GM Inhaler INH SCH (08:36)
[2019-08-03] MEDS: Indacaterol/Glycopyrrolate 1 EA Cap.W.Dev Kit of 6 IH SCH ×2 (08:36→20:41)
[2019-08-03] MEDS: Naloxegol Oxalate 25 MG Tab PO SCH (08:45)
[2019-08-03] MEDS: Amiodarone 200 MG Tab PO SCH (08:45)
[2019-08-03] MEDS: risperiDONE 0.25 MG Tab PO SCH ×3 (08:45→20:29)
[2019-08-03] MEDS: rOPINIRole 0.25 MG Tab PO SCH ×3 (08:45→20:29)
[2019-08-03] MEDS: Finasteride 5 MG Tab PO SCH (08:46)
[2019-08-03] MEDS: Cholecalciferol (Vitamin D3) 25 MCG Tab PO SCH ×2 (08:46→20:29)
[2019-08-03] MEDS: Allopurinol 100 MG Tab PO SCH (08:46)
[2019-08-03] MEDS: Furosemide 40 MG/4 ML VIAL IVPUSH SCH ×2 (08:48→17:07)
[2019-08-03] MEDS: Sodium Chloride 0.9% 10 ML Syringe FLUSH PRN ×2 (08:48→17:07)
[2019-08-03] MEDS: Metoprolol Succinate 25 MG Tab.ER PO SCH (17:33)
[2019-08-03] MEDS: Warfarin 2.5 MG Tab PO SCH (17:34)
[2019-08-03] MEDS: atorvaSTATin 10 MG Tab PO SCH (20:29)
[2019-08-03] MEDS: Tamsulosin 0.4 MG Cap.ER PO SCH (20:29)
[2019-08-03] MEDS: traMADol 50 MG Tab PO SCH (20:29)
[2019-08-03] MEDS: Montelukast 10 MG Tab PO SCH (20:29)
[2019-08-03] MEDS: Insulin Glargine,Human Rec. Analog 100 Units/ML 3 ML Pen SUBCUT SCH (20:39)
[2019-08-04] MEDS: Acetaminophen 650 MG Tab.ER PO SCH ×3 (05:50→21:46)
[2019-08-04] MEDS: guaiFENesin 600 MG Tab.ER PO SCH ×2 (06:40→18:00)
[2019-08-04] MEDS: Omeprazole 20 MG Cap.CR PO SCH ×2 (06:40→10:25)
[2019-08-04] MEDS: Fluticasone Propionate 110 MCG/Puff 12 GM Inhaler INH SCH (08:21)
[2019-08-04] MEDS: Indacaterol/Glycopyrrolate 1 EA Cap.W.Dev Kit of 6 IH SCH ×2 (08:23→21:34)
[2019-08-04] MEDS: Finasteride 5 MG Tab PO SCH (10:25)
[2019-08-04] MEDS: Amiodarone 200 MG Tab PO SCH (10:25)
[2019-08-04] MEDS: Allopurinol 100 MG Tab PO SCH (10:25)
[2019-08-04] MEDS: risperiDONE 0.25 MG Tab PO SCH ×3 (10:25→21:31)
[2019-08-04] MEDS: Cholecalciferol (Vitamin D3) 25 MCG Tab PO SCH ×2 (10:25→21:32)
[2019-08-04] MEDS: Naloxegol Oxalate 25 MG Tab PO SCH (10:26)
[2019-08-04] MEDS: rOPINIRole 0.25 MG Tab PO SCH ×3 (10:26→21:31)
[2019-08-04] MEDS: Furosemide 40 MG/4 ML VIAL IVPUSH SCH ×2 (10:26→17:28)
[2019-08-04] MEDS: Levofloxacin 500 MG Tab PO SCH (14:09)
[2019-08-04] MEDS: Metoprolol Succinate 25 MG Tab.ER PO SCH (17:28)
[2019-08-04] MEDS: Warfarin 2.5 MG Tab PO SCH (17:29)
[2019-08-04] MEDS: Sodium Chloride 0.65% Nasal Spray 45 ML Bottle NAS PRN (21:30)
[2019-08-04] MEDS: atorvaSTATin 10 MG Tab PO SCH (21:30)
[2019-08-04] MEDS: traMADol 50 MG Tab PO SCH (21:31)
[2019-08-04] MEDS: Montelukast 10 MG Tab PO SCH (21:31)
[2019-08-04] MEDS: Tamsulosin 0.4 MG Cap.ER PO SCH (21:32)
[2019-08-04] MEDS: Insulin Glargine,Human Rec. Analog 100 Units/ML 3 ML Pen SUBCUT SCH (21:34)
[2019-08-05] MEDS: guaiFENesin 600 MG Tab.ER PO SCH ×2 (06:52→18:15)
[2019-08-05] MEDS: Omeprazole 20 MG Cap.CR PO SCH (06:52)
[2019-08-05] MEDS: Acetaminophen 650 MG Tab.ER PO SCH ×3 (06:52→21:46)
[2019-08-05] MEDS: Naloxegol Oxalate 25 MG Tab PO SCH (09:12)
[2019-08-05] MEDS: risperiDONE 0.25 MG Tab PO SCH ×3 (09:12→21:44)
[2019-08-05] MEDS: Amiodarone 200 MG Tab PO SCH (09:12)
[2019-08-05] MEDS: rOPINIRole 0.25 MG Tab PO SCH ×3 (09:12→21:45)
[2019-08-05] MEDS: Finasteride 5 MG Tab PO SCH (09:12)
[2019-08-05] MEDS: Cholecalciferol (Vitamin D3) 25 MCG Tab PO SCH ×2 (09:13→22:21)
[2019-08-05] MEDS: Allopurinol 100 MG Tab PO SCH (09:13)
[2019-08-05] MEDS: Furosemide 40 MG/4 ML VIAL IVPUSH SCH (09:26)
[2019-08-05] MEDS: Indacaterol/Glycopyrrolate 1 EA Cap.W.Dev Kit of 6 IH SCH ×2 (09:39→21:48)
[2019-08-05] MEDS: Fluticasone Propionate 110 MCG/Puff 12 GM Inhaler INH SCH (09:44)
[2019-08-05] MEDS ORDERED: Furosemide 40 MG Tab PO PRN (11:18)
--- NOTE | 2019-08-05 11:21 | PCM.PN ---
- General Info Date of Service: 08/05/19 Subjective Update: Overall feeling well. Slept well last night lying flat in bed. Ongoing edema in lower extremities with kathleen appearance of anterior shins, but much improved/ resolved edema in upper extremities and breathing is stable with less shortness of breath than prior. Denies chest pain. Awaiting ongoing plans for plan of care with proposed gastric feeding tube due to concerning swallow study results as well as repeat thoracentesis due to recurrent pleural effusion as noted on XR and US. Nursing notes no other significant concerns. - Patient Data Vitals - Most Recent: Last Vital Signs Temp 36.0 C 08/05/19 06:27 Pulse 81 08/05/19 06:27 Resp 20 08/05/19 06:27 BP 89/43 L 08/05/19 06:27 Pulse Ox 95 08/05/19 09:00 Weight - Most Recent: 98.883 kg I&O - Last 24 Hours: Intake & Output 08/04/19 08/05/19 08/05/19 22:59 06:59 14:59 Intake Total 370 200 Output Total 900 600 Balance -530 -400 Lab Results Last 24 Hours: Laboratory Results - last 24 hr 08/04/19 08/04/19 08/05/19 Range/Units 13:54 18:25 08:13 POC Glucose 191 H 117 H 95 (74-106) mg/dl Med Orders - Current: Current Medications Acetaminophen (Tylenol Arthritis Pain) 650 mg PO Q8H [facility] Last Admin: 08/05/19 06:52 Dose: 650 mg Albuterol (Ventolin Hfa) 0 gm INH Q4H PRN PRN Reason: difficulty breathing Last Admin: 07/26/19 13:44 Dose: 2 inhalation Albuterol/Ipratropium (Duoneb 3.0-0.5 Mg/3 Ml) 3 ml NEB Q6HRRT PRN PRN Reason: Shortness of Breath Last Admin: 08/02/19 07:58 Dose: 3 ml Allopurinol (Zyloprim) 150 mg PO DAILY [facility] Last Admin: 08/05/19 09:13 Dose: 150 mg Amiodarone HCl (Cordarone) 200 mg PO DAILY [facility] Last Admin: 08/05/19 09:12 Dose: 200 mg Atorvastatin Calcium (Lipitor) 10 mg PO BEDTIME [facility] Last Admin: 08/04/19 21:30 Dose: 10 mg Cholecalciferol (Vitamin D3) 25 mcg PO BID [facility] Last Admin: 08/05/19 09:13 Dose: 25 mcg Finasteride (Proscar) 5 mg PO DAILY [facility] Last Admin: 08/05/19 09:12 Dose: 5 mg Fluticasone Propionate (Flovent Hfa 110 Mcg) 0 gm INH DAILY [facility] Last Admin: 08/05/19 09:44 Dose: 1 inhalation Furosemide (Lasix) 80 mg PO BIDDIURETIC [facility] Furosemide (Lasix) 80 mg PO DAILY PRN PRN Reason: Other Glycopyrrolate/Indacaterol (Utibron Neohaler 27.5-15.6 Mcg) 1 each IH BID [facility] Last Admin: 08/05/19 09:39 Dose: 1 cap Guaifenesin (Mucinex) 600 mg PO Q12H [facility] Last Admin: 08/05/19 06:52 Dose: 600 mg Insulin Glargine (Lantus Solostar) 6 units SUBCUT BEDTIME [facility] Metoprolol Succinate (Toprol Xl) 25 mg PO 1800 [facility] Last Admin: 08/04/19 17:28 Dose: 25 mg Montelukast Sodium (Singulair) 10 mg PO BEDTIME [facility] Last Admin: 08/04/19 21:31 Dose: 10 mg Naloxegol (Movantik) 25 mg PO DAILY [facility] Last Admin: 08/05/19 09:12 Dose: 25 mg Nitroglycerin (Nitrostat) 0.4 mg SL ASDIRECTED PRN PRN Reason: Heart. Last Admin: 07/22/19 11:28 Dose: 0.4 mg Non-Formulary Medication (Dextran 70/Hypromellose [Artificial Tears]) 1 drop EYEBOTH Q4HR PRN PRN Reason: Dry Eyes Omeprazole (Omeprazole) 20 mg PO 0700 [facility] Last Admin: 08/05/19 06:52 Dose: 20 mg Polyethylene Glycol (Miralax) 17 gm PO BID PRN PRN Reason: Constipation Risperidone (Risperidal) 0.25 mg PO TID [facility] Last Admin: 08/05/19 09:12 Dose: 0.25 mg Ropinirole HCl (Requip) 0.25 mg PO TID [facility] Last Admin: 08/05/19 09:12 Dose: 0.25 mg Senna/Docusate Sodium (Senna Plus) 1 tab PO BEDTIME PRN PRN Reason: Constipation Last Admin: 08/04/19 10:27 Dose: 1 tab Sodium Chloride (Saline Flush) 10 ml FLUSH Q8HR PRN PRN Reason: keep vein open Last Admin: 08/03/19 17:07 Dose: 10 ml Sodium Chloride ([place] Nasal [place]) 0 ml ENRIQUE QID PRN PRN Reason: Nasal Dryness Last Admin: 08/04/19 21:30 Dose: 1 spray Tamsulosin HCl (Flomax) 0.4 mg PO BEDTIME [facility] Last Admin: 08/04/19 21:32 Dose: 0.4 mg Tramadol HCl (Ultram) 50 mg PO BEDTIME [facility] Last Admin: 08/04/19 21:31 Dose: 50 mg Tramadol HCl (Ultram) 50 mg PO Q6H PRN PRN Reason: Other Last Admin: 07/29/19 05:09 Dose: 50 mg Trolamine Salicylate (Aspercreme 10%) 0 gm TOP TID PRN PRN Reason: Pain Last Admin: 08/02/19 23:49 Dose: 1 applic Warfarin Sodium (Coumadin) 2.5 mg PO SuTuThSa@1800 [facility] Stop: 08/07/19 19:00 Last Admin: 08/03/19 17:34 Dose: 2.5 mg Warfarin Sodium (Coumadin) 1.25 mg PO MoWeFr@1800 [facility] Stop: 08/07/19 20:00 Last Admin: 08/04/19 17:29 Dose: 1.25 mg Discontinued Medications Acetaminophen (Tylenol) 650 mg PO Q4H PRN PRN Reason: Pain Last Admin: 07/25/19 09:42 Dose: 650 mg Albuterol/Ipratropium (Duoneb 3.0-0.5 Mg/3 Ml) 3 ml NEB TID PRN PRN Reason: Dyspnea Last Admin: 07/14/19 13:00 Dose: 3 ml Albuterol/Ipratropium (Duoneb 3.0-0.5 Mg/3 Ml) 3 ml NEB Q6HRRT [facility] Last Admin: 07/18/19 11:53 Dose: Not Given Amiodarone HCl (Cordarone) 200 mg PO BID [facility] Stop: 07/22/19 10:00 Last Admin: 07/22/19 09:33 Dose: 200 mg Atropine Sulfate (Atropine 0.1 Mg/Ml) 0 mg IVPUSH ASDIRECTED PRN PRN Reason: Heart. Epinephrine HCl (Epinephrine 1:10,000) 1 mg IVPUSH ASDIRECTED PRN PRN Reason: Heart. Fluticasone Propionate (Flovent Hfa 110 Mcg) 0 gm INH DAILY [facility] Furosemide (Lasix) 20 mg IVPUSH NOW ONE Stop: 07/14/19 15:11 Last Admin: 07/14/19 15:20 Dose: 20 mg Furosemide (Lasix) 20 mg IVPUSH NOW ONE Stop: 07/14/19 15:25 Last Admin: 07/14/19 15:40 Dose: Not Given Furosemide (Lasix) 40 mg IVPUSH BID@0900,1500 [facility] Last Admin: 07/18/19 16:52 Dose: Not Given Furosemide (Lasix) 20 mg IVPUSH NOW ONE Stop: 07/14/19 15:28 Last Admin: 07/14/19 15:25 Dose: 20 mg Furosemide (Lasix) 40 mg IVPUSH NOW ONE Stop: 07/14/19 19:01 Last Admin: 07/14/19 18:53 Dose: 40 mg Furosemide (Lasix) 40 mg IVPUSH DAILY [facility] Stop: 08/01/19 09:00 Last Admin: 08/01/19 08:29 Dose: 40 mg Furosemide (Lasix) 40 mg IVPUSH DAILY PRN PRN Reason: Other Last Admin: 07/31/19 22:33 Dose: 40 mg Furosemide (Lasix) 20 mg IVPUSH NOW ONE Stop: 07/23/19 07:21 Last Admin: 07/23/19 07:34 Dose: 20 mg Furosemide (Lasix) 40 mg IVPUSH BIDDIURETIC [facility] Last Admin: 08/05/19 09:26 Dose: 40 mg Furosemide (Lasix) 40 mg IVPUSH DAILY PRN PRN Reason: Other Insulin Detemir (Levemir) 20 unit SUBCUT BEDTIME [facility] Last Admin: 07/06/19 21:26 Dose: 20 units Insulin Glargine (Lantus Solostar) 15 units SUBCUT BEDTIME [facility] Last Admin: 07/08/19 20:33 Dose: 15 units Insulin Glargine (Lantus Solostar) 10 units SUBCUT BEDTIME [facility] Last Admin: 08/04/19 21:34 Dose: 10 unit Levofloxacin (Levaquin) 750 mg PO Q48H [facility] Stop: 08/04/19 14:01 Last Admin: 08/04/19 14:09 Dose: 750 mg Lidocaine HCl (Xylocaine 2%) 0 mg IVPUSH ASDIRECTED PRN PRN Reason: Heart. Magnesium Oxide (Magnesium Oxide) 500 mg PO DAILY [facility] Stop: 07/16/19 09:01 Last Admin: 07/16/19 08:56 Dose: 500 mg Metolazone (Zaroxolyn) 2.5 mg PO ONETIME ONE Stop: 08/01/19 12:01 Last Admin: 08/01/19 12:01 Dose: 2.5 mg Metoprolol Succinate (Toprol Xl) 12.5 mg PO 1800 [facility] Last Admin: 07/15/19 17:26 Dose: 12.5 mg Metoprolol Tartrate (Lopressor) 0 mg IVPUSH ONETIME ONE Stop: 07/16/19 02:36 Last Admin: 07/16/19 03:07 Dose: 5 mg Non-Formulary Medication (Dulaglutide [Trulicity]) 0.75 mg SUBCUT WEEKLY [facility] Warfarin Sodium (Coumadin) 2.5 mg PO 1800 [facility] Last Admin: 07/10/19 17:56 Dose: 2.5 mg Warfarin Sodium (Coumadin) 5 mg PO ONETIME [facility] Stop: 07/11/19 19:30 Last Admin: 07/11/19 17:42 Dose: 5 mg Warfarin Sodium (Coumadin) 2.5 mg PO DAILY@1800 [facility] Stop: 07/13/19 20:00 Last Admin: 07/13/19 18:34 Dose: 2.5 mg Warfarin Sodium (Coumadin) 3.75 mg PO ONETIME [facility] Stop: 07/14/19 19:00 Last Admin: 07/14/19 18:53 Dose: 3.75 mg Warfarin Sodium (Coumadin) 2.5 mg PO DAILY@1800 [facility] Stop: 07/16/19 21:00 Last Admin: 07/16/19 17:42 Dose: 2.5 mg Warfarin Sodium (Coumadin) 1.25 mg PO ONETIME ONE Stop: 07/17/19 18:01 Last Admin: 07/17/19 17:30 Dose: 1.25 mg Warfarin Sodium (Coumadin) 2.5 mg PO DAILY@1800 [facility] Stop: 07/19/19 20:00 Last Admin: 07/19/19 17:28 Dose: 2.5 mg Warfarin Sodium (Coumadin) 1.25 mg PO DAILY@1800 [facility] Stop: 07/21/19 20:00 Last Admin: 07/21/19 18:14 Dose: 1.25 mg Warfarin Sodium (Coumadin) 2.5 mg PO ONETIME ONE Stop: 07/22/19 18:01 Last Admin: 07/22/19 18:14 Dose: 2.5 mg Warfarin Sodium (Coumadin) 1.25 mg PO ONETIME ONE Stop: 07/23/19 18:01 Last Admin: 07/23/19 18:14 Dose: 1.25 mg Warfarin Sodium (Coumadin) 2.5 mg PO DAILY@1800 [facility] Stop: 07/25/19 20:00 Last Admin: 07/25/19 18:10 Dose: 2.5 mg Warfarin Sodium (Coumadin) 1.25 mg PO DAILY@1800 [facility] Stop: 07/26/19 20:00 Last Admin: 07/26/19 18:22 Dose: 1.25 mg Warfarin Sodium (Coumadin) 2.5 mg PO 1800 [facility] Stop: 07/27/19 19:00 Last Admin: 07/27/19 17:52 Dose: 2.5 mg Warfarin Sodium (Coumadin) 1.25 mg PO MoFr@1800 [facility] Stop: 07/31/19 20:00 Last Admin: 07/31/19 17:29 Dose: 1.25 mg Warfarin Sodium (Coumadin) 2.5 mg PO SuSa@1800 [facility] Stop: 07/30/19 20:00 Last Admin: 07/30/19 17:53 Dose: 2.5 mg - Exam Physical Findings Comments:: GENERAL: Chronically ill appearing elderly white male appearing older than stated age sitting in bedside chair in no acute distress. Daughter at bedside. HEENT: Normocephalic, atraumatic. Conjunctiva clear. Nares patent without discharge. Mucous membranes moist. NECK: Supple, no masses. CV: Irregularly irregular, valve click at mitral position, no gallop. 2+ radial pulses. PULMONARY: Normal effort, clear to auscultation bilaterally aside from mild- moderate decreased air flow in the right base, no wheezes, rales, or rhonchi. ABDOMEN: Obese, positive bowel sounds, soft, nontender, nondistended. EXTREMITIES / DERMATOLOGIC: 2+ diffuse edema to bilateral lower extremities to knees with anterior kathleen appearance without erythema. MUSCULOSKELETAL: Moves all extremities. NEUROLOGICAL: No obvious deficits. PSYCHIATRIC: Alert, interactive, appropriate affect. - Problem List Review Problem List Initiated/Reviewed/Updated: Yes - My Orders Last 24 Hours: My Active Orders 08/05/19 11:18 Furosemide [Lasix] 80 mg PO DAILY PRN 08/05/19 17:00 Furosemide [Lasix] 80 mg PO BIDDIURETIC 08/05/19 21:00 Insulin Glarg,Human.Rec.Analog [LantUS Solostar] 6 units SUBCUT BEDTIME 08/06/19 Dinner NPO After Midnight [Nothing per Oral After Midnight Diet] [DIET] - Plan Plan:: HPI summary Mr. Cooper is a 73yoM who recently underwent urgent repair of his mitral valve at [facility] due to cardiogenic shock/CHF and was subsequently transferred here to SNF status for PT and recovery. Patient does the history of severe CHF secondary to severe mitral regurgitation, tricuspid regurgitation, and chronic atrial fibrillation. He was in [place] for recurrent fluid overload and anasarca. He underwent cardiac catheterization which did not demonstrated evidence of associated CAD. He did undergo Watchman device placement months ago in his left atrial appendage. Primary SNF/hospital problems --Deconditioning: Improving. Continue PT. --Pleural effusion, right sided: S/p 1500 mL thoracentesis 07/17/19. Increased as evidenced by 08/01/19 XR and 08/03/19 US. Plan for repeat thoracentesis by IR at [facility]. --Severe mitral regurgitation S/P MVR (mitral valve replacement) mechanical prosthesis: Continue warfarin per [facility]. --Severe tricuspid regurgitation S/P TVR (tricuspid valve repair) --HFpEF, chronic combined systolic and diastolic: BNP 736 on 07/14/19. Clinical status stable back on diuretic regimen. Metoprolol succinate 25mg daily, furosemide 80mg po BID. Not on ACEI due to CKD and recently labile Cr. Continue close monitoring of respiratory status, edema, I/O, and weight. --Moderate to severe pulmonary hypertension --CKD, stage III: Back at baseline creatinine ~1.8. --Dysphagia with severe swallowing abnormality: See speech therapy consultation and swallow study. Gastric feeding tube recommended, which was discussed at length with patient, daughter, and cardiothoracic surgery team by Héctor Cisneros APRN-ALEXIS. Plan for upcoming PEG tube placement at [facility], being coordinated by cardiothoracic surgery team. Recent/resolved problems --NSTEMI ,type 2 --HCA pneumonia, Pseudomonas aeruginosa --Community acquired pneumonia --Sepsis 2/2 pneumonia --Acute encephalopathy --Wound VAC, chest wall: Removed at follow-up visit 07/11/19. Chronic/stable problems --COPD: On Utibron and Flovent in the hospital instead of home Trelegy, Duonebs prn. --Obstructive sleep apnea: CPAP nightly. --Chronic nocturnal hypoxemic respiratory failure: Oxygen nightly. --Atrial fibrillations s/p Watchman left atrial appendage closure device: On amiodarone 200mg. --Venous insufficiency: Compression stockings. --BPH and history of bladder neck contracture s/p recent direct visualization/ cystoscope: Stable. On finasteride and tamsulosin. Monitor for AUR. --GERD / GI prophylaxis: Stable. On PPI. --Constipation: Stable. On PEG, docusate, and MoM prn. --DMT2: Home Trulicity held. Was started on Lantus 15u qHS at admission to SNF, which is now decreased to 6un qHS due to BG control. Not on metformin due to CKD. Continue monitoring and consider discontinuation of insulin if ongoing low- end BGs. --HLD: On statin. --Vitamin D deficiency: On vitD supplementation. --Gout: No recent flares. On allopurinol. --RLS: Stable. On ropinirole. --Chronic pain: Stable. On tramadol 50mg qHS, Tylenol 650mg q8h, and Aspercreme prn. --Chronic allergic rhinitis: Stable. On montelukast daily, nasal saline prn, guaifenesin 600mg (changed to prn). --Chronic dry eyes: Stable. On artificial tears prn. Misc. note: Patient's medication list upon admission to [facility] and then here showed risperidone 0.25mg TID, which has been continued "as previously taking" each time. Looking back at prior detailed medication lists shows no prior prescription for risperidone and the only mention of its use in the inpatient documentation shows it as a continued outpatient medication for chronic, stable mood disorder, of which there is no prior documentation. It was previously put in the patient's home medication list on 06/20/19 as a historical medication at the sig 0.25mg TID, which is incidentally the same sig for ropinirole 0.25mg TID, which he has been on for at least the last 6 years at this dosing for known and documented restless leg syndrome. In discussion with patient, prior evaluating providers, pharmacy, and nursing staff, risperidone is being discontinued. Will monitor mood and overall clinical status. Upcoming appointments/consultations --08/14/2019 - 4 appointments starting at 0915 for xray, echocardiogram, EKG, and post op with Dr. Crouch at [facility] Hospitalization details --Code status: DNI, see POLST document. --Disposition: Continue swing bed status for rehabilitation, as above. Cardiothoracic surgery team is considering coordination for transfer to [facility] due to ongoing close monitoring and intervention needed for recurrent pleural effusion and gastric feeding; will await further coordination on 08/07/19.
[2019-08-05] MEDS: Hydrocortisone 1% Crm 30 GM Tube TOP PRN ×2 (14:48→21:53)
[2019-08-05] MEDS: Furosemide 40 MG Tab PO SCH (17:14)
[2019-08-05] MEDS: Metoprolol Succinate 25 MG Tab.ER PO SCH (17:14)
[2019-08-05] MEDS: Warfarin 2.5 MG Tab PO SCH (17:14)
[2019-08-05] MEDS: Montelukast 10 MG Tab PO SCH (21:44)
[2019-08-05] MEDS: atorvaSTATin 10 MG Tab PO SCH (21:45)
[2019-08-05] MEDS: Tamsulosin 0.4 MG Cap.ER PO SCH (21:47)
[2019-08-05] MEDS: Insulin Glargine,Human Rec. Analog 100 Units/ML 3 ML Pen SUBCUT SCH (21:50)
[2019-08-05] MEDS: traMADol 50 MG Tab PO SCH (21:53)
[2019-08-06] MEDS: Calamine/Zinc Oxide Lotion 118 ML Bottle TOP PRN ×2 (01:00→01:45)
[2019-08-06] MEDS: Hydrocortisone 1% Crm 30 GM Tube TOP PRN ×2 (01:51→09:35)
[2019-08-06] MEDS: traMADol 50 MG Tab PO SCH ×2 (02:38→21:43)
[2019-08-06] MEDS: Acetaminophen 650 MG Tab.ER PO SCH ×3 (06:25→23:48)
[2019-08-06] MEDS: Omeprazole 20 MG Cap.CR PO SCH (06:25)
[2019-08-06] MEDS: guaiFENesin 600 MG Tab.ER PO SCH ×2 (06:27→18:16)
[2019-08-06 08:10] LABS: ANION GAP 11.4 mmol/L (5-15)
[2019-08-06] MEDS: Cholecalciferol (Vitamin D3) 25 MCG Tab PO SCH ×2 (08:35→21:42)
[2019-08-06] MEDS: Finasteride 5 MG Tab PO SCH (08:36)
[2019-08-06] MEDS: Allopurinol 100 MG Tab PO SCH (08:36)
[2019-08-06] MEDS: Furosemide 40 MG Tab PO SCH ×2 (08:36→17:02)
[2019-08-06] MEDS: Naloxegol Oxalate 25 MG Tab PO SCH (08:37)
[2019-08-06] MEDS: rOPINIRole 0.25 MG Tab PO SCH ×3 (08:37→21:42)
[2019-08-06] MEDS: risperiDONE 0.25 MG Tab PO SCH ×2 (08:37→13:19)
[2019-08-06] MEDS: Amiodarone 200 MG Tab PO SCH (08:37)
[2019-08-06] MEDS: Fluticasone Propionate 110 MCG/Puff 12 GM Inhaler INH SCH (08:38)
[2019-08-06] MEDS: Indacaterol/Glycopyrrolate 1 EA Cap.W.Dev Kit of 6 IH SCH ×2 (08:39→21:40)
[2019-08-06] MEDS: Albuterol/Ipratropium 3.0-0.5 MG/3 ML Neb Soln NEB PRN (11:24)
[2019-08-06] MEDS ORDERED: LORazepam 0.5 MG Tab PO PRN (14:21)
[2019-08-06] MEDS: Warfarin 2.5 MG Tab PO SCH (18:12)
[2019-08-06] MEDS: Metoprolol Succinate 25 MG Tab.ER PO SCH (18:12)
[2019-08-06] MEDS: Tamsulosin 0.4 MG Cap.ER PO SCH (21:42)
[2019-08-06] MEDS: Montelukast 10 MG Tab PO SCH (21:42)
[2019-08-06] MEDS: atorvaSTATin 10 MG Tab PO SCH (21:43)
[2019-08-06] MEDS: Insulin Glargine,Human Rec. Analog 100 Units/ML 3 ML Pen SUBCUT SCH (21:45)
[2019-08-07] MEDS: risperiDONE 0.25 MG Tab PO SCH ×2 (00:42→10:48)
[2019-08-07] MEDS: Albuterol/Ipratropium 3.0-0.5 MG/3 ML Neb Soln NEB PRN (05:54)
[2019-08-07] MEDS: Sodium Chloride 0.65% Nasal Spray 45 ML Bottle NAS PRN ×2 (06:05→09:41)
[2019-08-07] MEDS: Acetaminophen 650 MG Tab.ER PO SCH (06:09)
[2019-08-07] MEDS: guaiFENesin 600 MG Tab.ER PO SCH (06:09)
[2019-08-07] MEDS: Omeprazole 20 MG Cap.CR PO SCH (06:09)
[2019-08-07 06:23] VITALS: BP 108/66
[2019-08-07] MEDS: Fluticasone Propionate 110 MCG/Puff 12 GM Inhaler INH SCH (09:27)
[2019-08-07] MEDS: Indacaterol/Glycopyrrolate 1 EA Cap.W.Dev Kit of 6 IH SCH (09:28)
[2019-08-07 10:32] VITALS: PULSE 83
[2019-08-07] MEDS: Naloxegol Oxalate 25 MG Tab PO SCH (10:47)
[2019-08-07] MEDS: Cholecalciferol (Vitamin D3) 25 MCG Tab PO SCH (10:48)
[2019-08-07] MEDS: Finasteride 5 MG Tab PO SCH (10:48)
[2019-08-07] MEDS: rOPINIRole 0.25 MG Tab PO SCH (10:48)
[2019-08-07] MEDS: Allopurinol 100 MG Tab PO SCH (10:48)
[2019-08-07] MEDS: Amiodarone 200 MG Tab PO SCH (11:06)
[2019-08-07] MEDS: Furosemide 40 MG Tab PO SCH (11:06)
[2019-08-07] MEDS ORDERED: guaiFENesin 600 MG Tab.ER PO PRN (12:04)
--- NOTE | 2019-08-07 14:44 | PCM.DCSUM1 ---
Discharge Summary - Hospital Course Free Text/Narrative:: Date of admission: 07/06/19 Date of discharge: 08/07/19 Admission diagnoses: Deconditioning, profound Wound VAC, chest wall Severe mitral regurgitation S/P MVR (mitral valve replacement) mechanical prosthesis Severe tricuspid regurgitation S/P TVR (tricuspid valve repair) HFpEF, chronic combined systolic and diastolic CKD, stage III Anemia of CKD Recent community acquired pneumonia Recent sepsis 2/2 pneumonia Recent acute encephalopathy Discharge diagnoses: Deconditioning, profound Wound VAC, chest wall, s/p removal Severe mitral regurgitation S/P MVR (mitral valve replacement) mechanical prosthesis Severe tricuspid regurgitation S/P TVR (tricuspid valve repair) HFpEF, chronic combined systolic and diastolic Atrial fibrillation Pleural effusion, right sided Dysphagia with severe swallowing abnormality CKD, stage III Anemia of CKD NSTEMI, type 2 Pseudomonas aeruginosa respiratory infection Recent community acquired pneumonia Recent sepsis 2/2 pneumonia Recent acute encephalopathy Consultations: Physical therapy Cardiothoracic surgery Interventional radiology Hospitalist Procedures: [facility]17[facility] course: Mr. Cooper is a 73yoM who recently underwent urgent repair of his mitral valve at [facility] due to cardiogenic shock/CHF and was subsequently transferred here to SNF status for PT and recovery. Patient does the history of severe CHF secondary to severe mitral regurgitation, tricuspid regurgitation, and chronic atrial fibrillation. He was in [place] for recurrent fluid overload and anasarca. He underwent cardiac catheterization which did not demonstrated evidence of associated CAD. He did undergo Watchman device placement months ago in his left atrial appendage. Following extended acute hospitalization for post- op care, sepsis secondary to pneumonia and acute encephalopathy. After stabilization, he was admitted to swing bed for physical therapy rehabilitation for profound deconditioning. Most notable hospital course include the following: - Deconditioning: He made steady progress with physical therapy, which continues to be ongoing with significant further need given profound deconditioning. - HFpEF, chronic combined systolic and diastolic: His fluid status became slowly more overloaded throughout his stay and he was restarted on diuretic regimen which was titrated up to furosemide 80mg po BID at the time of discharge along with metoprolol succinate 25mg daily. Not on ACEI due to CKD and recently labile Cr. Cardiothoracic surgery was frequently made aware of patient status and also had follow-up visits on 07/11/19 and 07/17/19. The increasing fluid overload also involved a right sided pleural effusion, for which 1500mL thoracentesis performed 07/17/19 by interventional radiology at [facility]. The fluid reaccumulated and increased as evidenced by 08/01/19 XR and 08/03/19 US. After discussion with cardiothoracic surgery team, plan for repeat thoracentesis. - Dysphagia with severe swallowing abnormality: See speech therapy consultation and swallow study details. Gastric feeding tube recommended, which was discussed at length with patient, daughter, and cardiothoracic surgery team by Héctor Cisneros APRN-ALLIGATOR HUNTER. Plan for upcoming PEG tube placement at [facility]. - Atrial fibrillation s/p Watchman left atrial appendage closure device and NSTEMI: Restarted on amiodarone 200mg 07/21/19 due to recurrent RVR and NSTEMI with troponin peak at 0.13. - Pseudomonas aeruginosa respiratory infection: Was treated for respiratory culture growing Pseudomonas. - Medication change: Patient's medication list upon admission to [facility] and then here showed risperidone 0.25mg TID, which has been continued "as previously taking" each time. Looking back at prior detailed medication lists shows no prior prescription for risperidone and the only mention of its use in the inpatient documentation shows it as a continued outpatient medication for chronic, stable mood disorder, of which there is no prior documentation. It was previously put in the patient's home medication list on 06/20/19 as a historical medication at the sig 0.25mg TID, which is incidentally the same sig for ropinirole 0.25mg TID, which he has been on for at least the last 6 years at this dosing for known and documented restless leg syndrome. In discussion with patient, prior evaluating providers, pharmacy, and nursing staff, risperidone is being discontinued. Will monitor mood and overall clinical status. - POLST document updated during stay. Most updated document includes DNI. Chronic/stable problems --COPD: On Utibron and Flovent in the hospital instead of home Josey Alvarez prn. --Obstructive sleep apnea: CPAP nightly. --Severe mitral regurgitation S/P MVR (mitral valve replacement) mechanical prosthesis: On warfarin managed by [facility]. --Severe tricuspid regurgitation S/P TVR (tricuspid valve repair) --Moderate to severe pulmonary hypertension --Chronic nocturnal hypoxemic respiratory failure: Oxygen nightly. --Venous insufficiency: Compression stockings. --CKD, stage III --BPH and history of bladder neck contracture s/p recent direct visualization/ cystoscope: Stable. On finasteride and tamsulosin. --GERD / GI prophylaxis: Stable. On PPI. --Constipation: Stable. On PEG, docusate, and MoM prn. --DMT2: Home Trulicity held. Was started on Lantus 15u qHS at admission to SNF, which is now decreased to 6un qHS due to BG control. Not on metformin due to CKD. --HLD: On statin. --Vitamin D deficiency: On vitD supplementation. --Gout: No recent flares. On allopurinol. --RLS: Stable. On ropinirole. --Chronic pain: Stable. On tramadol 50mg qHS, Tylenol 650mg q8h, and Aspercreme prn. --Chronic allergic rhinitis: Stable. On montelukast daily, nasal saline prn, guaifenesin 600mg prn. --Chronic dry eyes: Stable. On artificial tears prn. Discharge and follow-up recommendations: - Discharge to [facility] for planned PEG tube placement and repeat thoracentesis during hospitalization for close monitoring and determine of ongoing appropriate discharge pain - See detailed medication list - Discharge Data Discharge Date: 08/07/19 Discharge Disposition: DC/Tfer to Acute Hospital 02 Condition: Good - Referral to Home Health Primary Care Physician: Fabiola Shah PA-C - Patient Summary/Data Consults: Consultations 07/06/19 11:49 PT Evaluation and Treatment [CONS] Routine 07/20/19 12:29 Consult to Fire Officer [CONS] Routine 07/31/19 09:12 Consult to Speech Language Pathology [SCRAP IRON CUTTER Evaluation and Treatment] [CONS] Routine - Patient Instructions Diet: Heart Healthy Diet, Fluid Restriction, Diabetic Diet Activity: As Tolerated - Discharge Plan *PRESCRIPTION DRUG MONITORING PROGRAM REVIEWED*: Not Applicable *COPY OF PRESCRIPTION DRUG MONITORING REPORT IN PATIENT MAX: Not Applicable Home Medications: Home Meds Allopurinol [Zyloprim] 150 mg PO DAILY 07/21/16 [History] Montelukast [Singulair] 10 mg PO BEDTIME 07/21/16 [History] atorvaSTATin [Lipitor] 10 mg PO BEDTIME 09/02/18 [History] Polyethylene Glycol 3350 [MiraLAX] 17 gm PO BID PRN 04/05/19 [History] rOPINIRole [Requip] 0.25 mg PO TID 04/08/19 [History] Cholecalciferol (Vitamin D3) [Vitamin D3] 1,000 unit PO BID 07/06/19 [History] Clindamycin HCl [Cleocin HCl] 600 mg PO ONETIME PRN 07/06/19 [History] Dextran 70/Hypromellose [Artificial Tears] 1 drop EYEBOTH Q4HR PRN 07/06/19 [ History] Finasteride 5 mg PO DAILY 07/06/19 [History] Fluticasone/Umeclidin/Vilanter [Trelegy Ellipta 100-62.5-25 MCG] 1 puff INH DAILY 07/06/19 [History] Pantoprazole [ProTONIX] 40 mg PO DAILY 07/06/19 [History] Sennosides/Docusate Sodium [Senna-Docusate Sodium Tablet] 1 tab PO BEDTIME PRN 07/06/19 [History] Tamsulosin HCl [Flomax] 0.4 mg PO BEDTIME 07/06/19 [History] traMADol [Ultram] 50 mg PO BEDTIME 07/06/19 [History] Acetaminophen [Tylenol Arthritis Pain] 650 mg PO Q8H tab.er 08/07/19 [Rx] Albuterol/Ipratropium [DuoNeb 3.0-0.5 MG/3 ML] 3 ml NEB Q6HRRT PRN neb [Rx] Amiodarone [Cordarone] 200 mg PO DAILY tablet 08/07/19 [Rx] Furosemide [Lasix] 80 mg PO BIDDIURETIC tablet 08/07/19 [Rx] Insulin Glarg,Human.Rec.Analog [Lantus Solostar] 6 units SUBCUT BEDTIME pen 01/20 [Rx] Metoprolol Succinate [Toprol XL] 25 mg PO 1800 tab.er 08/07/19 [Rx] Naloxegol Oxalate [Movantik] 25 mg PO DAILY tablet 08/07/19 [Rx] Warfarin [Coumadin] 1.25 mg PO MoWeFr@1800 tablet 08/07/19 [Rx] Warfarin [Coumadin] 2.5 mg PO SuTuThSa@1800 tablet 08/07/19 [Rx] guaiFENesin [Mucinex] 600 mg PO Q12H PRN tab.er 08/07/19 [Rx] - Discharge Summary/Plan Comment DC Time >30 min.: Yes - General Info Subjective Update: Overall feeling well. Slept well last night lying flat in bed. Breathing stable. Nursing notes no concerns. - Patient Data Vitals - Most Recent: Last Vital Signs Temp 36.2 C 08/07/19 06:22 Pulse 83 08/07/19 09:28 Resp 16 08/07/19 06:22 BP 108/66 08/07/19 06:22 Pulse Ox 98 08/07/19 09:28 Weight - Most Recent: 98.883 kg I&O - Last 24 hours: Intake & Output 08/06/19 08/07/19 08/07/19 22:59 06:59 14:59 Intake Total 240 0 180 Output Total 900 400 600 Balance -660 -400 -420 Lab Results - Last 24 hrs: Laboratory Results - last 24 hr 08/06/19 08/07/19 Range/Units 21:47 08:20 POC Glucose 217 H 96 (74-106) mg/dl Med Orders - Current: Current Medications Acetaminophen (Tylenol Arthritis Pain) 650 mg PO Q8H [facility] Last Admin: 08/07/19 06:09 Dose: Not Given Albuterol/Ipratropium (Duoneb 3.0-0.5 Mg/3 Ml) 3 ml NEB Q6HRRT PRN PRN Reason: Shortness of Breath Last Admin: 08/07/19 05:54 Dose: 3 ml Allopurinol (Zyloprim) 150 mg PO DAILY [facility] Last Admin: 08/07/19 10:48 Dose: Not Given Amiodarone HCl (Cordarone) 200 mg PO DAILY [facility] Last Admin: 08/07/19 11:06 Dose: 200 mg Atorvastatin Calcium (Lipitor) 10 mg PO BEDTIME [facility] Last Admin: 08/06/19 21:43 Dose: 10 mg Calamine/Zinc Oxide (Calamine Lotion) 0 ml TOP TID PRN PRN Reason: Itching Last Admin: 08/06/19 01:45 CDT Dose: 1 applic Cholecalciferol (Vitamin D3) 25 mcg PO BID [facility] Last Admin: 08/07/19 10:48 Dose: Not Given Finasteride (Proscar) 5 mg PO DAILY [facility] Last Admin: 08/07/19 10:48 Dose: Not Given Fluticasone Propionate (Flovent Hfa 110 Mcg) 0 gm INH DAILY [facility] Last Admin: 08/07/19 09:27 Dose: 1 inhalation Furosemide (Lasix) 80 mg PO BIDDIURETIC [facility] Last Admin: 08/07/19 11:06 Dose: 80 mg Furosemide (Lasix) 80 mg PO DAILY PRN PRN Reason: Other Glycopyrrolate/Indacaterol (Utibron Neohaler 27.5-15.6 Mcg) 1 each IH BID [facility] Last Admin: 08/07/19 09:28 Dose: 1 cap Guaifenesin (Mucinex) 600 mg PO Q12H PRN PRN Reason: Cough Hydrocortisone (Hydrocortisone 1% Crm) 0 gm TOP TID PRN PRN Reason: Itching Last Admin: 08/06/19 09:35 Dose: 1 applic Insulin Glargine (Lantus Solostar) 6 units SUBCUT BEDTIME [facility] Last Admin: 08/06/19 21:45 Dose: 6 units Lorazepam (Ativan) 0.5 mg PO BEDTIME PRN PRN Reason: insomnia/anxiety/itching Last Admin: 08/06/19 23:48 Dose: 0.5 mg Metoprolol Succinate (Toprol Xl) 25 mg PO 1800 [facility] Last Admin: 08/06/19 18:12 Dose: 25 mg Montelukast Sodium (Singulair) 10 mg PO BEDTIME [facility] Last Admin: 08/06/19 21:42 Dose: 10 mg Naloxegol (Movantik) 25 mg PO DAILY [facility] Last Admin: 08/07/19 10:47 Dose: Not Given Nitroglycerin (Nitrostat) 0.4 mg SL ASDIRECTED PRN PRN Reason: Heart. Last Admin: 07/22/19 11:28 Dose: 0.4 mg Non-Formulary Medication (Dextran 70/Hypromellose [Artificial Tears]) 1 drop EYEBOTH Q4HR PRN PRN Reason: Dry Eyes Omeprazole (Omeprazole) 20 mg PO 0700 [facility] Last Admin: 08/07/19 06:09 Dose: Not Given Polyethylene Glycol (Miralax) 17 gm PO BID PRN PRN Reason: Constipation Risperidone (Risperidal) 0.25 mg PO TID [facility] Last Admin: 08/07/19 10:48 Dose: Not Given Senna/Docusate Sodium (Senna Plus) 1 tab PO BEDTIME PRN PRN Reason: Constipation Last Admin: 08/04/19 10:27 Dose: 1 tab Sodium Chloride (Saline Flush) 10 ml FLUSH Q8HR PRN PRN Reason: keep vein open Last Admin: 08/03/19 17:07 Dose: 10 ml Sodium Chloride (Lane Nasal [place]) 0 ml ENRIQUE QID PRN PRN Reason: Nasal Dryness Last Admin: 08/07/19 09:41 Dose: 1 spray Tamsulosin HCl (Flomax) 0.4 mg PO BEDTIME [facility] Last Admin: 08/06/19 21:42 Dose: 0.4 mg Tramadol HCl (Ultram) 50 mg PO BEDTIME [facility] Last Admin: 08/06/19 21:43 Dose: 50 mg Tramadol HCl (Ultram) 50 mg PO Q6H PRN PRN Reason: Other Last Admin: 07/29/19 05:09 Dose: 50 mg Trolamine Salicylate (Aspercreme 10%) 0 gm TOP TID PRN PRN Reason: Pain Last Admin: 08/02/19 23:49 Dose: 1 applic Warfarin Sodium (Coumadin) 2.5 mg PO SuTuThSa@1800 [facility] Stop: 08/07/19 19:00 Last Admin: 08/06/19 18:12 Dose: 2.5 mg Warfarin Sodium (Coumadin) 1.25 mg PO MoWeFr@1800 [facility] Stop: 08/07/19 20:00 Last Admin: 08/04/19 17:29 Dose: 1.25 mg Discontinued Medications Acetaminophen (Tylenol) 650 mg PO Q4H PRN PRN Reason: Pain Last Admin: 07/25/19 09:42 Dose: 650 mg Albuterol (Ventolin Hfa) 0 gm INH Q4H PRN PRN Reason: difficulty breathing Last Admin: 07/26/19 13:44 Dose: 2 inhalation Albuterol/Ipratropium (Duoneb 3.0-0.5 Mg/3 Ml) 3 ml NEB TID PRN PRN Reason: Dyspnea Last Admin: 07/14/19 13:00 Dose: 3 ml Albuterol/Ipratropium (Duoneb 3.0-0.5 Mg/3 Ml) 3 ml NEB Q6HRRT [facility] Last Admin: 07/18/19 11:53 Dose: Not Given Amiodarone HCl (Cordarone) 200 mg PO BID [facility] Stop: 07/22/19 10:00 Last Admin: 07/22/19 09:33 Dose: 200 mg Atropine Sulfate (Atropine 0.1 Mg/Ml) 0 mg IVPUSH ASDIRECTED PRN PRN Reason: Heart. Epinephrine HCl (Epinephrine 1:10,000) 1 mg IVPUSH ASDIRECTED PRN PRN Reason: Heart. Fluticasone Propionate (Flovent Hfa 110 Mcg) 0 gm INH DAILY [facility] Furosemide (Lasix) 20 mg IVPUSH NOW ONE Stop: 07/14/19 15:11 Last Admin: 07/14/19 15:20 Dose: 20 mg Furosemide (Lasix) 20 mg IVPUSH NOW ONE Stop: 07/14/19 15:25 Last Admin: 07/14/19 15:40 Dose: Not Given Furosemide (Lasix) 40 mg IVPUSH BID@0900,1500 [facility] Last Admin: 07/18/19 16:52 Dose: Not Given Furosemide (Lasix) 20 mg IVPUSH NOW ONE Stop: 07/14/19 15:28 Last Admin: 07/14/19 15:25 Dose: 20 mg Furosemide (Lasix) 40 mg IVPUSH NOW ONE Stop: 07/14/19 19:01 Last Admin: 07/14/19 18:53 Dose: 40 mg Furosemide (Lasix) 40 mg IVPUSH DAILY [facility] Stop: 08/01/19 09:00 Last Admin: 08/01/19 08:29 Dose: 40 mg Furosemide (Lasix) 40 mg IVPUSH DAILY PRN PRN Reason: Other Last Admin: 07/31/19 22:33 Dose: 40 mg Furosemide (Lasix) 20 mg IVPUSH NOW ONE Stop: 07/23/19 07:21 Last Admin: 07/23/19 07:34 Dose: 20 mg Furosemide (Lasix) 40 mg IVPUSH BIDDIURETIC [facility] Last Admin: 08/05/19 09:26 Dose: 40 mg Furosemide (Lasix) 40 mg IVPUSH DAILY PRN PRN Reason: Other Guaifenesin (Mucinex) 600 mg PO Q12H [facility] Last Admin: 08/07/19 06:09 Dose: Not Given Insulin Detemir (Levemir) 20 unit SUBCUT BEDTIME [facility] Last Admin: 07/06/19 21:26 Dose: 20 units Insulin Glargine (Lantus Solostar) 15 units SUBCUT BEDTIME [facility] Last Admin: 07/08/19 20:33 Dose: 15 units Insulin Glargine (Lantus Solostar) 10 units SUBCUT BEDTIME [facility] Last Admin: 08/04/19 21:34 Dose: 10 unit Levofloxacin (Levaquin) 750 mg PO Q48H [facility] Stop: 08/04/19 14:01 Last Admin: 08/04/19 14:09 Dose: 750 mg Lidocaine HCl (Xylocaine 2%) 0 mg IVPUSH ASDIRECTED PRN PRN Reason: Heart. Magnesium Oxide (Magnesium Oxide) 500 mg PO DAILY [facility] Stop: 07/16/19 09:01 Last Admin: 07/16/19 08:56 Dose: 500 mg Metolazone (Zaroxolyn) 2.5 mg PO ONETIME ONE Stop: 08/01/19 12:01 Last Admin: 08/01/19 12:01 Dose: 2.5 mg Metoprolol Succinate (Toprol Xl) 12.5 mg PO 1800 [facility] Last Admin: 07/15/19 17:26 Dose: 12.5 mg Metoprolol Tartrate (Lopressor) 0 mg IVPUSH ONETIME ONE Stop: 07/16/19 02:36 Last Admin: 07/16/19 03:07 Dose: 5 mg Non-Formulary Medication (Dulaglutide [Trulicity]) 0.75 mg SUBCUT WEEKLY [facility] Ropinirole HCl (Requip) 0.25 mg PO TID [facility] Last Admin: 08/07/19 10:48 Dose: Not Given Warfarin Sodium (Coumadin) 2.5 mg PO 1800 [facility] Last Admin: 07/10/19 17:56 Dose: 2.5 mg Warfarin Sodium (Coumadin) 5 mg PO ONETIME [facility] Stop: 07/11/19 19:30 Last Admin: 07/11/19 17:42 Dose: 5 mg Warfarin Sodium (Coumadin) 2.5 mg PO DAILY@1800 [facility] Stop: 07/13/19 20:00 Last Admin: 07/13/19 18:34 Dose: 2.5 mg Warfarin Sodium (Coumadin) 3.75 mg PO ONETIME [facility] Stop: 07/14/19 19:00 Last Admin: 07/14/19 18:53 Dose: 3.75 mg Warfarin Sodium (Coumadin) 2.5 mg PO DAILY@1800 [facility] Stop: 07/16/19 21:00 Last Admin: 07/16/19 17:42 Dose: 2.5 mg Warfarin Sodium (Coumadin) 1.25 mg PO ONETIME ONE Stop: 07/17/19 18:01 Last Admin: 07/17/19 17:30 Dose: 1.25 mg Warfarin Sodium (Coumadin) 2.5 mg PO DAILY@1800 [facility] Stop: 07/19/19 20:00 Last Admin: 07/19/19 17:28 Dose: 2.5 mg Warfarin Sodium (Coumadin) 1.25 mg PO DAILY@1800 [facility] Stop: 07/21/19 20:00 Last Admin: 07/21/19 18:14 Dose: 1.25 mg Warfarin Sodium (Coumadin) 2.5 mg PO ONETIME ONE Stop: 07/22/19 18:01 Last Admin: 07/22/19 18:14 Dose: 2.5 mg Warfarin Sodium (Coumadin) 1.25 mg PO ONETIME ONE Stop: 07/23/19 18:01 Last Admin: 07/23/19 18:14 Dose: 1.25 mg Warfarin Sodium (Coumadin) 2.5 mg PO DAILY@1799 [facility] Stop: 07/25/19 20:00 Last Admin: 07/25/19 18:10 Dose: 2.5 mg Warfarin Sodium (Coumadin) 1.25 mg PO DAILY@1799 [facility] Stop: 07/26/19 20:00 Last Admin: 07/26/19 18:22 Dose: 1.25 mg Warfarin Sodium (Coumadin) 2.5 mg PO 1800 [facility] Stop: 07/27/19 19:00 Last Admin: 07/27/19 17:52 Dose: 2.5 mg Warfarin Sodium (Coumadin) 1.25 mg PO MoFr@1800 [facility] Stop: 07/31/19 20:00 Last Admin: 07/31/19 17:29 Dose: 1.25 mg Warfarin Sodium (Coumadin) 2.5 mg PO SuSa@1800 [facility] Stop: 07/30/19 20:00 Last Admin: 07/30/19 17:53 Dose: 2.5 mg - Exam Physical Findings Comments:: GENERAL: Chronically ill appearing elderly white male appearing older than stated age. HEENT: Normocephalic, atraumatic. Conjunctiva clear. Nares patent without discharge. PULMONARY: Normal effort. ABDOMEN: Obese. EXTREMITIES / DERMATOLOGIC: 2+ diffuse edema to bilateral lower extremities to knees with anterior kathleen appearance without erythema. MUSCULOSKELETAL: Moves all extremities. Ambulates with walker and assist. NEUROLOGICAL: No obvious deficits. PSYCHIATRIC: Alert, interactive, appropriate affect.
== END 2019-08-07 14:57 | DRG 947 ==
LOC: KA.MS 14:39
PROVIDERS: ADMIT Nurse Practitioner Family; ATTEND Nurse Practitioner Family
DX: R53.81 Other malaise (principal); I21.A1 Myocardial infarction type 2; I48.20 Chronic atrial fibrillation, unspecified; I50.42 Chronic combined systolic (congestive) and diastolic (congestive) heart failure; J90 Pleural effusion, not elsewhere classified; I97.190 Other postprocedural cardiac functional disturbances following cardiac surgery; I47.2 Ventricular tachycardia; J96.11 Chronic respiratory failure with hypoxia; I13.0 Hypertensive heart and chronic kidney disease with heart failure and stage 1 through stage 4 chronic kidney disease, or unspecified chronic kidney disease; Z66 Do not resuscitate; I08.1 Rheumatic disorders of both mitral and tricuspid valves; E11.22 Type 2 diabetes mellitus with diabetic chronic kidney disease; J44.9 Chronic obstructive pulmonary disease, unspecified; G47.33 Obstructive sleep apnea (adult) (pediatric); I27.20 Pulmonary hypertension, unspecified; E78.5 Hyperlipidemia, unspecified; G25.81 Restless legs syndrome; D63.1 Anemia in chronic kidney disease; M10.9 Gout, unspecified; I87.2 Venous insufficiency (chronic) (peripheral); E83.42 Hypomagnesemia; N18.3 Chronic kidney disease, stage 3 (moderate); R13.10 Dysphagia, unspecified; N40.0 Benign prostatic hyperplasia without lower urinary tract symptoms; K21.9 Gastro-esophageal reflux disease without esophagitis; B96.5 Pseudomonas (aeruginosa) (mallei) (pseudomallei) as the cause of diseases classified elsewhere; I25.10 Atherosclerotic heart disease of native coronary artery without angina pectoris; J98.8 Other specified respiratory disorders; F39 Unspecified mood [affective] disorder; G89.29 Other chronic pain; H04.123 Dry eye syndrome of bilateral lacrimal glands; J30.9 Allergic rhinitis, unspecified; K59.09 Other constipation; M81.0 Age-related osteoporosis without current pathological fracture; E66.9 Obesity, unspecified; Z79.01 Long term (current) use of anticoagulants; Z90.49 Acquired absence of other specified parts of digestive tract; Z79.899 Other long term (current) drug therapy
CPT/HCPCS: 36415; 36416; 71046; 74230; 80048; 82962; 83735; 83880; 84145; 84484; 85025; 85610; 87070; 87186; 87205; 92526-GN; 92610-GN; 92611-GN; 93005; 94640; 97110-GP; 97162-GP; 97530-GP; A9270-GY; G0283-GP; J1815-GY; J1940; J3490; J7620-GY